=== PATIENT | female | born 1950 | race Caucasian/White ===

== ENCOUNTER 2018-05-25 09:35 | Outpatient (CLI) | payer MEDICARE, OTHER, SELFPAY ==
[2018-05-25 12:33] LABS: HGB 12.5 g/dL (12.0-15.5); Mean Corp. HGB Concentration 32.1 g/dL (32.0-36.0); Mean Corpuscular Hemoglobin 32.4 pg (27.0-33.0); Mean Platelet Volume 9.9 fL (8.0-11.0); Platelet Count 209 x1000/uL (130-400); RBC 3.86 m/cumm (4.00-5.20); RBC Distribution Width 14.9 % (11.7-14.6); White Blood Cell Count 6.48 k/cumm (4.4-10.8)
[2018-05-25 13:13] LABS: ALT 23 U/L (12-78); AST 24 U/L (15-37); Albumin 3.6 g/dL (3.4-5.0); Alkaline Phosphatase 101 U/L (46-116); Anion Gap 5.5 mmol/L (3-11); BUN 23 mg/dL (7-18); Bilirubin, Total 0.8 mg/dL (0.2-1.0); CO2 29.5 mmol/L (21.0-32.0); Calcium 9.7 mg/dL (8.5-10.1); Chloride 103 mmol/L (98-107); Cholesterol 195 mg/dL (50-200); Estimated GFR 49.39 (mL/min/1.73m2); Glucose 84 mg/dL (70-100); HDL Cholesterol 89 mg/dL (40-60); LDL CHOLESTEROL 91 mg/dL (<100); Potassium 4.1 mmol/L (3.5-5.1); Sodium 138 mmol/L (136-145); TSH (W/Ref FT4) 1.37 uIU/mL (0.358-3.74); Total Protein 6.6 g/dL (6.4-8.2); Triglyceride 46 mg/dL (30-150)
[2018-05-25 13:17] LABS: Folate > 20.0 ng/mL (8.6-20.0)
[2018-05-25 13:19] LABS: Vitamin D 25 Total 20.4 ng/ml (30-100)
[2018-05-25 21:21] LABS: Vitamin B12 474 pg/mL (193-986)
== END 2018-05-25 09:55 ==
PROVIDERS: PCP Family Medicine; Visit Provider Family Medicine
DX: E55.9 Vitamin D deficiency, unspecified (principal); E78.5 Hyperlipidemia, unspecified; F31.9 Bipolar disorder, unspecified; R71.8 Other abnormality of red blood cells
CPT/HCPCS: 36415; 80053; 80061; 82306; 83721; 85027; 82607; 82746; 84443

== ENCOUNTER 2018-05-26 00:28 | Outpatient (CLI) | payer MEDICARE, OTHER, SELFPAY ==
--- NOTE | 2018-05-26 09:05 | DI.US_ITS ---
SYMPTOMS/DIAGNOSIS: VESICOURETERAL REFLUX, N13.70, URGENCY OF URINATION, R39.15 , MONITOR FOR HYDRONEPHROSIS, SPINA BIFIDA REFLUX RENAL ULTRASOUND: Routine examination. Comparison is 11/01/17. The right kidney measures 10 cm in length. No renal mass or obstruction is identified. Note is made of a 0.7 cm simple right renal cyst. There does appear to be a tiny echogenic focus in the mid pole of the right kidney suggesting a nonobstructing stone. Blood flow is seen to the right kidney. The left kidney again appears atrophic, measuring approximately 6.4 cm in length. There are a few tiny echogenic foci seen within the left kidney, suggesting nonobstructing stones. The prevoid urinary bladder volume was 270 cc. The bladder wall appeared smooth. Both ureteral jets were visualized. No intraluminal mass is seen. The postvoid urinary bladder volume is 53 cc. IMPRESSION: 1. Findings suggestive of bilateral nonobstructing renal stones. 2. Atrophic left kidney. 3. Mild postvoid urinary bladder volume.
== END 2018-05-26 00:48 ==
PROVIDERS: PCP Family Medicine; Visit Provider Urology
DX: N13.70 Vesicoureteral-reflux, unspecified (principal); R39.15 Urgency of urination; N20.0 Calculus of kidney; N26.1 Atrophy of kidney (terminal)
CPT/HCPCS: 76770; 99213

== ENCOUNTER 2018-06-28 19:30 | Emergency (ER) | payer MEDICARE, OTHER, SELFPAY ==
[2018-06-28] VITALS (30 sets, daily range): BP systolic 118–169; BP diastolic 66–91; PULSE 61–100; RESP 12–23; TEMP 36.3; O2SAT 96–100
--- NOTE | 2018-06-28 20:00 | DI.CT_ITS ---
SYMPTOMS/DIAGNOSIS: CHEST AND ABD PAIN CTA CHEST, ABDOMEN AND PELVIS: CT angiography was performed with multi slice acquisition and multi planar and 3D reconstruction. CHEST: Comparison is made with chest CT dated . There is no evidence of aortic dissection. The pulmonary arteries are suboptimally opacified with IV contrast. No large pulmonary artery filling defects are seen. There is a moderate size hiatal hernia. There is mild scarring in the left anterior chest wall and adjacent lung which could be related to treatment for breast cancer. No suspicious pulmonary nodules are identified. Degenerative changes are seen in the spine. IMPRESSION: Hiatal hernia. No acute abnormality. ABDOMEN AND PELVIC: There is no evidence of dissection of the abdominal aorta. The aorta is normal in diameter. There is a right lower quadrant ostomy. Loops of bowel are seen extending through the ostomy defect. There is no evidence of obstruction. The ostomy was present on the previous exam however there are no herniated bowel loops at this time. The bladder is nearly empty. The uterus and ovaries are unremarkable. The appendix appears normal. There is a moderate to increased quantity of stool. The liver, spleen and adrenals are unremarkable. The pancreas is somewhat atrophic. The right kidney also appears atrophic which is unchanged from the previous exam. A large defect is again noted in the posterior spine containing fluid. This appears congenital. The findings are unchanged. 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
--- NOTE | 2018-06-28 20:07 | ED.GENADUL_ITS ---
Discharge Plan Disposition Patient Disposition: HOME Condition: Stable Discharge Details Chief Complaint: Chest Pain Clinical Impression: Chest pain Primary Care Provider: Faith Adorno ED Provider: Mateusz Farmer Home Meds and New Rx's Prescriptions: Continued Myrbetriq 50 mg tablet extended release 24 hr 50 mg PO DAILY Qty: 90 RF: 4 calcium carbonate-vitamin D3 1 EACH tablet 1 cap PO DAILY RF: 0 oxybutynin chloride 5 MG tablet extended release 24hr 5 mg PO DAILY Qty: 90 RF: 4 omeprazole 40 MG capsule,delayed release(DR/EC) 40 mg PO DAILY Qty: 90 RF: 11 venlafaxine [Effexor XR] 150 MG capsule,extended release 24hr 150 mg PO DAILY Qty: 90 RF: 3 lithium carbonate 150 MG capsule 3 tab-cap PO am Qty: 270 RF: 12 methotrexate sodium 2.5 MG tablet 8 tab PO QWEEK Qty: 72 RF: 12 folic acid 1 mg tablet 1 mg PO DAILY Qty: 90 RF: 12 ergocalciferol (vitamin D2) 50,000 unit capsule 50,000 unit PO QWEEK Qty: 14 RF: 5 Discharge Instructions Instructions: Chest Pain (ED) Additional Instructions: Your blood work and cat scan did not show any concerning findings If you have pain you can take 600mg ibuprofen every 6 hours Follow up with your primary care provider within a week return to the emergency department for severe worsening of pain or difficulty breathing Medical Decision Making 68 yo female comes in with chief complaint of chest and abdominal pain that started shortly after eating dinner. Denies n/v. Has had pain like this in the past but hasn't saught medical attention. She states she has an ostomy as she used to have frequent accidents due to her spina bifida, and has normal stool in it now and denies changes in output. Has mild epigastric pain. Heart score is 3, will send troponin to eval for acs and obtain CT to eval for entities such as dissection, PE, pancreratitis, cholecystitis among other pathologies. Will also treat with gi cocktail to see if it helps her symptoms. Her pain is positional, more pain with lsitting up so could be pericarditis as well labs unremarkable and imaging all negative, no longer has any pain except when sitting up. Suspect maybe pericarditis though no pericardial effusion or change son ekg. Will send second troponin pt remains stable, troponin negative, will d/c home and advised f/u with pcp in a week and returns precautions given Differential Diagnosis pancreatitis, hepatitis, sbo, acs, dissection Imaging Data Radiologic Study: Attestation: I personally reviewed and interpreted this imaging study as follows: Imaging: CT Scan Radiologist's impression: no acute findings Lab Data Lab results reviewed: Yes I reviewed the patient's lab results. ECG Data Attestation: I personally reviewed and interpreted this ECG (s) as follows: Prior ECG tracings: not available for review Interpretation: sinus rhythm, rate of 69, pr 156, qtc 403, no acute st t wave ischemic findings HPI General Mode of arrival: ambulatory . Date/Time Provider Initiated Documentation: 06/28/18 19:53 . Limitations to Documentation: no limitations . Information obtained by: patient . History of Present Illness 68 year old F presents to the emergency department with the chief complaint of chest and abdominal pain, described as moderate, with intensity rated at 3. Quality is described as stabbing and aching, and is localized to the chest and abdomen. Patient reports no radiation. Patient started experiencing this hour(s) (3) and it has been intermittent. other things that improve symptom(s), (laying down flat) Other factors that worsen symptoms (sitting up) . Patient notes no other symptoms.. Patient did receive the following treatments prior to arrival, none Related Data Home Medications Medication Instructions Recorded Confirmed calcium carbonate-vitamin D3 1 cap PO DAILY 04/03/15 06/28/18 oxybutynin chloride 5 mg PO DAILY #90 tab-cap 09/08/17 06/28/18 omeprazole 40 mg PO DAILY #90 tab-cap 10/25/17 05/26/18 lithium carbonate 3 tab-cap PO am #270 tab-cap 12/06/17 06/28/18 methotrexate sodium 8 tab PO QWEEK #72 tab 12/06/17 06/28/18 venlafaxine [Effexor XR] 150 mg PO DAILY #90 tab-cap 12/06/17 06/28/18 mirabegron ER 50 mg 50 mg PO DAILY #90 tab-cap 05/23/18 06/28/18 tablet,extended release 24 hr ergocalciferol (vitamin D2) 50,000 50,000 unit PO QWEEK #14 cap 05/25/18 06/28/18 unit capsule folic acid 1 mg tablet 1 mg PO DAILY #90 tab-cap 05/25/18 06/28/18 Previous Rx's Medication Instructions Recorded oxybutynin chloride 5 mg PO DAILY #90 tab-cap 09/08/17 omeprazole 40 mg PO DAILY #90 tab-cap 10/25/17 lithium carbonate 3 tab-cap PO am #270 tab-cap 12/06/17 methotrexate sodium 8 tab PO QWEEK #72 tab 12/06/17 venlafaxine [Effexor XR] 150 mg PO DAILY #90 tab-cap 12/06/17 mirabegron ER 50 mg 50 mg PO DAILY #90 tab-cap 05/23/18 tablet,extended release 24 hr ergocalciferol (vitamin D2) 50,000 50,000 unit PO QWEEK #14 cap 05/25/18 unit capsule folic acid 1 mg tablet 1 mg PO DAILY #90 tab-cap 05/25/18 Allergies Allergy/AdvReac Type Severity Reaction Status Date / Time phenelzine sulfate AdvReac Intermediate Neuro Unverified 06/28/18 21:06 [From Nardil] changes/loss of bladder control sucralfate [From Carafate] AdvReac Mild Diarrhea Unverified 06/28/18 21:06 General Stated Complaint: Chest Pain PARI: 2 Review of Systems Review of Systems All systems reviewed & are unremarkable except as noted in HPI and below Constitutional Denies chills, Denies fever(s) and Denies weakness Eyes Denies loss of vision ENT Denies change in voice Cardiovascular Denies dyspnea Respiratory Denies dyspnea Gastrointestinal Denies nausea and Denies vomiting Genitourinary Denies dysuria Musculoskeletal Denies joint swelling Integumentary/Breasts Denies rash Neurologic Denies loss of vision and Denies weakness Psychiatric Denies depression Endocrine Denies cold intolerance and Denies heat intolerance Allergic/Immunologic Denies urticaria [facility] Medical History Urgency of urination (Chronic 02/09/12) Spina bifida (Chronic 05/08/15) Shoulder pain (Chronic 01/28/15) Right hip pain (Chronic 11/14/14) Rheumatoid arthritis (Chronic 08/22/12) Osteoporosis (Chronic) Osteochondral defect (Chronic 09/12/16) Malignant neoplasm of female breast (Chronic) Low back pain (Chronic 11/14/14) Incontinence of feces (Resolved) Hiatal hernia (Chronic 03/14/14) Headache (Chronic) Gait abnormality (Chronic) Falls frequently (Chronic 08/16/17) Depressed bipolar I disorder (Chronic) Constipation (Chronic) 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) Closed fracture of radius and ulna (Resolved) Chronic pain of left knee (Chronic 01/05/16) Chronic left-sided low back pain with left-sided sciatica (Chronic 05/10/17) Chronic GERD (Chronic 10/25/17) Cellulitis and abscess of lower extremity (Resolved 11/09/16) Arnold-Chiari syndrome with spina bifida (Chronic) Acquired hammer toe (Chronic) Arnold-Chiari syndrome Closed fracture distal radius and ulna Colostomy in place Depressed bipolar I disorder GERD (gastroesophageal reflux disease) Headache Hiatal hernia Rheumatoid arthritis Spina bifida Urinary incontinence Uterine leiomyoma Surgical History Arthroscopy Breast, Mastectomy (05/03/11) Colostomy (~2001) EGD - MAC (11/21/17) Fracture, Closed Treatment (11/23/12) SPINE SURGERY (~1950) Family History Mother Brain tumor Father Arthritis Brother Essential hypertension Heart disease Stroke Maternal Grandfather Essential hypertension Heart disease Paternal Grandfather No problems noted. Maternal Grandmother Diabetes Essential hypertension Heart disease Paternal Grandmother No problems noted. Brother Cancer Daughter No problems noted. Daughter No problems noted. Brother No problems noted. Social History frequency: does not exercise Smoking/Tobacco Use Status: Never second hand exposure: Yes alcohol intake: current alcohol intake frequency: 0-2 drinks per day substance use type: does not use leta/mandaen: Denominational special leta needs: No Exam Const General: no acute distress Orientation: alert HENMT Head: normal to inspection Ears: external ears normal General nose exam: external nose normal Mouth: moist mucous membranes Eyes General: appearance normal, both eyes and all related structures Neck Neck: normal visual inspection Resp Effort & Inspection: normal respiratory effort and able to speak in complete sentences Cardio Rate: regular rate GI Palpation: soft Skin General skin exam: no rashes or lesions noted Neuro General: alert and oriented x3 Extrem General: normal to inspection Psych Mental Status: mental status grossly normal Course Vital Signs Temperature 36.3 C L 06/28/18 19:42 Pulse 67 06/28/18 19:42 Respiratory Rate 15 06/28/18 19:42 Blood Pressure 169/69 H 06/28/18 19:42 Pulse Oximetry 100 06/28/18 19:42 Temperature 36.3 C L 06/28/18 19:42 Temperature Source Skin 06/28/18 19:42 Pulse 67 06/28/18 19:42 Respiratory Rate 15 06/28/18 19:42 Blood Pressure 169/69 H 06/28/18 19:42 Blood Pressure Position Supine 06/28/18 19:42 Pulse Oximetry 100 06/28/18 19:42 Oxygen Delivery Method Room Air 06/28/18 19:42 Oxygen Flow Rate 0 06/28/18 19:42 Pain Level 9 06/28/18 19:42
[2018-06-28 20:26] LABS: Abs Immature Grans 0.01 k/cumm (0.0-0.09); Absolute Basophil Count 0.02 k/cumm (0.0-0.2); Absolute Eosinophil Count 0.18 k/cumm (0.0-0.7); Absolute Lymphocyte Count 1.01 k/cumm (1.2-3.4); Absolute Monocyte Count 0.42 k/cumm (0.11-0.7); Absolute Neutrophil Count 3.64 k/cumm (1.2-6.7); Basophils % 0.4; Eosinophils % 3.4; HCT 39.7 % (36.0-46.0); Immature Grans % 0.2; Lymphocytes % 19.1; Mean Corp. HGB Concentration 32.7 g/dL (32.0-36.0); Mean Corpuscular Hemoglobin 32.7 pg (27.0-33.0); Neutrophils % 68.9; Platelet Count 242 x1000/uL (130-400); RBC 3.97 m/cumm (4.00-5.20); RBC Distribution Width 14.5 % (11.7-14.6); White Blood Cell Count 5.28 k/cumm (4.4-10.8)
[2018-06-28] MEDS: Omnipaque 350 MG/ML 100 ML BTL IJ (20:36)
[2018-06-28 20:48] LABS: Lithium 1.26 mmol/L (0.60-1.20)
[2018-06-28 20:51] LABS: ALT 23 U/L (12-78); AST 23 U/L (15-37); Albumin 3.4 g/dL (3.4-5.0); Alkaline Phosphatase 101 U/L (46-116); Anion Gap 4.1 mmol/L (3-11); BUN 24 mg/dL (7-18); Bilirubin, Direct 0.09 mg/dL (0.00-0.20); Bilirubin, Total 0.3 mg/dL (0.2-1.0); CO2 31.9 mmol/L (21.0-32.0); Chloride 104 mmol/L (98-107); Glucose 110 mg/dL (70-100); Lipase 119 U/L (73-393); Potassium 4.2 mmol/L (3.5-5.1); Sodium 140 mmol/L (136-145)
[2018-06-28 20:54] LABS: INR 0.9 (0.9-1.1); PTT Activated 21.7 sec (21.0-31.4); Prothrombin Time 9.4 sec (9.3-11.0)
[2018-06-28 21:06] LABS: CREATININE 1.28 mg/dL (0.55-1.02); Estimated GFR 41.47 (mL/min/1.73m2); Troponin I < 0.02 ng/mL (0.00-0.06)
[2018-06-28 21:10] LABS: Calcium 10.4 mg/dL (8.5-10.1)
--- NOTE | 2018-06-28 21:38 | DI.VRAD_ITS ---
EXAM: CT Angiography Chest With Contrast EXAM DATE/TIME: 06/28/2018 8:02 PM CLINICAL HISTORY: 68 years old, female; Chest pain; Abdominal pain; Prior surgery; date: 6+ months; Colostomy TECHNIQUE: Axial computed tomographic angiography images of the chest with intravenous contrast using CT angiography protocol. All CT scans at this facility use at least one of these dose optimization techniques: automated exposure control; mA and/or kV adjustment per patient size (includes targeted exams where dose is matched to clinical indication); or iterative reconstruction. Coronal and sagittal reformatted images were created and reviewed. MIP reconstructed images were created and reviewed. CONTRAST: 65 ml of [id number] administered intravenously. COMPARISON: CT CHEST ABD PELVIS WITH CONTRAST 08/06/2011 5:27 PM FINDINGS: Pulmonary arteries: Normal. No pulmonary emboli. Aorta: Normal. No aortic aneurysm. No aortic dissection. Lungs: Normal. No consolidation. No masses. Pleural space: Normal. No pneumothorax. No pleural effusion. Heart: 3 mm benign nodule within the posterolateral right lung base and stable benign nodular density adjacent to the right heart (image 28, series 2) compared to 08/06/2011 Mediastinum: Moderate hiatal hernia. Lymph nodes: Unremarkable. No enlarged lymph nodes. Bones/joints: Spinal degenerative changes. Soft tissues: Unremarkable. IMPRESSION: 1. Moderate hiatal hernia. 2. Otherwise, compared to 08/06/2011, no acute intrathoracic findings. EXAM: CT Angiography Abdomen and Pelvis With Contrast EXAM DATE/TIME: 06/28/2018 8:02 PM CLINICAL HISTORY: 68 years old, female; Chest pain; Abdominal pain; Prior surgery; date: 6+ months; Colostomy TECHNIQUE: Axial computed tomographic angiography images of the abdomen and pelvis with intravenous contrast material, including non-contrast images if performed. MIP and/or 3D reconstructed images were created and reviewed. All CT scans at this facility use at least one of these dose optimization techniques: automated exposure control; mA and/or kV adjustment per patient size (includes targeted exams where dose is matched to clinical indication); or iterative reconstruction. Coronal and sagittal reformatted images were created and reviewed. MIP reconstructed images were created and reviewed. COMPARISON: CT CHEST ABD PELVIS WITH CONTRAST 08/06/2011 5:27 PM FINDINGS: Mediastinum: Moderate hiatal hernia. VASCULATURE: Aorta: No aortic aneurysm. No aortic dissection. Celiac trunk and mesenteric arteries: No occlusion or significant stenosis. Renal arteries: No occlusion or significant stenosis. Right iliac arteries: No occlusion or significant stenosis. Right femoral/popliteal arteries: No occlusion or significant stenosis of the imaged proximal femoral artery. The popliteal artery was not imaged. Left iliac arteries: No occlusion or significant stenosis. Left femoral/popliteal arteries: No occlusion or significant stenosis of the imaged proximal femoral artery. The popliteal artery was not imaged. ABDOMEN: Liver: No mass. Gallbladder and bile ducts: Unremarkable. No calcified stones. No ductal dilation. Pancreas: Unremarkable. No mass. No ductal dilation. Spleen: Unremarkable. No splenomegaly. Adrenals: Unremarkable. No mass. Kidneys and ureters: Compared to 08/06/2011, stable lobulated area of the superolateral left renal cortex. A few hypodensities within the renal cortex bilaterally which are too small to definitively characterize. No hydronephrosis. Left renal atrophy. 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 Left lower quadrant colostomy. No generalized ileus or bowel obstruction. Appendix: No evidence of appendicitis. PELVIS: Bladder: Unremarkable. No mass. Reproductive: Atrophic uterus and ovaries. ABDOMEN and PELVIS: Intraperitoneal space: Unremarkable. No free air. No significant fluid collection. Bones/joints: Spinal degenerative changes. Stable lower lumbar meningocele. Soft tissues: Unremarkable. Lymph nodes: Unremarkable. No enlarged lymph nodes. IMPRESSION: 1. Left lower quadrant colostomy. No generalized ileus or bowel obstruction. 2. No acute intra-abdominal or pelvic process compared to 08/06/2011. Dictated and Authenticated by: Ken Adames MD. Ordering:MITRA Child MD
[2018-06-28 22:16] LABS: Troponin I < 0.02 ng/mL (0.00-0.06)
--- NOTE | 2018-06-29 08:47 | PDOC.ERCMPRO ---
Care Management Progress Note 06/29-Dr. Farmer requested assistance with a PCP (Tila) f/u in one week for chest pain. Referral faxed to [facility] this am.
== END 2018-06-28 22:45 | disposition home or self-care (01) ==
PROVIDERS: Emergency Provider Emergency Medicine; PCP Family Medicine
DX: R07.9 Chest pain, unspecified (principal); R10.13 Epigastric pain
CPT/HCPCS: 36415; 74177; 80053; 80076; 83690; 93005; 99285; 80178; 83735; 84484; 85025; 85610; 85730; 93010; J3490

== ENCOUNTER 2018-07-03 10:01 | Outpatient (CLI) | payer MEDICARE, OTHER, SELFPAY ==
[2018-07-03 13:08] LABS: Lithium 0.58 mmol/L (0.60-1.20)
[2018-07-03 13:59] LABS: ALT 19 U/L (12-78); AST 22 U/L (15-37); Albumin 3.5 g/dL (3.4-5.0); Alkaline Phosphatase 93 U/L (46-116); BUN 19 mg/dL (7-18); Bilirubin, Total 0.4 mg/dL (0.2-1.0); CREATININE 1.25 mg/dL (0.55-1.02); Calcium 9.5 mg/dL (8.5-10.1); Chloride 106 mmol/L (98-107); Estimated GFR 42.62 (mL/min/1.73m2); Glucose 88 mg/dL (70-100); Potassium 4.1 mmol/L (3.5-5.1); Sodium 141 mmol/L (136-145); Total Protein 6.6 g/dL (6.4-8.2); Vitamin B12 570 pg/mL (193-986)
== END 2018-07-03 10:21 ==
PROVIDERS: PCP Family Medicine; Visit Provider Family Medicine
DX: F31.89 Other bipolar disorder (principal); Z51.81 Encounter for therapeutic drug level monitoring; R71.8 Other abnormality of red blood cells; K44.9 Diaphragmatic hernia without obstruction or gangrene; R10.13 Epigastric pain
CPT/HCPCS: 36415; 80053; 80178; 82607

== ENCOUNTER 2018-07-05 00:11 | Outpatient (CLI) | payer MEDICARE, OTHER, SELFPAY ==
--- NOTE | 2018-07-05 07:14 | MERGEMPI_ITS ---
*[facility]* *[facility]* [address] [place] [address] Myocardial Perfusion Imaging - SPECT Regadenoson Date of study: 07/05/2018 *PATIENT PRESENTATION* Height: 157.5cm (62in) Blood Pressure: Weight: 68.2kg (150lb) BSA: 1.75m^2 Referring physician: Michael Townsend Ordering physician: Faith Adorno Impressions: Normal study after pharmacologic stress. Summary: 1. Myocardial perfusion imaging: No myocardial perfusion defects noted. 2. The calculated left ventricular ejection fraction after stress: 61%. LV global systolic function is normal. No left ventricular regional motion abnormality. 3. Stress ECG conclusions: The stress ECG is negative. Indication: R07.9. History: REASON FOR TESTING: PATIENT HAS BEEN HAVING INTERMITTENT ( 2-3 TIMES PER WEEK) SHARP MIDSTERNAL CHEST PAIN WHICH STARTED APPROXIMATELY ONE MONTH AGO. CHEST PAIN LASTS APPROXIMATELY 30 MINUTES AND IS RELIEVED BY LYING DOWN. SMOKING STATUS: NEVER EXERCISE ROUTINE: NO DAILY EXERCISE. Risk factors: Family history of coronary artery disease. Cholesterol: 195mg/dl. HDL: 89mg/dl. LDL: 91mg/dl. Triglycerides: 46mg/dl. ALLERGIES: SULCRAFATE, PHENEIZINE SULFATE. MEDICATIONS:CALCIUM CARBONATE-VITAMIN D 3 DAILY, OXYBUTYNIN CHLORIDE 5 MG DAILY, OMEPRAZOLE 40 MG DAILY, LITHIUM CARBONATE DAILY, METHOTREXATE SODIUM 20 MG WEEKLY, VENLAFAXINE 150 MG DAILY, MIRABEGRON ER 50 MG DAILY, VITAMIN D2 30824 UNITS WEEKLY, FOLIC ACID 1 MG DAILY. Imaging Technique: Protocol: Regadenoson. Acquisition: Gated SPECT; 1 day - rest/stress. The patient was imaged in the supine position. Attenuation correction used. Isotope administration: - Rest. Tc[99m]-sestamibi. Dose: 10.6mCi. Injection time: 09:40 AM. Injection to stress time: 00:45. - Stress. Tc[99m]-sestamibi. Dose: 30mCi. Injection time: 12:45 PM. 1-2 min before end of exercise Baseline ECG: SINUS RHYTHM. HEART RATE 74 BPM. Stress protocol: +--------+--+ + + !Stage !HR!BP (mmHg) !Comments ! +--------+--+ + + !Baseline!74!160/80 (107)! ! +--------+--+ + + !1 min !90!140/78 (99) !Inject Regadenoson.! +--------+--+ + + !3 min !85!148/80 (103)! ! +--------+--+ + + !6 min !83!160/80 (107)! ! +--------+--+ + + * Stress results: The rate-pressure product for the peak heart rate and blood pressure was 99991is Hg/min. Stress ECG: STRESS TEST ENDED IN 7 MINUTES 48 SECONDS. NORMAL HEART RATE AND BLOOD PRESSURE RESPONSE TO LEXISCAN INJECTION. NO ECTOPY. MID STERNAL CHEST PRESSURE 4/10 FOUR MINUTES POST LEXISCAN INJECTION. DULL ACHE IN LEFT JAW AT 5 MINUTES POST LEXISCAN INJECTION. MID STERNAL CHEST PAIN AND DULL ACHE IN LEFT JAW COMPLETELY GONE BY 7 MINUTES POST LEXISCAN INJECTION. NO SIGNIFICANT ST SEGMENT CHANGES. The stress ECG is negative. Myocardial perfusion: Imaging information: gated. The image quality was excellent. Left ventricular size is normal. No myocardial perfusion defects noted. Ventricular Function (Wall Motion): The calculated left ventricular ejection fraction after stress: 61%. LV global systolic function is normal. No left ventricular regional motion abnormality. Study data: Michael Townsend MD supervised and was readily available during the procedure. This study was interpreted by [facility]. Study status: Routine. Consent: The risks, benefits, and alternatives to the procedure were explained to the patient and informed consent was obtained. Procedure: Initial setup. A baseline ECG was recorded. Surface ECG leads and manual cuff blood pressure measurements were monitored. Heart sounds: Normal. Lung sounds: Normal. Regadenoson stress test. Stress testing was performed, with regadenoson by intravenous bolus, for a total dose of 0.4mgover 10.00sec, followed by a 5ml saline flush. The infusion was terminated due to per protocol. Study completion: All catheters inserted during the procedure were removed. The patient tolerated the procedure well and was discharged from the lab. Discharge: The patient left the laboratory in stable condition. Birthdate: Patient birthdate: 1950. Sex: Gender: female. Study date: Study date: 07/05/2018. Study time: 07:14 AM. Signature Documentation: - The imaging portion of this study was interpreted by [employer] Michael Townsend MD. - The Stress ECG portion of this study was interpreted by Michael Townsend MD. Electronically signed by Michael Townsend 07/05/2018 14:54
[2018-07-05] MEDS: Regadenoson 0.4 MG/5 ML SYR IVP (13:16)
== END 2018-07-05 00:31 ==
PROVIDERS: PCP Family Medicine; Visit Provider Family Medicine
DX: R07.9 Chest pain, unspecified (principal); E78.5 Hyperlipidemia, unspecified; Z82.49 Family history of ischemic heart disease and other diseases of the circulatory system
CPT/HCPCS: 78452; 93016; 93018; 93017; J2785

== ENCOUNTER 2018-11-20 06:48 | Day surgery (SDC) | payer MEDICARE, OTHER, SELFPAY ==
--- NOTE | 2018-11-19 17:38 | W.PIPPEYE ---
History of Present Illness Chief Complaint: Progressive decreased vision, right eye Narrative: The patient is a 68-year-old female with history of progressive decreased vision in both eyes at both distance and near, right eye worse than left. On examination she was noted to have moderate bilateral nuclear and cortical cataracts. She was significantly symptomatic that she desired cataract surgery and attempt to improve and maximize her vision. NOTE: The Chief Complaint, HPI, Past Medical History, Past Surgical History, Family History, Social History, Medications, and complete Ophthalmic Exam with detailed Assessment and Plan have already been documented in the patient's outpatient ophthalmic record and are not covered again in detail here. 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 (Chronic 05/10/17) Chronic GERD (Chronic 10/25/17) Acquired hammer toe (Chronic) Abdominal pain (Resolved) Arnold-Chiari syndrome with spina bifida (Resolved) CRP elevated (Resolved) Cellulitis and abscess of lower extremity (Resolved 11/09/16) Chronic pain of left knee (Resolved 01/05/16) Closed fracture of radius and ulna (Resolved) Follicular cyst of ovary (Resolved) Gait abnormality (Resolved) Incontinence of feces (Resolved) Malignant neoplasm of female breast (Resolved) Malignant neoplasm of female breast (Resolved) Osteochondral defect (Resolved 03/01/16) Rectal fullness (Resolved) Uterine leiomyoma (Resolved) Arnold-Chiari syndrome Closed fracture distal radius and ulna Colostomy in place Depressed bipolar I disorder GERD (gastroesophageal reflux disease) Headache Hiatal hernia Rheumatoid arthritis Spina bifida Urinary incontinence Uterine leiomyoma Surgical History History of lumpectomy of right breast (Acute) H/O Spinal surgery (Resolved) H/O arthroscopy (Resolved) Arthroscopy Breast, Mastectomy (05/03/11) Colostomy (~2001) EGD - MAC (11/21/17) Fracture, Closed Treatment (11/23/12) SPINE SURGERY (~1951) Social History Smoking/Tobacco Use Status: Never Second Hand Exposure: Yes Alcohol Intake: current Alcohol Intake frequency: a few times a week Drug use: Never Substance use type: does not use Frequency: does not exercise Sherlyn/Mormonism: Anabaptism Special sherlyn needs: No Do you feel safe at home: Yes Do you feel safe in your relationship?: Yes Meds Home Medications Medication Instructions Recorded Confirmed Type calcium carbonate-vitamin D3 1 cap PO DAILY 04/03/15 11/14/18 History oxybutynin chloride 5 mg PO DAILY #90 tab-cap 09/08/17 11/14/18 Rx omeprazole 40 mg PO DAILY #90 tab-cap 10/25/17 11/14/18 Rx lithium carbonate 3 tab-cap PO am #270 tab-cap 12/06/17 11/14/18 Rx methotrexate sodium 8 tab PO QWEEK #72 tab 12/06/17 11/14/18 Rx venlafaxine [Effexor XR] 150 mg PO DAILY #90 tab-cap 12/06/17 11/14/18 Rx mirabegron ER 50 mg 50 mg PO DAILY #90 tab-cap 05/23/18 11/14/18 Rx tablet,extended release 24 hr folic acid 1 mg tablet 1 mg PO DAILY #90 tab-cap 05/25/18 11/14/18 Rx loratadine [Claritin] 10 mg PO DAILY 11/14/18 11/14/18 History Allergies Allergy/AdvReac Type Severity Reaction Status Date / Time phenelzine sulfate AdvReac Intermediate Neuro Unverified 11/14/18 12:17 [From Nardil] changes/loss of bladder control sucralfate [From Carafate] AdvReac Mild Diarrhea Unverified 11/14/18 12:17 Exam OCULAR EXAM:: Most recent ocular examination was significant for corrected visual acuity of 20/40 OD, 20/30 OS. Intraocular pressure is 16 OD, 15 OS. Pupils equal, round, and reactive without afferent pupillary defect. Alternating exotropia is present. Slit-lamp examination is significant for pupils dilating to 4.5 mm OU. 1+ nuclear/cortical cataract OU. Dilated funduscopic examination shows disc cupping of 0.3 OU with good color. Macular drusen are present OU. Peripheral retina and vitreous is normal. BRIGHTNESS ACUITY TESTING (BAT):: Brightness acuity testing of the right eye office is 20/40. On the low medium and high setting is 20/50. Assessment and Plan (1) Cortical cataract of right eye: Current visit: No Status: Acute Assessment: Visually significant cataract, right eye. Plan: Cataract extraction with intraocular lens implantation, right eye (2) Nuclear sclerotic cataract of right eye: Current visit: No Status: Acute Assessment: Visually significant cataract, right eye. Plan: Cataract extraction with intraocular lens implantation, right eye Note: NOTE:: The details of the planned surgery, including the risks, indications,limitations,expectations,outcome and possible complications were explained to the patient. The patient understands the complications including, but not limited to: infection, hemorrhage, posterior dislocation of the lens or nuclear fragments which may require the intervention of a vitreoretinal surgeon, possible loss of the eye, or from anesthetic complications. The patient has been made aware of the option of not having surgery, that vision following surgery may not be equal to that prior to surgery, and that the planned surgery may not achieve the intended results. Following this discussion, which the patient appeared to understand, the patient wishes to proceed with cataract surgery with lens implantation of the affected eye to improve and maximize vision.
--- NOTE | 2018-11-19 17:46 | POEE_ITS ---
History of Present Illness Chief Complaint: Progressive decreased vision, right eye Narrative: The patient is a 68-year-old female with history of progressive decreased vision in both eyes at both distance and near, right eye worse than left. On examination she was noted to have moderate bilateral nuclear and cor tical cataracts. She was significantly symptomatic that she desired cataract surgery and attempt to improve and maximize her vision. NOTE: The Chief Complaint, HPI, Past Medical History, Past Surgical History, Family History, Social History, Medications, and complete Ophthalmic Exam with detailed Assessment and Plan have already been documented in the patient's outpatient ophthalmic record and are not covered again in detail here. 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 (Chronic 05/10/17) Chronic GERD (Chronic 10/25/17) Acquired hammer toe (Chronic) Abdominal pain (Resolved) Arnold-Chiari syndrome with spina bifida (Resolved) CRP elevated (Resolved) Cellulitis and abscess of lower extremity (Resolved 11/09/16) Chronic pain of left knee (Resolved 01/05/16) Closed fracture of radius and ulna (Resolved) Follicular cyst of ovary (Resolved) Gait abnormality (Resolved) Incontinence of feces (Resolved) Malignant neoplasm of female breast (Resolved) Malignant neoplasm of female breast (Resolved) Osteochondral defect (Resolved 03/01/16) Rectal fullness (Resolved) Uterine leiomyoma (Resolved) Arnold-Chiari syndrome Closed fracture distal radius and ulna Colostomy in place Depressed bipolar I disorder GERD (gastroesophageal reflux disease) Headache Hiatal hernia Rheumatoid arthritis Spina bifida Urinary incontinence Uterine leiomyoma Surgical History History of lumpectomy of right breast (Acute) H/O Spinal surgery (Resolved) H/O arthroscopy (Resolved) Arthroscopy Breast, Mastectomy (05/03/11) Colostomy (~2001) EGD - MAC (11/21/17) Fracture, Closed Treatment (11/23/12) SPINE SURGERY (~1950) Social History Smoking/Tobacco Use Status: Never Second Hand Exposure: Yes Alcohol Intake: current Alcohol Intake frequency: a few times a week Drug use: Never Substance use type: does not use Frequency: does not exercise Sherlyn/Islam: Denominational Special sherlyn needs: No Do you feel safe at home: Yes Do you feel safe in your relationship?: Yes Meds Home Medications Medication Instructions Recorded Confirmed Type calcium carbonate-vitamin D3 1 cap PO DAILY 04/03/15 11/14/18 History oxybutynin chloride 5 mg PO DAILY #90 tab-cap 09/08/17 11/14/18 Rx omeprazole 40 mg PO DAILY #90 tab-cap 10/25/17 11/14/18 Rx lithium carbonate 3 tab-cap PO am #270 tab-cap 12/06/17 11/14/18 Rx methotrexate sodium 8 tab PO QWEEK #72 tab 12/06/17 11/14/18 Rx venlafaxine [Effexor XR] 150 mg PO DAILY #90 tab-cap 12/06/17 11/14/18 Rx mirabegron ER 50 mg 50 mg PO DAILY #90 tab-cap 05/23/18 11/14/18 Rx tablet,extended release 24 hr folic acid 1 mg tablet 1 mg PO DAILY #90 tab-cap 05/25/18 11/14/18 Rx loratadine [Claritin] 10 mg PO DAILY 11/14/18 11/14/18 History Allergies Allergy/AdvReac Type Severity Reaction Status Date / Time phenelzine sulfate AdvReac Intermediate Neuro Unverified 11/14/18 12:17 [From Nardil] changes/loss of bladder control sucralfate [From Carafate] AdvReac Mild Diarrhea Unverified 11/14/18 12:17 Exam OCULAR EXAM:: Most recent ocular examination was significant for corrected visual acuity of 20/40 OD, 20/30 OS. Intraocular pressure is 16 OD, 15 OS. Pupils equal, round, and reactive without afferent pupillary defect. Alternatin g exotropia is present. Slit-lamp examination is significant for pupils dilating to 4.5 mm OU. 1+ nuclear/cortical cataract OU. Dilated funduscopic examination shows disc cupping of 0.3 OU with good color. Macular drusen are present OU. Peripheral retina and vitreous is normal. BRIGHTNESS ACUITY TESTING (BAT):: Brightness acuity testing of the right eye office is 20/40. On the low medium and high setting is 20/50. Assessment and Plan (1) Cortical cataract of right eye: Current visit: No Status: Acute Assessment: Visually significant cataract, right eye. Plan: Cataract extraction with intraocular lens implantation, right eye (2) Nuclear sclerotic cataract of right eye: Current visit: No Status: Acute Assessment: Visually significant cataract, right eye. Plan: Cataract extraction with intraocular lens implantation, right eye Note: NOTE:: The details of the planned surgery, including the risks, indications,limitations,expectations,outcome and possible complications were explained to the patient. The patient understands the complications including, but not limited to: infection, hemorrhage, posterior dislocation of the lens or nuclear fragments which may require the intervention of a vitreoretinal surgeon, possible loss of the eye, or from anesthetic complications. The patient has been made aware of the option of not having surgery, that vision following surgery may not be equal to that prior to surgery, and that the planned surgery may not achieve the intended results. Following this discussion, which the patient appeared to understand, the patient wishes to proceed with cataract surgery with lens implantation of the affected eye to improve and maximize vision.
[2018-11-20] MEDS: Tropicam./Phenyleph. (1/2.5%) 5 ML BTL OD ×3 (07:09→07:32)
[2018-11-20] MEDS: Tetracaine 0.5% 4 ML BTL OD ×4 (07:15→08:38)
[2018-11-20 07:26] VITALS: BP 131/74; PULSE 69; RESP 18; TEMP 36.7; O2SAT 96
[2018-11-20] MEDS: Lidocaine 2% Jelly 6 ML SYR (08:38)
[2018-11-20] MEDS: Povidone-Iodine Ophth 30 ML BTL ×2 (08:38→09:06)
[2018-11-20] MEDS: Balanced Salt Soln.-PLUS 500 ML BAG (08:44)
[2018-11-20] MEDS: Lidocaine 1% Pres-Free 5 ML VIAL (08:44)
--- NOTE | 2018-11-20 09:12 | W.PM.DSUDISC ---
Discharge Plan Disposition Patient Disposition: HOME Condition: Stable Discharge Details Attending Provider: Sharad Pryor Primary Care Provider: Faith Adorno Home Meds and New Rx's Prescriptions: No Action Myrbetriq 50 mg tablet extended release 24 hr 50 mg PO DAILY Qty: 90 RF: 4 calcium carbonate-vitamin D3 1 EACH tablet 1 cap PO DAILY RF: 0 oxybutynin chloride 5 MG tablet extended release 24hr 5 mg PO DAILY Qty: 90 RF: 4 omeprazole 40 MG capsule,delayed release(DR/EC) 40 mg PO DAILY Qty: 90 RF: 11 venlafaxine [Effexor XR] 150 MG capsule,extended release 24hr 150 mg PO DAILY Qty: 90 RF: 3 lithium carbonate 150 MG capsule 3 tab-cap PO am Qty: 270 RF: 12 methotrexate sodium 2.5 MG tablet 8 tab PO QWEEK Qty: 72 RF: 12 folic acid 1 mg tablet 1 mg PO DAILY Qty: 90 RF: 12 loratadine [Claritin] 10 mg Tablet 10 mg PO DAILY RF: 0 Discharge Instructions Stand Alone Forms: Post-op Topical Cataract, Urmila Mejia (DSU) Discharge Orders Discharge Orders: Discharge Order (Routine); Ordered 11/20/18 Ordered By: Sharad Pryor DS: Diagnosis Discharge Diagnosis (1) Cortical cataract of right eye: Status: Acute (2) Nuclear sclerotic cataract of right eye: Status: Resolved (3) Status post cataract extraction and insertion of intraocular lens of right eye: Status: Chronic
--- NOTE | 2018-11-20 09:14 | W.PM.OP ---
Date of service: 11/20/18 Time of Service: 09:16 Operative Note PRE-OP DIAGNOSIS: Cataract, right eye PROCEDURE: Cataract extraction using phacoemulsification with intraocular lens implant, right eye SURGEON: Sharad Pryor ANESTHESIA: MAC and local (sub-tenon's anesthetic infiltration) ESTIMATED BLOOD LOSS: 0 PATHOLOGY: none sent COMPLICATIONS: None Patient was transported to: same day Patient's condition: stable Implants: [employer] / [employer] Tecnis ZCB00 intraocular lens Indications: Progressive decreased vision due to cataract, right eye Procedure Description: CATARACT SURGERY OPERATIVE REPORT PREOPERATIVE DIAGNOSIS: Nuclear/cortical cataract, right eye POSTOPERATIVE DIAGNOSIS: Same OPERATION: Cataract extraction using phacoemulsification with posterior chamber intraocular lens implant, right eye. IOL: IOL Geotechnical Department Manager/Model: J&J Vision / CHRISSIE Tecnis ZCB00 IOL Power: + 20.0 diopters IOL Serial Number: [id number] Optic Diameter: 6.0mm Haptic/Overall Diameter: 13.0mm PHACO INFO: Seth [employer]ion Vision System with OZil and Active Fluidics Cumulative Dispersed Energy (CDE): 7.93 seconds SURGEON: Sharad Pryor MD, MAMTA ANESTHESIA: Monitored Anesthesia Care (MAC), with local sub-tenon's anesthetic infiltration COMPLICATIONS: None SPECIMENS: None INDICATIONS FOR PROCEDURE: The patient is a 68-year-old lady with history of diminished visual acuity in her right eye who was noted to have significant nuclear and cortical cataract in the right eye. The option of cataract surgery was offered to the patient and she wished to proceed. PROCEDURE: The correct surgical eye was identified and marked as the right eye and the pupil was dilated in the preoperative area using mydriatics and cycloplegics. The dilated pupil size was 6.0 mm. Oral sedation was administered in the form of an Imprimis MKO Melt (midazolam 3mg/ketamine 25mg/ondansetron 2mg). The patient was brought to the operating room where cardiopulmonary monitoring was instituted and surgical time-out was performed, confirming the correct operative eye and IOL power. Topical anesthesia was administered and ophthalmic povidone-iodine 5% was instilled into the conjunctival fornices. Lidocaine gel was applied to the cornea and the ml-ocular area was prepped with Betadine 10% solution and draped in the usual sterile fashion for intraocular surgery, including an aperture drape. A Tegaderm transparent film dressing was cut in half and used to cover the lashes and lid margins. Care was taken to sequester the lashes and lid margins under the Tegaderm dressing. A lid speculum was placed between the lids of the operative eye and the Merlyn-Cleveland operating microscope was maneuvered into position. Yecenia scissors were then used to make a conjunctival buttonhole approximately 6mm posterior to the limbus in the inferonasal quadrant. Blunt dissection was carried out to expose bare sclera, and a blunt-tipped sub-tenon?s anesthesia cannula was introduced and passed posteriorly along the globe where non-preserved plain lidocaine was injected into posterior sub-Tenon?s space. A sideport knife was used to make a paracentesis port inferiortemporally, and the anterior chamber was filled with Healon GV. A 2.4mm keratome knife was used to create a half-thickness groove at the limbus and then to construct a three-plane near-clear corneal tunnel extending 2.0mm into clear cornea in the superiortemporal position. . A flap was raised on the anterior capsule and capsulorhexis forceps were used to complete a continuous curvilinear capsulorhexis of 5.0 mm. Balanced salt solution was then used to perform cortical cleaving hydrodissection and nuclear hydrodelineation until the lens could be freely rotated within the capsular bag. The lens nucleus was then disassembled and removed within the capsular bag and iris plane using phacoemulsification. The pupil constricted to 4 mm during phacoemulsification, making visualization challenging. Residual cortical material was removed using the I/A handpiece. The posterior capsule was carefully polished to remove as much residual lens epithelial cells as safely possible. The capsular bag was then inflated and the anterior chamber deepened with viscoelastic. The lens implant described above was inserted into the capsular bag using the CHRISSIE [place] Injector. A Kuglen hook was used to dial the IOL into position. Residual viscoelastic was then removed first from posterior to the IOL, then from the anterior chamber using the I/A handpiece. The lens implant was noted to center nicely within the capsular bag. The incisions were stromally hydrated, and the anterior chamber was reformed using BSS. Then 0.4cc of moxifloxacin 1.5mg/ml were injected into the capsular bag and anterior chamber. The incisions were checked with a Weck spear and found to be secure. Several drops of ophthalmic povidone-iodine 5% were then applied to the eye followed by two drops of Imprimis combination prednisolone/gatifloxacin/bromfenac solution. The drapes were removed and a clear plastic protective eye shield was placed over the eye. The patient was then returned to Same Day Surgery in stable condition.
--- NOTE | 2018-11-20 09:19 | ROE_ITS ---
Date of service: 11/20/18 Time of Service: 09:16 Operative Note PRE-OP DIAGNOSIS: Cataract, right eye PROCEDURE: Cataract extraction using phacoemulsification with intraocular lens implant, right eye SURGEON: Sharad Pryor ANESTHESIA: MAC and local (sub-tenon's anesthetic infiltration) ESTIMATED BLOOD LOSS: 0 PATHOLOGY: none sent COMPLICATIONS: None Patient was transported to: same day Patient's condition: stable Implants: [employer] Vision / [employer] Tecnis ZCB00 intraocular lens Indications: Progressive decreased vision due to cataract, right eye Procedure Description: CATARACT SURGERY OPERATIVE REPORT PREOPERATIVE DIAGNOSIS: Nuclear/cortical cataract, right eye POSTOPERATIVE DIAGNOSIS: Same OPERATION: Cataract extraction using phacoemulsification with posterior chamber intraocular lens implant, right eye. IOL: IOL Net Fisher/Model: J&J Vision / CHRISSIE Tecnis ZCB00 IOL Power: + 20.0 diopters IOL Serial Number: [id number] Optic Diameter: 6.0mm Haptic/Overall Diameter: 13.0mm PHACO INFO: Seth [employer]urion Vision System with OZil and Active Fluidics Cumulative Dispersed Energy (CDE): 7.93 seconds SURGEON: Sharad Pryor MD, MAMTA ANESTHESIA: Monitored Anesthesia Care (MAC), with local sub-tenon's anesthetic infiltration COMPLICATIONS: None SPECIMENS: None INDICATIONS FOR PROCEDURE: The patient is a 68-year-old lady with history of diminished visual acuity in her right eye who was noted to have significant nuclear and cortical cataract in the right eye. The option of cataract surgery was offered to the patient and she wished to proceed. PROCEDURE: The correct surgical eye was identified and marked as the right eye and the pupil was dilated in the preoperative area using mydriatics and cycloplegics. The dilated pupil size was 6.0 mm. Oral sedation was administered in the form of an Imprimis MKO Melt (midazolam 3mg/ketamine 25mg/ondansetron 2m g). The patient was brought to the operating room where cardiopulmonary monitoring was instituted and surgical time-out was performed, confirming the correct operative eye and IOL power. Topical anesthesia was administered and ophthalmic povidone-iodine 5% was instilled into the conjunctival fornices. Lidocaine gel was applied to the cornea and the ml-ocular area was prepped with Betadine 10% solution and draped in the usual sterile fashion for intraocular surgery, including an aperture drape. A Tegaderm transparent film dressing was cut in half and used to cover the lashes and lid margins. Care was taken to sequester the lashes and lid margins under the Tegaderm dressing. A lid speculum was placed between the lids of the operative eye and the Merlyn-Cleveland operating microscope was m aneuvered into position. Yecenia scissors were then used to make a conjunctival buttonhole approximately 6mm posterior to the limbus in the inferonasal quadrant. Blunt dissection was carried out to expose bare sclera, and a blunt-tipped sub-tenon?s anesthesia cannula was introduced and passed posteriorly along the globe where non- preserved plain lidocaine was injected into posterior sub-Tenon?s space. A sideport knife was used to make a paracentesis port inferiortemporally, and the anterior chamber was filled with Healon GV. A 2.4mm keratome knife was used to create a half-thickness groove at the limbus and then to construct a three-plane near-clear corneal tunnel extending 2.0mm into clear cornea in the superiortemporal position. . A flap was raised on the anterior capsule and capsulorhexis forceps were used to complete a continuous curvilinear capsulorhexis of 5.0 mm. Balanced salt solution was then used to perform cortical cleaving hydrodissection and nuclear hydrodelineation until the lens could be freely rotated within the capsular bag. The lens nucleus was then disassembled and removed within the capsular bag and iris plane using phacoemulsification. The pupil constricted to 4 mm during phacoemulsification, making visualization challenging. Residual cortical material was removed using the I/A handpiece. The posterior capsule was carefully polished to remove as much residual lens epithelial cells as safely possible. The capsular bag was then inflated and the anterior chamber deepened with viscoelastic. The lens implant described above was inserted into the capsular bag using the CHRISSIE [place] Injector. A Kuglen hook was used to dial the IOL into position. Residual viscoelastic was then removed first from posterior to the IOL, then from the anterior chamber using the I/A handpiece. The lens implant was noted to center nicely within the capsular bag. The incisions were stromally hydrated, and the anterior chamber was reformed using BSS. Then 0.4cc of moxifloxacin 1.5mg/ml were injected into the capsular bag and anterior chamber. The incisions were checked with a Weck spear and found to be secure. Several drops of ophthalmic povidone-iodine 5% were then applied to the eye followed by two drops of Imprimis combination prednisolone/gatifloxacin/bromfenac solution. The drapes were removed and a clear plastic protective eye shield was placed over the eye. The patient was then returned to Same Day Surgery in stable condition.
[2018-11-20 09:30] VITALS: BP 143/76; PULSE 65; RESP 16; TEMP 36; O2SAT 100
== END 2018-11-20 09:45 | disposition home or self-care (01) ==
PROVIDERS: PCP Family Medicine; Visit Provider Ophthalmology
PROC: (CPT 66984; principal; 2018-11-20 08:30)
DX: H25.811 Combined forms of age-related cataract, right eye (principal); K21.9 Gastro-esophageal reflux disease without esophagitis
CPT/HCPCS: 66984; V2632

== ENCOUNTER → 2019-05-15 09:39 | Outpatient (BNVA) | payer MEDICARE, OTHER, SELFPAY | PROVIDERS: PCP Family Medicine; Referring Provider Family Medicine; Visit Provider Urology | DX: R69 Illness, unspecified (principal) ==

== ENCOUNTER 2019-05-28 09:48 | Outpatient (CLI) | payer MEDICARE, OTHER, SELFPAY ==
[2019-05-28 11:26] LABS: Abs Immature Grans 0.02 k/cumm (0.0-0.09); Absolute Basophil Count 0.02 k/cumm (0.0-0.2); Absolute Lymphocyte Count 0.78 k/cumm (1.2-3.4); Absolute Monocyte Count 0.82 k/cumm (0.11-0.7); Basophils % 0.3; Eosinophils % 4.8; HCT 39.6 % (36.0-46.0); HGB 12.5 g/dL (12.0-15.5); Immature Grans % 0.3; Lymphocytes % 12.5; Mean Corp. HGB Concentration 31.6 g/dL (32.0-36.0); Mean Corpuscular Hemoglobin 31.2 pg (27.0-33.0); Mean Corpuscular Volume 98.8 fL (80-95); Mean Platelet Volume 9.3 fL (8.0-11.0); Monocytes % 13.1; Platelet Count 283 x1000/uL (130-400); RBC 4.01 m/cumm (4.00-5.20); RBC Distribution Width 14.7 % (11.7-14.6); White Blood Cell Count 6.24 k/cumm (4.4-10.8)
[2019-05-28 12:04] LABS: Estimated GFR 44.12 (mL/min/1.73m2)
[2019-05-28 12:12] LABS: Vitamin D 25 Total 25.9 ng/ml (30-100)
[2019-05-28 12:57] LABS: Uric Acid 3.9 mg/dL (2.6-6.0)
[2019-05-29 10:24] LABS: Calcium 9.4 mg/dL (8.5-10.1)
[2019-05-29 10:29] LABS: Glucose 68 mg/dL (74-106)
[2019-05-29 10:30] LABS: BUN 21 mg/dL (7-18); CREATININE 1.21 mg/dL (0.55-1.02); Total Protein 6.7 g/dL (6.4-8.2)
[2019-05-29 10:31] LABS: Albumin 3.4 g/dL (3.4-5.0); Alkaline Phosphatase 97 U/L (46-116); Bilirubin, Total 0.5 mg/dL (0.2-1.0)
[2019-05-29 10:32] LABS: Potassium 4.4 mmol/L (3.5-5.1); Sodium 142 mmol/L (136-145)
[2019-05-29 10:33] LABS: AST 21 U/L (15-37); CO2 26.7 mmol/L (21.0-32.0); Chloride 106 mmol/L (98-107)
[2019-05-29 10:34] LABS: ALT 19 U/L (14-59); Folate > 20.0 ng/mL (8.6-20.0)
[2019-05-29 15:57] LABS: Anion Gap 9.3 mmol/L (3-11)
== END 2019-05-28 10:08 ==
PROVIDERS: PCP Family Medicine; Visit Provider Family Medicine
DX: E55.9 Vitamin D deficiency, unspecified (principal); F31.9 Bipolar disorder, unspecified; Z51.81 Encounter for therapeutic drug level monitoring; M79.672 Pain in left foot; M06.9 Rheumatoid arthritis, unspecified; K21.9 Gastro-esophageal reflux disease without esophagitis; M81.0 Age-related osteoporosis without current pathological fracture
CPT/HCPCS: 36415; 80053; 82306; 80178; 82746; 84550; 85025

== ENCOUNTER 2019-06-29 03:27 | Outpatient (CLI) | payer MEDICARE, OTHER, SELFPAY ==
--- NOTE | 2019-06-29 13:46 | DI.MAMMO_ITS ---
EXAM: MG MAMMO SCREENING 60 MIN DUR CLINICAL HISTORY: SCREENING, PERSONAL H/O BREAST CA, Z12.39,Z85.3 TECHNIQUE: Mammograms were interpreted according to the usual protocol including computer analysis w [employer] CAD system, tomosynthesis and C-view imaging. COMPARISON: Current examination is compared with previous examinations including December 2017 FINDINGS: Breasts are of moderate density. There has been a prior right lumpectomy for breast carcinoma. No m ass or clumped microcalcification identified in either breast. Current examination is compared with previous examinations including December 2017 and there has been no gross interval change in appearance i n comparison the previous studies. IMPRESSION: No specific evidence of malignancy at this time. Routine screening examinations are suggested at year ly intervals due to the history of breast carcinoma. Category 1, breast density category B. BI-RADS Cat 1 - Negative Breast Density - Category B - Scattered areas of fibroglandular density
== END 2019-06-29 03:47 ==
PROVIDERS: PCP Family Medicine; Visit Provider Family Medicine
DX: Z12.31 Encounter for screening mammogram for malignant neoplasm of breast (principal); Z85.3 Personal history of malignant neoplasm of breast
CPT/HCPCS: 77063; 77067

== ENCOUNTER → 2019-07-17 10:18 | Outpatient (BNVA) | payer MEDICARE, OTHER, SELFPAY | PROVIDERS: PCP Family Medicine; Referring Provider Family Medicine; Visit Provider Urology | DX: N13.71 Vesicoureteral-reflux without reflux nephropathy (principal) | CPT/HCPCS: 99213 ==

== ENCOUNTER 2019-10-16 00:17 | Outpatient (CLI) | payer MEDICARE, OTHER, SELFPAY ==
--- NOTE | 2019-10-16 07:15 | DI.US_ITS ---
EXAM: US RENAL CLINICAL HISTORY: VESICOURETERAL REFLUX, N13.70,? HYDRONEPHROSIS TECHNIQUE: Ultrasound performed using standard protocol. COMPARISON: US renal from 05/26/2018 CT thorax abd/pel CTA from 06/28/2018 FINDINGS: The right kidney measures 82 x 44 x 43 millimeters. The left kidney measures 56 x 34 millimeters. V sharon poor visualization of the left kidney and limited visualization of the right kidney. No hydronep hrosis identified on either side. Probable tiny simple cyst of the upper pole of the right kidney no obdulia. Urinary bladder appears mildly trabeculated, pre and postvoid urinary bladder volume measurements are 161 cc and 78 cc respectively. Right ureteral jet was visualized and left ureteral jet was nonvisua lized. IMPRESSION: Atrophic left kidney, no evidence of acute urinary tract obstruction. Bladder trabeculations appear to be present raising the possibility of chronic bladder outlet obstruction. DATA REPOSITORY:
== END 2019-10-16 00:37 ==
PROVIDERS: PCP Family Medicine; Visit Provider Urology
DX: N13.70 Vesicoureteral-reflux, unspecified (principal); N39.46 Mixed incontinence
CPT/HCPCS: 76770; 99213

== ENCOUNTER 2019-11-27 12:45 | Outpatient (CLI) | payer MEDICARE, OTHER, SELFPAY ==
[2019-11-28 11:27] LABS: COVID-19 RT-PCR UVMMC Result Negative (Negative)
== END 2019-11-27 13:05 ==
PROVIDERS: PCP Family Medicine; Visit Provider Family Medicine
DX: R06.2 Wheezing (principal); Z11.59 Encounter for screening for other viral diseases
CPT/HCPCS: U0003

== ENCOUNTER 2020-02-15 12:02 | Outpatient (REF) | payer MEDICARE, OTHER, SELFPAY ==
[2020-02-15 13:57] LABS: Bilirubin Negative (Negative); Blood Trace-intact (Negative); Clarity Clear (Clear); Glucose Negative (Negative); Ketones Negative (Negative); Leukocyte Esterase Small (Negative); Nitrite Negative (Negative); Urobilinogen 0.2 EU/dL (Up TO 0.2)
[2020-02-15 14:04] LABS: WBC 20-50 HPF (0-5)
[2020-02-15 14:05] LABS: Bacteria Few HPF (Negative); C & S Indicated? No/Sq. Contamination; Casts Negative LPF (Negative); Crystals Negative HPF (Negative); Epithelial Cells Many HPF (Negative); Mucus Negative (Negative); Other Cells Few Transitional (Negative)
== END 2020-02-15 12:22 ==
LOC: LBN 12:02
PROVIDERS: PCP Family Medicine; Visit Provider Family Medicine
DX: R30.0 Dysuria (principal)
CPT/HCPCS: 81003; 81015; 87086

== ENCOUNTER 2020-03-01 09:37 | Emergency (ER) | payer MEDICARE, OTHER, SELFPAY ==
[2020-03-01 09:44] VITALS: BP 127/88; PULSE 86; RESP 16; TEMP 36.7; O2SAT 98
--- NOTE | 2020-03-01 09:45 | DI.RAD_ITS ---
EXAM: XR HEEL RT OS CALCIS CLINICAL HISTORY: hard lesion medial/posterior TECHNIQUE: COMPARISON: No exams were available for comparison FINDINGS: Two views were obtained. There are severe degenerative changes of the joints of the ankle. Very pro minent hypertrophic changes. No evidence of acute fracture. IMPRESSION: RADIATION DOSE DELIVERED: Total DLP
--- NOTE | 2020-03-01 09:48 | ED.GENADUL_ITS ---
Discharge Plan Disposition Patient Disposition: HOME Condition: Good Discharge Details Clinical Impression: Pain of right heel Primary Care Provider: Faith Adorno ED Provider: Aftab Contreras Home Meds and New Rx's Prescriptions: Continued lithium carbonate 150 mg capsule 450 mg PO am Qty: 270 RF: 12 methotrexate sodium 2.5 mg tablet 20 mg PO QWEEK Qty: 72 RF: 12 Myrbetriq 50 mg tablet extended release 24 hr 50 mg PO DAILY Qty: 90 RF: 4 omeprazole 40 mg capsule,delayed release(DR/EC) 40 mg PO DAILY Qty: 90 RF: 4 venlafaxine [Effexor XR] 150 mg capsule,extended release 24hr 150 mg PO DAILY Qty: 90 RF: 3 loratadine [Claritin] 10 mg tablet 10 mg PO DAILY PRNRF: 0 calcium carbonate-vitamin D3 1 EACH tablet 1 cap PO DAILY RF: 0 ergocalciferol (vitamin D2) 50,000 unit capsule 50,000 unit PO QWEEK Qty: 13 RF: 4 folic acid 1 mg tablet 1 mg PO DAILY Qty: 90 RF: 12 oxybutynin chloride 5 mg tablet extended release 24hr 5 mg PO DAILY Qty: 90 RF: 4 Discharge Instructions Instructions: Arthralgia (ED) Additional Instructions: At this time there does not appear to be any fracture or significant abnormality on the X-ray. There does appear to be a very small calcified speck noted similar to where your pain is. This may be causing the irritation. I have shaved off the callus, I would recommend that in your inserts you have the insert cut out where the small lesion on your foot is. It is important to try to take pressure off of this area. Please ice it 10-12 times per day, and use Tylenol as needed to help with the irritation. I have conveyed all this information to your daughter. If you notice any worsening of your symptoms, or any new symptoms such as vomiting, diarrhea, fever, chills, shortness of breath, chest pain, numbness, weakness, or fainting , please return immediately to the emergency department for reevaluation. Please follow up with your primary care provider as soon as possible for reassessment and reevaluation. As always, it was a pleasure participating in your medical care today. Referrals: Prince Mccain DPM [[facility] STAFF PHYSICIAN] - Medical Decision Making 69-year-old female presents today for evaluation of right heel pain. The patient states that for the last 5 to 7 days she has had mild pain in the posterior medial aspect of the right heel. Worse with ambulation and stepping, but not painful when not bearing weight. She denies any trauma, pain in her ankle or any other pain. She denies fever chills or weight loss. No new shoes. She did just place an insert into her shoes just today, and this is not significantly changed her symptoms. No other complaints at this time. No other modifying factors. Exam demonstrates a small callus on the medial posterior aspect of the heel with a small nodular component beneath it. This appears to be the focus of the patient's symptoms. Callus was removed with scalpel, no underlying lesion can be appreciated, no clinical evidence of melanoma squamous or basal cell carcinoma. Question a potential heel spur versus small lipoma that could be causing the symptomatology. Hopefully there will be some resolution of symptoms with the removal of the callus. Will get x-ray to rule out acute osseous abnormality, recommend ice and NSAIDs, potential change in footwear. 10:16 AM X-ray results negative for acute process, I do feel that she likely has a very small calcified lesion in the heel causing that tiny bump, and subsequent irritation. Also be a lipoma however there is currently no clinical evidence of squamous or basal cell carcinoma, plantar wart, or melanoma. I did contact the patient's daughter and discussed my recommendations for ice, Tylenol, and cutting out a small area in her insert to allow for decrease in pressure. Discussed this also with the patient. Recommend podiatry follow-up. I have extensively reviewed the treatment plan and discharge instructions with the patient and their family. I have addressed all patient concerns at this time. The patient and family was made aware of what symptoms to monitor for that would warrant a return to the emergency department. Discussed the plan with the patient and family, they demonstrate verbal understanding and agreement with our assessment and plan at this time. FINDINGS: Bones/joints: Degenerative changes of the plantar calcaneus and plantar midfoot. No definitive fracture lucencies or displaced fracture visualized. Extensive degenerative changes are seen about the ankle as well as the talocalcaneal joint. Dorsal midfoot degenerative changes Soft tissues: Marked Achilles tendon calcifications. The Achilles tendon appears thickened. IMPRESSION: 1. Margin degenerative change of the mid and hindfoot. 2. No definitive fracture lucencies are displaced fractures visualized. If concern for traumatic injury, recommend CT for further clarification if clinically indicated. 3. Thickening of the Achilles tendon with marked tendon calcifications may represent an acute on chronic tendinitis. Thank you for allowing us to participate in the care of your patient. Dictated and Authenticated by: Rico Campa MD 03/01/2020 10:11 AM Eastern Time ([place] & [place]) HPI General Date/Time Provider Initiated Documentation: 03/01/20 09:38 . HPI Narrative: 69-year-old female presents today for evaluation of right heel pain. The patient states that for the last 5 to 7 days she has had mild pain in the posterior medial aspect of the right heel. Worse with ambulation and stepping, but not painful when not bearing weight. She denies any trauma, pain in her ankle or any other pain. She denies fever chills or weight loss. No new shoes. She did just place an insert into her shoes just today, and this is not significantly changed her symptoms. No other complaints at this time. No other modifying factors. Related Data Home Medications Medication Instructions Recorded Confirmed calcium carbonate-vitamin D3 1 cap PO DAILY 04/03/15 03/01/20 ergocalciferol (vitamin D2) 1,250 50,000 unit PO QWEEK #13 cap 05/28/19 10/16/19 mcg (50,000 unit) capsule lithium carbonate 150 mg capsule 450 mg PO am #270 tab-cap 05/28/19 03/01/20 methotrexate sodium 2.5 mg tablet 20 mg PO QWEEK #72 tab 05/28/19 03/01/20 mirabegron 50 mg tablet,extended 50 mg PO DAILY #90 tab-cap 05/28/19 03/01/20 release 24 hr omeprazole 40 mg capsule,delayed 40 mg PO DAILY #90 tab-cap 05/28/19 03/01/20 release venlafaxine 150 mg 150 mg PO DAILY #90 tab-cap 05/28/19 03/01/20 capsule,extended release 24 hr folic acid 1 mg tablet 1 mg PO DAILY #90 tab-cap 06/15/19 03/01/20 loratadine 10 mg tablet 10 mg PO DAILY PRN tab 11/27/19 03/01/20 oxybutynin chloride 5 mg 5 mg PO DAILY #90 tab-cap 01/10/20 03/01/20 tablet,extended release 24 hr Previous Rx's Medication Instructions Recorded ergocalciferol (vitamin D2) 1,250 50,000 unit PO QWEEK #13 cap 05/28/19 mcg (50,000 unit) capsule lithium carbonate 150 mg capsule 450 mg PO am #270 tab-cap 05/28/19 methotrexate sodium 2.5 mg tablet 20 mg PO QWEEK #72 tab 05/28/19 mirabegron 50 mg tablet,extended 50 mg PO DAILY #90 tab-cap 05/28/19 release 24 hr omeprazole 40 mg capsule,delayed 40 mg PO DAILY #90 tab-cap 05/28/19 release venlafaxine 150 mg 150 mg PO DAILY #90 tab-cap 05/28/19 capsule,extended release 24 hr folic acid 1 mg tablet 1 mg PO DAILY #90 tab-cap 06/15/19 oxybutynin chloride 5 mg 5 mg PO DAILY #90 tab-cap 01/10/20 tablet,extended release 24 hr Allergies Allergy/AdvReac Type Severity Reaction Status Date / Time phenelzine sulfate AdvReac Intermediate Neuro Unverified 03/01/20 09:47 [From Nardil] changes/loss of bladder control sucralfate [From Carafate] AdvReac Mild Diarrhea Unverified 03/01/20 09:47 General Stated Complaint: Orthopedic PARI: 4 Review of Systems All systems reviewed & are unremarkable except as noted in HPI and below PFSH Medical History Abdominal pain neg h. 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) Constipation Cortical cataract of right eye CRP elevated 05/27/16; 17.8 Depressed bipolar I disorder Depressed bipolar I disorder *ON LITHIUM Elevated C-reactive protein (05/27/16) Exotropia, alternating Falls frequently (08/16/17) Follicular cyst of ovary Follicular cyst of ovary 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) GERD (gastroesophageal reflux disease) Headache Headache chronic; improved since menopause Hiatal hernia Hiatal hernia (03/14/14) moderate by CT 07/08 Incontinence of feces S/P colostomy Infected sebaceous cyst (05/19/04) Knee pain Low back pain (11/14/14) Malignant neoplasm of female breast [facility] [place]-RIGHT BREAST; S/P RIGHT MASTECTOMY 05/13/11 [facility] [place] Malignant neoplasm of female breast [facility] [place]-Right Breast; S/P right mastectomy 05/13/11 [facility] [place] Malignant neoplasm of female breast Mixed stress and urge urinary incontinence Osteochondral defect (03/01/16) Osteoporosis T score -2.3, -3.0, -3.4 Rectal fullness 09/01/15 Rheumatoid arthritis Rheumatoid arthritis (08/22/12) MTX Right hip pain (11/14/14) Shoulder pain (01/28/15) Spina bifida Spina bifida (05/08/15) Urgency of urination (02/09/12) Urinary incontinence Uterine leiomyoma Uterine leiomyoma Uterine leiomyoma Surgical History Arthroscopy arthroplasty through the PIPJ, right 5th toe. Exostectomy from the right fifth metatarsal head Breast, Mastectomy (05/03/11) [facility] [place];RIGHT BREAST Colostomy (~2001) fecal incontinence EGD - MAC (11/21/17) Fracture, Closed Treatment (11/23/12) LEFT DISTAL RADIUS AND ULNA H/O arthroscopy through the PIP, right 5th toe. Exostectomy for the right fifth metatarsal head H/O Spinal surgery 1950-spine meningocele repair; for spina bifida History of arthroscopy History of lumpectomy of right breast Pt denies mastectomy History of right mastectomy History of spinal surgery SPINE SURGERY (~1950) SPINE MENINGOCELE REPAIR, FOR SPINA BIFADA Status post cataract extraction and insertion of intraocular lens of right eye (11/20/18) Status post colostomy Family History Mother , AGE 47 Brain tumor Father , AGE 78 Arthritis Brother , age 73 Essential hypertension Heart disease Stroke Maternal Grandfather Essential hypertension Heart disease Paternal Grandfather No problems noted. Maternal Grandmother Diabetes Essential hypertension Heart disease Paternal Grandmother No problems noted. Brother , age 63 Cancer Daughter No problems noted. Daughter No problems noted. Brother No problems noted. Social History Smoking/Tobacco Use Status: Never Second Hand Exposure: No Alcohol Intake: current Alcohol Intake frequency: a few times a week Drug use: Never Substance use type: prescription drug Household members: spouse Housing: house Communication Needs: Corrective Lenses Do you need help understanding health information?: Rarely Pets and animals: No Sexually active: No Do you think of yourself as: straight/heterosexual Current gender identity: decline to answer What is your relationship status?: How often do you talk on the phone with friends or family?: three or more times per week How often do you get together with friends or relatives?: decline to answer How often do you attend mandaen or taoism services?: decline to answer Do you belong to any clubs or organized social groups?: no Panel score (0-1 are the most socially isolated patients): 2 Duration: 15-30 minutes/day Frequency: 1-2 times per week Sherlyn/Muslim: Rastafari Special sherlyn needs: No Seatbelt use: always 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 3.ENT: Atraumatic external nose and ears. Moist MM. Neck: Symmetric, trachea midline, No thyromegaly. 4.CVS: +S1/S2, No murmurs or gallops. Peripheral pulses 2+ and equal in all extremities. Brisk capillary refill in all extremities. 5.RESP: Unlabored respiratory effort. Clear to auscultation bilaterally. No wheezes rales or rhonchi 6.GI: Soft, Nontender/Nondistended, No hepatosplenomegaly. No guarding or rebound. 7.MSK: Normocephalic/Atraumatic, Extremities w/o deformity or significant Ttp No cyanosis or clubbing, Normal movement of all extremities. Right foot: Patient demonstrates a small callus on the posterior medial aspect of her heel, minimally tender to the touch. The callus was scraped away with scalpel, there was no evidence of underlying lesion or abnormality. No signs or symptoms consistent with melanoma or squamous or basal cell carcinoma. There is a slightly firm nodular component that feels deep on palpation, but no other abnormality. Normal exam otherwise. 8.Skin: Warm, Dry. No rashes or lesions. 9.Neuro: manager patient II-XII grossly intact. Sensation grossly intact, no focal neurologic deficits. 10.Psych: (AAO) x3. Appropriate mood and affect Course Vital Signs Vital signs: Vital Signs Temperature 36.7 C 03/01/20 09:44 Pulse 86 03/01/20 09:44 Respiratory Rate 16 03/01/20 09:44 Blood Pressure 127/88 03/01/20 09:44 Pulse Oximetry 98 03/01/20 09:44 Temperature 36.7 C 03/01/20 09:44 Temperature Source Temporal Artery Scan 03/01/20 09:44 Pulse 86 03/01/20 09:44 Respiratory Rate 16 03/01/20 09:44 Respiratory Effort Non-Labored 03/01/20 09:45 Blood Pressure 127/88 03/01/20 09:44 Blood Pressure Position Sitting 03/01/20 09:44 Pulse Oximetry 98 03/01/20 09:44 Oxygen Delivery Method Room Air 03/01/20 09:44 Oxygen Flow Rate 0 03/01/20 09:44 Pain Level 6 03/01/20 09:44
--- NOTE | 2020-03-01 10:11 | DI.VRAD_ITS ---
PROCEDURE INFORMATION: Exam: XR Right Calcaneus Exam date and time: 03/01/2020 9:57 AM Age: 69 years old Clinical indication: Pain; Heel; Right TECHNIQUE: Imaging protocol: XR of the Right calcaneus. Views: 2 or more views. COMPARISON: No relevant prior studies available. FINDINGS: Bones/joints: Degenerative changes of the plantar calcaneus and plantar midfoot. No definitive fracture lucencies or displaced fracture visualized. Extensive degenerative changes are seen about the ankle as well as the talocalcaneal joint. Dorsal midfoot degenerative changes Soft tissues: Marked Achilles tendon calcifications. The Achilles tendon appears thickened. IMPRESSION: 1. Margin degenerative change of the mid and hindfoot. 2. No definitive fracture lucencies are displaced fractures visualized. If concern for traumatic injury, recommend CT for further clarification if clinically indicated. 3. Thickening of the Achilles tendon with marked tendon calcifications may represent an acute on chronic tendinitis. Dictated and Authenticated by: Rico Campa MD. Ordering:ANGEL Ugalde MD
--- NOTE | 2020-03-01 10:21 | NUR.NOTE ---
Referral faxed to Dr Mccain.Nursing Note:
[2020-03-01 10:33] VITALS: BP 127/88; PULSE 86; RESP 16; TEMP 36.7; O2SAT 98
== END 2020-03-01 10:20 | disposition home or self-care (01) ==
PROVIDERS: Emergency Provider Student in an Organized Health Care Education/Training Program; PCP Family Medicine
DX: M79.671 Pain in right foot (principal); R93.7 Abnormal findings on diagnostic imaging of other parts of musculoskeletal system
CPT/HCPCS: 11055; 99283; 73650

== ENCOUNTER → 2020-03-04 10:29 | Outpatient (BNVA) | payer MEDICARE, OTHER, SELFPAY | PROVIDERS: PCP Family Medicine; Referring Provider Family Medicine; Visit Provider Urology | DX: N39.46 Mixed incontinence | CPT/HCPCS: 99213 ==

== ENCOUNTER 2020-03-13 04:40 | Outpatient (CLI) | payer MEDICARE, OTHER, SELFPAY ==
[2020-03-13 10:09] LABS: Abs Immature Grans 0.04 10^3/uL (0.0-0.06); Absolute Basophil Count 0.02 10^3/uL (0.0-0.2); Absolute Eosinophil Count 0.08 10^3/uL (0.0-0.7); Absolute Lymphocyte Count 0.57 10^3/uL (1.2-3.4); Absolute Monocyte Count 0.19 10^3/uL (0.1-0.8); Absolute Neutrophil Count 7.94 10^3/uL (1.2-6.7); Basophils % 0.2; Eosinophils % 0.9; HCT 35.5 % (36.0-46.0); Immature Grans % 0.5; Lymphocytes % 6.4; MCH 29.6 pg (27.0-33.0); MCV 95.7 fL (80-95); MPV 8.9 fL (8.0-11.0); Monocytes % 2.1; Neutrophils % 89.9; Nucleated RBC 0 %; Platelet Count 302 10^3/uL (130-400); RBC 3.71 10^6/uL (3.93-5.22); RDW 15.3 % (11.7-14.6); RDW-SD 52.9 fL; WBC 8.84 10^3/uL (4.4-10.8)
[2020-03-13 10:21] LABS: Bilirubin Negative (Negative); Blood Negative (Negative); Clarity Clear (Clear); Glucose Negative (Negative); Ketones Negative (Negative); Leukocyte Esterase Small (Negative); Nitrite Negative (Negative); Urobilinogen 0.2 EU/dL (Up TO 0.2); pH 6.5 (5-8)
[2020-03-13 10:38] LABS: Bacteria Few HPF (Negative); C & S Indicated? Yes; Casts Negative LPF (Negative); Crystals Negative HPF (Negative); Epithelial Cells Few HPF (Negative); Mucus Negative (Negative); Other Cells Few Transitional (Negative); RBC 0-2 HPF (0-2); WBC 20-50 HPF (0-5)
[2020-03-13 10:53] LABS: ESR 78 mm/hr (0-30)
[2020-03-13 12:13] LABS: Lithium 1.06 mmol/L (0.60-1.20)
[2020-03-13 12:47] LABS: Vitamin D 25 Total 28.7 ng/ml (30-100)
[2020-03-13 12:51] LABS: ALT 39 U/L (14-59); AST 42 U/L (15-37); Albumin 3.2 g/dL (3.4-5.0); Alkaline Phosphatase 147 U/L (46-116); Anion Gap 2.6 mmol/L (3-11); BUN 15 mg/dL (7-18); Bilirubin, Total 0.4 mg/dL (0.2-1.0); CO2 31.4 mmol/L (21.0-32.0); CREATININE 1.06 mg/dL (0.55-1.02); Calcium 9.7 mg/dL (8.5-10.1); Chloride 104 mmol/L (98-107); Folate > 20.0 ng/mL (8.6-20.0); Glucose 93 mg/dL (74-106); Potassium 3.9 mmol/L (3.5-5.1); Sodium 138 mmol/L (136-145); Total Protein 6.8 g/dL (6.4-8.2); Vitamin B12 427 pg/mL (193-986)
[2020-03-13 12:59] LABS: C-Reactive Protein 5.91 mg/dL (0.0-0.3)
== END 2020-03-13 05:00 ==
PROVIDERS: PCP Family Medicine; Visit Provider Family Medicine
DX: M79.671 Pain in right foot (principal); M06.9 Rheumatoid arthritis, unspecified; M81.0 Age-related osteoporosis without current pathological fracture; F31.9 Bipolar disorder, unspecified; K21.9 Gastro-esophageal reflux disease without esophagitis; E55.9 Vitamin D deficiency, unspecified
CPT/HCPCS: 36415; 80053; 82306; 85652; 80178; 81003; 81015; 82607; 82746; 85025; 86140; 87086

== ENCOUNTER → 2020-04-15 11:33 | Outpatient (BNVA) | payer MEDICARE, OTHER, SELFPAY | PROVIDERS: PCP Family Medicine; Referring Provider Family Medicine; Visit Provider Urology | DX: R39.15 Urgency of urination (principal) | CPT/HCPCS: 99213; 99441 ==

== ENCOUNTER 2020-05-24 09:16 | Emergency (ER) | payer MEDICARE, OTHER, SELFPAY ==
[2020-05-24] VITALS (7 sets, daily range): BP systolic 164–185; BP diastolic 71–77; PULSE 64–70; RESP 20; TEMP 36.6; O2SAT 98–100
--- NOTE | 2020-05-24 09:15 | RT.EKG_ITS ---
APPROVED REPORT Exam: Resting ECG Patient Location: E HR:69 bpm ECG Measurements Heart Rate 69 AXIS TN 145 P 35 QRSd 104 QRS 2 QT 417 T 44 QTc 447 Conclusion Sinus rhythm...normal P axis, V-rate 60- 99 Abnrm R prog, consider ASMI or lead placement...Q >30mS, diminished R, V1-V2
--- NOTE | 2020-05-24 09:16 | DI.RAD_ITS ---
EXAM: XR PELVIS AP CLINICAL HISTORY: Fall, Left hip pain TECHNIQUE: COMPARISON: CR LUMBAR SPINE COMPLETE from 05/10/2017 CR,XR XR FEMUR LT from 05/24/2020 FINDINGS: An AP view of the pelvis and four views of the femur were obtained. There is a medial hemiarthroplas ty. The bones of the knee are incompletely seen. No femoral fracture identified on the films obtain ed. No pelvic fracture seen. IMPRESSION: RADIATION DOSE DELIVERED: Total DLP Total DLP
--- NOTE | 2020-05-24 09:18 | DI.RAD_ITS ---
EXAM: XR CHEST 1V IN DI DEPT CLINICAL HISTORY: Fall TECHNIQUE: COMPARISON: CR,RF BARIUM SWALLOW W PA LAT CXR from 10/08/[address] thorax abd/pel CTA from 06/28/2018 FINDINGS: Supine AP view of the chest was obtained. Heart appears mildly enlarged. There is hiatal hernia. T here is increased radiodensity in the right lung apex which was not present on prior examination of A pril 2015, the findings are suspicious for consolidation versus mass. Mildly increased radiodensities are seen in a patchy pattern in both lungs, findings may be chronic b ut the possibility of acute infectious process is not excluded. Blunting of left costophrenic angle is noted, nonspecific. IMPRESSION: Question right apical consolidation or mass. Possible bilateral patchy pulmonary infiltrates, consider infectious process. Follow-up radiographs requested and if the findings do not resolve additional evaluation with chest C T would be recommended to rule out neoplastic process of the right lung apex. RADIATION DOSE DELIVERED: Total DLP Total DLP
--- NOTE | 2020-05-24 09:18 | W.ED.GENAD ---
Discharge Plan Disposition Patient Disposition: HOME Condition: Stable Discharge Details Clinical Impression: Fall Primary Care Provider: Faith Adorno ED Provider: Geovanna Troncoso Home Meds and New Rx's Prescriptions: New oxycodone 5 mg capsule 5 mg PO BID PRN (Reason: pain) Qty: 7 RF: 0 Continued oxybutynin chloride 10 mg tablet extended release 24hr 10 mg PO DAILY Qty: 90 RF: 4 Myrbetriq 50 mg tablet extended release 24 hr 50 mg PO DAILY Qty: 90 RF: 4 prednisone 20 mg tablet See Rx Instructions PO DAILY Qty: 11 RF: 0 lithium carbonate 150 mg capsule 450 mg PO am Qty: 270 RF: 12 methotrexate sodium 2.5 mg tablet 20 mg PO QWEEK Qty: 72 RF: 12 omeprazole 40 mg capsule,delayed release(DR/EC) 40 mg PO DAILY Qty: 90 RF: 4 venlafaxine [Effexor XR] 150 mg capsule,extended release 24hr 150 mg PO DAILY Qty: 90 RF: 3 loratadine [Claritin] 10 mg tablet 10 mg PO DAILY PRNRF: 0 calcium carbonate-vitamin D3 1 EACH tablet 1 cap PO DAILY RF: 0 ergocalciferol (vitamin D2) 50,000 unit capsule 50,000 unit PO QWEEK Qty: 13 RF: 4 folic acid 1 mg tablet 1 mg PO DAILY Qty: 90 RF: 12 Discharge Instructions Instructions: Fall Prevention for Older Adults (ED), Knee Pain (ED) Additional Instructions: Follow up with primary care provider in 3-5 days. Return to ED sooner if any worsening or concerns. Increase oral fluids. Please take Tylenol or Ibuprofen with food every 4-6 hours as needed for pain and swelling. Take the pain medication as needed for moderate to severe pain. At this time he had a chest x-ray, pelvic x-ray and knee and femur x-ray which were all within normal limits. Referrals: Faith Adorno MD, [place] [Primary Care Provider] - Discharge Data Discharge Date/Time-TO BE ENTERED AT DEPARTURE: 05/24/20 11:47 Medical Decision Making <Geovanna Troncoso - Last Filed: 05/24/20 13:44> 70-year-old female presents to the ED via EMS with chief complaint of fall and left hip pain. Patient fell around 3 in the morning she was bending over coming up and fell down, she is complaining of left hip pain and inability to put any weight onto her left hip. She received 100 mics of fentanyl and 4 mg of Zofran prior to arrival. She denies hitting her head, no LOC, no neck or back pain. She denies any chest or abdominal pain. She does have a colostomy noted to her left lower quadrant, she does have a history of spina bifida, osteoporosis, breast cancer, GERD, frequent falls, depression. She is alert and oriented x3 upon arrival. Imaging protocol: XR Left femur. Views: 2 views. COMPARISON: CR LEFT KNEE LIMITED 1 OR 2 VIEWS 01/29/2016 2:50 PM FINDINGS: Bones/joints: There is left knee arthroplasty. No adjacent bone lucencies or periosteal thickening. The left femur and other visualized bones are intact. Normal alignment. No degenerative spur, osseous erosion or other deformity. Soft tissues: Normal. IMPRESSION: No abnormalities status post left knee arthroplasty. Work-up ordered including CBC, CMP, EKG, chest x-ray urinalysis. Differential diagnosis includes hip fracture, other occult fracture, rhabdomyolysis, PR. Lab work shows no leukocytosis, sodium 139, potassium 3.2, BUN 21, creatinine 1.16, GFR is 46, glucose 117. BUN and creatinine are somewhat within her normal limits. Imaging protocol: XR pelvis. Views: 1 or 2 view. COMPARISON: CT thorax abd/pel CTA 06/28/2018 8:19 PM FINDINGS: Bones/joints: Mild sclerosis at the pubic symphysis. The bones are intact and normally aligned. No degenerative spur, osseous erosion or joint effusion. Lumbosacral spina bifida. Soft tissues: Normal. IMPRESSION: No fracture or other acute abnormality. Thank you for allowing us to participate in the care of your patient. Dictated and Authenticated by: Edgar Garrett MD Imaging protocol: XR of the chest Views: 1 view. COMPARISON: CT thorax abd/pel CTA 06/28/2018 8:19 PM FINDINGS: Lungs: Chronic unchanged benign right apical capping/pleural thickening and right upper lobe volume loss. New, mild lateral costophrenic angle opacification. Patchy and mostly peripheral coarsened lung markings throughout the right middle lobe and a region in the mid right upper lobe. . Heart/Mediastinum: Chronic large hiatal hernia. Vasculature: Normal pulmonary vessel caliber. Normal aorta. Bones/joints: Healed lower right rib fractures. No acute fracture IMPRESSION: 1. No acute abnormalities. 2. Chronic findings include healed lower right rib fractures, hiatal hernia and chronic right apical scarring and volume loss. 3. Patchy coarsened right lung markings are believed to be chronic findings after review of the comparison CT study. 3. Small new opacification at the lateral left costophrenic angle may represent atelectasis. There is no other findings suspicious for pleural effusion. 1042: Attempted road test up to bedside commode by staff mechanical engineer, she is unable to put any weight onto her left extremity at this time. She has received 100 mcg of fentanyl per EMS and 2 mg of morphine here. Will obtain CT of pelvis to definitively rule out any fracture. 1148: Upon further questioning patient has left knee pain which she states she has had before she fell. Due to this new development no further imaging is required at this time. Spoke with daughter regarding plan of care she verbalizes understanding will come get patient. Patient prescribed oxycodone 5 mg tablet twice a day as needed for pain. <Mateusz Farmer MD - Last Filed: 05/24/20 09:32> I had a [id number] encounter with the patient. I evaluated the patient. I discussed case with OPERATOR ENGINEER/PA and I reviewed OPERATOR ENGINEER/PA note and agree with note as documented. HPI <Geovanna Troncoso - Last Filed: 05/24/20 13:44> General Mode of arrival: EMS. Date/Time Provider Initiated Documentation: 05/24/20 09:31. Limitations to Documentation: no limitations. Information obtained by: patient and EMS. HPI Narrative: 70-year-old female presents to the ED via EMS with chief complaint of fall and left hip pain. Patient fell around 3 in the morning she was bending over coming up and fell down, she is complaining of left hip pain and inability to put any weight onto her left hip. She received 100 mics of fentanyl and 4 mg of Zofran prior to arrival. She denies hitting her head, no LOC, no neck or back pain. She denies any chest or abdominal pain. She does have a colostomy noted to her left lower quadrant, she does have a history of spina bifida, osteoporosis, breast cancer, GERD, frequent falls, depression. She is alert and oriented x3 upon arrival. Related Data Home Medications Medication Instructions Recorded Confirmed calcium carbonate-vitamin D3 1 cap PO DAILY 04/03/15 05/24/20 ergocalciferol (vitamin D2) 1,250 50,000 unit PO QWEEK #13 cap 05/28/19 05/24/20 mcg (50,000 unit) capsule lithium carbonate 150 mg capsule 450 mg PO am #270 tab-cap 05/28/19 05/24/20 methotrexate sodium 2.5 mg tablet 20 mg PO QWEEK #72 tab 05/28/19 05/24/20 omeprazole 40 mg capsule,delayed 40 mg PO DAILY #90 tab-cap 05/28/19 05/24/20 release venlafaxine 150 mg 150 mg PO DAILY #90 tab-cap 05/28/19 05/24/20 capsule,extended release 24 hr folic acid 1 mg tablet 1 mg PO DAILY #90 tab-cap 06/15/19 05/24/20 loratadine 10 mg tablet 10 mg PO DAILY PRN tab 11/27/19 05/24/20 oxybutynin chloride 10 mg 10 mg PO DAILY #90 tab 03/04/20 05/24/20 tablet,extended release 24 hr mirabegron 50 mg tablet,extended 50 mg PO DAILY #90 tab-cap 04/15/20 05/24/20 release 24 hr prednisone 20 mg tablet See Rx Instructions PO DAILY #11 05/22/20 05/24/20 tab oxycodone 5 mg PO BID PRN #7 cap 05/24/20 Previous Rx's Medication Instructions Recorded ergocalciferol (vitamin D2) 1,250 50,000 unit PO QWEEK #13 cap 05/28/19 mcg (50,000 unit) capsule lithium carbonate 150 mg capsule 450 mg PO am #270 tab-cap 05/28/19 methotrexate sodium 2.5 mg tablet 20 mg PO QWEEK #72 tab 05/28/19 omeprazole 40 mg capsule,delayed 40 mg PO DAILY #90 tab-cap 05/28/19 release venlafaxine 150 mg 150 mg PO DAILY #90 tab-cap 05/28/19 capsule,extended release 24 hr folic acid 1 mg tablet 1 mg PO DAILY #90 tab-cap 06/15/19 oxybutynin chloride 10 mg 10 mg PO DAILY #90 tab 03/04/20 tablet,extended release 24 hr mirabegron 50 mg tablet,extended 50 mg PO DAILY #90 tab-cap 04/15/20 release 24 hr prednisone 20 mg tablet See Rx Instructions PO DAILY #11 05/22/20 tab oxycodone 5 mg PO BID PRN #7 cap 05/24/20 Allergies Allergy/AdvReac Type Severity Reaction Status Date / Time phenelzine sulfate AdvReac Intermediate Neuro Unverified 05/24/20 09:16 [From Nardil] changes/loss of bladder control sucralfate [From Carafate] AdvReac Mild Diarrhea Unverified 05/24/20 09:16 General Stated Complaint: Orthopedic PARI: 3 Review of Systems <Geovanna Troncoso - Last Filed: 05/24/20 13:44> Narrative: Constitutional: Negative for weight loss, alert and oriented, well groomed, normal body habitus, appears comfortable. HEENT: Denies headaches, blurry vision, nasal discharge, sore throat, trouble swallowing. Chest: Denies chest pain, palpitations, irregular rhythm, hypertension. Respiratory: Denies Shortness of breath, cough, hemoptysis. GI: Denies abdominal pain, nausea, vomiting, diarrhea, constipation. : Denies dysuria, hematuria, flank pain, rectal bleeding. Musculoskeletal: Fell this morning at 3 AM unable to get up complaining of left hip pain. Neuro: Denies dizziness, blurry vision, syncope, headache or facial numbness. Hematologic: Denies easy bruising, intolerance to heat or cold, hair loss. PFSH <Geovanna Troncoso - Last Filed: 05/24/20 13:44> Medical History Abdominal pain neg h. 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) Constipation Cortical cataract of right eye CRP elevated 05/27/16; 17.8 Depressed bipolar I disorder Depressed bipolar I disorder *ON LITHIUM Elevated C-reactive protein (05/27/16) Exotropia, alternating Falls frequently (08/16/17) Follicular cyst of ovary Follicular cyst of ovary 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) GERD (gastroesophageal reflux disease) Headache Headache chronic; improved since menopause Hiatal hernia Hiatal hernia (03/14/14) moderate by CT 07/08 Incontinence of feces S/P colostomy Infected sebaceous cyst (05/19/04) Knee pain Low back pain (11/14/14) Malignant neoplasm of female breast [facility] [place]-RIGHT BREAST; S/P RIGHT MASTECTOMY 05/13/11 [facility] [place] Malignant neoplasm of female breast [facility] [place]-Right Breast; S/P right mastectomy 05/13/11 [facility] [place] Malignant neoplasm of female breast Mixed stress and urge urinary incontinence Osteochondral defect (03/01/16) Osteoporosis T score -2.3, -3.0, -3.4 Rectal fullness 09/01/15 Rheumatoid arthritis Rheumatoid arthritis (08/22/12) MTX Right hip pain (11/14/14) Shoulder pain (01/28/15) Spina bifida Spina bifida (05/08/15) Urgency of urination (02/09/12) Urinary incontinence Uterine leiomyoma Uterine leiomyoma Uterine leiomyoma Surgical History Arthroscopy arthroplasty through the PIPJ, right 5th toe. Exostectomy from the right fifth metatarsal head Breast, Mastectomy (05/03/11) [facility] [place];RIGHT BREAST Colostomy (~2001) fecal incontinence EGD - MAC (11/21/17) Fracture, Closed Treatment (11/23/12) LEFT DISTAL RADIUS AND ULNA H/O arthroscopy through the PIP, right 5th toe. Exostectomy for the right fifth metatarsal head H/O Spinal surgery 1950-spine meningocele repair; for spina bifida History of arthroscopy History of lumpectomy of right breast Pt denies mastectomy History of right mastectomy History of spinal surgery SPINE SURGERY (~1950) SPINE MENINGOCELE REPAIR, FOR SPINA BIFADA Status post cataract extraction and insertion of intraocular lens of right eye (11/20/18) Status post colostomy Family History Mother , AGE 47 Brain tumor Father , AGE 78 Arthritis Brother , age 73 Essential hypertension Heart disease Stroke Maternal Grandfather Essential hypertension Heart disease Paternal Grandfather No problems noted. Maternal Grandmother Diabetes Essential hypertension Heart disease Paternal Grandmother No problems noted. Brother , age 63 Cancer Daughter No problems noted. Daughter No problems noted. Brother No problems noted. Social History Smoking/Tobacco Use Status: Never Second Hand Exposure: No Smoking risk assessment performed?: Yes Alcohol Intake: current Alcohol Intake frequency: a few times a week Drug use: Never Substance use type: prescription drug Household members: spouse Housing: house Communication Needs: Corrective Lenses Do you need help understanding health information?: Rarely Pets and animals: No Sexually active: No Do you think of yourself as: straight/heterosexual Current gender identity: decline to answer What is your relationship status?: How often do you talk on the phone with friends or family?: three or more times per week How often do you get together with friends or relatives?: decline to answer How often do you attend voodoo or taoist services?: decline to answer Do you belong to any clubs or organized social groups?: no Panel score (0-1 are the most socially isolated patients): 2 Duration: 15-30 minutes/day Frequency: 1-2 times per week [place] Special sherlyn needs: No Seatbelt use: always Drive intox or ride w/intox armored truck driver: No Do you feel safe at home: Yes Do you feel safe in your relationship?: Yes Exam <Geovanna Troncoso - Last Filed: 05/24/20 13:44> Narrative Exam Narrative: Constitutional: Alert and oriented x3. Appears stated age. Normal body habitus. Head: Normocephalic, no trauma. Eyes: Pupils PERRLA, Red reflex noted, EOM's intact. Eyelids symmetrical without lesions, discharge, or swelling. ENT: Bilateral TM's WNL, External ear normal to inspection, no mastoid TTP, swelling, or erythema, Nasal turbinates WNL, no nasal discharge. Normal dentition, Posterior pharynx WNL, no exudate. Chest: RRR, Normal S1, S2, distal pulses intact. Resp: Lungs clear to auscultation bilaterally, no wheezes, rales, or rhonchi. Musculoskeletal: Unable to assess gait, does have tenderness with palpation over the lateral left hip. Does have intact distal dorsal pedal pulses palpated. Skin: No suspicious rashes or lesions. Capillary refill less than 2 sec. Neurologic: Cranial nerves II-XII intact. Alert and oriented x 3. DTR's intact. Hematologic/Lymphatic: No ecchymosis, no lymphadenopathy. Course <Geovanna Troncoso - Last Filed: 05/24/20 13:44> Vital Signs Vital signs: Vital Signs Temperature 36.6 C 05/24/20 09:11 Pulse 70 05/24/20 09:11 Respiratory Rate 20 05/24/20 09:11 Blood Pressure 167/77 H 05/24/20 09:11 Pulse Oximetry 98 05/24/20 09:11 Temperature 36.6 C 05/24/20 09:11 Temperature Source Skin 05/24/20 09:11 Pulse 70 05/24/20 09:11 Respiratory Rate 20 05/24/20 09:11 Blood Pressure 167/77 H 05/24/20 09:11 Blood Pressure Position Sitting 05/24/20 09:11 Pulse Oximetry 98 05/24/20 09:11 Oxygen Delivery Method Room Air 05/24/20 09:11 Oxygen Flow Rate 0 05/24/20 09:11 Pain Level 8 05/24/20 09:11
[2020-05-24 09:33] LABS: Abs Immature Grans 0.03 10^3/uL (0.0-0.06); Absolute Basophil Count 0.01 10^3/uL (0.0-0.2); Absolute Eosinophil Count 0.07 10^3/uL (0.0-0.7); Absolute Monocyte Count 0.92 10^3/uL (0.1-0.8); Absolute Neutrophil Count 7.08 10^3/uL (1.2-6.7); Basophils % 0.1; Eosinophils % 0.8; HCT 37.3 % (36.0-46.0); HGB 11.7 g/dL (11.2-15.7); Immature Grans % 0.3; MCH 29.9 pg (27.0-33.0); MCHC 31.4 % (32.0-36.0); MCV 95.4 fL (80-95); MPV 9.3 fL (8.0-11.0); Monocytes % 10.3; Neutrophils % 79.5; Nucleated RBC 0 %; Platelet Count 220 10^3/uL (130-400); RBC 3.91 10^6/uL (3.93-5.22); RDW 16.1 % (11.7-14.6); RDW-SD 56.4 fL; WBC 8.91 10^3/uL (4.4-10.8)
[2020-05-24] MEDS: Normal Saline 1,000 ML 150 ML IV (09:36)
[2020-05-24] MEDS: Normal Saline Flush 10 ML SYR IVP (09:37)
[2020-05-24 09:48] LABS: ALT 18 U/L (14-59); AST 21 U/L (15-37); Albumin 3.3 g/dL (3.4-5.0); Alkaline Phosphatase 94 U/L (46-116); Anion Gap 5.1 mmol/L (3-11); BUN 21 mg/dL (7-18); Bilirubin, Total 0.4 mg/dL (0.2-1.0); CO2 27.9 mmol/L (21.0-32.0); CREATININE 1.16 mg/dL (0.55-1.02); Calcium 9.3 mg/dL (8.5-10.1); Chloride 106 mmol/L (98-107); Creatine Kinase 41 U/L (26-192); Estimated GFR 46.19 (mL/min/1.73m2); Glucose 117 mg/dL (74-106); Magnesium 1.9 mg/dL (1.8-2.4); Potassium 3.2 mmol/L (3.5-5.1); Sodium 139 mmol/L (136-145); Total Protein 6.8 g/dL (6.4-8.2)
[2020-05-24 09:49] LABS: Troponin I < 0.05 ng/mL (<0.06)
--- NOTE | 2020-05-24 10:26 | DI.VRAD_ITS ---
PROCEDURE INFORMATION: Exam: XR Left Femur Exam date and time: 05/24/2020 10:10 AM Age: 70 years old Clinical indication: Injury or trauma; Sprain or strain; Thigh or upper leg; Left; Patient HX: S/P fall TECHNIQUE: Imaging protocol: XR Left femur. Views: 2 views. COMPARISON: CR LEFT KNEE LIMITED 1 OR 2 VIEWS 01/29/2016 2:50 PM FINDINGS: Bones/joints: There is left knee arthroplasty. No adjacent bone lucencies or periosteal thickening. The left femur and other visualized bones are intact. Normal alignment. No degenerative spur, osseous erosion or other deformity. Soft tissues: Normal. IMPRESSION: No abnormalities status post left knee arthroplasty. Dictated and Authenticated by: Edgar Garrett MD. Ordering:NICOL Austin MD
--- NOTE | 2020-05-24 10:28 | DI.VRAD_ITS ---
PROCEDURE INFORMATION: Exam: XR Pelvis Exam date and time: 05/24/2020 10:10 AM Age: 70 years old Clinical indication: Injury or trauma; Sprain or strain; Left; Hip; Patient HX: S/P fall TECHNIQUE: Imaging protocol: XR pelvis. Views: 1 or 2 view. COMPARISON: CT thorax abd/pel CTA 06/28/2018 8:19 PM FINDINGS: Bones/joints: Mild sclerosis at the pubic symphysis. The bones are intact and normally aligned. No degenerative spur, osseous erosion or joint effusion. Lumbosacral spina bifida. Soft tissues: Normal. IMPRESSION: No fracture or other acute abnormality. Dictated and Authenticated by: Edgar Garrett MD. Ordering:NICOL Austin MD
--- NOTE | 2020-05-24 10:32 | DI.VRAD_ITS ---
PROCEDURE INFORMATION: Exam: XR Chest, 1 View Exam date and time: 05/24/2020 10:01 AM Age: 70 years old Clinical indication: Injury or trauma; Sprain or strain; Patient HX: S/P fall TECHNIQUE: Imaging protocol: XR of the chest Views: 1 view. COMPARISON: CT thorax abd/pel CTA 06/28/2018 8:19 PM FINDINGS: Lungs: Chronic unchanged benign right apical capping/pleural thickening and right upper lobe volume loss. New, mild lateral costophrenic angle opacification. Patchy and mostly peripheral coarsened lung markings throughout the right middle lobe and a region in the mid right upper lobe. . Heart/Mediastinum: Chronic large hiatal hernia. Vasculature: Normal pulmonary vessel caliber. Normal aorta. Bones/joints: Healed lower right rib fractures. No acute fracture IMPRESSION: 1. No acute abnormalities. 2. Chronic findings include healed lower right rib fractures, hiatal hernia and chronic right apical scarring and volume loss. 3. Patchy coarsened right lung markings are believed to be chronic findings after review of the comparison CT study. 3. Small new opacification at the lateral left costophrenic angle may represent atelectasis. There is no other findings suspicious for pleural effusion. Dictated and Authenticated by: Edgar Garrett MD. Ordering:NICOL Austin MD
[2020-05-24 10:57] LABS: Bilirubin Negative (Negative); Blood Trace-intact (Negative); Clarity Clear (Clear); Glucose Negative (Negative); Ketones Negative (Negative); Leukocyte Esterase Negative (Negative); Nitrite Negative (Negative); Specific Gravity 1.015 (1.005-1.025); Urobilinogen 0.2 EU/dL (Up TO 0.2)
[2020-05-24 11:08] LABS: Bacteria Negative HPF (Negative); C & S Indicated? No; Casts Negative LPF (Negative); Crystals Negative HPF (Negative); Epithelial Cells Few HPF (Negative); Mucus Negative (Negative); RBC 0-2 HPF (0-2); WBC 0-2 HPF (0-5)
[2020-05-24] MEDS: oxyCODONE 5 MG TAB PO (11:20)
== END 2020-05-24 11:47 | disposition home or self-care (01) ==
LOC: ER 11:09
PROVIDERS: Emergency Provider Registered Nurse Emergency; PCP Family Medicine
DX: M25.552 Pain in left hip (principal); M79.651 Pain in right thigh; W19.XXXA Unspecified fall, initial encounter; R29.6 Repeated falls; R26.2 Difficulty in walking, not elsewhere classified
CPT/HCPCS: 36415; 73552; 80053; 82550; 93005; 96361; 96374; 99285; 71045; 72170; 81003; 81015; 83735; 84484; 85025; 93010; 99284

== ENCOUNTER 2020-05-24 19:07 | Inpatient (IN) | payer MEDICARE, OTHER, SELFPAY ==
[2020-05-24] VITALS (7 sets, daily range): BP systolic 148–167; BP diastolic 75–89; PULSE 70–106; RESP 15–20; TEMP 37.1–37.2; O2SAT 94–97
--- NOTE | 2020-05-24 19:15 | DI.CT_ITS ---
EXAM: CT PELVIC WO CLINICAL HISTORY: fall. TECHNIQUE: Imaging Protocol: Axial computed tomography images with coronal and sagittal reformatted images were created and reviewed. CONTRAST MATERIAL: Oral: No COMPARISON: No exams were available for comparison FINDINGS: Osseous: No acute pelvic or hip fractures evident. Spina bifida is noted from L3-S1, with dilatation of the thecal sac which extends towards the subcutaneous tissues at this level. There is approximately 8-9 millimeters anterolisthesis of L4 upon L5, this related to degenerative ch anges in the facet joints. Soft tissues: There is anterior left lower quadrant colostomy. There is a fat containing peristomal hernia measuring 8 x 3 centimetres. No bowel obstruction at this level. No free fluid. Urinary andres dder appears unremarkable. Uterus and adnexal regions appear unremarkable. IMPRESSION: No evidence of hip nor pelvic fractures. Degenerative anterolisthesis of L4 upon L5 is noted is rela obdulia to degenerative facet joint changes. There are no pars defects or fractures at this level. Spina bifida at L3-S1 with dilated thecal sac evident at this level. RADIATION DOSE DELIVERED: 574.14mGy.cmTotal DLP DATA REPOSITORY: All CT scans at this facility are submitted to the National Radiology Data Registry (NRDR) Dose Index Registry (DIR) with the [employer] (A[employer]). RADIATION OPTIMIZATION: All CT scans at this facility use at least one of these dose optimization te chniques: automated exposure control; mA and/or kV adjustment per patient size (includes targeted exa ms where dose is matched to clinical indication); or iterative reconstruction.
--- NOTE | 2020-05-24 19:19 | W.ED.GENAD ---
Discharge Plan Disposition Patient Disposition: [facility] INPATIENT Condition: Stable Discharge Details Chief Complaint: Orthopedic Clinical Impression: Acute pain of left hip Primary Care Provider: Faith Adorno ED Provider: Juan Pablo Eugene Home Meds and New Rx's Prescriptions: No Action oxybutynin chloride 10 mg tablet extended release 24hr 10 mg PO DAILY Qty: 90 RF: 4 Myrbetriq 50 mg tablet extended release 24 hr 50 mg PO DAILY Qty: 90 RF: 4 prednisone 20 mg tablet See Rx Instructions PO DAILY Qty: 11 RF: 0 lithium carbonate 150 mg capsule 450 mg PO am Qty: 270 RF: 12 methotrexate sodium 2.5 mg tablet 20 mg PO QWEEK Qty: 72 RF: 12 omeprazole 40 mg capsule,delayed release(DR/EC) 40 mg PO DAILY Qty: 90 RF: 4 venlafaxine [Effexor XR] 150 mg capsule,extended release 24hr 150 mg PO DAILY Qty: 90 RF: 3 loratadine [Claritin] 10 mg tablet 10 mg PO DAILY PRNRF: 0 calcium carbonate-vitamin D3 1 EACH tablet 1 cap PO DAILY RF: 0 ergocalciferol (vitamin D2) 50,000 unit capsule 50,000 unit PO QWEEK Qty: 13 RF: 4 folic acid 1 mg tablet 1 mg PO DAILY Qty: 90 RF: 12 oxycodone 5 mg capsule 5 mg PO BID PRN (Reason: pain) Qty: 7 RF: 0 Medical Decision Making Patient evaluated earlier with x-ray of the hip and femur which were negative for acute fractures she returns for ongoing pain has had no new trauma but unable to bear weight. CAT scan pelvis with no acute findings. Took oxycodone 1 hour prior to arrival with improvement in her pain which is tolerable at this time. 2030: after ct scan pain up to a 8/10. toradol 15 mg ivp and acetaminophen 1000 mg PO given for pain bed request for observation for intractable pain, failed outpatient treatment Medical Records Medical records reviewed: Yes I reviewed the patient's medical records. Medical records narrative: CT pelvis TECHNIQUE: Imaging protocol: Computed tomography images of the pelvis without contrast. COMPARISON: CT thorax abd/pel CTA 06/28/2018 8:19 PM FINDINGS: Bowel: Visualized small bowel and colon are unremarkable. Intraperitoneal space: Unremarkable. No free air. No significant fluid collection. Lymph nodes: Unremarkable. No enlarged lymph nodes. Urinary bladder: Normal. No mass. Reproductive: Normal as visualized. Bones/joints: No fractures or subluxations are identified. Both hip joints appear maintained, with mild degenerative spurring of both acetabula. There is grade 1 anterolisthesis of L4 on L5, without evidence of spondylolysis. Soft tissues: There appears to be spina bifida from L3-S1, with dilatation of the thecal sac extending posteriorly into the subcutaneous fat in this region measuring up to 4.4 x 6.3 cm in axial dimensions and 5.5 cm craniocaudal dimension. There is an anterior left lower quadrant colostomy with fat containing peristomal hernia measuring up to 8.1 x 3.0 cm in axial dimensions. IMPRESSION: 1. No fractures or subluxations identified. 2. Findings of spina bifida from L3-S1 with dilatation of the thecal sac extending posteriorly into the subcutaneous fat at these levels, as described above. 3. Partial distal colonic resection with left lower quadrant colostomy with fat containing peristomal hernia. Findings were discussed with JUAN PABLO EUGENE at 05/24/2020 8:32 PM EST. Dictated and Authenticated by: Rico Delgado MD. HPI General Date/Time Provider Initiated Documentation: 05/24/20 19:09. Limitations to Documentation: no limitations. Information obtained by: patient. HPI Narrative: Patient returns for evaluation of ongoing left hip pain. She did try an oxycodone which she says did give her some relief but she is still unable to bear weight due to the pain. She was here earlier today and had x-ray of the hip and femur that showed no acute findings and she was discharged to home with pain management instructions. She has had no additional falls or trauma. She has no other symptoms Related Data Home Medications Medication Instructions Recorded Confirmed calcium carbonate-vitamin D3 1 cap PO DAILY 04/03/15 05/24/20 ergocalciferol (vitamin D2) 1,250 50,000 unit PO QWEEK #13 cap 05/28/19 05/24/20 mcg (50,000 unit) capsule lithium carbonate 150 mg capsule 450 mg PO am #270 tab-cap 05/28/19 05/24/20 methotrexate sodium 2.5 mg tablet 20 mg PO QWEEK #72 tab 05/28/19 05/24/20 omeprazole 40 mg capsule,delayed 40 mg PO DAILY #90 tab-cap 05/28/19 05/24/20 release venlafaxine 150 mg 150 mg PO DAILY #90 tab-cap 05/28/19 05/24/20 capsule,extended release 24 hr folic acid 1 mg tablet 1 mg PO DAILY #90 tab-cap 06/15/19 05/24/20 loratadine 10 mg tablet 10 mg PO DAILY PRN tab 11/27/19 05/24/20 oxybutynin chloride 10 mg 10 mg PO DAILY #90 tab 03/04/20 05/24/20 tablet,extended release 24 hr mirabegron 50 mg tablet,extended 50 mg PO DAILY #90 tab-cap 04/15/20 05/24/20 release 24 hr prednisone 20 mg tablet See Rx Instructions PO DAILY #11 05/22/20 05/24/20 tab oxycodone 5 mg PO BID PRN #7 cap 05/24/20 05/24/20 Previous Rx's Medication Instructions Recorded ergocalciferol (vitamin D2) 1,250 50,000 unit PO QWEEK #13 cap 05/28/19 mcg (50,000 unit) capsule lithium carbonate 150 mg capsule 450 mg PO am #270 tab-cap 05/28/19 methotrexate sodium 2.5 mg tablet 20 mg PO QWEEK #72 tab 05/28/19 omeprazole 40 mg capsule,delayed 40 mg PO DAILY #90 tab-cap 05/28/19 release venlafaxine 150 mg 150 mg PO DAILY #90 tab-cap 05/28/19 capsule,extended release 24 hr folic acid 1 mg tablet 1 mg PO DAILY #90 tab-cap 06/15/19 oxybutynin chloride 10 mg 10 mg PO DAILY #90 tab 03/04/20 tablet,extended release 24 hr mirabegron 50 mg tablet,extended 50 mg PO DAILY #90 tab-cap 04/15/20 release 24 hr prednisone 20 mg tablet See Rx Instructions PO DAILY #11 05/22/20 tab oxycodone 5 mg PO BID PRN #7 cap 05/24/20 Allergies Allergy/AdvReac Type Severity Reaction Status Date / Time phenelzine sulfate AdvReac Intermediate Neuro Unverified 05/24/20 19:39 [From Nardil] changes/loss of bladder control sucralfate [From Carafate] AdvReac Mild Diarrhea Unverified 05/24/20 19:39 General Stated Complaint: Orthopedic PARI: 3 Review of Systems All systems reviewed & are unremarkable except as noted in HPI and below Musculoskeletal Musculoskeletal: Denies deformity, Reports arthralgias, Denies joint swelling and Denies numbness Integumentary/Breasts Skin/Breast: Denies new lesions and Denies rash Neurologic Neurologic: Denies numbness [facility] Medical History Abdominal pain neg h. 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) Constipation Cortical cataract of right eye CRP elevated 05/27/16; 17.8 Depressed bipolar I disorder Depressed bipolar I disorder *ON LITHIUM Elevated C-reactive protein (05/27/16) Exotropia, alternating Falls frequently (08/16/17) Follicular cyst of ovary Follicular cyst of ovary 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) GERD (gastroesophageal reflux disease) Headache Headache chronic; improved since menopause Hiatal hernia Hiatal hernia (03/14/14) moderate by CT 07/08 Incontinence of feces S/P colostomy Infected sebaceous cyst (05/19/04) Knee pain Low back pain (11/14/14) Malignant neoplasm of female breast [facility] [place]-RIGHT BREAST; S/P RIGHT MASTECTOMY 05/13/11 [facility] [place] Malignant neoplasm of female breast [facility] [place]-Right Breast; S/P right mastectomy 05/13/11 [facility] [place] Malignant neoplasm of female breast Mixed stress and urge urinary incontinence Osteochondral defect (03/01/16) Osteoporosis T score -2.3, -3.0, -3.4 Rectal fullness 09/01/15 Rheumatoid arthritis Rheumatoid arthritis (08/22/12) MTX Right hip pain (11/14/14) Shoulder pain (01/28/15) Spina bifida Spina bifida (05/08/15) Urgency of urination (02/09/12) Urinary incontinence Uterine leiomyoma Uterine leiomyoma Uterine leiomyoma Surgical History Arthroscopy arthroplasty through the PIPJ, right 5th toe. Exostectomy from the right fifth metatarsal head Breast, Mastectomy (05/03/11) [facility] [place];RIGHT BREAST Colostomy (~2001) fecal incontinence EGD - MAC (11/21/17) Fracture, Closed Treatment (11/23/12) LEFT DISTAL RADIUS AND ULNA H/O arthroscopy through the PIP, right 5th toe. Exostectomy for the right fifth metatarsal head H/O Spinal surgery 1950-spine meningocele repair; for spina bifida History of arthroscopy History of lumpectomy of right breast Pt denies mastectomy History of right mastectomy History of spinal surgery SPINE SURGERY (~1950) SPINE MENINGOCELE REPAIR, FOR SPINA BIFADA Status post cataract extraction and insertion of intraocular lens of right eye (11/20/18) Status post colostomy Family History Mother , AGE 47 Brain tumor Father , AGE 78 Arthritis Brother , age 73 Essential hypertension Heart disease Stroke Maternal Grandfather Essential hypertension Heart disease Paternal Grandfather No problems noted. Maternal Grandmother Diabetes Essential hypertension Heart disease Paternal Grandmother No problems noted. Brother , age 63 Cancer Daughter No problems noted. Daughter No problems noted. Brother No problems noted. Social History Smoking/Tobacco Use Status: Never Second Hand Exposure: No Smoking risk assessment performed?: Yes Alcohol Intake: current Alcohol Intake frequency: a few times a week Drug use: Never Substance use type: prescription drug Household members: spouse Housing: house Communication Needs: Corrective Lenses Do you need help understanding health information?: Rarely Pets and animals: No Sexually active: No Do you think of yourself as: straight/heterosexual Current gender identity: decline to answer What is your relationship status?: How often do you talk on the phone with friends or family?: three or more times per week How often do you get together with friends or relatives?: decline to answer How often do you attend adventist or mormonism services?: decline to answer Do you belong to any clubs or organized social groups?: no Panel score (0-1 are the most socially isolated patients): 2 Duration: 15-30 minutes/day Frequency: 1-2 times per week Sherlyn/Yarsani: [facility] Special sherlyn needs: No Seatbelt use: always Drive intox or ride w/intox highway truck driver: No Do you feel safe at home: Yes Do you feel safe in your relationship?: Yes Exam Const General: cooperative, comfortable and frail appearing (older than stated age) Nutritional Appearance: average body habitus Orientation: alert, awake and oriented x3 HENMT Head: normal to inspection, normocephalic and atraumatic Chest Chest: normal inspection of the chest Resp Effort & Inspection: normal respiratory effort Cardio Rate: regular rate Rhythm: regular rhythm (Pedal pulse) Skin General skin exam: no rashes or lesions noted Extrem Left lower extremity: normal to inspection, normal capillary refill and hip/thigh Details: normal to inspection and tenderness Location: of the hip Location: laterally and of the mid upper leg; abnormal ROM, no cyanosis and no edema Course Vital Signs Vital signs: Vital Signs Temperature 37.1 C 05/24/20 19:13 Pulse 106 H 05/24/20 19:13 Respiratory Rate 18 05/24/20 19:13 Blood Pressure 167/83 H 05/24/20 19:13 Pulse Oximetry 96 05/24/20 19:13 Temperature 37.1 C 05/24/20 19:13 Temperature Source Skin 05/24/20 19:13 Pulse 106 H 05/24/20 19:13 Respiratory Rate 18 05/24/20 19:13 Blood Pressure 167/83 H 05/24/20 19:13 Blood Pressure Position Supine 05/24/20 19:13 Pulse Oximetry 96 05/24/20 19:13 Oxygen Delivery Method Room Air 05/24/20 19:13 Oxygen Flow Rate 0 05/24/20 19:13
--- NOTE | 2020-05-24 20:33 | DI.VRAD_ITS ---
PROCEDURE INFORMATION: Exam: CT Pelvis Without Contrast Exam date and time: 05/24/2020 7:32 PM Age: 70 years old Clinical indication: Left hip; Patient HX: Fall, L hip pain TECHNIQUE: Imaging protocol: Computed tomography images of the pelvis without contrast. COMPARISON: CT thorax abd/pel CTA 06/28/2018 8:19 PM FINDINGS: Bowel: Visualized small bowel and colon are unremarkable. Intraperitoneal space: Unremarkable. No free air. No significant fluid collection. Lymph nodes: Unremarkable. No enlarged lymph nodes. Urinary bladder: Normal. No mass. Reproductive: Normal as visualized. Bones/joints: No fractures or subluxations are identified. Both hip joints appear maintained, with mild degenerative spurring of both acetabula. There is grade 1 anterolisthesis of L4 on L5, without evidence of spondylolysis. Soft tissues: There appears to be spina bifida from L3-S1, with dilatation of the thecal sac extending posteriorly into the subcutaneous fat in this region measuring up to 4.4 x 6.3 cm in axial dimensions and 5.5 cm craniocaudal dimension. There is an anterior left lower quadrant colostomy with fat containing peristomal hernia measuring up to 8.1 x 3.0 cm in axial dimensions. IMPRESSION: 1. No fractures or subluxations identified. 2. Findings of spina bifida from L3-S1 with dilatation of the thecal sac extending posteriorly into the subcutaneous fat at these levels, as described above. 3. Partial distal colonic resection with left lower quadrant colostomy with fat containing peristomal hernia. Findings were discussed with JUAN PABLO ZABALA at 05/24/2020 8:32 PM EST. Dictated and Authenticated by: Rico Delgado MD. Ordering:LUCIA Piedra MD
[2020-05-24] MEDS: Acetaminophen 500 MG TAB 1000 MG PO (20:43)
[2020-05-24] MEDS: Ketorolac 15 MG/ML VIAL IVP (20:44)
--- NOTE | 2020-05-24 21:57 | HPE_ITS ---
Date of service: 05/24/20 Time of Service: 21:57 Assessment and Plan Assessment and plan (1) Acute pain of left hip: Start date: 05/24/20 Status: Acute Assessment and plan: This is a 70-year-old lady who fell injuring her left hip and was seen with negative x-rays, sent home for continued pain control but failed home therapy reporting back to the ED with worsening pain. She states that this mostly her left thigh that is hurting and less her hip. She will be evaluated by PT in the morning for safe ambulation and further evaluation of pain control and possibly further investigations as an outpatient of her left thigh pain which may be associated with her chronic back issues. Imaging needs to be reviewed with the reports being incomplete. (2) Chronic left-sided low back pain with left-sided sciatica: Status: Chronic Assessment and plan: The patient has chronic left lower extremity discomfort with that extremity being cold to touch and possibly having reflux sympathetic dystrophy with chronic pain. Further investigations may be limited on the weekend but can be carried out as an outpatient if the patient is able to ambulate safely at home with a walker since these problems appear to be more chronic. Physical therapy can assist with this assessment. History of Present Illness History of Present Illness Chief Complaint: Fall with left hip pain and worsening left thigh pain Narrative: This is a 70-year-old female patient who has chronic mobility issues with spina bifida and foot deformity but does walk without assistive device at home. She fell onto her left hip and was seen in the ED earlier today with x-rays being negative and sent home with pain management. She failed pain management and reported back to the ED with continued left hip and thigh pain with the thigh pain worse than the hip pain presently. She states that for the last 3 days her left thigh has been having increased pain and she does have a history of nerve pain in her left lower extremity coming from her back which is chronic. Also her left lower extremity often is cooler than the right. She is on multiple psychiatric meds and does take prednisone as often as every 3 months with short courses for arthritis. She does have rheumatoid arthritis and osteoporosis. When she did report back to the ED tonight CT scan of her hip revealed no fracture. There is mention of a medial hemiarthroplasty presumed of the knee, the patient had a scar over her knee and no mention of hip or pelvic fracture. The patient had failed pain control at home and had no fracture she was admitted for observation for physical therapy evaluation for safe ambulation at home with a walker. Also further evaluation of the left thigh pain could be entertained though this appears to be more chronic and associated with a chronic left lower extremity pain with her back issues. This could be further evaluated and treated as an outpatient if she can ambulate safely at home and not be at risk for fall. Review of Systems Narrative: 13 point review of systems otherwise unrevealing or stable with chronic issues as discussed. She has many musculoskeletal deformities and previous surgeries over her lower extremities. [facility], LATER [facility] Medical History Abdominal pain neg h. 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) Constipation Cortical cataract of right eye CRP elevated 05/27/16; 17.8 Depressed bipolar I disorder Depressed bipolar I disorder *ON LITHIUM Elevated C-reactive protein (05/27/16) Exotropia, alternating Falls frequently (08/16/17) Follicular cyst of ovary Follicular cyst of ovary 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) GERD (gastroesophageal reflux disease) Headache Headache chronic; improved since menopause Hiatal hernia Hiatal hernia (03/14/14) moderate by CT 07/08 Incontinence of feces S/P colostomy Infected sebaceous cyst (05/19/04) Knee pain Low back pain (11/14/14) Malignant neoplasm of female breast [facility]-RIGHT BREAST Malignant neoplasm of female breast [facility] [place]-Right Breast; Malignant neoplasm of female breast Mixed stress and urge urinary incontinence Osteochondral defect (03/01/16) Osteoporosis T score -2.3, -3.0, -3.4 Rectal fullness 09/01/15 Rheumatoid arthritis Rheumatoid arthritis (08/22/12) MTX Right hip pain (11/14/14) Shoulder pain (01/28/15) Spina bifida Spina bifida (05/08/15) Urgency of urination (02/09/12) Urinary incontinence Uterine leiomyoma Uterine leiomyoma Uterine leiomyoma Surgical History Arthroscopy arthroplasty through the PIPJ, right 5th toe. Exostectomy from the right fifth metatarsal head Colostomy (~2001) fecal incontinence EGD - MAC (11/21/17) Fracture, Closed Treatment (11/23/12) LEFT DISTAL RADIUS AND ULNA H/O arthroscopy through the PIP, right 5th toe. Exostectomy for the right fifth metatarsal head H/O Spinal surgery 1950-spine meningocele repair; for spina bifida History of arthroscopy History of lumpectomy of right breast Pt denies mastectomy History of spinal surgery SPINE SURGERY (~1950) SPINE MENINGOCELE REPAIR, FOR SPINA BIFADA Status post cataract extraction and insertion of intraocular lens of right eye (11/20/18) Status post colostomy Family History Mother , AGE 47 Brain tumor Father , AGE 78 Arthritis Brother , age 73 Essential hypertension Heart disease Stroke Maternal Grandfather Essential hypertension Heart disease Paternal Grandfather No problems noted. Maternal Grandmother Diabetes Essential hypertension Heart disease Paternal Grandmother No problems noted. Brother , age 63 Cancer Daughter No problems noted. Daughter No problems noted. Brother No problems noted. Social History Smoking/Tobacco Use Status: Never Second Hand Exposure: No Smoking risk assessment performed?: Yes Alcohol Intake: current Alcohol Intake frequency: a few times a week Drug use: Never Substance use type: prescription drug Household members: spouse Housing: house Communication Needs: Corrective Lenses Do you need help understanding health information?: Rarely Pets and animals: No Sexually active: No Do you think of yourself as: straight/heterosexual Current gender identity: decline to answer What is your relationship status?: How often do you talk on the phone with friends or family?: three or more times per week How often do you get together with friends or relatives?: decline to answer How often do you attend catholic or christian services?: decline to answer Do you belong to any clubs or organized social groups?: no Panel score (0-1 are the most socially isolated patients): 2 Duration: 15-30 minutes/day Frequency: 1-2 times per week Sherlyn/Nondenominational: Confucianism Special sherlyn needs: No Seatbelt use: always Drive intox or ride w/intox batch mixing truck driver: No Do you feel safe at home: Yes Do you feel safe in your relationship?: Yes Meds Home Medications and Allergies Home Medications Medication Instructions Recorded Confirmed Type calcium carbonate-vitamin D3 1 cap PO DAILY 04/03/15 05/24/20 History ergocalciferol (vitamin D2) 1,250 50,000 unit PO QWEEK #13 cap 05/28/19 05/24/20 Rx mcg (50,000 unit) capsule lithium carbonate 150 mg capsule 450 mg PO am #270 tab-cap 05/28/19 05/24/20 Rx methotrexate sodium 2.5 mg tablet 20 mg PO QWEEK #72 tab 05/28/19 05/24/20 Rx omeprazole 40 mg capsule,delayed 40 mg PO DAILY #90 tab-cap 05/28/19 05/24/20 Rx release venlafaxine 150 mg 150 mg PO DAILY #90 tab-cap 05/28/19 05/24/20 Rx capsule,extended release 24 hr folic acid 1 mg tablet 1 mg PO DAILY #90 tab-cap 06/15/19 05/24/20 Rx loratadine 10 mg tablet 10 mg PO DAILY PRN tab 11/27/19 05/24/20 History oxybutynin chloride 10 mg 10 mg PO DAILY #90 tab 03/04/20 05/24/20 Rx tablet,extended release 24 hr mirabegron 50 mg tablet,extended 50 mg PO DAILY #90 tab-cap 04/15/20 05/24/20 Rx release 24 hr prednisone 20 mg tablet See Rx Instructions PO DAILY #11 05/22/20 05/24/20 Rx tab oxycodone 5 mg PO BID PRN #7 cap 05/24/20 05/24/20 Rx Allergies Allergy/AdvReac Type Severity Reaction Status Date / Time phenelzine sulfate AdvReac Intermediate Neuro Unverified 05/24/20 19:39 [From Nardil] changes/loss of bladder control sucralfate [From Carafate] AdvReac Mild Diarrhea Unverified 05/24/20 19:39 Exam Narrative Exam Narrative: General: Patient appears appropriate for age, flattened affect but good eye contact and slowed monotonous speech with chronic psychiatric disease. She appears alert and oriented to person place and time. She is in no acute distress unless her left thigh is palpated or moved. HEENT: Normocephalic with coarsened facial features, eyes with pupils equal and reactive to light symmetrically, extraocular movement intact and sclera anicteric. Oropharynx with moist mucosa, external ears and nose normal. Neck: Supple without JVD. Back: Stooped posture with no CVA tenderness. Heart: Regular rate and rhythm with no murmurs or gallops appreciated. Breast: Exam deferred. Abdomen: Obese contour, soft and nontender to palpation with no palpable hepatosplenomegaly. Bowel sounds positive all quadrants. Genitalia/rectal: Exam deferred. Extremities: Without clubbing, cyanosis or edema. Deformity of most toes with spreading between the toes and hammertoes and apparent previous surgery. Periph eral pulses are intact with 2+ dorsalis pedis pulses bilaterally. Posterior tib pulses 2+ bilaterally. Left knee has a surgical scar over the anterior knee. Left thigh is normal size with no swelling or induration but extremely tender to palpation or movement. Left hip is tender to palpation over the trochanteric area and unable to fully test range of motion because of thigh pain. The left lower extremity is cooler to touch than the right lower extremity. Skin: Pale, warm and dry except over the left lower extremity which is cooler to touch without cyanosis or mottling. Neuro: Cranial nerves II through XII grossly intact, no focal motor deficits. Psych: Flattened affect with good eye contact and depressed mood. No abnormal thought processes. Remote and recent memory appear intact. Results Imaging Imaging Studies: a RAD:XR femur LT EXAM: XR PELVIS AP CLINICAL HISTORY: Fall, Left hip pain TECHNIQUE: COMPARISON: CR LUMBAR SPINE COMPLETE from 05/10/2017 CR,XR XR FEMUR LT from 05/24/2020 FINDINGS: An AP view of the pelvis and four views of the femur were obtained. There is a medial hemiarthroplasty. The bones of the knee are incompletely seen. No femoral fracture identified on the films obtained. No pelvic fracture seen. IMPRESSION: (none given) Dictated By: Donovan Richmond M.D. 05/24/20 1254 Exam: CT Pelvis Without Contrast Exam date and time: 05/24/2020 7:32 PM Age: 70 years old Clinical indication: Left hip; Patient HX: Fall, L hip pain TECHNIQUE: Imaging protocol: Computed tomography images of the pelvis without contrast. COMPARISON: CT thorax abd/pel CTA 06/28/2018 8:19 PM FINDINGS: Bowel: Visualized small bowel and colon are unremarkable. Intraperitoneal space: Unremarkable. No free air. No significant fluid collection. Lymph nodes: Unremarkable. No enlarged lymph nodes. Urinary bladder: Normal. No mass. Reproductive: Normal as visualized. Bones/joints: No fractures or subluxations are identified. Both hip joints appear maintained, with mild degenerative spurring of both acetabula. There is grade 1 anterolisthesis of L4 on L5, without evidence of spondylolysis. Soft tissues: There appears to be spina bifida from L3-S1, with dilatation of the thecal sac extending posteriorly into the subcutaneous fat in this region measuring up to 4.4 x 6.3 cm in axial dimensions and 5.5 cm craniocaudal dimension. There is an anterior left lower quadrant colostomy with fat containing peristomal hernia measuring up to 8.1 x 3.0 cm in axial dimensions. IMPRESSION: 1. No fractures or subluxations identified. 2. Findings of spina bifida from L3-S1 with dilatation of the thecal sac extending posteriorly into the subcutaneous fat at these levels, as described above. 3. Partial distal colonic resection with left lower quadrant colostomy with fat containing peristomal hernia. Findings were discussed with JUAN PABLO ZABALA at 05/24/2020 8:32 PM EST. Dictated and Authenticated by: Rico Delgado MD. Last Vital Signs Temp 37.2 C 05/24/20 20:33 Pulse 97 H 05/24/20 21:16 Resp 18 05/24/20 20:50 BP 158/84 H 12/05/20 21:16 Pulse Ox 96 05/24/20 21:16 COVID-19 Screening Have you, or household traveled for leisure in last 14 days?: No Had IN PERSON contact w/suspected or confirmed C-19 person: No
[2020-05-24] MEDS: oxyCODONE 5 MG TAB PO (23:17)
[2020-05-24] MEDS: Heparin 5,000 UNITS/ML VIAL 5000 UNITS SC (23:17)
--- NOTE | 2020-05-25 | DI.RAD_ITS ---
EXAM: XR KNEE LT 4V AP,LAT,KARRIE,PAT CLINICAL HISTORY: knee pain. TECHNIQUE: 2D digital imaging was performed. COMPARISON: CR LEFT KNEE LIMITED 1 OR 2 VIEWS from 01/29/2016 FINDINGS: There is satisfactory position alignment of the components of the medial hemiarthroplasty. No fractu re or loosening. Chondrocalcinosis noted in the lateral and patellofemoral compartments. IMPRESSION: Satisfactory appearance of the medial hemiarthroplasty. DATA REPOSITORY: RADIATION DOSE DELIVERED:
--- NOTE | 2020-05-25 | DI.RAD_ITS ---
EXAM: XR TIB/FIB LT CLINICAL HISTORY: left knee pain. TECHNIQUE: 2D digital imaging was performed. COMPARISON: No exams were available for comparison FINDINGS: There is a medial hemiarthroplasty in the left knee. Dystrophic calcification is noted in the soft t issues posterior to the Achilles tendon as well as within the Achilles tendon. There is no evidence of acute fracture of the tibia and fibula. Please note that the knee is not included on the lateral view. IMPRESSION: No obvious fractures. Please note that the tibial plateau is not included on the lateral view. DATA REPOSITORY: RADIATION DOSE DELIVERED:
[2020-05-25 03:00] VITALS: BP 145/74; PULSE 61; RESP 16; TEMP 37; O2SAT 96
[2020-05-25] MEDS: oxyCODONE 5 MG TAB PO (06:12)
[2020-05-25] MEDS: Heparin 5,000 UNITS/ML VIAL 5000 UNITS SC ×3 (06:12→21:09)
[2020-05-25 07:26] LABS: Abs Immature Grans 0.07 10^3/uL (0.0-0.06); Absolute Basophil Count 0.02 10^3/uL (0.0-0.2); Absolute Lymphocyte Count 0.71 10^3/uL (1.2-3.4); Absolute Monocyte Count 1.58 10^3/uL (0.1-0.8); Basophils % 0.2; HCT 36.1 % (36.0-46.0); HGB 11.4 g/dL (11.2-15.7); Immature Grans % 0.6; Lymphocytes % 5.7; MCH 30.2 pg (27.0-33.0); MCHC 31.6 % (32.0-36.0); MCV 95.8 fL (80-95); MPV 9.6 fL (8.0-11.0); Monocytes % 12.8; Neutrophils % 80.7; Nucleated RBC 0 %; Platelet Count 205 10^3/uL (130-400); RBC 3.77 10^6/uL (3.93-5.22); RDW 16.4 % (11.7-14.6); RDW-SD 57.6 fL; WBC 12.37 10^3/uL (4.4-10.8)
[2020-05-25 07:29] LABS: Absolute Neutrophil Count 9.98 10^3/uL (1.2-6.7)
[2020-05-25 07:34] LABS: Anion Gap 6.5 mmol/L (3-11); BUN 15 mg/dL (7-18); CO2 26.5 mmol/L (21.0-32.0); CREATININE 1.22 mg/dL (0.55-1.02); Calcium 9.3 mg/dL (8.5-10.1); Chloride 106 mmol/L (98-107); Estimated GFR 43.57 (mL/min/1.73m2); Glucose 110 mg/dL (74-106); Magnesium 1.9 mg/dL (1.8-2.4); Potassium 3.7 mmol/L (3.5-5.1); Sodium 139 mmol/L (136-145)
[2020-05-25 07:40] LABS: Diff Comment Agrees w/ Instrument
[2020-05-25 07:41] LABS: Anisocytosis 1+; Macrocytosis 1+
[2020-05-25 07:54] VITALS: BP 149/79; PULSE 67; RESP 17; TEMP 37.2; O2SAT 97
[2020-05-25] MEDS: Lithium Carbonate 150 MG CAP 450 MG PO (08:49)
[2020-05-25] MEDS: Venlafaxine 150 MG CAPCR PO (08:49)
[2020-05-25] MEDS: Oxybutynin 5 MG TAB 10 MG PO (08:50)
[2020-05-25] MEDS: predniSONE 20 MG TAB 40 MG PO (08:50)
[2020-05-25] MEDS: Mirabegron 50 MG TABCR PO (08:50)
[2020-05-25] MEDS: Omeprazole 20 MG CAPCR 40 MG PO (08:50)
[2020-05-25] MEDS: Folic Acid 1 MG TAB PO (08:51)
[2020-05-25] MEDS: Acetaminophen 500 MG TAB 1000 MG PO ×2 (10:55→17:14)
[2020-05-25 11:08] VITALS: BP 116/70; PULSE 100; RESP 17; TEMP 36.7; O2SAT 96
--- NOTE | 2020-05-25 11:53 | PT.INIE ---
Date of service: 05/25/20 Time of Service: 09:00 PT Notes Visit Reasons: ACUTE TRAUMATIC L HIP PAIN,CHRONIC L THIGH PAIN Inpatient Physical Therapy Evaluation Date: 05/25/20 Referring Doctor: Jorge A Lewis PT Orders: PT CONSULT: Limited ability Precautions: Standard Patient Profile/Admitting Diagnosis: Orders received for this 70-year-old female with a history of multiple health conditions. Apparently, patient suffered a fall at home injuring her hip and knee. She does have a history of chronic back pain and sciatica. X-rays were negative did not reveal any acute fracture or displacement. Patient has been having progressive difficulty walking due to pain that was pre-existing even before this fall. She is very familiar to outpatient physical therapy has had many treatments in the past. PMHX: Medical History Abdominal pain neg h. 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) Constipation Cortical cataract of right eye CRP elevated 05/27/16; 17.8 Depressed bipolar I disorder Depressed bipolar I disorder *ON LITHIUM Elevated C-reactive protein (05/27/16) Exotropia, alternating Falls frequently (08/16/17) Follicular cyst of ovary Follicular cyst of ovary 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) GERD (gastroesophageal reflux disease) Headache Headache chronic; improved since menopause Hiatal hernia Hiatal hernia (03/14/14) moderate by CT 07/08 Incontinence of feces S/P colostomy Infected sebaceous cyst (05/19/04) Knee pain Low back pain (11/14/14) Malignant neoplasm of female breast [facility] [place]RIGHT BREAST Malignant neoplasm of female breast [facility] [place]Right Breast; Malignant neoplasm of female breast Mixed stress and urge urinary incontinence Osteochondral defect (03/01/16) Osteoporosis T score -2.3, -3.0, -3.4 Rectal fullness 09/01/15 Rheumatoid arthritis Rheumatoid arthritis (08/22/12) MTX Right hip pain (11/14/14) Shoulder pain (01/28/15) Spina bifida Spina bifida (05/08/15) Urgency of urination (02/09/12) Urinary incontinence Uterine leiomyoma Surgical History Arthroscopy arthroplasty through the PIPJ, right 5th toe. Exostectomy from the right fifth metatarsal head Colostomy (~2001) fecal incontinence EGD - MAC (11/21/17) Fracture, Closed Treatment (11/23/12) LEFT DISTAL RADIUS AND ULNA H/O arthroscopy through the PIP, right 5th toe. Exostectomy for the right fifth metatarsal head H/O Spinal surgery 1950-spine meningocele repair; for spina bifida History of arthroscopy History of lumpectomy of right breast Pt denies mastectomy History of spinal surgery SPINE SURGERY (~1950) SPINE MENINGOCELE REPAIR, FOR SPINA BIFADA Status post cataract extraction and insertion of intraocular lens of right eye (11/20/18) Status post colostomy Social History/Home Situation: Patient lives at home with her Equipment Owned/DME: Front wheel walker but she has been using a little more lately due to pain through the left knee Subjective: Patient states that she is constantly being asked about the pain through her hip but she actually has pain through the left knee Objective: Patient sitting up in a recliner willing to participate in physical therapy, no medical lines in place Mental Status: Well oriented alert to person place and time Pain: 6 out of 10 at the left knee ROM: Right Upper Extremity: Within functional limit Left Upper Extremity: Within functional limits Right Lower Extremity: Within functional limits Left Lower Extremity: Within functional limits but patient describes some pain beyond 100 degrees of knee flexion Strength: Right Upper Extremity: Globally 5 out of 5 Left Upper Extremity: Globally 5 out of 5 Right Lower Extremity: Globally 5 out of 5 Left Lower Extremity: Hip flexion 4+ out of 5, quads 4+ out of 5 minor tenderness upon resistive testing, hamstrings 4+ out of 5 minor plaque pain upon resistive testing, dorsiflexion and plantar flexion 5 out of 5 Bed Mobility/Transfers: Not assessed as patient was in recliner Supine-sit: Not assessed as patient was in recliner Sit-stand: Contact-guard assist Stand-sit: Contact-guard assist Gait: Patient able to ambulate under contact-guard assist with the aid of front wheel walker in her hospital room up to 25 feet Balance: Static Sitting: Normal Dynamic Sitting: Normal Static Standing: Good Dynamic Standing: Fair Special Tests: Mobility Limitations Standardized Measure [facility] AM-PAC 6 clicks Basic Mobility Inpatient Short Form: Raw Score: 18 standardized Score: 43.63 CMS Score: 46.58% Informed Consent/Education: Patient instructed in purpose of PT consult and plan of care. Treatment today included: Ankle pumps from sitting Long arc quads Knee flexion including end range isometric hold Scapular retraction all x10 ASSESSMENT: Patient is a 70-year-old female with a history of multiple health conditions affecting function Admitted with status post fall with continued left side lower extremity pain but negative x-ray Patient presents with the following impairment level findings: Pain with movement particularly of the left knee, ambulation intolerance to distance, mild assistance needed for transferring Pt will benefit from skilled therapy intervention in order to remedy their functional limitations and restore patient to a more appropriate and stable functional level. Impairments are contributing to the following functional limitations: AMPAC score 46.5% Patient is assessed as a moderate complexity initial evaluation [id number] based on the following: History: see above Examination: see above Presentation: Evolving Decision Making: Moderate based on impact score of 46.5% Goals: Goals X1 week 1. Supine-Sit independent 2. Sit-Supine independent 3. Sit-Stand independent 4. Stand-Sit independent 5. Bed-Chair independent 6. Gait up to 100 feet with least restrictive assistive device 7: Stairs able to accomplish at least 3 steps under supervision 8: Independent in Home program Plan of Care/Treatment Plan: 1-2x/day, 7 days/week x 1 week. Plan of care has been reviewed with the GARMENT SUPERVISOR providing the service under Physical Therapy direction. Initiate Physical Therapy intervention for strengthening, bed mobility, transfers, gait, stairs, balance training, use of assistive device. DISCHARGE RECOMMENDATIONS: To home once medically stable and once stability and functional independence is assumed with her meeting functional goals TREATMENT CODE/TIME: Moderate complexity initial evaluation 89085 time of treatment 9 AM 30 minutes of direct patient care [facility]
--- NOTE | 2020-05-25 12:48 | PHA.REVIEW ---
Pharmacy Admission Review - Admission Clinical Review (Last Reviewed 05/24/20 @ 21:57 by Jorge A Lewis) Acute pain of left hip (Acute) phenelzine sulfate [From Nardil] Adverse Reaction (Intermediate, Unverified 05/24/20 19:39) Neuro changes/loss of bladder control sucralfate [From Carafate] Adverse Reaction (Mild, Unverified 05/24/20 19:39) Diarrhea Height 5 ft 2 in Weight 59 kg - Renal Dosing Renal Dosing: BUN 15 mg/dL (7-18) D 05/25/20 06:42 Creatinine 1.22 mg/dL (0.55-1.02) H 05/25/20 06:42 Medications needing adjustments: Reviewed (CRCL ~34ML/MIN) - Anticoagulation Anticoagulation: Hgb 11.4 g/dL (11.2-15.7) 05/25/20 06:42 Hct 36.1 % (36.0-46.0) 05/25/20 06:42 Plt Count 205 10^3/uL (130-400) 05/25/20 06:42 Creatinine 1.22 mg/dL (0.55-1.02) H 05/25/20 06:42 DVT Prohphylaxis: Reviewed Medications: Heparin Therapeutic Anticoagulation: N/A - Relevant Labs Sodium 139 mmol/L (136-145) 05/25/20 06:42 Potassium 3.7 mmol/L (3.5-5.1) 05/25/20 06:42 Chloride 106 mmol/L (98-107) 05/25/20 06:42 Magnesium 1.9 mg/dL (1.8-2.4) 05/25/20 06:42 Electrolytes, C-Reactive P, ESR: Reviewed - DM Control DM Control: Glucose 110 mg/dL (74-106) H 05/25/20 06:42 Insulin Dosing: N/A - BP Control BP Control: Blood Pressure 116/70 Blood Pressure 149/79 Blood Pressure 145/74 If elevated: N/A - Qtc Review If Elevated: N/A - IV to PO Switch IV Medications: Reviewed (ALL PO) - Home Meds Home Med List reviewed: Reviewed - Current meds Current Medication Order Review: Reviewed - Comments Comments/Follow Ups: STARTED PREDNISONE TAPER 05/22 PER OUPT ORDER. ENTERED ALL DOSES. PT CONSULT FOR THIGH PAIN
--- NOTE | 2020-05-25 14:01 | INITIAL_ITS ---
- If Service Date Differs Date of service: 05/25/20 Time of Service: 14:01 Care Management Initial Assess REASON FOR HOSPITALIZATION:: Acute traumatic left hip pain and chronic left thigh pain. PAST MEDICAL HISTORY/PAST SURGICAL HISTORY:: Medical History: Abdominal pain - neg h. 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, Cellulitis and abscess of lower extremity -left foot, Chronic GERD, Chronic left-sided low back pain with left- sided sciatica, Chronic pain of left knee - L patello femoral, Closed fracture distal radius and ulna - L wrist, Colostomy in place, Congenital spinal meningocele, Constipation, Cortical cataract of right eye, CRP elevated - 05/27/16; 17.8, Depressed bipolar I disorder - *ON LITHIUM, Elevated C-reactive protein, Exotropia, alternating, Falls frequently, Follicular cyst of ovary, Gait abnormality - congenital Arnold-Chiari malformation and syringomyelocele (repaired), GERD (gastroesophageal reflux disease), Headache - chronic; improved since menopause, Hiatal hernia - moderate by CT 07/08, Incontinence of feces - S/P colostomy, Infected sebaceous cyst (05/19/04), Knee pain, Low back pain (11/14/14), Malignant neoplasm of female breast - [facility] [place]-RIGHT BREAST, Mixed stress and urge urinary incontinence, Osteochondral defect (03/01/16), Osteoporosis - T score -2.3, -3.0, -3.4, Rectal fullness 09/01/15, Rheumatoid arthritis (08/22/12) - MTX, Right hip pain (11/14/14), Shoulder pain (01/28/15), Spina bifida, Urgency of urination (02/09/12), Urinary incontinence, and Uterine leiomyoma. Surgical History: Arthroscopy - arthroplasty through the PIPJ, right 5th toe. Exostectomy from the right fifth metatarsal head, Colostomy (~2001) - fecal incontinence, EGD - MAC (11/21/17), Fracture, Closed Treatment (11/23/12) - LEFT DISTAL RADIUS AND ULNA, H/O Spinal surgery - 1950-spine meningocele repair; for spina bifida, History of arthroscopy, History of lumpectomy of right breast - Pt denies mastectomy, History of spinal surgery, SPINE SURGERY (~1950) - SPINE MENINGOCELE REPAIR, FOR SPINA BIFADA, Status post cataract extraction and insertion of intraocular lens of right eye (11/20/18), and Status post colostomy. PREVIOUS FUNCTIONAL STATUS/SOCIAL/FAMILY SUPPORTS:: Pebbles lives in [place] with Umberto, her of 48 years. She shares Umberto has a brain tumor and is currently on hospice. The couple has two adult daughters; one who lives in [place] and one in [place]. Pebbles reports that both are very supportive and Erin, the daughter who resides in [place], is currently at the couple's home caring for Umberto. 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 She also used to volunteer her time with [employer]. Pebbles enjoys doing puzzles on the computer and watching television. She reports she is independent at baseline and still drives. CURRENT FUNCTIONAL STATUS:: Pebbles is laying in bed watching television when CM comes to meet with her. She is pleasant and easily engages in discussion. Pebbles is looking forward to returning home so she can resume caring for her . CM will continue to follow. ADVANCE DIRECTIVES:: On file. Has patient been provided with info about the portal/API?: Yes Did the patient sign up for the portal?: Yes (Already enrolled.) CODE STATUS:: DNR/DNI INSURANCE COVERAGE / FINANCIAL ISSUES:: Medicare and [employer]. CURRENT HOME/COMMUNITY SERVICES/EQUIPMENT:: Pebbles has no in-home or community services for herself, but both hospice and Home Health are currently providing in-home services for her . Pebbles states she has a FWW and one with a seat. She additionally has a commode and a shower seat. PRIMARY CARE PHYSICIAN:: Faith Adorno MD POTENTIAL DISCHARGE NEEDS:: Follow up appointment with PCP and outpatient physical therapy. PATIENT/FAMILY EDUCATION NEEDS:: Discharge instructions, limitations, follow up plan of care, including Ask Me Three and self management. ANTICIPATED BARRIERS TO DISCHARGE:: None identified. TRANSPORTATION:: Via private vehicle with family. PLAN:: Anticipate Pebbles will be discharged home with no new services when medically cleared by provider. She will follow up with her PCP, outpatient physical therapy, and discharge plan of care as directed. One of her daughters will drive her home via private vehicle when ready. CM will continue to support patient and discharge planning considerations.
[2020-05-25 15:29] VITALS: BP 117/67; PULSE 94; RESP 16; TEMP 37.1; O2SAT 96
--- NOTE | 2020-05-25 15:43 | W.PM.PROGNOT ---
Date of Service Date of service: 05/25/20 Time of Service: 15:43 Assessment and Plan Assessment and plan (1) Quadriceps strain: Status: Suspected Assessment and plan: Continue working with PT. MAYO. Consider ortho consult. (2) Left knee pain: Status: Acute Assessment and plan: Likely due to above. As above (3) Acute pain of left hip: Status: Resolved Assessment and plan: No further workup planned at this time (4) Chronic left-sided low back pain with left-sided sciatica: Status: Chronic Assessment and plan: Continue PT. Consider gabapentin (5) Ambulatory dysfunction: Status: Acute Assessment and plan: Continue working with PT (6) DVT prophylaxis: Status: Acute Assessment and plan: SC heparin (7) Discharge planning issues: Status: Acute Assessment and plan: DNr/DNI Possible discharge home with home health PT Subjective Subjective Interval history since last seen: Ms Jain states that her left knee pain is a little bit better. She continues to have anterior thigh pain and has had visible muscle spasms there. Denies dizziness, chest pain, shortness of breath, abdominal pain, nausea. No pain around ostomy and has output in it. Exam Narrative Exam Narrative: General: Pleasant middle-aged female, A&ox3, observed walking with a walker - can bear weight on BLEs, but limping HEENT: EOMI, MMM Heart: RRR, +KENYON Lungs: CTAB Abdomen: soft, nontender, ostomy with a small amount of brown output, no tenderness around ostomy Extremities: no edema BLE's, L knee without an obvious effusion, having visible quadriceps spasms Objective Last Vital Signs Temp 37.1 C 05/25/20 15:29 Pulse 94 H 05/25/20 15:29 Resp 16 05/25/20 15:29 BP 117/67 05/25/20 15:29 Pulse Ox 96 05/25/20 15:29 Laboratory Results - last 24 hr 05/25/20 05/25/20 06:42 06:42 WBC 12.37 H D RBC 3.77 L Hgb 11.4 Hct 36.1 MCV 95.8 H MCH 30.2 MCHC 31.6 L RDW 16.4 H Plt Count 205 MPV 9.6 Immature Gran % 0.6 Neutrophils % 80.7 Lymphocytes % 5.7 Monocytes % 12.8 Eosinophils % 0.0 Basophils % 0.2 Nucleated RBC % 0 Absolute Neutrophils 9.98 H Absolute Lymphocytes 0.71 L Absolute Monocytes 1.58 H Absolute Eosinophils 0.00 Absolute Basophils 0.02 RBC Morphology See below Anisocytosis 1+ Macrocytosis 1+ Sodium 139 Potassium 3.7 Chloride 106 Carbon Dioxide 26.5 Anion Gap 6.5 BUN 15 D Creatinine 1.22 H Estimated GFR/1.73 m2 43.57 Glucose 110 H Calcium 9.3 Magnesium 1.9 Objective Narrative Objective Narrative: XR tib/fib L: No obvious fractures. Please note that the tibial plateau is not included on the lateral view. XR L knee: Satisfactory appearance of the medial hemiarthroplasty.
[2020-05-25] MEDS: Normal Saline Flush 10 ML SYR (17:16)
[2020-05-25 20:52] VITALS: BP 119/73; PULSE 16; RESP 16; TEMP 37; O2SAT 96
[2020-05-25] MEDS: Mylanta Suspension 30 ML CUP PO (22:01)
[2020-05-25 23:29] VITALS: BP 125/79; PULSE 71; RESP 17; TEMP 37.4; O2SAT 96
[2020-05-26] MEDS: Mylanta Suspension 30 ML CUP PO (00:24)
[2020-05-26 03:06] VITALS: BP 146/80; PULSE 63; RESP 18; TEMP 37.5; O2SAT 95
[2020-05-26] MEDS: Heparin 5,000 UNITS/ML VIAL 5000 UNITS SC (06:09)
[2020-05-26 06:54] LABS: Abs Immature Grans 0.04 10^3/uL (0.0-0.06); Absolute Basophil Count 0.02 10^3/uL (0.0-0.2); Absolute Eosinophil Count 0.06 10^3/uL (0.0-0.7); Absolute Lymphocyte Count 1.25 10^3/uL (1.2-3.4); Absolute Monocyte Count 1.21 10^3/uL (0.1-0.8); Absolute Neutrophil Count 8.64 10^3/uL (1.2-6.7); Basophils % 0.2; Eosinophils % 0.5; HCT 36.1 % (36.0-46.0); HGB 11.4 g/dL (11.2-15.7); Immature Grans % 0.4; Lymphocytes % 11.1; MCH 29.8 pg (27.0-33.0); MCHC 31.6 % (32.0-36.0); MCV 94.5 fL (80-95); MPV 9.9 fL (8.0-11.0); Monocytes % 10.8; Nucleated RBC 0 %; Platelet Count 234 10^3/uL (130-400); RBC 3.82 10^6/uL (3.93-5.22); RDW 16.4 % (11.7-14.6); RDW-SD 56.6 fL; WBC 11.22 10^3/uL (4.4-10.8)
[2020-05-26 07:01] LABS: Anion Gap 7.3 mmol/L (3-11); BUN 22 mg/dL (7-18); CO2 25.7 mmol/L (21.0-32.0); CREATININE 1.49 mg/dL (0.55-1.02); Calcium 9.7 mg/dL (8.5-10.1); Chloride 106 mmol/L (98-107); Glucose 82 mg/dL (74-106); Magnesium 2.1 mg/dL (1.8-2.4); Potassium 3.4 mmol/L (3.5-5.1); Sodium 139 mmol/L (136-145)
[2020-05-26 07:35] VITALS: BP 140/72; PULSE 71; RESP 16; TEMP 37.4; O2SAT 95
[2020-05-26 08:31] LABS: Creatine Kinase 30 U/L (26-192)
[2020-05-26] MEDS: predniSONE 20 MG TAB PO (08:32)
[2020-05-26] MEDS: Folic Acid 1 MG TAB PO (08:32)
[2020-05-26] MEDS: Omeprazole 20 MG CAPCR 40 MG PO (08:32)
[2020-05-26] MEDS: Oxybutynin 5 MG TAB 10 MG PO (08:33)
[2020-05-26] MEDS: Lithium Carbonate 150 MG CAP 450 MG PO (08:33)
[2020-05-26] MEDS: Mirabegron 50 MG TABCR PO (08:33)
[2020-05-26] MEDS: Calcium 600mg/Vit D 200U TAB 1 TAB PO (08:34)
[2020-05-26] MEDS: Venlafaxine 150 MG CAPCR PO (08:34)
[2020-05-26] MEDS: Potassium Chloride 20 MEQ TABCR 40 MEQ PO (08:34)
[2020-05-26 08:35] LABS: COVID-19 RT-PCR UVMMC Result Negative (Negative)
--- NOTE | 2020-05-26 10:06 | DSE_ITS ---
Date of service: 05/26/20 Time of Service: 10:06 DS: Diagnosis Discharge Diagnosis (1) Quadriceps strain: Start date: 05/26/20 Start time: 10:07 Status: Suspected Asessment and Plan: Improved, MAYO, Outpatient ortho follow up Home PT, likely due to compensation for knee pain, continue antispasmodics Tylenol for pain. Home with PT/OT (2) Left knee pain: Start date: 05/26/20 Start time: 10:08 Status: Acute Asessment and Plan: Due to above (3) Acute pain of left hip: Start date: 05/26/20 Start time: 10:09 Status: Resolved Asessment and Plan: Will continue outpatient PT (4) Chronic left-sided low back pain with left-sided sciatica: Start date: 05/26/20 Start time: 10:09 Status: Chronic Asessment and Plan: consider gabapentin, will defer to PCP for further management (5) Ambulatory dysfunction: Start date: 05/26/20 Start time: 10:18 Status: Acute Asessment and Plan: She is being discharged home with PT/OT for further management. above case discussed with Dr. Hassan who is in agreement. Discharge Plan Disposition Patient Disposition: HOME W/HOME HEALTH SERVICE Condition: Stable Discharge Details Reason For Visit: ACUTE TRAUMATIC L HIP PAIN,CHRONIC L THIGH PAIN Admit Date/Time: 05/25/20 16:00 Admit Provider: Jorge A Lewis Attending Provider: Jorge A Lewis Primary Care Provider: Faith Adorno [facility] Course Hospital Course: 70 y.o female with PMH of chronic mobility issues with spina bifida and foot deformity but does walk without assistive device at home, GERD, Osteoprosis, depression/bipolar, admitted to [facility] m/s after being evaluated in the ED for a second time for severe ongoing left hip pain and ambulatory dysfunction causing a fall to the left hip. On initial evaluation in the ED she was evaluated and sent home with pain management, she failed pain management and reported back to the ED with continued hip and thigh pain. She was admitted for further management. She was having spasms to her thigh that was contributing to her pain. Likely she was also compensating due to knee pain therefore causing quadricep strain. PT worked with her, she is ambulatory around room, with 4 point walker, and pain is improved, therefore she is being discharged home with PT/OT. BUN and Creatinine did bump overnight, she is on lithium also concern for rhabdo due to muscle spasm, however CK was 30 and lithium level 60. Will give 1 liter bolus, she will need to repeat labs in 3 days, follow up with ortho as an outpatient and follow up with PCP. She denies CP, SOB, N/V/D and feels ready to go home. Home Meds and New Rx's Prescriptions: New prednisone 10 mg Tablet 10 mg PO DAILY Qty: 10 RF: 0 diazepam [Valium] 5 mg tablet 5 mg PO .BID&HS PRNQty: 60 RF: 0 Continued oxybutynin chloride 10 mg tablet extended release 24hr 10 mg PO DAILY Qty: 90 RF: 4 Myrbetriq 50 mg tablet extended release 24 hr 50 mg PO DAILY Qty: 90 RF: 4 prednisone 20 mg tablet See Rx Instructions PO DAILY Qty: 11 RF: 0 lithium carbonate 150 mg capsule 450 mg PO am Qty: 270 RF: 12 methotrexate sodium 2.5 mg tablet 20 mg PO QWEEK Qty: 72 RF: 12 omeprazole 40 mg capsule,delayed release(DR/EC) 40 mg PO DAILY Qty: 90 RF: 4 venlafaxine [Effexor XR] 150 mg capsule,extended release 24hr 150 mg PO DAILY Qty: 90 RF: 3 loratadine [Claritin] 10 mg tablet 10 mg PO DAILY PRNRF: 0 calcium carbonate-vitamin D3 1 EACH tablet 1 cap PO DAILY RF: 0 ergocalciferol (vitamin D2) 50,000 unit capsule 50,000 unit PO QWEEK Qty: 13 RF: 4 folic acid 1 mg tablet 1 mg PO DAILY Qty: 90 RF: 12 oxycodone 5 mg capsule 5 mg PO BID PRN (Reason: pain) Qty: 7 RF: 0 Discharge Instructions Instructions: Muscle Spasm (ED), Quadriceps Exercises (GEN) Additional Instructions: Follow up with PCP in 1-2 weeks Follow up with ortho when available for next appt. Repeat blood work in 3 days Take valium 1-2 tabs for muscle spasms twice a day and at night as needed. We will continue home PT/OT Referrals: Jenaro Clarke MD [ [facility] STAFF PHYSICIAN] - (Knee pain with muscle spasm, and quadricep strain) Activity:: Activity as Tolerated Equipment/Supplies:: No Equipment Needed Diet:: As Tolerated Discharge Orders Discharge Orders: Discharge Order (Routine); Ordered 05/26/20 Ordered By: Starr Lagos Other Ambulatory Orders: Basic Metabolic Panel (Routine) Location: None Selected Ordered By: Starr Lagos Complete Blood Count w/Diff (Routine) Location: None Selected Ordered By: Starr Lagos DS: Summary Status at Discharge Functional status at discharge: uses cane/walker Overall status at discharge: patient is progressing back to baseline Mental Status: mental status grossly normal Speech and Movement: speech and movement normal Mood: congruent mood Affect: normal affect Exam Narrative Exam Narrative: General: Pleasant middle-aged female, A&ox3, observed walking with a walker - can bear weight on BLEs HEENT: EOMI, MMM Heart: RRR, +KENYON Lungs: CTAB Abdomen: soft, nontender, ostomy with a small amount of brown output, no tenderness around ostomy Extremities: no edema BLE's, L knee without an obvious effusion, having visible quadriceps spasms Psych Mental Status: mental status grossly normal Speech and Movement: speech and movement normal Mood: congruent mood Affect: normal affect DS: Data Vitals/I&O Vitals and I&O: Vital Signs Temperature 37.4 C 05/26/20 07:35 Temperature Source Tympanic 05/26/20 07:35 Pulse 71 05/26/20 07:35 Pulse Rhythm Regular 05/25/20 23:00 Respiratory Rate 16 05/26/20 07:35 Respiratory Effort Non-Labored 05/25/20 23:00 Respiratory Depth Normal 05/25/20 23:00 Respiratory Pattern Normal 05/25/20 23:00 Blood Pressure 140/72 05/26/20 07:35 Blood Pressure Mean 103 05/24/20 21:16 Blood Pressure Position Supine 05/24/20 19:13 Pulse Oximetry 95 05/26/20 07:35 Oxygen Delivery Method Room Air 05/26/20 07:35 Oxygen Flow Rate 0 05/26/20 07:35 Pain Level 2 05/26/20 07:35 Intake & Output 05/25/20 05/25/20 05/26/20 11:59 23:59 11:59 Intake Total 360 / 1080 720 / 1080 480 / 480 Output Total 875 / 1875 1000 / 1875 1750 / 1750 Balance -515 / -795 -280 / -795 -1270 / -1270 Weight 59 kg 57.4 kg Intake: Oral 360 / 1080 720 / 1080 480 / 480 Output: Urine 1874 / 1874 1749 / 1749 Other: Urine Color Yellow Pale Pale Yellow Yellow Urine Appearance Clear Clear Clear Urine Odor Normal Normal None Comment Pt urinated in toilet, but briefs were also soaked. Voiding Methods Bedside Commode Bedside Commode Toilet Data Completed and Pending Completed studies during hospitalization [Text1]: Exam(s) a RAD:XR knee LT 4V AP,lat,taras,pat EXAM: XR KNEE LT 4V AP,LAT,TARAS,PAT CLINICAL HISTORY: knee pain. TECHNIQUE: 2D digital imaging was performed. COMPARISON: CR LEFT KNEE LIMITED 1 OR 2 VIEWS from 01/29/2016 FINDINGS: There is satisfactory position alignment of the components of the medial hemiarthroplasty. No fracture or loosening. Chondrocalcinosis noted in the lateral and patellofemoral compartments. IMPRESSION: Satisfactory appearance of the medial hemiarthroplasty. Exam(s) a RAD:XR tib/fib LT EXAM: XR TIB/FIB LT CLINICAL HISTORY: left knee pain. TECHNIQUE: 2D digital imaging was performed. COMPARISON: No exams were available for comparison FINDINGS: There is a medial hemiarthroplasty in the left knee. Dystrophic calcification is noted in the soft tissues posterior to the Achilles tendon as well as within the Achilles tendon. There is no evidence of acute fracture of the tibia and fibula. Please note that the knee is not included on the lateral view. IMPRESSION: No obvious fractures. Please note that the tibial plateau is not included on the lateral view. Labs on day of discharge: Labs from last 24 hours 05/26/20 05/26/20 05/26/20 06:18 06:18 06:18 WBC 11.22 H RBC 3.82 L Hgb 11.4 Hct 36.1 MCV 94.5 MCH 29.8 MCHC 31.6 L RDW 16.4 H Plt Count 234 MPV 9.9 Immature Gran % 0.4 Neutrophils % 77.0 Lymphocytes % 11.1 Monocytes % 10.8 Eosinophils % 0.5 Basophils % 0.2 Nucleated RBC % 0 Absolute Neutrophils 8.64 H Absolute Lymphocytes 1.25 Absolute Monocytes 1.21 H Absolute Eosinophils 0.06 Absolute Basophils 0.02 Sodium 139 Potassium 3.4 L Chloride 106 Carbon Dioxide 25.7 Anion Gap 7.3 BUN 22 H D Creatinine 1.49 H Estimated GFR/1.73 m2 34.60 Glucose 82 Calcium 9.7 Magnesium 2.1 Creatine Kinase 30 [place] 0.60 COVID-19 PCR Nasopharyn COVID-19 PCR Ref Test Perform Site 05/24/20 21:04 WBC RBC Hgb Hct MCV MCH MCHC RDW Plt Count MPV Immature Gran % Neutrophils % Lymphocytes % Monocytes % Eosinophils % Basophils % Nucleated RBC % Absolute Neutrophils Absolute Lymphocytes Absolute Monocytes Absolute Eosinophils Absolute Basophils Sodium Potassium Chloride Carbon Dioxide Anion Gap BUN Creatinine Estimated GFR/1.73 m2 Glucose Calcium Magnesium Creatine Kinase [place] COVID-19 PCR Negative Nasopharyn COVID-19 PCR Not Applicable Ref Test Perform Site [facility] Medical History Abdominal pain neg h. 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) Constipation Cortical cataract of right eye CRP elevated 05/27/16; 17.8 Depressed bipolar I disorder Depressed bipolar I disorder *ON LITHIUM Elevated C-reactive protein (05/27/16) Exotropia, alternating Falls frequently (08/16/17) Follicular cyst of ovary Follicular cyst of ovary 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) GERD (gastroesophageal reflux disease) Headache Headache chronic; improved since menopause Hiatal hernia Hiatal hernia (03/14/14) moderate by CT 07/08 Incontinence of feces S/P colostomy Infected sebaceous cyst (05/19/04) Knee pain Low back pain (05/28/15) Malignant neoplasm of female breast [facility]-RIGHT BREAST Malignant neoplasm of female breast [facility] [place]-Right Breast; Malignant neoplasm of female breast Mixed stress and urge urinary incontinence Osteochondral defect (03/01/16) Osteoporosis T score -2.3, -3.0, -3.4 Rectal fullness 09/01/15 Rheumatoid arthritis Rheumatoid arthritis (08/22/12) MTX Right hip pain (11/14/14) Shoulder pain (01/28/15) Spina bifida Spina bifida (05/08/15) Urgency of urination (02/09/12) Urinary incontinence Uterine leiomyoma Uterine leiomyoma Uterine leiomyoma Surgical History Arthroscopy arthroplasty through the PIPJ, right 5th toe. Exostectomy from the right fifth metatarsal head Colostomy (~2001) fecal incontinence EGD - MAC (11/21/17) Fracture, Closed Treatment (11/23/12) LEFT DISTAL RADIUS AND ULNA H/O arthroscopy through the PIP, right 5th toe. Exostectomy for the right fifth metatarsal head H/O Spinal surgery 1950-spine meningocele repair; for spina bifida History of arthroscopy History of lumpectomy of right breast Pt denies mastectomy History of spinal surgery SPINE SURGERY (~1950) SPINE MENINGOCELE REPAIR, FOR SPINA BIFADA Status post cataract extraction and insertion of intraocular lens of right eye (11/20/18) Status post colostomy Family History Mother , AGE 47 Brain tumor Father , AGE 78 Arthritis Brother , age 73 Essential hypertension Heart disease Stroke Maternal Grandfather Essential hypertension Heart disease Paternal Grandfather No problems noted. Maternal Grandmother Diabetes Essential hypertension Heart disease Paternal Grandmother No problems noted. Brother , age 63 Cancer Daughter No problems noted. Daughter No problems noted. Brother No problems noted. Social History Smoking/Tobacco Use Status: Never Second Hand Exposure: No Smoking risk assessment performed?: Yes Alcohol Intake: current Alcohol Intake frequency: a few times a week Drug use: Never Substance use type: prescription drug Household members: spouse Housing: house Communication Needs: Corrective Lenses Do you need help understanding health information?: Rarely Pets and animals: No Sexually active: No Do you think of yourself as: straight/heterosexual Current gender identity: decline to answer What is your relationship status?: How often do you talk on the phone with friends or family?: three or more times per week How often do you get together with friends or relatives?: decline to answer How often do you attend gnosticism or yarsani services?: decline to answer Do you belong to any clubs or organized social groups?: no Panel score (0-1 are the most socially isolated patients): 2 Duration: 15-30 minutes/day Frequency: 1-2 times per week Sherlyn/Gnosticist: Hinduism Special sherlyn needs: No Seatbelt use: always Drive intox or ride w/intox company tanker truck driver: No Do you feel safe at home: Yes Do you feel safe in your relationship?: Yes
--- NOTE | 2020-05-26 10:11 | PDOC.CMDIS ---
- If Service Date Differs Date of service: 05/26/20 Time of Service: 10:11 LACE Index Scoring Tool - Questions: Length of Stay (in days): 2 Acuity (Admit via E.D.?): Yes Comorbidities: Any Tumor E.D. Visits: 2 - Answers: Total Score: 9 Risk of Readmission: Low Risk Care Management Discharge Reason for Hospitalization: Acute traumatic left hip pain and chronic left thigh pain. Discharge Plan: Pebbles is being dischared today. She states she feels ready to go home, she is planning on completing the stairs with PT to ensure she is safe to return home. She is willing to have home health PT and nursing. CM has contacted the services and provided a referral a face to face will be completed by provider. Pebbles states she will contact her daughter to pick her up. She has no other anticipated needs at this time, she will need close follow up by her provider and recomended labs after discharge. CM will follow up with a phone call after discharge. Patient/Family Education Needs: Discharge education, limitations and follow up plan of care including self management. Services Needed at Discharge: Home Health Care Services, Physical Therapy
[2020-05-26] MEDS: Normal Saline 1,000 ML 1000 ML IV (10:15)
[2020-05-26 11:23] VITALS: BP 120/73; PULSE 99; RESP 18; TEMP 37.1; O2SAT 94
--- NOTE | 2020-05-26 12:49 | PDOC.HHF2F ---
Home Health Certification Home Health Certification: 1. Encounter Date and Reason I certify that RUBEN CUBA was seen by Starr Lagos on 05/26/20 and that I had a [id number] encounter with this patient that meets the physician face to face encounter requirements. 2. Clinical Findings Supporting Skilled Need and Homebound Status I certify that home health services are medically necessary, include either intermittent correction and/or physical/speech therapy, and that this patient is homebound in that absences from the home require considerable and taxing effort and are infrequent or of short duration, or are attributable to the need to receive medical care. [X] (a) Attached documentation from encounter provides clinical findings supporting skilled need and homebound status (including what assistance patient requires to leave the home). The encounter with the patient was in whole, or in part, for the following medical condition, which is the primary reason for home health care: ACUTE TRAUMATIC L HIP PAIN,CHRONIC L THIGH PAIN Physical Therapy: Would benefit from PT for increased strength and balance. Speech Therapy: Homebound: Unable to leave home without assistance. 3. Certification and Authentication I certify that I composed the above information based on my clinical judgement relating to this patient's medical condition and, if applicable, clinical findings communicated to me by the NPP or inpatient physician who performed the Home Health Referral. All further orders will be obtained through ____Faith Velazco__(Community Based Physician - PCP)
--- NOTE | 2020-05-26 13:29 | PTTR_ITS ---
Date of service: 05/26/20 Time of Service: 09:00 PT Notes Visit Reasons: ACUTE TRAUMATIC L HIP PAIN,CHRONIC L THIGH PAIN Inpatient Physical Therapy Treatment Note [facility] Date: 05/26/2020 PRECAUTIONS: Fall, WBAT L SUBJECTIVE: Pebbles states that she is feeling pretty good today, she feels that she can return home safely at this time. OBJECTIVE: PAIN: Minimal complaints of pain in left knee posteriorly with ther ex completion BED MOBILITY/TRANSFERS Sit-supine: I with HOB flat Sit-stand: S in a.m.; I in p.m. Stand-sit: S in a.m.; I in p.m. Bed-Chair: S Chair-bed: S GAIT Assistive Device: FWW in a.m.; 4WW in p.m. Weight bearing: WBAT L Assist: SBA?S with FWW in a.m.; SBA with 4WW in p.m. Distance: 450' in both a.m. and p.m. Deviation: No c/o pain, cues for 4WW mechanics THEREX: Patient completed a LE strengthening program, in a seated position, as per flow sheet. STAIRS: Up/down 3x4 and 2x6 using B rails a step-to pattern with supervision i n a.m.; Up/down 14x6 using U rail and a step-to pattern with CGA in p.m. Patient requires cueing for sequence for safety and L LE pain management. ASSESSMENT: Patient tolerated session well without complaint. She was able to tolerate a significant gait distance progression with both FWW and 4WW requiring SBA-S. PLAN: Continue with global strengthening, gait and stair training via PT. TREATMENT CODE/TIME: Session 1: 30 minutes; [id number], [id number] Session 2: 10 minutes; [id number]
--- NOTE | 2020-05-30 17:00 | INDS_ITS ---
Date of service: 05/30/20 PT Notes Visit Reasons: ACUTE TRAUMATIC L HIP PAIN,CHRONIC L THIGH PAIN Inpatient Physical Therapy Evaluation Date: 05/25/20 Referring Doctor: Jorge A Lewis PT Orders: PT CONSULT: Limited ability Precautions: Standard Patient Profile/Admitting Diagnosis: Orders received for this 70-year-old female with a history of multiple health conditions. Apparently, patient suffered a fall at home injuring her hip and knee. She does have a history of chronic back pain and sciatica. X-rays were negative did not reveal any acute fracture or displacement. Patient has been having progressive difficulty walking due to pain that was pre-existing even before this fall. She is very familiar to outpatient physical therapy has had many treatments in the past. PMHX: Medical History Abdominal pain neg h. 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) Constipation Cortical cataract of right eye CRP elevated On weakness 05/27/16; 17.8 Depressed bipolar I disorder Depressed bipolar I disorder *ON LITHIUM Elevated C-reactive protein (05/27/16) Exotropia, alternating Falls frequently (08/16/17) Follicular cyst of ovary Follicular cyst of ovary 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) GERD (gastroesophageal reflux disease) Headache Headache chronic; improved since menopause Hiatal hernia Hiatal hernia (03/14/14) moderate by CT 07/08 Incontinence of feces S/P colostomy Infected sebaceous cyst (05/19/04) Knee pain Low back pain (11/14/14) Malignant neoplasm of female breast [facility] [place]-RIGHT BREAST Malignant neoplasm of female breast [facility] [place]-Right Breast; Malignant neoplasm of female breast Mixed stress and urge urinary incontinence Osteochondral defect (03/01/16) Osteoporosis T score -2.3, -3.0, -3.4 Rectal fullness 09/01/15 Rheumatoid arthritis Rheumatoid arthritis (08/22/12) MTX Right hip pain (11/14/14) Shoulder pain (01/28/15) Spina bifida Spina bifida (05/08/15) Urgency of urination (02/09/12) Urinary incontinence Uterine leiomyoma Surgical History Arthroscopy arthroplasty through the PIPJ, right 5th toe. Exostectomy from the right fifth metatarsal head Colostomy (~2001) fecal incontinence EGD - MAC (11/21/17) Fracture, Closed Treatment (11/23/12) LEFT DISTAL RADIUS AND ULNA H/O arthroscopy through the PIP, right 5th toe. Exostectomy for the right fifth metatarsal head H/O Spinal surgery 1950-spine meningocele repair; for spina bifida History of arthroscopy History of lumpectomy of right breast Pt denies mastectomy History of spinal surgery SPINE SURGERY (~1950) SPINE MENINGOCELE REPAIR, FOR SPINA BIFADA Status post cataract extraction and insertion of intraocular lens of right eye (11/20/18) Status post colostomy Social History/Home Situation: Patient lives at home with her Equipment Owned/DME: Front-wheeled walker but she has been using a little more lately due to pain through the left knee Subjective: NT. See most recent PURIFICATION OPERATOR notes. Objective: NT. See most recent PURIFICATION OPERATOR notes. Mental Status: NT. See most recent PURIFICATION OPERATOR notes. Pain: NT. See most recent PURIFICATION OPERATOR notes. ROM: Right Upper Extremity: Within functional limit Left Upper Extremity: Within functional limits Right Lower Extremity: Within functional limits Left Lower Extremity: Within functional limits but patient describes some pain beyond 100 degrees of knee flexion Strength: Right Upper Extremity: Globally 5 out of 5 Left Upper Extremity: Globally 5 out of 5 Right Lower Extremity: Globally 5 out of 5 Left Lower Extremity: Hip flexion 4+ out of 5, quads 4+ out of 5 minor tenderness upon resistive testing, hamstrings 4+ out of 5 minor plaque pain upon resistive testing, dorsiflexion and plantar flexion 5 out of 5 Bed Mobility/Transfers: Not assessed as patient was in recliner Supine-sit: Independent Sit-stand: Independent Stand-sit: Independent Gait: Up to 450 feet using 4 wheeled walker requiring standby assist with minimal cues given for walker mechanics. Up-and-down 14 x 6 inch stairs while holding onto the rails with step to gait pattern requiring contact-guard assist. Balance: Static Sitting: Normal Dynamic Sitting: Normal Static Standing: Good Dynamic Standing: Fair ASSESSMENT: Pebbles demonstrates functional mobility improvement during this episode of care but will benefit from continued home health PT services in order to address rem aining impairments as above. Goals: Goals X1 week 1. Supine-Sit independent MET 2. Sit-Supine independent MET 3. Sit-Stand independent MET 4. Stand-Sit independent MET 5. Bed-Chair independent NOT MET 6. Gait up to 100 feet with least restrictive assistive device NOT MET 7: Stairs able to accomplish at least 3 steps under supervision NOT MET 8: Independent in Home program NOT MET DISCHARGE RECOMMENDATIONS: Patient will benefit from home health PT services in order to progress mobility level using least restrictive assistive ambulatory device, assess home safety, identify additional equipment needs, and establish a functional maintenance program that will increase ability of patient to remain at home. TREATMENT CODE/TIME: PA Thank you for the opportunity to participate in the care of this patient. Edel Montano PT, DPT, CLT [facility] [place], [place]
== END 2020-05-26 13:45 | disposition home health service (06) | DRG 538 ==
LOC: ER 21:09 → MS 21:34
PROVIDERS: Internal Medicine; Nurse Practitioner Family; Admitting Provider Family Medicine; Emergency Provider Nurse Practitioner Acute Care; PCP Family Medicine; Visit Provider Family Medicine
DX: S76.112A Strain of left quadriceps muscle, fascia and tendon, initial encounter; W19.XXXA Unspecified fall, initial encounter; Q05.9 Spina bifida, unspecified; M81.0 Age-related osteoporosis without current pathological fracture; M06.9 Rheumatoid arthritis, unspecified; M20.41 Other hammer toe(s) (acquired), right foot; M54.42 Lumbago with sciatica, left side; K21.9 Gastro-esophageal reflux disease without esophagitis; M25.562 Pain in left knee; Z93.3 Colostomy status; K59.00 Constipation, unspecified; F31.9 Bipolar disorder, unspecified; R29.6 Repeated falls; R26.89 Other abnormalities of gait and mobility; Z85.3 Personal history of malignant neoplasm of breast
CPT/HCPCS: 36415; 73552; 80048; 80053; 82550; 93005; 96361; 96374; 97110; 97162; 97530; 99220; 99232; 99239; 99285; U0003; 71045; 72170; 72192; 73564; 73590; 80178; 81003; 81015; 83735; 84484; 85025; 93010; 99284; G0378; J1644; J1885; J7512; J8610

== ENCOUNTER 2020-05-28 03:41 | Outpatient (CLI) | payer MEDICARE, OTHER, SELFPAY ==
[2020-05-28 10:57] LABS: Abs Immature Grans 0.02 10^3/uL (0.0-0.06); Absolute Basophil Count 0.02 10^3/uL (0.0-0.2); Absolute Eosinophil Count 0.16 10^3/uL (0.0-0.7); Absolute Lymphocyte Count 1.01 10^3/uL (1.2-3.4); Absolute Monocyte Count 0.38 10^3/uL (0.1-0.8); Basophils % 0.3; Eosinophils % 2.2; HCT 39.6 % (36.0-46.0); HGB 12.6 g/dL (11.2-15.7); Immature Grans % 0.3; Lymphocytes % 13.9; MCH 29.9 pg (27.0-33.0); MCHC 31.8 % (32.0-36.0); MCV 93.8 fL (80-95); MPV 9.1 fL (8.0-11.0); Monocytes % 5.2; Neutrophils % 78.1; Nucleated RBC 0 %; Platelet Count 291 10^3/uL (130-400); RBC 4.22 10^6/uL (3.93-5.22); RDW 16.7 % (11.7-14.6); WBC 7.29 10^3/uL (4.4-10.8)
[2020-05-28 12:01] LABS: Anion Gap 8.5 mmol/L (3-11); BUN 29 mg/dL (7-18); CO2 28.5 mmol/L (21.0-32.0); CREATININE 1.28 mg/dL (0.55-1.02); Calcium 9.9 mg/dL (8.5-10.1); Chloride 106 mmol/L (98-107); Estimated GFR 41.23 (mL/min/1.73m2); Glucose 86 mg/dL (74-106); Potassium 4.3 mmol/L (3.5-5.1); Sodium 143 mmol/L (136-145)
== END 2020-05-28 04:01 ==
PROVIDERS: PCP Family Medicine; Visit Provider Nurse Practitioner Family
DX: M25.552 Pain in left hip (principal); M25.562 Pain in left knee; S76.112D Strain of left quadriceps muscle, fascia and tendon, subsequent encounter
CPT/HCPCS: 36415; 80048; 85025

== ENCOUNTER 2020-09-21 09:37 | Emergency (ER) | payer MEDICARE, OTHER, SELFPAY ==
[2020-09-21 09:43] VITALS: BP 142/61; PULSE 92; RESP 18; TEMP 37; O2SAT 97
--- NOTE | 2020-09-21 10:00 | DI.RAD_ITS ---
EXAM: XR TOE LT FOURTH CLINICAL HISTORY: 4th toe erythema, swelling TECHNIQUE: COMPARISON: CR RIGHT FOOT COMPLETE from 11/14/2008 FINDINGS: Three views were obtained. There is a prior arthrodesis at the 1st MTP joint. There is an apparent old ununited fracture of the base of the 5th metatarsal. There are multiple bony deformities involvi ng the phalanges. There are cysts subchondral cysts or erosions of bases of the proximal phalanges o f the 2nd and 5th toes. There is severe soft tissue swelling of the 4th toe. The distal phalanx is poorly visualized, distal phalangeal erosion not excluded. Osteomyelitis not excluded on the basis of this examination. Plea se correlate clinically. IMPRESSION: RADIATION DOSE DELIVERED: Total DLP
--- NOTE | 2020-09-21 10:11 | ED.GENADUL_ITS ---
Discharge Plan Disposition Patient Disposition: HOME Condition: Improving Discharge Details Clinical Impression: Acquired hammer toe, Cellulitis of foot, left Primary Care Provider: Faith Adorno ED Provider: Donovan Joaquin Home Meds and New Rx's Prescriptions: New cephalexin 500 mg capsule 500 mg PO BID 7 Days Qty: 14 RF: 0 Continued oxybutynin chloride 10 mg tablet extended release 24hr 10 mg PO DAILY Qty: 90 RF: 4 Myrbetriq 50 mg tablet extended release 24 hr 50 mg PO DAILY Qty: 90 RF: 4 venlafaxine [Effexor XR] 150 mg capsule,extended release 24hr 150 mg PO DAILY Qty: 90 RF: 3 loratadine [Claritin] 10 mg tablet 10 mg PO DAILY PRNRF: 0 ergocalciferol (vitamin D2) 1,250 mcg (50,000 unit) capsule 50,000 unit PO QWEEK Qty: 13 RF: 4 folic acid 1 mg tablet 1 mg PO DAILY Qty: 90 RF: 12 lithium carbonate 150 mg capsule 450 mg PO am Qty: 270 RF: 12 methotrexate sodium 2.5 mg tablet 20 mg PO QWEEK Qty: 72 RF: 12 omeprazole 40 mg capsule,delayed release(DR/EC) 40 mg PO DAILY Qty: 90 RF: 4 calcium carbonate-vitamin D3 1 EACH tablet 1 cap PO DAILY RF: 0 oxycodone 5 mg capsule 5 mg PO BID PRN (Reason: pain) Qty: 7 RF: 0 diazepam [Valium] 5 mg tablet 5 mg PO .BID&HS PRNQty: 60 RF: 0 Discharge Instructions Instructions: Cellulitis (ED) Additional Instructions: Home to rest today. Elevate the leg above the level of heart to reduce pain and swelling. Return tomorrow midday for recheck. Continue your planned follow-up with podiatry this Tuesday. Begin Keflex twice daily beginning tomorrow morning. Medical Decision Making 70-year-old female who takes methotrexate weekly for rheumatoid arthritis. She has had no history of diabetes, has had a hammertoe and required resection of the left fourth toe in the past. Now presents with days of progressive left fourth toe erythema, swelling, discomfort and also noticed a plantar area of eschar. She is afebrile, pleasant, well-appearing. There is erythema over the fourth toe that tracks just proximal to the foot. The plantar surface has a small area of black eschar, the dorsal surface has small area of hematoma. Patient had screening laboratories, blood culture obtained. Referred for x-ray. Diagnostics: White count 10, hematocrit 39, platelets 188. BUN 21, creatinine 1.2, CRP 4.4. Wound culture pending. XR: No acute fracture. Degenerative changes noted., Soft tissue swelling noted. I performed needle incision and drainage of approximate 2 cc purulent fluid from the dorsal surface of the fourth toe. Patient administered ceftriaxone. Offered her admission which she has declined due to need for in-home care of her . We will ask her to return tomorrow for recheck. She has follow-up with podiatry on Tuesday. I will continue her on oral cephalosporin. Given her methotrexate use, mild renal insufficien cy, I do not feel that Bactrim will be a safe choice. Wound culture is pending to help guide antibiotic coverage. HPI General Mode of arrival: ambulatory . Date/Time Provider Initiated Documentation: 09/21/20 09:38 . Limitations to Documentation: no limitations . Information obtained by: patient . History of Present Illness 70 year old F presents to the emergency department with the chief complaint of Left fourth toe erythema, swelling, described as moderate, Quality is described as dull and constant, and is localized to the left and lower extremity. Patient reports no radiation. Patient started experiencing this day(s) and it has been constant. No relieving factors improve symptom(s), No exacerbating factors reported . Patient notes denies fever/chills, loss of appetite and malaise. Patient did receive the following treatments prior to arrival, none Related Data Home Medications Medication Instructions Recorded Confirmed calcium carbonate-vitamin D3 1 cap PO DAILY 04/03/15 09/21/20 venlafaxine 150 mg 150 mg PO DAILY #90 tab-cap 05/28/19 09/21/20 capsule,extended release 24 hr loratadine 10 mg tablet 10 mg PO DAILY PRN tab 11/27/19 09/21/20 oxybutynin chloride 10 mg 10 mg PO DAILY #90 tab 03/04/20 09/21/20 tablet,extended release 24 hr mirabegron 50 mg tablet,extended 50 mg PO DAILY #90 tab-cap 04/15/20 09/21/20 release 24 hr oxycodone 5 mg PO BID PRN #7 cap 05/24/20 09/21/20 diazepam [Valium] 5 mg PO .BID&HS PRN #60 tab 05/26/20 09/21/20 ergocalciferol (vitamin D2) 1,250 50,000 unit PO QWEEK #13 cap 06/02/20 09/21/20 mcg (50,000 unit) capsule folic acid 1 mg tablet 1 mg PO DAILY #90 tab-cap 06/02/20 09/21/20 lithium carbonate 150 mg capsule 450 mg PO am #270 tab-cap 06/02/20 09/21/20 methotrexate sodium 2.5 mg tablet 20 mg PO QWEEK #72 tab 06/02/20 09/21/20 omeprazole 40 mg capsule,delayed 40 mg PO DAILY #90 tab-cap 06/02/20 09/21/20 release cephalexin 500 mg PO BID 7 Days #14 cap 09/21/20 Previous Rx's Medication Instructions Recorded venlafaxine 150 mg 150 mg PO DAILY #90 tab-cap 05/28/19 capsule,extended release 24 hr oxybutynin chloride 10 mg 10 mg PO DAILY #90 tab 03/04/20 tablet,extended release 24 hr mirabegron 50 mg tablet,extended 50 mg PO DAILY #90 tab-cap 04/15/20 release 24 hr oxycodone 5 mg PO BID PRN #7 cap 05/24/20 diazepam [Valium] 5 mg PO .BID&HS PRN #60 tab 05/26/20 ergocalciferol (vitamin D2) 1,250 50,000 unit PO QWEEK #13 cap 06/02/20 mcg (50,000 unit) capsule folic acid 1 mg tablet 1 mg PO DAILY #90 tab-cap 06/02/20 lithium carbonate 150 mg capsule 450 mg PO am #270 tab-cap 06/02/20 methotrexate sodium 2.5 mg tablet 20 mg PO QWEEK #72 tab 06/02/20 omeprazole 40 mg capsule,delayed 40 mg PO DAILY #90 tab-cap 06/02/20 release cephalexin 500 mg PO BID 7 Days #14 cap 09/21/20 Allergies Allergy/AdvReac Type Severity Reaction Status Date / Time phenelzine sulfate AdvReac Intermediate Neuro Unverified 09/21/20 09:48 [From Nardil] changes/loss of bladder control sucralfate [From Carafate] AdvReac Mild Diarrhea Unverified 09/21/20 09:48 General Stated Complaint: Cellulitis PARI: 3 Review of Systems Narrative: She has been caring for her who has a terminal brain tumor. No fever or chills. States left fourth toe has previously had resection. Has pending podiatry follow-up this week. [facility] Medical History Abdominal pain neg h. 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) Constipation Cortical cataract of right eye CRP elevated 05/27/16; 17.8 Depressed bipolar I disorder Depressed bipolar I disorder *ON LITHIUM Elevated C-reactive protein (05/27/16) Exotropia, alternating Falls frequently (08/16/17) Follicular cyst of ovary Follicular cyst of ovary 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) GERD (gastroesophageal reflux disease) Headache Headache chronic; improved since menopause Hiatal hernia Hiatal hernia (03/14/14) moderate by CT 07/08 Incontinence of feces S/P colostomy Infected sebaceous cyst (05/19/04) Knee pain Low back pain (11/14/14) Malignant neoplasm of female breast [facility] [place]-RIGHT BREAST Malignant neoplasm of female breast [facility]-Right Breast; Malignant neoplasm of female breast Mixed stress and urge urinary incontinence Osteochondral defect (03/01/16) Osteoporosis T score -2.3, -3.0, -3.4 Rectal fullness 09/01/15 Rheumatoid arthritis Rheumatoid arthritis (08/22/12) MTX Right hip pain (11/14/14) Shoulder pain (01/28/15) Spina bifida Spina bifida (05/08/15) Urgency of urination (02/09/12) Urinary incontinence Uterine leiomyoma Uterine leiomyoma Uterine leiomyoma Surgical History Arthroscopy arthroplasty through the PIPJ, right 5th toe. Exostectomy from the right fifth metatarsal head Colostomy (~2001) fecal incontinence EGD - MAC (11/21/17) Fracture, Closed Treatment (11/23/12) LEFT DISTAL RADIUS AND ULNA H/O arthroscopy through the PIP, right 5th toe. Exostectomy for the right fifth metatarsal head H/O Spinal surgery 1950-spine meningocele repair; for spina bifida History of arthroscopy History of lumpectomy of right breast Pt denies mastectomy History of spinal surgery SPINE SURGERY (~1950) SPINE MENINGOCELE REPAIR, FOR SPINA BIFADA Status post cataract extraction and insertion of intraocular lens of right eye (11/20/18) Status post colostomy Family History Mother , AGE 47 Brain tumor Father , AGE 78 Arthritis Brother , age 73 Essential hypertension Heart disease Stroke Maternal Grandfather Essential hypertension Heart disease Paternal Grandfather No problems noted. Maternal Grandmother Diabetes Essential hypertension Heart disease Paternal Grandmother No problems noted. Brother , age 63 Cancer Daughter No problems noted. Daughter No problems noted. Brother No problems noted. Social History Smoking/Tobacco Use Status: Never Second Hand Exposure: No Smoking risk assessment performed?: Yes Alcohol Intake: current Alcohol Intake frequency: a few times a week Drug use: Never Substance use type: prescription drug Household members: spouse Housing: house Communication Needs: Corrective Lenses Do you need help understanding health information?: Rarely Pets and animals: No Sexually active: No Do you think of yourself as: straight/heterosexual Current gender identity: decline to answer What is your relationship status?: How often do you talk on the phone with friends or family?: three or more times per week How often do you get together with friends or relatives?: decline to answer How often do you attend buddhist or hindu services?: decline to answer Do you belong to any clubs or organized social groups?: no Panel score (0-1 are the most socially isolated patients): 2 Duration: 15-30 minutes/day Frequency: 1-2 times per week Sherlyn/Faith: Mosque Special sherlyn needs: No Seatbelt use: always Drive intox or ride w/intox front end loader driver: No Do you feel safe at home: Yes Do you feel safe in your relationship?: Yes Exam Narrative Exam Narrative: GEN: awake, alert, oriented 3. Pleasant, well groomed, interactive. HEAD: Normocephalic, atraumatic ENT: Mucous membranes moist, oropharynx unremarkable, External ear exam unremarkable EYES: PERRL, EOMI NECK: Full ROM, no NKECHI, no menigismus CHEST/RESP: Nontender, clear to auscultation bilateral, no wheeze/rhonchi/rales CARDIOVASCULAR: RRR, no murmur, rub oswaldo. 2+ Rad pulse bilateral ABDOMEN: Soft, nontender, no mass. +Bowel sounds EXT: Full ROM, left fourth toe with plantar area of a small dry eschar. The dorsal distal surface of the toe is erythematous, edematous, tender, there is small hematoma present dorsal surface. Neuro: Grossly normal neurologic exam, conversant, interactive. Psych: Speech fluent, thoughts congruent, affect normal Course Vital Signs Vital signs: Vital Signs Temperature 37 C 09/21/20 09:43 Pulse 92 H 09/21/20 09:43 Respiratory Rate 18 09/21/20 09:43 Blood Pressure 142/61 H 09/21/20 09:43 Pulse Oximetry 97 09/21/20 09:43 Temperature 37 C 09/21/20 09:43 Temperature Source Temporal Artery Scan 09/21/20 09:43 Pulse 92 H 09/21/20 09:43 Respiratory Rate 18 09/21/20 09:43 Respiratory Effort Non-Labored 09/21/20 09:47 Blood Pressure 142/61 H 09/21/20 09:43 Blood Pressure Position Sitting 09/21/20 09:43 Pulse Oximetry 97 09/21/20 09:43 Oxygen Delivery Method Room Air 09/21/20 09:43 Oxygen Flow Rate 0 09/21/20 09:43 Pain Level 7 09/21/20 09:43 Lab/Test Results Lab/Test Results: 09/21/20 10:07 Blood Blood Culture - Pending 09/21/20 10:07 Blood Blood Culture - Pending Procedures Abscess I/D Site: Foot Side (if applicable): Left Technique: Needle Aspiration Amount of fluid expressed (mL): 2
[2020-09-21 10:29] LABS: Abs Immature Grans 0.05 10^3/uL (0.0-0.06); Absolute Basophil Count 0.02 10^3/uL (0.0-0.2); Absolute Eosinophil Count 0.08 10^3/uL (0.0-0.7); Absolute Lymphocyte Count 0.63 10^3/uL (1.2-3.4); Absolute Monocyte Count 0.91 10^3/uL (0.1-0.8); Absolute Neutrophil Count 8.89 10^3/uL (1.2-6.7); Basophils % 0.2; Eosinophils % 0.8; HCT 39.3 % (36.0-46.0); HGB 12.4 g/dL (11.2-15.7); Immature Grans % 0.5; MCH 30.4 pg (27.0-33.0); MCHC 31.6 % (32.0-36.0); MCV 96.3 fL (80-95); MPV 8.9 fL (8.0-11.0); Monocytes % 8.6; Neutrophils % 83.9; Nucleated RBC 0 %; Platelet Count 188 10^3/uL (130-400); RBC 4.08 10^6/uL (3.93-5.22); RDW 15.1 % (11.7-14.6); RDW-SD 52.8 fL; WBC 10.58 10^3/uL (4.4-10.8)
[2020-09-21 10:41] LABS: ALT 21 U/L (14-59); AST 18 U/L (15-37); Albumin 3.2 g/dL (3.4-5.0); Alkaline Phosphatase 107 U/L (46-116); Anion Gap 7.5 mmol/L (3-11); BUN 21 mg/dL (7-18); Bilirubin, Total 0.5 mg/dL (0.2-1.0); C-Reactive Protein 4.43 mg/dL (0.0-0.3); CO2 28.5 mmol/L (21.0-32.0); CREATININE 1.2 mg/dL (0.55-1.02); Calcium 10.1 mg/dL (8.5-10.1); Chloride 108 mmol/L (98-107); Estimated GFR 44.41 (mL/min/1.73m2); Glucose 120 mg/dL (74-106); Potassium 4.2 mmol/L (3.5-5.1); Sodium 144 mmol/L (136-145); Total Protein 7.3 g/dL (6.4-8.2)
[2020-09-21] MEDS: cefTRIAXone 1 GM/50 ML BAG IVPB (10:54)
--- NOTE | 2020-09-21 11:26 | DI.VRAD_ITS ---
PROCEDURE INFORMATION: Exam: XR Left Toe(s) Exam date and time: 09/21/2020 11:04 AM Age: 70 years old Clinical indication: Cellulitis; Toes; Left TECHNIQUE: Imaging protocol: XR Left toes. Views: Minimum 2 views. COMPARISON: No relevant prior studies available. FINDINGS: Bones/joints: There is no evidence of acute fracture.There is no evidence of malalignment or dislocation. Status post fusion of the 1st metatarsal-phalangeal joint. Degenerative changes in the IP joint. Well corticated unhealed fracture in the proximal aspect of the 5th metatarsal. Soft tissues: Soft tissue swelling of the toes and along the 5th metatarsal. Findings may reflect cellulitis. IMPRESSION: 1. There is no evidence of acute fracture.There is no evidence of malalignment or dislocation. 2. Well corticated unhealed fracture in the proximal aspect of the 5th metatarsal. 3. Soft tissue swelling of the toes and along the 5th metatarsal. Findings may reflect cellulitis. Dictated and Authenticated by: Leila Pantoja MD. Ordering:ANDREA Man MD
[2020-09-21 11:39] VITALS: BP 144/67; PULSE 75; RESP 16; TEMP 37.1; O2SAT 100
[2020-09-21 11:48] VITALS: BP 144/67; PULSE 75; RESP 16; TEMP 37.1; O2SAT 100
--- NOTE | 2020-09-26 17:06 | NUR.NOTE ---
Toe abscess culture results faxed to Dr. Mccain who will see patient in follow up. Also faxed visit notes from 09/21 & 09/22/20.Nursing Note:
== END 2020-09-21 11:46 | disposition home or self-care (01) ==
PROVIDERS: Emergency Provider Emergency Medicine; PCP Family Medicine
DX: L03.032 Cellulitis of left toe (principal); M20.42 Other hammer toe(s) (acquired), left foot
CPT/HCPCS: 10060; 36415; 80053; 87040; 87077; 96365; 99284; 73660; 85025; 86140; 87070; 87186; 87205; 99283; J0696

== ENCOUNTER 2020-09-22 11:51 | Emergency (ER) | payer MEDICARE, OTHER, SELFPAY ==
[2020-09-22 11:59] VITALS: BP 129/67; PULSE 69; TEMP 36.8; O2SAT 99
--- NOTE | 2020-09-22 12:15 | DI.RAD_ITS ---
EXAM: XR SHOULDER RT COMPLETE 2+V CLINICAL HISTORY: Fall, R/O fracture. TECHNIQUE: 2D digital imaging was performed. COMPARISON: No exams were available for comparison FINDINGS: BONES: There is a nondisplaced fracture of the distal right clavicle. It does not appear to extend i nto the AC joint. No bony destructive lesion is seen. JOINTS: No dislocation present. SOFT TISSUE: There are calcifications adjacent to the humeral head which may represent calcific tendi nitis. IMPRESSION: Nondisplaced fracture of the distal right clavicle. DATA REPOSITORY: RADIATION DOSE DELIVERED:
--- NOTE | 2020-09-22 12:30 | W.ED.GENAD ---
Discharge Plan Disposition Patient Disposition: OTHER Condition: Stable Discharge Details Clinical Impression: Fracture of acromial end of right clavicle, Encounter for wound re-check Primary Care Provider: Faith Adorno ED Provider: Geovanna Troncoso Home Meds and New Rx's Prescriptions: Continued oxybutynin chloride 10 mg tablet extended release 24hr 10 mg PO DAILY Qty: 90 RF: 4 Myrbetriq 50 mg tablet extended release 24 hr 50 mg PO DAILY Qty: 90 RF: 4 venlafaxine [Effexor XR] 150 mg capsule,extended release 24hr 150 mg PO DAILY Qty: 90 RF: 3 loratadine [Claritin] 10 mg tablet 10 mg PO DAILY PRNRF: 0 ergocalciferol (vitamin D2) 1,250 mcg (50,000 unit) capsule 50,000 unit PO QWEEK Qty: 13 RF: 4 folic acid 1 mg tablet 1 mg PO DAILY Qty: 90 RF: 12 lithium carbonate 150 mg capsule 450 mg PO am Qty: 270 RF: 12 methotrexate sodium 2.5 mg tablet 20 mg PO QWEEK Qty: 72 RF: 12 omeprazole 40 mg capsule,delayed release(DR/EC) 40 mg PO DAILY Qty: 90 RF: 4 calcium carbonate-vitamin D3 1 EACH tablet 1 cap PO DAILY RF: 0 cephalexin 500 mg capsule 500 mg PO BID 7 Days Qty: 14 RF: 0 oxycodone 5 mg capsule 5 mg PO BID PRN (Reason: pain) Qty: 7 RF: 0 diazepam [Valium] 5 mg tablet 5 mg PO .BID&HS PRNQty: 60 RF: 0 Discharge Instructions Instructions: Clavicle Fracture (ED), Acute Wound Care (ED) Referrals: Faith Adorno MD, [place] [Primary Care Provider] - Medical Decision Making 70-year-old female presents to the ER with chief complaint of wound recheck. She also fell last night landing on her right shoulder. Reports mechanical fall landing on a hard floor. She does have some bruising noted to her right shoulder, no deformity no crepitus distal radial pulses intact. Does have full range of motion noted of her elbow. She is able to raise her right shoulder approximately 75 degrees. She had a wound on her left fourth toe yesterday here in the department. She was given cephalexin which she did take today. The erythema was marked and upon initial exam the redness seems to have improved is only located to the distal tip of the toe. She did have a dressing in place which was removed. Instructed to continue taking the cephalexin as directed will place a clean dry dressing and Kerlix onto the foot. X-ray right shoulder ordered. 1240: Dry dressing placed to fourth toe and foot instructed on home care patient verbalized understanding. X-ray is pending at this time. 1356: Informed by chief of staff that patient has eloped from department prior to receiving the x-ray result. Will call patient to relay the information. EXAM: XR SHOULDER RT COMPLETE 2+V CLINICAL HISTORY: Fall, R/O fracture. TECHNIQUE: 2D digital imaging was performed. COMPARISON: No exams were available for comparison FINDINGS: BONES: There is a nondisplaced fracture of the distal right clavicle. It does not appear to extend into the AC joint. No bony destructive lesion is seen. JOINTS: No dislocation present. SOFT TISSUE: There are calcifications adjacent to the humeral head which may represent calcific tendinitis. IMPRESSION: Nondisplaced fracture of the distal right clavicle. 1420: Call made to patient to relay the Results of x-rays and distal clavicle fracture. Patient verbalized understanding. I did encourage patient to return for sling or pick 1 up [id number] she verbalized understanding. Discussed home care and follow-up with PCP. Patient left without discharge instructions. HPI General Mode of arrival: ambulatory. Date/Time Provider Initiated Documentation: 09/22/20 12:21. Limitations to Documentation: no limitations. Information obtained by: patient. HPI Narrative: 70-year-old female presents to the ER with chief complaint of wound recheck. She also fell last night landing on her right shoulder. Reports mechanical fall landing on a hard floor. She does have some bruising noted to her right shoulder, no deformity no crepitus distal radial pulses intact. Does have full range of motion noted of her elbow. She is able to raise her right shoulder approximately 75 degrees. She had a wound on her left fourth toe yesterday here in the department. She was given cephalexin which she did take today. The erythema was marked and upon initial exam the redness seems to have improved is only located to the distal tip of the toe. She did have a dressing in place which was removed. Instructed to continue taking the cephalexin as directed will click here place a clean dry dressing and Kerlix onto the foot. Related Data Home Medications Medication Instructions Recorded Confirmed calcium carbonate-vitamin D3 1 cap PO DAILY 04/03/15 09/22/20 venlafaxine 150 mg 150 mg PO DAILY #90 tab-cap 05/28/19 09/22/20 capsule,extended release 24 hr loratadine 10 mg tablet 10 mg PO DAILY PRN tab 11/27/19 09/22/20 oxybutynin chloride 10 mg 10 mg PO DAILY #90 tab 03/04/20 09/22/20 tablet,extended release 24 hr mirabegron 50 mg tablet,extended 50 mg PO DAILY #90 tab-cap 04/15/20 09/22/20 release 24 hr oxycodone 5 mg PO BID PRN #7 cap 05/24/20 09/22/20 diazepam [Valium] 5 mg PO .BID&HS PRN #60 tab 05/26/20 09/22/20 ergocalciferol (vitamin D2) 1,250 50,000 unit PO QWEEK #13 cap 06/02/20 09/22/20 mcg (50,000 unit) capsule folic acid 1 mg tablet 1 mg PO DAILY #90 tab-cap 06/02/20 09/22/20 lithium carbonate 150 mg capsule 450 mg PO am #270 tab-cap 06/02/20 09/22/20 methotrexate sodium 2.5 mg tablet 20 mg PO QWEEK #72 tab 06/02/20 09/22/20 omeprazole 40 mg capsule,delayed 40 mg PO DAILY #90 tab-cap 06/02/20 09/22/20 release cephalexin 500 mg PO BID 7 Days #14 cap 09/21/20 09/22/20 Previous Rx's Medication Instructions Recorded venlafaxine 150 mg 150 mg PO DAILY #90 tab-cap 05/28/19 capsule,extended release 24 hr oxybutynin chloride 10 mg 10 mg PO DAILY #90 tab 03/04/20 tablet,extended release 24 hr mirabegron 50 mg tablet,extended 50 mg PO DAILY #90 tab-cap 04/15/20 release 24 hr oxycodone 5 mg PO BID PRN #7 cap 05/24/20 diazepam [Valium] 5 mg PO .BID&HS PRN #60 tab 05/26/20 ergocalciferol (vitamin D2) 1,250 50,000 unit PO QWEEK #13 cap 06/02/20 mcg (50,000 unit) capsule folic acid 1 mg tablet 1 mg PO DAILY #90 tab-cap 06/02/20 lithium carbonate 150 mg capsule 450 mg PO am #270 tab-cap 06/02/20 methotrexate sodium 2.5 mg tablet 20 mg PO QWEEK #72 tab 06/02/20 omeprazole 40 mg capsule,delayed 40 mg PO DAILY #90 tab-cap 06/02/20 release cephalexin 500 mg PO BID 7 Days #14 cap 09/21/20 Allergies Allergy/AdvReac Type Severity Reaction Status Date / Time phenelzine sulfate AdvReac Intermediate Neuro Unverified 09/22/20 12:04 [From Nardil] changes/loss of bladder control sucralfate [From Carafate] AdvReac Mild Diarrhea Unverified 09/22/20 12:04 General Stated Complaint: Orthopedic PARI: 3 Review of Systems All systems reviewed & are unremarkable except as noted in HPI and below Musculoskeletal Musculoskeletal: Reports as per HPI and Reports arthralgias (Right shoulder pain and ecchymosis noted status post mechanical fall last n) Comments: Here for wound recheck status post I&D of the fourth left toe cellulitis denies any fever chills or any complaints since visit yesterday. [facility] Medical History Abdominal pain neg h. 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) Constipation Cortical cataract of right eye CRP elevated 05/27/16; 17.8 Depressed bipolar I disorder Depressed bipolar I disorder *ON LITHIUM Elevated C-reactive protein (05/27/16) Exotropia, alternating Falls frequently (08/16/17) Follicular cyst of ovary Follicular cyst of ovary 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) GERD (gastroesophageal reflux disease) Headache Headache chronic; improved since menopause Hiatal hernia Hiatal hernia (03/14/14) moderate by CT 07/08 Incontinence of feces S/P colostomy Infected sebaceous cyst (05/19/04) Knee pain Low back pain (11/14/14) Malignant neoplasm of female breast [facility] [place] Malignant neoplasm of female breast [facility] [place]; Malignant neoplasm of female breast Mixed stress and urge urinary incontinence Osteochondral defect (03/01/16) Osteoporosis T score -2.3, -3.0, -3.4 Rectal fullness 09/01/15 Rheumatoid arthritis Rheumatoid arthritis (08/22/12) MTX Right hip pain (11/14/14) Shoulder pain (01/28/15) Spina bifida Spina bifida (05/08/15) Urgency of urination (02/09/12) Urinary incontinence Uterine leiomyoma Uterine leiomyoma Uterine leiomyoma Surgical History Arthroscopy arthroplasty through the PIPJ, right 5th toe. Exostectomy from the right fifth metatarsal head Colostomy (~2001) fecal incontinence EGD - MAC (11/21/17) Fracture, Closed Treatment (11/23/12) LEFT DISTAL RADIUS AND ULNA H/O arthroscopy through the PIP, right 5th toe. Exostectomy for the right fifth metatarsal head H/O Spinal surgery 1950-spine meningocele repair; for spina bifida History of arthroscopy History of lumpectomy of right breast Pt denies mastectomy History of spinal surgery SPINE SURGERY (~1950) SPINE MENINGOCELE REPAIR, FOR SPINA BIFADA Status post cataract extraction and insertion of intraocular lens of right eye (11/20/18) Status post colostomy Family History Mother , AGE 47 Brain tumor Father , AGE 78 Arthritis Brother , age 73 Essential hypertension Heart disease Stroke Maternal Grandfather Essential hypertension Heart disease Paternal Grandfather No problems noted. Maternal Grandmother Diabetes Essential hypertension Heart disease Paternal Grandmother No problems noted. Brother , age 63 Cancer Daughter No problems noted. Daughter No problems noted. Brother No problems noted. Social History Smoking/Tobacco Use Status: Never Second Hand Exposure: No Smoking risk assessment performed?: Yes Alcohol Intake: current Alcohol Intake frequency: a few times a week Drug use: Never Substance use type: does not use and prescription drug Household members: spouse Housing: house Communication Needs: Corrective Lenses Do you need help understanding health information?: Rarely Pets and animals: No Sexually active: No Do you think of yourself as: straight/heterosexual Current gender identity: decline to answer What is your relationship status?: How often do you talk on the phone with friends or family?: three or more times per week How often do you get together with friends or relatives?: decline to answer How often do you attend baptist or synagogue services?: decline to answer Do you belong to any clubs or organized social groups?: no Panel score (0-1 are the most socially isolated patients): 2 Duration: 15-30 minutes/day Frequency: 1-2 times per week Sherlyn/Jehovah'S Witness: Jehovah'S Witness Special sherlyn needs: No Seatbelt use: always Drive intox or ride w/intox dedicated driver: No Do you feel safe at home: Yes Do you feel safe in your relationship?: Yes Exam Narrative Exam Narrative: Constitutional: Alert and oriented x3. Appears stated age. Normal body habitus. Head: Normocephalic, no trauma. Eyes: Pupils PERRLA, Red reflex noted, EOM's intact. Eyelids symmetrical without lesions, discharge, or swelling. ENT: Bilateral TM's WNL, External ear normal to inspection, no mastoid TTP, swelling, or erythema, Nasal turbinates WNL, no nasal discharge. Normal dentition, Posterior pharynx WNL, no exudate. Chest: RRR, Normal S1, S2, distal pulses intact. Resp: Lungs clear to auscultation bilaterally, no wheezes, rales, or rhonchi. Musculoskeletal: Normal gait, postop shoe in place, dressing removed evaluated left foot. Erythema seems to have decreased from the markings from yesterday. No induration. There is redness noted to the distal half of the fourth toe. Additional dry clean dressing applied and instructed patient on home care and to continue the antibiotics. She does have some ecchymosis and tenderness to right shoulder. Can abduct shoulder approximately 75 degrees without pain. Distal radial pulses intact. No other signs of trauma denies any chest pain shortness of breath no hip pain. Skin: Ecchymosis noted to the right shoulder region and anterior chest. Capillary refill less than 2 sec. Neurologic: Cranial nerves II-XII intact. Alert and oriented x 3. DTR's intact. Hematologic/Lymphatic: No ecchymosis, no lymphadenopathy. Course Vital Signs Vital signs: Vital Signs Temperature 36.8 C 09/22/20 11:59 Pulse 69 09/22/20 11:59 Blood Pressure 129/67 09/22/20 11:59 Pulse Oximetry 99 09/22/20 11:59 Temperature 36.8 C 09/22/20 11:59 Temperature Source Temporal Artery Scan 09/22/20 11:59 Pulse 69 09/22/20 11:59 Respiratory Effort Non-Labored 09/22/20 12:03 Blood Pressure 129/67 09/22/20 11:59 Blood Pressure Position Sitting 09/22/20 11:59 Pulse Oximetry 99 09/22/20 11:59 Oxygen Delivery Method Room Air 09/22/20 11:59 Oxygen Flow Rate 0 09/22/20 11:59 Pain Level 4 09/22/20 12:14
--- NOTE | 2020-09-26 16:47 | W.ED.FU ---
Urine cx reviewed: staph aureus, sensitive to oxacillin. I called and spoke with pt and she noted improvement. She stated that she has follow-up with Dr. Mccain. I called and spoke with Dr. Mccain, discussed results, he agrees with continued keflex and will see patient in followup.
== END 2020-09-22 13:55 | disposition other institution (70) ==
PROVIDERS: Emergency Provider Registered Nurse Emergency; PCP Family Medicine
DX: S42.034A Nondisplaced fracture of lateral end of right clavicle, initial encounter for closed fracture (principal); W01.0XXA Fall on same level from slipping, tripping and stumbling without subsequent striking against object, initial encounter; Z53.29 Procedure and treatment not carried out because of patient's decision for other reasons; L03.032 Cellulitis of left toe
CPT/HCPCS: 99283; 73030; 99282

== ENCOUNTER 2020-09-30 17:31 | Outpatient (REF) | payer MEDICARE, OTHER, SELFPAY ==
[2020-09-30 21:49] LABS: ESR 59 mm//hr (0-30); HCT 36.7 % (36.0-46.0); HGB 11.4 g/dL (11.2-15.7); MCHC 31.1 % (32.0-36.0); MCV 96.6 fL (80-95); MPV 9.4 fL (8.0-11.0); Platelet Count 301 10^3/uL (130-400); RDW 15.6 % (11.7-14.6); WBC 8.55 10^3/uL (4.4-10.8)
[2020-09-30 22:16] LABS: ALT 29 U/L (14-59); AST 26 U/L (15-37); Albumin 3.4 g/dL (3.4-5.0); Alkaline Phosphatase 99 U/L (46-116); Anion Gap 8.3 mmol/L (3-11); BUN 19 mg/dL (7-18); Bilirubin, Total 0.4 mg/dL (0.2-1.0); C-Reactive Protein 4.68 mg/dL (0.0-0.3); CO2 26.7 mmol/L (21.0-32.0); CREATININE 1.1 mg/dL (0.55-1.02); Calcium 10.3 mg/dL (8.5-10.1); Chloride 105 mmol/L (98-107); Glucose 99 mg/dL (74-106); Potassium 4.4 mmol/L (3.5-5.1); Sodium 140 mmol/L (136-145); TSH (W/Ref FT4) 1.46 uIU/mL (0.36-3.74); Total Protein 6.9 g/dL (6.4-8.2)
== END 2020-09-30 17:32 | disposition home or self-care (01) ==
LOC: LBN 17:31
PROVIDERS: PCP Family Medicine; Visit Provider Family Medicine
DX: R63.4 Abnormal weight loss (principal); M06.9 Rheumatoid arthritis, unspecified; R29.6 Repeated falls; F31.9 Bipolar disorder, unspecified
CPT/HCPCS: 80053; 85027; 85652; 84443; 86140

== ENCOUNTER 2020-10-07 01:18 | Outpatient (CLI) | payer MEDICARE, OTHER, SELFPAY ==
--- NOTE | 2020-10-07 07:00 | DI.US_ITS ---
EXAM: US RENAL CLINICAL HISTORY: yearly monitor vesicoureteral reflux,n13.70 TECHNIQUE: Ultrasound performed using standard protocol. COMPARISON: US US RENAL from 10/16/2019 FINDINGS: Kidneys are normal in size and shape. There is no evidence hydronephrosis or nephrolithiasis. Urinary bladder is not ideally visualized due to overlying bowel gas and motion. Pre and postvoid ur inary bladder volume measurements are 356 cc and 132 cc respectively. Ureteral jets were nonvisualized. IMPRESSION: Large postvoid urinary bladder residual volume. Bladder is poorly visualized. No evidence of hydron ephrosis. DATA REPOSITORY:
== END 2020-10-07 01:38 ==
PROVIDERS: PCP Family Medicine; Visit Provider Urology
DX: N13.70 Vesicoureteral-reflux, unspecified (principal); R39.15 Urgency of urination; Z79.899 Other long term (current) drug therapy; R39.198 Other difficulties with micturition
CPT/HCPCS: 76770; 99213

== ENCOUNTER 2020-10-17 10:17 | Outpatient (CLI) | payer MEDICARE, OTHER, SELFPAY ==
[2020-10-18 11:04] LABS: COVID-19 RT-PCR UVMMC Result Negative (Negative)
== END 2020-10-17 10:18 | disposition home or self-care (01) ==
PROVIDERS: PCP Family Medicine; Visit Provider Family Medicine
DX: Z20.822 Contact with and (suspected) exposure to COVID-19 (principal)
CPT/HCPCS: U0003; U0005

== ENCOUNTER 2020-10-27 18:31 | Outpatient (REF) | payer MEDICARE, OTHER, SELFPAY | END 2020-10-27 18:32 | disposition home or self-care (01) | LOC: LBN 18:31 | PROVIDERS: PCP Family Medicine; Visit Provider Family Medicine | DX: R19.7 Diarrhea, unspecified (principal) | CPT/HCPCS: 87329 ==

== ENCOUNTER 2020-10-29 01:56 | Outpatient (CLI) | payer MEDICARE, OTHER, SELFPAY ==
--- NOTE | 2020-10-29 15:05 | DI.DEXA_ITS ---
Exam(s) XR DEXA BONE DENSITY W/WO JEISON EXAM: XR DEXA BONE DENSITY W/WO JEISON CLINICAL HISTORY: osteoporosis,M81.0 TECHNIQUE: Routine DEXA evaluation of the lumbar spine, hip, or forearm. COMPARISON: CR LUMBAR SPINE COMPLETE from 11/19/2014 FINDINGS: Performed on a Hologic unit. Lateral image: No compression fracture evident. Anterior listhesis L4 upon L5 on degenerative facet joint basis. Lumbar Spine total T-score: -3.1. Prior 2014 reading was -2.8. Hip total T-score:-3.1. Prior 2014 reading was -3.2. Independent reading at the femoral neck yields a T-score of -2.5. Forearm total T-score: -3.8 IMPRESSION: Bone mineral density measures in the osteoporosis range. Fracture risk is high. Note: Any spine fracture indicates 5x risk for subsequent spine fracture and 2x risk for subsequent h ip fracture. World Health Organization criteria for BMD interpretation classify patients: Normal...... T- Score at or above -1.0 Osteopenic... T- Score between -1.0 and -2.5 Osteoporosis... T-Score at or below -2.5
== END 2020-10-29 02:16 ==
PROVIDERS: PCP Family Medicine; Visit Provider Family Medicine
DX: M81.0 Age-related osteoporosis without current pathological fracture (principal)
CPT/HCPCS: 77080

== ENCOUNTER 2020-11-14 06:06 | Day surgery (SDC) | payer MEDICARE, OTHER, SELFPAY ==
[2020-11-14 06:26] VITALS: BP 112/68; PULSE 62; RESP 16; TEMP 36.7; O2SAT 98
[2020-11-14] MEDS: Lactated Ringers 1,000 ML 80 ML IV (06:53)
--- NOTE | 2020-11-14 07:07 | W.PM.HP.N ---
Date of service: 11/14/20 Time of Service: 07:08 History of Present Illness History of Present Illness Chief Complaint: Symptomatic left fourth hammertoe deformity Narrative: 70-year-old female with increasing pain associated with a deformed left fourth hammertoe which is causing irritation to the adjacent toes, making it difficult to wear shoes and perform daily activities. Nonsurgical treatments have failed to provide lasting relief of symptoms. [facility] Medical History Abdominal pain neg h. 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) Constipation Cortical cataract of right eye CRP elevated 05/27/16; 17.8 Depressed bipolar I disorder Depressed bipolar I disorder *ON LITHIUM Elevated C-reactive protein (05/27/16) Exotropia, alternating Falls frequently (08/16/17) Follicular cyst of ovary Follicular cyst of ovary 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) GERD (gastroesophageal reflux disease) Headache Headache chronic; improved since menopause Hiatal hernia Hiatal hernia (03/14/14) moderate by CT 07/08 Incontinence of feces S/P colostomy Infected sebaceous cyst (05/19/04) Knee pain Low back pain (11/14/14) Malignant neoplasm of female breast [facility] [place] BREAST Malignant neoplasm of female breast [facility] [place]; Malignant neoplasm of female breast Mixed stress and urge urinary incontinence Osteochondral defect (03/01/16) Osteoporosis T score -2.3, -3.0, -3.4 Rectal fullness 09/01/15 Rheumatoid arthritis Rheumatoid arthritis (08/22/12) MTX Right hip pain (11/14/14) Shoulder pain (01/28/15) Spina bifida Spina bifida (05/08/15) Urgency of urination (02/09/12) Urinary incontinence Uterine leiomyoma Uterine leiomyoma Uterine leiomyoma Surgical History Arthroscopy arthroplasty through the PIPJ, right 5th toe. Exostectomy from the right fifth metatarsal head Colostomy (~2001) fecal incontinence EGD - MAC (11/21/17) Fracture, Closed Treatment (11/23/12) LEFT DISTAL RADIUS AND ULNA H/O arthroscopy through the PIP, right 5th toe. Exostectomy for the right fifth metatarsal head H/O Spinal surgery 1950-spine meningocele repair; for spina bifida History of arthroscopy History of lumpectomy of right breast Pt denies mastectomy History of spinal surgery SPINE SURGERY (~1950) SPINE MENINGOCELE REPAIR, FOR SPINA BIFADA Status post cataract extraction and insertion of intraocular lens of right eye (11/20/18) Status post colostomy Family History Mother , AGE 47 Brain tumor Father , AGE 78 Arthritis Brother , age 73 Essential hypertension Heart disease Stroke Maternal Grandfather Essential hypertension Heart disease Paternal Grandfather No problems noted. Maternal Grandmother Diabetes Essential hypertension Heart disease Paternal Grandmother No problems noted. Brother , age 63 Cancer Daughter No problems noted. Daughter No problems noted. Brother No problems noted. Social History Smoking/Tobacco Use Status: Never Second Hand Exposure: No Smoking risk assessment performed?: Yes Alcohol Intake: current Alcohol Intake frequency: a few times a week Drug use: Never Substance use type: does not use and prescription drug Household members: spouse Housing: house Communication Needs: Corrective Lenses Do you need help understanding health information?: Rarely Pets and animals: No Sexually active: No Do you think of yourself as: straight/heterosexual Current gender identity: decline to answer What is your relationship status?: How often do you talk on the phone with friends or family?: three or more times per week How often do you get together with friends or relatives?: decline to answer How often do you attend anabaptism or orthodox services?: decline to answer Do you belong to any clubs or organized social groups?: no Panel score (0-1 are the most socially isolated patients): 2 Duration: 15-30 minutes/day Frequency: 1-2 times per week Sherlyn/Quaker: Presybeterian Special sherlyn needs: No Seatbelt use: always Drive intox or ride w/intox auto carrier driver: No Do you feel safe at home: Yes Do you feel safe in your relationship?: Yes Meds Allergies and Home Medications Allergies Allergy/AdvReac Type Severity Reaction Status Date / Time phenelzine sulfate AdvReac Intermediate Neuro Unverified 11/14/20 06:21 [From Nardil] changes/loss of bladder control sucralfate [From Carafate] AdvReac Mild Diarrhea Unverified 11/14/20 06:21 Home Medications Medication Instructions Recorded Confirmed Type calcium carbonate-vitamin D3 1 cap PO DAILY 04/03/15 11/14/20 History venlafaxine 150 mg 150 mg PO DAILY #90 tab-cap 05/28/19 11/14/20 Rx capsule,extended release 24 hr diazepam [Valium] 5 mg PO .BID&HS PRN #60 tab 05/26/20 11/12/20 Rx ergocalciferol (vitamin D2) 1,250 50,000 unit PO QWEEK #13 cap 06/02/20 11/14/20 Rx mcg (50,000 unit) capsule folic acid 1 mg tablet 1 mg PO DAILY #90 tab-cap 06/02/20 11/14/20 Rx lithium carbonate 150 mg capsule 450 mg PO am #270 tab-cap 06/02/20 11/14/20 Rx methotrexate sodium 2.5 mg tablet 20 mg PO QWEEK #72 tab 06/02/20 11/14/20 Rx omeprazole 40 mg capsule,delayed 40 mg PO DAILY #90 tab-cap 06/02/20 11/14/20 Rx release mirabegron 50 mg tablet,extended 50 mg PO DAILY #90 tab-cap 10/07/20 11/14/20 Rx release 24 hr oxybutynin chloride 15 mg 15 mg PO DAILY #90 tab 10/07/20 11/14/20 Rx tablet,extended release 24 hr fexofenadine-pseudoephedrine 1 tab PO QAM PRN 11/14/20 11/14/20 History [Lily-D 24 Hour] Exam Narrative Exam Narrative: 70-year-old white female looking her stated age in no acute distress. Head is normocephalic Eyes PERRLA Hearing is adequate Airway looks assessable, uvula midline Heart had regular rate rhythm I detected no gallops rubs or murmurs Lung locke were clear Abdomen was soft, bowel sounds x4, nontender Peripheral pulses at the ankle are palpable plus 1 out of 4 bilaterally without peripheral edema. Capillary refill is under 3 seconds to all toes. Muscle groups of 5 out of 5 bilaterally Skeletal exam reveals a dorsally subluxed, contracted left fourth hammertoe with tenderness noted at the distal tip of the toe as well as over the PIPJ. The digit is nonreducible. The remaining exam is currently asymptomatic. Neurologically she appears grossly intact, toes are downgoing. Impressions: Symptomatic left fourth hammertoe deformity Plan: We discussed surgical reduction of the toe with fusion of the appropriate joint. Based on the multiple contractures multiple digits would need to be surgically repaired and [facility] has decided to proceed with an amputation of the left fourth toe for correction of this deformity. She understands the permanency of the procedure as well as the risk and complications. All questions have been answered in detail. Informed consent has been obtained. Results Last Vital Signs Temp 36.7 C 11/14/20 06:26 Pulse 62 11/14/20 06:26 Resp 16 11/14/20 06:26 BP 112/68 11/14/20 06:26 Pulse Ox 98 11/14/20 06:26 COVID-19 Screening Have you, or household traveled for leisure in last 14 days?: No Had IN PERSON contact w/suspected or confirmed C-19 person: No
--- NOTE | 2020-11-14 07:12 | W.ANESPRE ---
General Info Date of Service Date Performed: 11/14/20 Height: 5 ft 2 in Weight: 49.986 kg Body Mass Index (BMI): 20.1 Surgical Procedure: Operation Date: 11/14/20 07:40 Proposed Procedures Side Surgeon p Toe Amputation LT 4TH TOE THREW PIP JOINT Left Prince Mccain DPM Meds Allergies and Home Medications Allergies Allergy/AdvReac Type Severity Reaction Status Date / Time phenelzine sulfate AdvReac Intermediate Neuro Unverified 11/14/20 06:21 [From Nardil] changes/loss of bladder control sucralfate [From Carafate] AdvReac Mild Diarrhea Unverified 11/14/20 06:21 Home Medication Medication Instructions Recorded calcium carbonate-vitamin D3 1 cap PO DAILY 04/03/15 venlafaxine 150 mg 150 mg PO DAILY #90 tab-cap 05/28/19 capsule,extended release 24 hr diazepam [Valium] 5 mg PO .BID&HS PRN #60 tab 05/26/20 ergocalciferol (vitamin D2) 1,250 50,000 unit PO QWEEK #13 cap 06/02/20 mcg (50,000 unit) capsule folic acid 1 mg tablet 1 mg PO DAILY #90 tab-cap 06/02/20 lithium carbonate 150 mg capsule 450 mg PO am #270 tab-cap 06/02/20 methotrexate sodium 2.5 mg tablet 20 mg PO QWEEK #72 tab 06/02/20 omeprazole 40 mg capsule,delayed 40 mg PO DAILY #90 tab-cap 06/02/20 release mirabegron 50 mg tablet,extended 50 mg PO DAILY #90 tab-cap 10/07/20 release 24 hr oxybutynin chloride 15 mg 15 mg PO DAILY #90 tab 10/07/20 tablet,extended release 24 hr fexofenadine-pseudoephedrine 1 tab PO QAM PRN 11/14/20 [Lily-D 24 Hour] Current Visit Medications: Current Medications Generic Name Dose Route Start Last Admin Trade Name Freq PRN Reason Stop Dose Admin Sodium Chloride 500 mls @ 0 mls/hr 11/14/20 06:00 Saline 500ml Bag IV PRN PRN As Directed Cefazolin Sodium/Dextrose 1 gm in 50 mls @ 100 mls/hr 11/14/20 06:00 Ancef Duplex IVPB PREOP ROXANA Ringer's Solution 1,000 mls @ 80 mls/hr 11/14/20 06:00 11/14/20 06:53 IV 12/13/20 23:59 80 mls/hr [facility] Administration IV Miscellaneous Supplies 1 each 11/14/20 06:00 Iv Access IV DIRECTED [facility] IV Miscellaneous Supplies 1 each 11/14/20 06:00 Iv Access IV 12/13/20 23:59 DIRECTED [facility] Povidone Iodine 0 ml 11/14/20 06:00 Povidone-Iodine Soln. 118 Ml Btl TP DIRECTED ROXANA Sodium Chloride 0 ml 11/14/20 06:00 Normal Saline Flush 10 Ml Syr IVP PRN PRN Sodium Chloride 0 ml 11/14/20 06:00 Normal Saline Flush 10 Ml Syr IV 12/13/20 23:59 PRN PRN Sodium Chloride 0 ml 11/14/20 06:00 Normal Saline 10 Ml Vial IJ 12/13/20 23:59 DIRECTED PRN Sterile Water 0 ml 11/14/20 06:00 Water,Injection,Sterile 10 Ml Vial IJ 12/13/20 23:59 DIRECTED PRN PFSH Active Problems Active Problems: Problem Status Onset Code Diarrhea R19.7 Weight loss R63.4 Cellulitis of foot, left L03.116 Fracture of acromial end of right clavicle S42.031A Encounter for wound re-check Z51.89 Sensorineural hearing loss of both ears H90.3 Decreased hearing H91.90 Discharge planning issues Z02.9 DVT prophylaxis Z29.9 Ambulatory dysfunction R26.2 Left knee pain M25.562 Vesicoureteral reflux, unspecified or without reflux nephropathy N13.70 Vitamin D deficiency 03/03/09 E55.9 Osteochondral defect 03/01/16 M95.8 Acute pain of left hip M25.552 Mixed stress and urge urinary incontinence N39.46 Urgency of urination 02/09/12 R39.15 Shoulder pain 01/28/15 M25.519 Right hip pain 11/14/14 M25.551 Rheumatoid arthritis 08/22/12 M06.9 Osteoporosis M81.0 Low back pain 11/14/14 M54.5 Hiatal hernia 03/14/14 K44.9 Headache R51 Falls frequently 08/16/17 R29.6 Depressed bipolar I disorder F31.9 Constipation K59.00 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) Constipation Cortical cataract of right eye CRP elevated 05/27/16; 17.8 Depressed bipolar I disorder Depressed bipolar I disorder *ON LITHIUM Elevated C-reactive protein (05/27/16) Exotropia, alternating Falls frequently (08/16/17) Follicular cyst of ovary Follicular cyst of ovary 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) GERD (gastroesophageal reflux disease) Headache Headache chronic; improved since menopause Hiatal hernia Hiatal hernia (03/14/14) moderate by CT 07/08 Incontinence of feces S/P colostomy Infected sebaceous cyst (05/19/04) Knee pain Low back pain (11/14/14) Malignant neoplasm of female breast [facility] [place]-RIGHT BREAST Malignant neoplasm of female breast [facility] [place]-Right Breast; Malignant neoplasm of female breast Mixed stress and urge urinary incontinence Osteochondral defect (03/01/16) Osteoporosis T score -2.3, -3.0, -3.4 Rectal fullness 09/01/15 Rheumatoid arthritis Rheumatoid arthritis (08/22/12) MTX Right hip pain (11/14/14) Shoulder pain (01/28/15) Spina bifida Spina bifida (05/08/15) Urgency of urination (02/09/12) Urinary incontinence Uterine leiomyoma Uterine leiomyoma Uterine leiomyoma Surgical History Surgical History Arthroscopy arthroplasty through the PIPJ, right 5th toe. Exostectomy from the right fifth metatarsal head Colostomy (~2001) fecal incontinence EGD - MAC (11/21/17) Fracture, Closed Treatment (11/23/12) LEFT DISTAL RADIUS AND ULNA H/O arthroscopy through the PIP, right 5th toe. Exostectomy for the right fifth metatarsal head H/O Spinal surgery 1950-spine meningocele repair; for spina bifida History of arthroscopy History of lumpectomy of right breast Pt denies mastectomy History of spinal surgery SPINE SURGERY (~1950) SPINE MENINGOCELE REPAIR, FOR SPINA BIFADA Status post cataract extraction and insertion of intraocular lens of right eye (11/20/18) Status post colostomy Tobacco Smoking/Tobacco Use Status: Never Passive smoking exposure: Yes Second hand exposure: No Alcohol Alcohol Intake: current Alcohol intake frequency: a few times a week Substance Use Substance use: Never Substance use type: does not use and prescription drug Vital Signs and Lab Results Vital Signs Most Recent Vital Signs in EMR: Most Recent Vital Signs Temp Pulse Resp BP Pulse Ox 36.7 C 62 16 112/68 98 11/14/20 06:26 11/14/20 06:26 11/14/20 06:26 11/14/20 06:26 11/14/20 06:26 Lab Results Blood Type / Crossmatch: No Data to Display Complete Blood Count: No Data to Display Complete Metabolic Panel: No Data to Display Liver Function Panel: No Data to Display Coagulation Panel: No Data to Display Cardiac Panel: No Data to Display Arterial Blood Gas: No Data to Display Venous Blood Gas: No Data to Display Pancreas Panel: No Data to Display Thyroid Panel: No Data to Display Infectious Disease: Coronavirus (COVID-19)(PCR) Negative (Negative) 10/17/20 10:34 10/17/20 Blood Cultures: No Data to Display Toxicology Panel: No Data to Display Anesthesia Assessment and Plan Anesthesia History Personal History: No History of Anesthesia Complications and Pseudocholinesterase Deficiency Family History: No Family History of Anesthesia Complications Exercise Tolerance Exercise Tolerance: Metabolic Equivalents>4 Pertinent Negatives Pertinent Negatives: No Symptoms of GERD (Well controlled), No Major Cardiovascular Symptoms or Complaints and No Major Pulmonary Symptoms or Complaints Cardiac & Pulmonary Exam Cardiac Exam: Normal S1/S2 Heart Sounds Pulmonary Exam: Clear Bilateral Breath Sounds Airway Exam Known Difficult Airway: No Mallampati Class: 1 Mouth Opening: Normal (> 3cm) Thyromental Distance: Greater than 3 cm Neck Range of Motion: Full ROM Neck Circumference: Normal Teeth Condition: Normal Dentition and Loose or Chipped (Right front tooth chipped) ASA Classification ASA Score: ASA 2 Emergency Case?: No NPO Status NPO Status: NPO Clears >2 hours, Solids >8 hours Anesthesia Plan Resuscitation Status: Full Code Anesthesia Technique: General Anesthesia Airway Planned: Natural Airway Monitors Used: Standard Monitors
[2020-11-14 07:20] VITALS: BMI 20.1
--- NOTE | 2020-11-14 07:20 | W.PM.HP.N ---
Date of service: 11/14/20 Time of Service: 07:20 History of Present Illness History of Present Illness Chief Complaint: Symptomatic left fourth hammertoe deformity Narrative: 70-year-old female with increasing pain associated with a deformed left fourth hammertoe which is causing irritation to the adjacent toes, making it difficult to wear shoes and perform daily activities. Nonsurgical treatments have failed to provide lasting relief of symptoms. [facility] Medical History Abdominal pain neg h. 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) Constipation Cortical cataract of right eye CRP elevated 05/27/16; 17.8 Depressed bipolar I disorder Depressed bipolar I disorder *ON LITHIUM Elevated C-reactive protein (05/27/16) Exotropia, alternating Falls frequently (08/16/17) Follicular cyst of ovary Follicular cyst of ovary 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) GERD (gastroesophageal reflux disease) Headache Headache chronic; improved since menopause Hiatal hernia Hiatal hernia (03/14/14) moderate by CT 07/08 Incontinence of feces S/P colostomy Infected sebaceous cyst (05/19/04) Knee pain Low back pain (11/14/14) Malignant neoplasm of female breast [facility] [place] Malignant neoplasm of female breast [facility] [place]; Malignant neoplasm of female breast Mixed stress and urge urinary incontinence Osteochondral defect (03/01/16) Osteoporosis T score -2.3, -3.0, -3.4 Rectal fullness 09/01/15 Rheumatoid arthritis Rheumatoid arthritis (08/22/12) MTX Right hip pain (11/14/14) Shoulder pain (01/28/15) Spina bifida Spina bifida (05/08/15) Urgency of urination (02/09/12) Urinary incontinence Uterine leiomyoma Uterine leiomyoma Uterine leiomyoma Surgical History Arthroscopy arthroplasty through the PIPJ, right 5th toe. Exostectomy from the right fifth metatarsal head Colostomy (~2001) fecal incontinence EGD - MAC (11/21/17) Fracture, Closed Treatment (11/23/12) LEFT DISTAL RADIUS AND ULNA H/O arthroscopy through the PIP, right 5th toe. Exostectomy for the right fifth metatarsal head H/O Spinal surgery 1950-spine meningocele repair; for spina bifida History of arthroscopy History of lumpectomy of right breast Pt denies mastectomy History of spinal surgery SPINE SURGERY (~1950) SPINE MENINGOCELE REPAIR, FOR SPINA BIFADA Status post cataract extraction and insertion of intraocular lens of right eye (11/20/18) Status post colostomy Family History Mother , AGE 47 Brain tumor Father , AGE 78 Arthritis Brother , age 73 Essential hypertension Heart disease Stroke Maternal Grandfather Essential hypertension Heart disease Paternal Grandfather No problems noted. Maternal Grandmother Diabetes Essential hypertension Heart disease Paternal Grandmother No problems noted. Brother , age 63 Cancer Daughter No problems noted. Daughter No problems noted. Brother No problems noted. Social History Smoking/Tobacco Use Status: Never Second Hand Exposure: No Smoking risk assessment performed?: Yes Alcohol Intake: current Alcohol Intake frequency: a few times a week Drug use: Never Substance use type: does not use and prescription drug Household members: spouse Housing: house Communication Needs: Corrective Lenses Do you need help understanding health information?: Rarely Pets and animals: No Sexually active: No Do you think of yourself as: straight/heterosexual Current gender identity: decline to answer What is your relationship status?: How often do you talk on the phone with friends or family?: three or more times per week How often do you get together with friends or relatives?: decline to answer How often do you attend bahai or yarsanism services?: decline to answer Do you belong to any clubs or organized social groups?: no Panel score (0-1 are the most socially isolated patients): 2 Duration: 15-30 minutes/day Frequency: 1-2 times per week Sherlyn/Mandaen: Congregation Special sherlyn needs: No Seatbelt use: always Drive intox or ride w/intox route delivery service driver: No Do you feel safe at home: Yes Do you feel safe in your relationship?: Yes Meds Allergies and Home Medications Allergies Allergy/AdvReac Type Severity Reaction Status Date / Time phenelzine sulfate AdvReac Intermediate Neuro Unverified 11/14/20 06:21 [From Nardil] changes/loss of bladder control sucralfate [From Carafate] AdvReac Mild Diarrhea Unverified 11/14/20 06:21 Home Medications Medication Instructions Recorded Confirmed Type calcium carbonate-vitamin D3 1 cap PO DAILY 04/03/15 11/14/20 History venlafaxine 150 mg 150 mg PO DAILY #90 tab-cap 05/28/19 11/14/20 Rx capsule,extended release 24 hr diazepam [Valium] 5 mg PO .BID&HS PRN #60 tab 05/26/20 11/12/20 Rx ergocalciferol (vitamin D2) 1,250 50,000 unit PO QWEEK #13 cap 06/02/20 11/14/20 Rx mcg (50,000 unit) capsule folic acid 1 mg tablet 1 mg PO DAILY #90 tab-cap 06/02/20 11/14/20 Rx lithium carbonate 150 mg capsule 450 mg PO am #270 tab-cap 06/02/20 11/14/20 Rx methotrexate sodium 2.5 mg tablet 20 mg PO QWEEK #72 tab 06/02/20 11/14/20 Rx omeprazole 40 mg capsule,delayed 40 mg PO DAILY #90 tab-cap 06/02/20 11/14/20 Rx release mirabegron 50 mg tablet,extended 50 mg PO DAILY #90 tab-cap 10/07/20 11/14/20 Rx release 24 hr oxybutynin chloride 15 mg 15 mg PO DAILY #90 tab 10/07/20 11/14/20 Rx tablet,extended release 24 hr fexofenadine-pseudoephedrine 1 tab PO QAM PRN 11/14/20 11/14/20 History [Lily-D 24 Hour] Exam Narrative Exam Narrative: 70-year-old white female looking her stated age in no acute distress. Head is normocephalic Eyes PERRLA Hearing is adequate Airway looks assessable, uvula midline Heart had regular rate rhythm I detected no gallops rubs or murmurs Lung locke were clear Abdomen was soft, bowel sounds x4, nontender Peripheral pulses at the ankle are palpable plus 1 out of 4 bilaterally without peripheral edema. Capillary refill is under 3 seconds to all toes. Muscle groups of 5 out of 5 bilaterally Skeletal exam reveals a dorsally subluxed, contracted left fourth hammertoe with tenderness noted at the distal tip of the toe as well as over the PIPJ. The digit is nonreducible. The remaining exam is currently asymptomatic. Neurologically she appears grossly intact, toes are downgoing. Impressions: Symptomatic left fourth hammertoe deformity Plan: We discussed surgical reduction of the toe with fusion of the appropriate joint. Based on the multiple contractures multiple digits would need to be surgically repaired and Pebbles has decided to proceed with an amputation of the left fourth toe for correction of this deformity. She understands the permanency of the procedure as well as the risk and complications. All questions have been answered in detail. Informed consent has been obtained. Results Last Vital Signs Temp 36.7 C 11/14/20 06:26 Pulse 62 11/14/20 06:26 Resp 16 11/14/20 06:26 BP 112/68 11/14/20 06:26 Pulse Ox 98 11/14/20 06:26 COVID-19 Screening Have you, or household traveled for leisure in last 14 days?: No Had IN PERSON contact w/suspected or confirmed C-19 person: No
[2020-11-14] MEDS: ceFAZolin 1 GM/50 ML BAG IVPB (07:32)
[2020-11-14] MEDS: Lidocaine 1% Multi-Dose 50 ML VIAL (07:50)
[2020-11-14] MEDS: Bupivacaine 0.5% Pres-Free 30 ML VIAL (07:50)
[2020-11-14] MEDS: Dexamethasone 4 MG/ML VIAL (08:06)
--- NOTE | 2020-11-14 08:15 | W.PM.DSUDISC ---
Discharge Plan Disposition Patient Disposition: HOME Condition: Good Discharge Details Reason For Visit: correction, left 4th hammertoe deformity Attending Provider: Prince Mcacin Primary Care Provider: Faith Adorno Home Meds and New Rx's Prescriptions: New hydrocodone-acetaminophen 5-325 mg tablet 1 tab PO Q6H PRN (Reason: pain) Qty: 9 RF: 0 Continued Myrbetriq 50 mg tablet extended release 24 hr 50 mg PO DAILY Qty: 90 RF: 4 oxybutynin chloride 15 mg tablet extended release 24hr 15 mg PO DAILY Qty: 90 RF: 4 venlafaxine [Effexor XR] 150 mg capsule,extended release 24hr 150 mg PO DAILY Qty: 90 RF: 3 ergocalciferol (vitamin D2) 1,250 mcg (50,000 unit) capsule 50,000 unit PO QWEEK Qty: 13 RF: 4 folic acid 1 mg tablet 1 mg PO DAILY Qty: 90 RF: 12 lithium carbonate 150 mg capsule 450 mg PO am Qty: 270 RF: 12 methotrexate sodium 2.5 mg tablet 20 mg PO QWEEK Qty: 72 RF: 12 omeprazole 40 mg capsule,delayed release(DR/EC) 40 mg PO DAILY Qty: 90 RF: 4 calcium carbonate-vitamin D3 1 EACH tablet 1 cap PO DAILY RF: 0 Lily-D 24 Hour 180-240 mg Tablet Extended Release 24 Hr 1 tab PO QAM PRNRF: 0 diazepam [Valium] 5 mg tablet 5 mg PO .BID&HS PRNQty: 60 RF: 0 Discharge Instructions Activity:: Elevate Remove Dressings/Wound Care:: Do Not Remove Shower/Bathe:: Cover Diet:: Normal Diet Discharge Orders Discharge Orders: Discharge Order (Routine); Ordered 11/14/20 Ordered By: Prince Mccain DS: Diagnosis Discharge Diagnosis (1) Hammertoe of left foot: Status: Acute
--- NOTE | 2020-11-14 08:16 | W.ANESPOSTOP ---
Postoperative Evaluation Date, Time and Location Date Performed: 11/14/20 Time Performed: 08:16 Patient Location: Day Surgery Unit Vital Signs Most Recent Imported Vital Signs: Most Recent Vital Signs Temp Pulse Resp BP Pulse Ox 36.7 C 62 16 112/68 98 11/14/20 06:26 11/14/20 06:26 11/14/20 06:26 11/14/20 06:11/14/20 06:26 Most Recent Manually Entered Vital Signs: Adult Blood Pressure: 130/68 Heart Rate: 59 Respirations: 18 Oxygen Saturation (%): 99 Temperature (C): 36.0 C Pain Score (0-10 Scale): 0 Pain Score Most Recent Pain Score: Most Recent Pain Score Pain Level 0 11/14/20 06:26 Assessment Mental Status: Awake (Alert & Oriented to Patient Baseline) Airway and Respiratory Function: Patent airway with normal (patient baseline) respiratory exam Cardiovascular Function: Hemodynamically Stable Hydration Status: Adequately Hydrated Nausea & Vomiting: No Nausea or Vomiting Pain: Pt. Denies Any Pain Peripheral Nerve Block: Patient did not receive a nerve block
[2020-11-14 08:20] VITALS: BP 130/68; PULSE 59; RESP 18; TEMPC 36; O2SAT 99
[2020-11-14 08:23] VITALS: BP 130/68; PULSE 59; RESP 18; TEMP 36; O2SAT 99
--- NOTE | 2020-11-14 08:23 | W.PM.OP ---
Date of service: 11/14/20 Time of Service: 08:24 Operative Note Operative Note Refer to Anesthesia Record Pebbles was brought to the operative suite, placed in the supine position with the left foot was prepped and draped in the usual sterile podiatric fashion. Anesthesia was enhanced with a local block of the fourth toe consisting of 8 cc of a 50: 50 mixture, 1% lidocaine plain, 0.5% Marcaine plain. The block was then supplemented with 3 cc 1% lidocaine with epinephrine. Attention was directed to the left fourth toe with dorsal and plantar incisions were placed so as to afford dorsal and plantar flaps to afford an amputation at the level of the PIPJ. The dorsal flap was raised the extensor tendon was released at the PIPJ level as was the joint capsule. The plantar flap was then raised and the flexor tendon severed at the PIPJ level. The joint capsule was released plantarly and the distal component of the toe removed from the operative field. The head of the proximal phalanx was visualized, degenerative change of the articular surface noted. Copious irrigation was performed. The extensor and plantar tendons were repaired end-to-end with 3-0 Vicryl. The skin was then closed with a combination of simple interrupted suture with 3-0 and 4-0 nylon. Good apposition of skin edges noted without undue tension. 4 mg dexamethasone phosphate infused proximally within the toe. Xeroform gauze fluff compression dressings applied. Pebbles left the OR vital signs stable vascular status intact should be followed by myself in the office next week.
[2020-11-14 08:39] VITALS: BP 134/72; PULSE 62; RESP 18; TEMP 36.2; O2SAT 100
== END 2020-11-14 09:00 | disposition home or self-care (01) ==
PROVIDERS: PCP Family Medicine; Visit Provider Podiatrist
PROC: (CPT 28825; principal; 2020-11-14 07:30)
DX: M20.42 Other hammer toe(s) (acquired), left foot (principal); E55.9 Vitamin D deficiency, unspecified; R06.9 Unspecified abnormalities of breathing; K21.9 Gastro-esophageal reflux disease without esophagitis
CPT/HCPCS: 28825; J0690; J1100; J2001

== ENCOUNTER 2020-11-20 16:50 | Outpatient (REF) | payer MEDICARE, OTHER, SELFPAY ==
[2020-11-20 20:38] LABS: Bilirubin Negative (Negative); Blood Trace-intact (Negative); Clarity Clear (Clear); Glucose Negative (Negative); Ketones Negative (Negative); Leukocyte Esterase Small (Negative); Nitrite Negative (Negative); Specific Gravity 1.015 (1.005-1.025); Urobilinogen 0.2 EU/dL (Up TO 0.2)
[2020-11-20 20:50] LABS: Bacteria Few HPF (Negative); C & S Indicated? C&S Done As Ordered; Casts Negative LPF (Negative); Crystals Negative HPF (Negative); Epithelial Cells Rare HPF (Negative); Mucus Negative (Negative); Other Cells Negative (Negative); RBC 0-2 HPF (0-2)
== END 2020-11-20 16:51 | disposition home or self-care (01) ==
LOC: LBN 16:50
PROVIDERS: PCP Family Medicine; Visit Provider Family Medicine
DX: R35.0 Frequency of micturition (principal)
CPT/HCPCS: 87077; 81003; 81015; 87086; 87186

== ENCOUNTER 2020-11-21 03:24 | Outpatient (CLI) | payer MEDICARE, OTHER, SELFPAY ==
[2020-11-21 10:04] LABS: HCT 40.9 % (36.0-46.0); HGB 13.1 g/dL (11.2-15.7); MCH 31.3 pg (27.0-33.0); MCV 97.8 fL (80-95); MPV 9.7 fL (8.0-11.0); Platelet Count 149 10^3/uL (130-400); RBC 4.18 10^6/uL (3.93-5.22); RDW 16.7 % (11.7-14.6); RDW-SD 55.9 fL; WBC 7.67 10^3/uL (4.4-10.8)
[2020-11-21 10:08] LABS: ESR 42 mm/hr (0-30)
[2020-11-21 11:00] LABS: ALT 29 U/L (14-59); AST 27 U/L (15-37); Albumin 3.6 g/dL (3.4-5.0); Alkaline Phosphatase 113 U/L (46-116); Anion Gap 5.2 mmol/L (3-11); BUN 20 mg/dL (7-18); Bilirubin, Total 0.7 mg/dL (0.2-1.0); CO2 28.8 mmol/L (21.0-32.0); Calcium 10.1 mg/dL (8.5-10.1); Chloride 110 mmol/L (98-107); Estimated GFR 54.81 (mL/min/1.73m2); Glucose 109 mg/dL (74-106); Potassium 4.5 mmol/L (3.5-5.1); Sodium 144 mmol/L (136-145); TSH (W/Ref FT4) 0.69 uIU/mL (0.36-3.74); Total Protein 7.1 g/dL (6.4-8.2)
--- NOTE | 2020-11-21 11:19 | DI.CT_ITS ---
Exam(s) CT CHEST/ABD/PEL W EXAM: CT CHEST/ABD/PEL W CLINICAL HISTORY: ABNL 40 WT LOSS IN LAST YEAR,R63.4 TECHNIQUE: Imaging Protocol: Axial computed tomography images with coronal and sagittal reformatted images were created and reviewed CONTRAST MATERIAL: Intravenous: Omnipaque 350 Contrast volume:100 mL Oral: Yes COMPARISON: CT CT thorax abd/pel CTA from 06/28/2018 FINDINGS: The examination is limited due to patient motion artifact. CHEST: Tracheobronchial tree: Patent where visualized. Pulmonary parenchyma: Stable scarring and focal bronchiectasis in the right lung apex. Stable nodule in the posterolateral right lung base. Dependent atelectasis is seen in the lung bases. Visualized thyroid gland: Unremarkable. Mediastinum and Gisel: No dominant adenopathy or fluid collection. Large hiatal hernia. Pleura: No effusion or pneumothorax. Heart: The heart is not dilated. No coronary artery calcifications are seen. No significant pericardi al effusion. Aorta: Thoracic aorta non-dilated. Atherosclerosis. Lymph nodes: Within normal limits. Soft tissues: Unremarkable. Bones:Degenerative changes. Old bilateral rib fractures. ABDOMEN: Liver: Normal density. No measurable mass. Portal, Superior Mesenteric, and Splenic Veins: Unremarkable. Gallbladder and Biliary Tract: No radiodense calculus or dilation. Pancreas: Normal density, no abnormal calcifications or inflammatory process. Spleen: Normal. Adrenals: There is mild thickening of the limbs of the adrenal glands but no mass is identified. Kidneys: The left kidney is small and there is renal cortical scarring. There is compensatory hypert rophy of the right kidney. No radiodense stones or obstructive uropathy. There are several tiny hypo densities seen in the kidneys. They are too small for further characterization but likely reflect sm all cysts. Abdominal Aorta: Abdominal portion non-dilated. Mild atherosclerosis. Bowel: No evidence of bowel obstruction. There is a moderate amount of stool throughout the colon. There is a large hiatal hernia. No evidence of appendicitis. The patient has a left lower quadrant ostomy. The rectal pouch appears grossly unremarkable. Peritoneal Cavity: No ascites, collection or mesenteric inflammatory response. No free air. Lymph Nodes: Within normal limits. Bones: Degenerative changes are present. 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 Soft Tissues: Left lower quadrant colostomy. PELVIS: Bladder: There is symmetric distention. There is mild diffuse thickening of the wall of the urinary bladder. There is a small focus of air in the dependent portion of the urinary bladder. Reproductive Organs: Unremarkable as visualized. Lymph Nodes: Within normal limits. Bones: Please see above. IMPRESSION: 1. Mild diffuse thickening of the wall of the urinary bladder. This may represent an infectious or i nflammatory process. Chronic bladder outlet obstruction should be considered. No definite focal mas ses appreciated. 2. Small focus of air within the dependent portion of the urinary bladder. This can be seen with phyllis f catheterization. Please correlate with clinical history. 3. Stable left lower quadrant ostomy, hiatal hernia and lumbar meningocele. 4. Left renal cortical scarring and atrophy. 5. No acute pulmonary process. RADIATION DOSE DELIVERED: 920.19mGy.cm Total DLP DATA REPOSITORY: All CT scans at this facility are submitted to the National Radiology Data Registry (NRDR) Dose Index Registry (DIR) with the [employer] (A[employer]). RADIATION OPTIMIZATION: All CT scans at this facility use at least one of these dose optimization te chniques: automated exposure control; mA and/or kV adjustment per patient size (includes targeted exa ms where dose is matched to clinical indication); or iterative reconstruction.
[2020-11-21] MEDS: Omnipaque 350 MG/ML 50 ML BTL PO (11:21)
[2020-11-21] MEDS: Breeza Beverage 473 ML BTL PO ×2 (11:21→11:22)
[2020-11-21] MEDS: Normal Saline - Diluent 50 ML VIAL IV (11:22)
[2020-11-21] MEDS: Normal Saline Flush 10 ML SYR IVP (11:22)
[2020-11-21] MEDS: Omnipaque 350 MG/ML 100 ML BTL IJ (11:23)
== END 2020-11-21 03:44 ==
PROVIDERS: PCP Family Medicine; Visit Provider Family Medicine
DX: R63.4 Abnormal weight loss (principal); N32.89 Other specified disorders of bladder; R91.1 Solitary pulmonary nodule; J98.11 Atelectasis; K44.9 Diaphragmatic hernia without obstruction or gangrene; Z93.3 Colostomy status; N28.89 Other specified disorders of kidney and ureter
CPT/HCPCS: 74177; 80053; 85027; 85652; 71260; 84443; J3490; Q9967

== ENCOUNTER 2020-11-27 15:18 | Emergency (ER) | payer MEDICARE, OTHER, SELFPAY ==
[2020-11-27 15:26] VITALS: BP 117/70; PULSE 93; RESP 16; TEMP 37.1; O2SAT 98
--- NOTE | 2020-11-27 15:30 | DI.CT_ITS ---
Exam(s) CT CHEST/ABD/PEL W EXAM: CT CHEST/ABD/PEL W CLINICAL HISTORY: fall 4 days ago, left chest abd pain TECHNIQUE: Imaging Protocol: Axial computed tomography images with coronal and sagittal reformatted images were created and reviewed CONTRAST MATERIAL: Intravenous: Omnipaque 350 Contrast volume:70 mL Oral: No COMPARISON: CT CT CHEST/ABD/PEL W from 11/21/2020 FINDINGS: The examination is limited due to patient motion artifact. CHEST: Tracheobronchial tree: Patent where visualized. Pulmonary parenchyma: No consolidation or dominant measurable mass. There is scarring and bronchiecta sis in the right lung apex. There is bilateral basilar atelectasis or scarring. There is a stable 7 mm nodule in the medial aspect of the superior segment of the left lower lobe likely reflecting an AV M. Visualized thyroid gland: Unremarkable. Mediastinum and Gisel: No dominant adenopathy or fluid collection. Large para esophageal hernia. Pleura: No effusion or pneumothorax. Heart: The heart is not dilated. No coronary artery calcifications are seen. No pericardial effusion. Aorta: Thoracic aorta non-dilated. Atherosclerosis. Lymph nodes: Within normal limits. Soft tissues: Unremarkable. Bones:There are old bilateral healed rib fractures.There is a nondisplaced fracture of the lateral as pect of the left 10th rib. ABDOMEN: Liver: Normal density. No measurable mass. Portal, Superior Mesenteric, and Splenic Veins: Unremarkable. Gallbladder and Biliary Tract: No radiodense calculus or dilation. Pancreas: Normal density, no abnormal calcifications or inflammatory process. Spleen: Normal. Adrenals: Stable mild thickening of the limbs of the adrenal glands. Kidneys: The left kidney is small in size. There is renal cortical atrophy present. No radiodense s tones or obstructive uropathy. Tiny hypodensities are seen in the kidneys which are too small for fur ther characterization, but likely reflect small cysts. Abdominal Aorta: Abdominal portion non-dilated. Atherosclerosis. Bowel: There is a left lower quadrant colostomy. There is residual oral contrast within the distal c olon and colostomy bag from the patient's recent CT scan. There is a moderate amount of stool throug hout the colon. No evidence of appendicitis. There is a large paraesophageal hernia. There is no e vidence of bowel obstruction. Peritoneal Cavity: No ascites, collection or mesenteric inflammatory response. No free air. Lymph Nodes: Within normal limits. Bones: There is again seen a lumbosacral meningocele. No acute fracture or subluxation. Soft Tissues: Unremarkable. PELVIS: Bladder: Symmetric distention, no gross wall thickening. Reproductive Organs: Unremarkable as visualized. Lymph Nodes: Within normal limits. Bones: No acute osseous abnormality. IMPRESSION: 1. No acute abdominal or pelvic process. No acute fracture in the abdomen or pelvis. 2. Acute nondisplaced fracture of the lateral aspect of the left 10th rib. 3. No acute soft tissue injury in the chest. RADIATION DOSE DELIVERED: 822.31mGy.cm Total DLP DATA REPOSITORY: All CT scans at this facility are submitted to the National Radiology Data Registry (NRDR) Dose Index Registry (DIR) with the [employer] (ACR). RADIATION OPTIMIZATION: All CT scans at this facility use at least one of these dose optimization te chniques: automated exposure control; mA and/or kV adjustment per patient size (includes targeted exa ms where dose is matched to clinical indication); or iterative reconstruction.
--- NOTE | 2020-11-27 15:41 | W.ED.GENAD ---
Discharge Plan Disposition Patient Disposition: HOME Condition: Stable Discharge Details Clinical Impression: Left rib fracture, Abdominal pain Primary Care Provider: Faith Adorno ED Provider: Mateusz Farmer Home Meds and New Rx's Prescriptions: New oxycodone 5 mg tablet 5 mg PO QHS PRN (Reason: pain) Qty: 5 RF: 0 Continued Myrbetriq 50 mg tablet extended release 24 hr 50 mg PO DAILY Qty: 90 RF: 4 oxybutynin chloride 15 mg tablet extended release 24hr 15 mg PO DAILY Qty: 90 RF: 4 cephalexin 500 mg capsule 500 mg PO TID Qty: 21 RF: 0 nystatin 100,000 unit/mL suspension 5 ml PO TID PRN (Reason: thrush) Qty: 200 RF: 6 venlafaxine [Effexor XR] 150 mg capsule,extended release 24hr 150 mg PO DAILY Qty: 90 RF: 3 ergocalciferol (vitamin D2) 1,250 mcg (50,000 unit) capsule 50,000 unit PO QWEEK Qty: 13 RF: 4 folic acid 1 mg tablet 1 mg PO DAILY Qty: 90 RF: 12 lithium carbonate 150 mg capsule 450 mg PO am Qty: 270 RF: 12 methotrexate sodium 2.5 mg tablet 20 mg PO QWEEK Qty: 72 RF: 12 omeprazole 40 mg capsule,delayed release(DR/EC) 40 mg PO DAILY Qty: 90 RF: 4 calcium carbonate-vitamin D3 1 EACH tablet 1 cap PO DAILY RF: 0 amoxicillin 500 mg tablet 500 mg PO QID Qty: 28 RF: 0 Lily-D 24 Hour 180-240 mg Tablet Extended Release 24 Hr 1 tab PO QAM PRNRF: 0 hydrocodone-acetaminophen 5-325 mg tablet 1 tab PO Q6H PRN (Reason: pain) Qty: 9 RF: 0 Discharge Instructions Instructions: Rib Fracture (ED) Additional Instructions: Your cat scan showed a left sided rib fracture follow up with your primary care provider within 1 week especially if pain continues if you feel more ill, have severe worsening pain or difficulty breathing return to the emergency department Use tylenol and lidocaine patches for pain, follow dosing instructions on packaging only use the oxycodone at night if you need pain control for sleep Medical Decision Making 70 yo female with hx of colostomy due to having severe constipation, gerd, who comes in with left lower chest and abdomen pain since falling on Tuesday. She states she was reaching up to pull the string of a light and fell over, no preceding symptoms states purely mechanical. She did not have loc. She has continued to have pain to the left of her ostomy and a new bulge in the area where she has pain and left lower chest pain in the mid axillary line. No head pain, neck pain or pain in the extremities. She has bruising in the left lower chest in the mid axillary line with pain to palpation. Her ostomy is putting out normal appearing stool. She does have what feels like a hernia just lateral to the hernia and is tender and I am unable to reduce. Given concern for rib fracture and hernia, will obtain ct chest/abd/pelvis to evaluate for traumatic injuries. ct shows left 10th rib fx, small pleural effusion and chronic findings. Ct abdomen shows no injuries, has stable small fat containing periostomy hernia, no bowel within the hernia. She remains stable and feels well. Her UA does show evidence of a uti but has no burning sensation but gets them frequently and is already on cephalexin. She feels comfortable with d/c and f/u with pcp. She would like a prescription for pain meds just in case she needs it for sleeping, will provide short course of oxycodone to take as needed but stressed to only take it when going to bed. Return precautions given Differential Diagnosis Differential Diagnosis: hernia, rib fracture Medical Records Medical records reviewed: Yes I reviewed the patient's medical records. Imaging Data Radiologic Study: Attestation: I personally reviewed and interpreted this imaging study as follows: Imaging: CT Scan Radiologist's impression: IMPRESSION: 1. No acute soft tissue or vascular injury in the chest. 2. No pulmonary contusion, pneumothorax or pleural effusion. 3. Acute nondisplaced lateral left 10th rib fracture. Multiple old healed bilateral rib fractures. 4. Stable 7 mm posterior superior segment left lower lobe ground-glass nodule versus AVM. No further follow-up needed. 5. Linear bronchiectasis in the right upper lobe with pleuroparenchymal scarring extending into the anterior and lateral right middle lobe. Bilateral lower lobe foci of dependent atelectasis. Trace left pleural effusion. 6. Moderate to large stable hiatal hernia. IMPRESSION: 1. No solid or hollow viscus injury to the abdomen or pelvis. 2. Stable left lower quadrant end colostomy and small fat containing peristomal hernia. Moderate colonic stool burden which may correlate with clinical symptoms of constipation. 3. Large lumbar meningocele. No acute osseous injury in the abdomen or pelvis Lab Data Lab results reviewed: Yes I reviewed the patient's lab results. HPI General Date/Time Provider Initiated Documentation: 11/27/20 15:21. Limitations to Documentation: no limitations. Information obtained by: patient. History of Present Illness 70 year old F presents to the emergency department with the chief complaint of left lower chest and abdomen pain, described as moderate, Quality is described as aching, and is localized to the chest and abdomen. Patient reports no radiation. Patient started experiencing this day(s) (4) and it has been constant. No relieving factors improve symptom(s), No exacerbating factors reported . Patient notes no other symptoms.. Patient did receive the following treatments prior to arrival, none Related Data Home Medications Medication Instructions Recorded Confirmed calcium carbonate-vitamin D3 1 cap PO DAILY 04/03/15 11/27/20 venlafaxine 150 mg 150 mg PO DAILY #90 tab-cap 05/28/19 11/27/20 capsule,extended release 24 hr ergocalciferol (vitamin D2) 1,250 50,000 unit PO QWEEK #13 cap 06/02/20 11/27/20 mcg (50,000 unit) capsule folic acid 1 mg tablet 1 mg PO DAILY #90 tab-cap 06/02/20 11/27/20 lithium carbonate 150 mg capsule 450 mg PO am #270 tab-cap 06/02/20 11/27/20 methotrexate sodium 2.5 mg tablet 20 mg PO QWEEK #72 tab 06/02/20 11/27/20 omeprazole 40 mg capsule,delayed 40 mg PO DAILY #90 tab-cap 06/02/20 11/27/20 release mirabegron 50 mg tablet,extended 50 mg PO DAILY #90 tab-cap 10/07/20 11/27/20 release 24 hr oxybutynin chloride 15 mg 15 mg PO DAILY #90 tab 10/07/20 11/27/20 tablet,extended release 24 hr Lily-D 24 Hour 1 tab PO QAM PRN 11/14/20 11/27/20 hydrocodone-acetaminophen 1 tab PO Q6H PRN #9 tab 11/14/20 11/27/20 cephalexin 500 mg capsule 500 mg PO TID #21 cap 11/20/20 11/27/20 nystatin 100,000 unit/mL oral 5 ml PO TID PRN #200 ml 11/20/20 11/27/20 suspension amoxicillin 500 mg tablet 500 mg PO QID #28 tab 11/24/20 11/27/20 oxycodone 5 mg PO QHS PRN #5 tab 11/27/20 Previous Rx's Medication Instructions Recorded venlafaxine 150 mg 150 mg PO DAILY #90 tab-cap 05/28/19 capsule,extended release 24 hr ergocalciferol (vitamin D2) 1,250 50,000 unit PO QWEEK #13 cap 06/02/20 mcg (50,000 unit) capsule folic acid 1 mg tablet 1 mg PO DAILY #90 tab-cap 06/02/20 lithium carbonate 150 mg capsule 450 mg PO am #270 tab-cap 06/02/20 methotrexate sodium 2.5 mg tablet 20 mg PO QWEEK #72 tab 06/02/20 omeprazole 40 mg capsule,delayed 40 mg PO DAILY #90 tab-cap 06/02/20 release mirabegron 50 mg tablet,extended 50 mg PO DAILY #90 tab-cap 10/07/20 release 24 hr oxybutynin chloride 15 mg 15 mg PO DAILY #90 tab 10/07/20 tablet,extended release 24 hr hydrocodone-acetaminophen 1 tab PO Q6H PRN #9 tab 11/14/20 cephalexin 500 mg capsule 500 mg PO TID #21 cap 11/20/20 nystatin 100,000 unit/mL oral 5 ml PO TID PRN #200 ml 11/20/20 suspension amoxicillin 500 mg tablet 500 mg PO QID #28 tab 11/24/20 oxycodone 5 mg PO QHS PRN #5 tab 11/27/20 Allergies Allergy/AdvReac Type Severity Reaction Status Date / Time phenelzine sulfate AdvReac Intermediate Neuro Verified 11/27/20 15:32 [From Nardil] changes/loss of bladder control sucralfate [From Carafate] AdvReac Mild Diarrhea Verified 11/27/20 15:32 General Stated Complaint: Abd Prob PARI: 3 Review of Systems All systems reviewed & are unremarkable except as noted in HPI and below Constitutional Constitutional: Denies chills and Denies fever(s) Cardiovascular Cardiovascular: Denies dyspnea Respiratory Respiratory: Denies cough and Denies dyspnea Gastrointestinal Gastrointestinal: Denies nausea and Denies vomiting Musculoskeletal Musculoskeletal: Denies joint swelling Psychiatric Psychiatric: Denies depression [facility] Medical History Abdominal pain neg h. 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) Constipation Cortical cataract of right eye CRP elevated 05/27/16; 17.8 Depressed bipolar I disorder Depressed bipolar I disorder *ON LITHIUM Elevated C-reactive protein (05/27/16) Exotropia, alternating Falls frequently (08/16/17) Follicular cyst of ovary Follicular cyst of ovary 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) GERD (gastroesophageal reflux disease) Headache Headache chronic; improved since menopause Hiatal hernia Hiatal hernia (03/14/14) moderate by CT 07/08 Incontinence of feces S/P colostomy Infected sebaceous cyst (05/19/04) Knee pain Low back pain (11/14/14) Malignant ne[place] of female [place] [facility] [place]ignant [place] of female breast [facility] [place]; Malignant neoplasm of female breast Mixed stress and urge urinary incontinence Osteochondral defect (03/01/16) Osteoporosis T score -2.3, -3.0, -3.4 Rectal fullness 09/01/15 Rheumatoid arthritis Rheumatoid arthritis (08/22/12) MTX Right hip pain (11/14/14) Shoulder pain (01/28/15) Spina bifida Spina bifida (05/08/15) Urgency of urination (02/09/12) Urinary incontinence Uterine leiomyoma Uterine leiomyoma Uterine leiomyoma Surgical History Arthroscopy arthroplasty through the PIPJ, right 5th toe. Exostectomy from the right fifth metatarsal head Colostomy (~2001) fecal incontinence EGD - MAC (11/21/17) Fracture, Closed Treatment (11/23/12) LEFT DISTAL RADIUS AND ULNA H/O arthroscopy through the PIP, right 5th toe. Exostectomy for the right fifth metatarsal head H/O Spinal surgery 1950-spine meningocele repair; for spina bifida History of arthroscopy History of lumpectomy of right breast Pt denies mastectomy History of spinal surgery SPINE SURGERY (~1950) SPINE MENINGOCELE REPAIR, FOR SPINA BIFADA Status post cataract extraction and insertion of intraocular lens of right eye (11/20/18) Status post colostomy Family History Mother , AGE 47 Brain tumor Father , AGE 78 Arthritis Brother , age 73 Essential hypertension Heart disease Stroke Maternal Grandfather Essential hypertension Heart disease Paternal Grandfather No problems noted. Maternal Grandmother Diabetes Essential hypertension Heart disease Paternal Grandmother No problems noted. Brother , age 63 Cancer Daughter No problems noted. Daughter No problems noted. Brother No problems noted. Social History Smoking/Tobacco Use Status: Never Second Hand Exposure: No Smoking risk assessment performed?: Yes Alcohol Intake: current Alcohol Intake frequency: a few times a week Drug use: Never Substance use type: does not use and prescription drug Household members: spouse Housing: house Communication Needs: Corrective Lenses Do you need help understanding health information?: Rarely Pets and animals: No Sexually active: No Do you think of yourself as: straight/heterosexual Current gender identity: decline to answer What is your relationship status?: How often do you talk on the phone with friends or family?: three or more times per week How often do you get together with friends or relatives?: decline to answer How often do you attend congregation or jainism services?: decline to answer Do you belong to any clubs or organized social groups?: no Panel score (0-1 are the most socially isolated patients): 2 Duration: 15-30 minutes/day Frequency: 1-2 times per week Sherlyn/Catholic: Mormonism Special sherlyn needs: No Seatbelt use: always Drive intox or ride w/intox class c driver: No Do you feel safe at home: Yes Do you feel safe in your relationship?: Yes Exam Const General: no acute distress Orientation: alert HENMT Head: normal to inspection Ears: external ears normal General nose exam: external nose normal Mouth: moist mucous membranes Eyes General: appearance normal, both eyes and all related structures Neck Neck: normal visual inspection Chest Chest: tenderness Resp Effort & Inspection: normal respiratory effort and able to speak in complete sentences Cardio Rate: regular rate GI Palpation: soft and tender Skin General skin exam: no rashes or lesions noted Neuro General: patient alert and patient oriented x3 Extrem General: normal to inspection Psych Mental Status: mental status grossly normal Course Vital Signs Vital signs: Vital Signs Temperature 37.1 C 11/27/20 15:26 Pulse 93 H 11/27/20 15:26 Respiratory Rate 16 11/27/20 15:26 Blood Pressure 117/70 11/27/20 15:26 Pulse Oximetry 98 11/27/20 15:26 Temperature 37.1 C 11/27/20 15:26 Temperature Source Temporal Artery Scan 11/27/20 15:26 Pulse 93 H 11/27/20 15:26 Respiratory Rate 16 11/27/20 15:26 Respiratory Effort 11/27/20 15:30 Blood Pressure 117/70 11/27/20 15:26 Blood Pressure Position Sitting 11/27/20 15:26 Pulse Oximetry 98 11/27/20 15:26 Oxygen Delivery Method Room Air 11/27/20 15:26 Oxygen Flow Rate 0 11/27/20 15:26 Pain Level 4 11/27/20 15:26
[2020-11-27 15:51] LABS: Lactate 0.6 mmol/L (0.6-1.4)
[2020-11-27 15:52] LABS: Abs Immature Grans 0.02 10^3/uL (0.0-0.06); Absolute Basophil Count 0.03 10^3/uL (0.0-0.2); Absolute Eosinophil Count 0.24 10^3/uL (0.0-0.7); Absolute Lymphocyte Count 0.95 10^3/uL (1.2-3.4); Absolute Monocyte Count 0.85 10^3/uL (0.1-0.8); Absolute Neutrophil Count 5.44 10^3/uL (1.2-6.7); Basophils % 0.4; Eosinophils % 3.2; HCT 35.2 % (36.0-46.0); HGB 11.3 g/dL (11.2-15.7); Immature Grans % 0.3; Lymphocytes % 12.6; MCH 31.4 pg (27.0-33.0); MCHC 32.1 % (32.0-36.0); MCV 97.8 fL (80-95); MPV 8.8 fL (8.0-11.0); Monocytes % 11.3; Neutrophils % 72.2; Nucleated RBC 0 %; Platelet Count 235 10^3/uL (130-400); RDW 17.2 % (11.7-14.6); RDW-SD 61.1 fL; WBC 7.53 10^3/uL (4.4-10.8)
[2020-11-27] MEDS: Normal Saline 1,000 ML 1000 ML IV (15:53)
[2020-11-27] MEDS: fentaNYL 100 MCG/2 ML VIAL 50 MCG IVP (15:54)
[2020-11-27] MEDS: Normal Saline Flush 10 ML SYR IVP ×2 (15:55→16:25)
[2020-11-27 16:08] LABS: ALT 23 U/L (14-59); AST 17 U/L (15-37); Alkaline Phosphatase 85 U/L (46-116); Anion Gap 6.8 mmol/L (3-11); BUN 26 mg/dL (7-18); Bilirubin, Total 0.3 mg/dL (0.2-1.0); CO2 28.2 mmol/L (21.0-32.0); CREATININE 1.1 mg/dL (0.55-1.02); Calcium 9.2 mg/dL (8.5-10.1); Chloride 106 mmol/L (98-107); Glucose 110 mg/dL (74-106); Lipase 75 U/L (73-393); PTT Activated 23.8 sec (21.0-27.5); Potassium 3.7 mmol/L (3.5-5.1); Prothrombin Time 9.9 sec (9.3-11.0); Sodium 141 mmol/L (136-145); Total Protein 6.7 g/dL (6.4-8.2)
[2020-11-27 16:21] LABS: Bilirubin Negative (Negative); Blood Trace-intact (Negative); Clarity Clear (Clear); Glucose Negative (Negative); Ketones Negative (Negative); Leukocyte Esterase Trace (Negative); Nitrite Negative (Negative); Specific Gravity 1.015 (1.005-1.025); Urobilinogen 0.2 EU/dL (Up TO 0.2)
[2020-11-27] MEDS: Normal Saline - Diluent 50 ML VIAL IV (16:23)
[2020-11-27] MEDS: Omnipaque 350 MG/ML 100 ML BTL IJ (16:25)
[2020-11-27 16:29] LABS: Bacteria Moderate HPF (Negative); C & S Indicated? Yes; Casts Negative LPF (Negative); Crystals Negative HPF (Negative); Epithelial Cells Few HPF (Negative); Mucus Negative (Negative); RBC 0-2 HPF (0-2)
--- NOTE | 2020-11-27 17:01 | DI.VRAD_ITS ---
PROCEDURE INFORMATION: Exam: CT Chest With Contrast; Diagnostic Exam date and time: 11/27/2020 3:41 PM Age: 70 years old Clinical indication: Injury or trauma; Sprain or strain; Injury details: Fall 4 days ago /left chest and abd pain; Prior surgery TECHNIQUE: Imaging protocol: Diagnostic computed tomography of the chest with contrast. 3D rendering (Not supervised by radiologist): MIP and/or 3D reconstructed images were created by the technologist. Contrast material: OMNPAQUE 350; Contrast volume: 70 ml; Contrast route: INTRAVENOUS (IV); COMPARISON: CT CHEST/ABD/PEL W 11/21/2020 11:[address] chest of 06/28/2018. FINDINGS: Lungs: No pulmonary contusion or consolidation. Stable right biapical pleuroparenchymal scarring and adjacent linear bronchiectasis. Stable AVM versus ground-glass nodule measuring 7 mm in the superior segment left lower lobe on series 9, image 240. Stable punctate nodule in the right posterior costophrenic angle measuring 3 mm on series 9, image 428. Posterior right lower lobe atelectasis. Pleural spaces: No pneumothorax or hemothorax. Trace pleural effusion with posterior dependent atelectasis. Heart: Unremarkable. No cardiomegaly. No pericardial effusion. Mediastinal space: Stable moderate to large size hiatal hernia. No retrosternal hematoma. No injury to the aorta or the great vessels. Aorta: Unremarkable. No aortic aneurysm. Lymph nodes: Small left supraclavicular lymph nodes. Largest measures 0.7 cm and this is slightly increased since the prior study in 2019 measuring 0.5 cm. However, no suspicious features. Probable reactive lymph node. No additional sites of lymphadenopathy. Bones/joints: Acute nondisplaced fracture of the lateral left 10th rib best seen on series 4, image 52. Old healed posterior left 9th and 10th rib fractures. Old healed anterolateral right 3rd through 5th rib fractures and lateral right 8th through 9th rib fractures. Soft tissues: Unremarkable. IMPRESSION: 1. No acute soft tissue or vascular injury in the chest. 2. No pulmonary contusion, pneumothorax or pleural effusion. 3. Acute nondisplaced lateral left 10th rib fracture. Multiple old healed bilateral rib fractures. 4. Stable 7 mm posterior superior segment left lower lobe ground-glass nodule versus AVM. No further follow-up needed. 5. Linear bronchiectasis in the right upper lobe with pleuroparenchymal scarring extending into the anterior and lateral right middle lobe. Bilateral lower lobe foci of dependent atelectasis. Trace left pleural effusion. 6. Moderate to large stable hiatal hernia. PROCEDURE INFORMATION: Exam: CT Abdomen And Pelvis With Contrast Exam date and time: 11/27/2020 3:41 PM Age: 70 years old Clinical indication: Injury or trauma; Sprain or strain; Injury details: Fall 4 days ago /left chest and abd pain; Prior surgery TECHNIQUE: Imaging protocol: Computed tomography of the abdomen and pelvis with contrast. 3D rendering (Not supervised by radiologist): MIP and/or 3D reconstructed images were created by the technologist. Contrast material: OMNPAQUE 350; Contrast volume: 70 ml; Contrast route: INTRAVENOUS (IV); COMPARISON: CT CHEST/ABD/PEL W 11/21/2020 11:05 AM FINDINGS: Liver: No hepatic laceration or perihepatic hematoma. Gallbladder and bile ducts: Normal. No calcified stones. No ductal dilation. Pancreas: Normal. No ductal dilation. Spleen: No splenic laceration or perisplenic hematoma. Adrenal glands: Bilateral adrenal gland hyperplasia is stable. Kidneys and ureters: Atrophy of the left kidney is stable. No renal, ureteric, or urinary bladder calculus. No hydronephrosis. Stomach and bowel: Oral contrast from the most recent prior study exiting the left lower quadrant end colostomy. Small fat containing peristomal hernia. No adjacent small bowel involvement. No bowel obstruction. There is moderate colonic stool burden. Stable rectosigmoid colon remnant in the left pelvis. No obstruction. No mucosal thickening. Appendix: No evidence of appendicitis. Intraperitoneal space: Unremarkable. No free air. No significant fluid collection. Vasculature: Unremarkable. No abdominal aortic aneurysm. Lymph nodes: Unremarkable. No enlarged lymph nodes. Urinary bladder: Unremarkable as visualized. Reproductive: Unremarkable as visualized. Bones/joints: Stable appearance of the large lumbar meningocele. No acute fracture or dislocation within the osseous structures of the abdomen or pelvis. No wedge compression deformities of the lumbar spine. [id number] chronic anterolisthesis of L4 over L5. No lytic or blastic osseous lesion. Soft tissues: Unremarkable. IMPRESSION: 1. No solid or hollow viscus injury to the abdomen or pelvis. 2. Stable left lower quadrant end colostomy and small fat containing peristomal hernia. Moderate colonic stool burden which may correlate with clinical symptoms of constipation. 3. Large lumbar meningocele. No acute osseous injury in the abdomen or pelvis. Dictated and Authenticated by: Astrid River MD. Ordering:MITRA Child MD
[2020-11-27] MEDS: Lidocaine 5% Patch 1 PATCH TP (17:37)
== END 2020-11-27 17:38 | disposition home or self-care (01) ==
PROVIDERS: Emergency Provider Emergency Medicine; PCP Family Medicine
DX: S22.32XA Fracture of one rib, left side, initial encounter for closed fracture (principal); W18.39XA Other fall on same level, initial encounter; R10.9 Unspecified abdominal pain
CPT/HCPCS: 36415; 74177; 80053; 83690; 96361; 96374; 99285; 71260; 81003; 81015; 83605; 83735; 85025; 85610; 85730; 87086; 99283; J3010; J3490

== ENCOUNTER → 2020-12-11 13:57 | Outpatient (BNVA) | payer MEDICARE, OTHER, SELFPAY | PROVIDERS: PCP Family Medicine; Referring Provider Family Medicine; Visit Provider Nurse Practitioner Gerontology | DX: N39.0 Urinary tract infection, site not specified (principal); N39.46 Mixed incontinence | CPT/HCPCS: 81003; 99213 ==

== ENCOUNTER 2020-12-11 16:33 | Outpatient (REF) | payer MEDICARE, OTHER, SELFPAY | END 2020-12-11 16:34 | disposition home or self-care (01) | LOC: LBN 16:33 | PROVIDERS: PCP Family Medicine; Visit Provider Nurse Practitioner Gerontology | DX: R39.15 Urgency of urination (principal); N39.46 Mixed incontinence | CPT/HCPCS: 87077; 87086; 87186 ==

== ENCOUNTER 2020-12-20 15:02 | Emergency (ER) | payer MEDICARE, OTHER, SELFPAY ==
--- NOTE | 2020-12-20 15:00 | RT.EKG_ITS ---
APPROVED REPORT Exam: Resting ECG Reason for Exam: sob Patient Location: E HR:103 bpm ECG Measurements Heart Rate 103 AXIS MN 156 P 68 QRSd 92 QRS 3 QT 327 T 66 QTc 428 Conclusion Sinus tachycardia Probable left atrial enlargemen Nonspecific st changes
[2020-12-20 15:18] VITALS: BP 141/99; PULSE 108; TEMP 36.7; O2SAT 98
--- NOTE | 2020-12-20 15:30 | DI.RAD_ITS ---
Exam(s) XR CHEST 2V PA LATERAL EXAM: XR CHEST 2V PA LATERAL CLINICAL HISTORY: cough, recent L 10th rib fracture TECHNIQUE: 2D digital imaging was performed. COMPARISON: CR,XR XR CHEST 1V IN DI DEPT from 05/24/[address] CHEST/ABD/PEL W from 11/27/2020 FINDINGS: Heart size is normal. The aorta is mildly tortuous. A moderate size hiatal hernia is present. Ther e are underlying chronic fibrotic changes. No superimposed infiltrate, effusion or pulmonary edema i s seen. There is kyphosis but no compression fracture. IMPRESSION: No acute pulmonary findings. DATA REPOSITORY: RADIATION DOSE DELIVERED:
--- NOTE | 2020-12-20 15:33 | ED.GENADUL_ITS ---
Discharge Plan Disposition Patient Disposition: HOME Condition: Improving Discharge Details Clinical Impression: Acute bronchitis Primary Care Provider: Faith Adorno ED Provider: Donovan Joaquin Home Meds and New Rx's Prescriptions: New azithromycin 250 mg tablet 250 mg PO DAILY 4 Days Qty: 4 RF: 0 benzonatate [Tessalon Perles] 100 mg capsule 100 mg PO TID PRN (Reason: cough) Qty: 10 RF: 0 Continued Myrbetriq 50 mg tablet extended release 24 hr 50 mg PO DAILY Qty: 90 RF: 4 oxybutynin chloride 15 mg tablet extended release 24hr 15 mg PO DAILY Qty: 90 RF: 4 nystatin 100,000 unit/mL suspension 5 ml PO TID PRN (Reason: thrush) Qty: 200 RF: 6 venlafaxine [Effexor XR] 150 mg capsule,extended release 24hr 150 mg PO DAILY Qty: 90 RF: 3 ergocalciferol (vitamin D2) 1,250 mcg (50,000 unit) capsule 50,000 unit PO QWEEK Qty: 13 RF: 4 folic acid 1 mg tablet 1 mg PO DAILY Qty: 90 RF: 12 lithium carbonate 150 mg capsule 450 mg PO am Qty: 270 RF: 12 methotrexate sodium 2.5 mg tablet 20 mg PO QWEEK Qty: 72 RF: 12 omeprazole 40 mg capsule,delayed release(DR/EC) 40 mg PO DAILY Qty: 90 RF: 4 sulfamethoxazole-trimethoprim 400-80 mg tablet 1 tab PO BID Qty: 14 RF: 0 calcium carbonate-vitamin D3 1 EACH tablet 1 cap PO DAILY RF: 0 Lily-D 24 Hour 180-240 mg Tablet Extended Release 24 Hr 1 tab PO QAM PRNRF: 0 hydrocodone-acetaminophen 5-325 mg tablet 1 tab PO Q6H PRN (Reason: pain) Qty: 9 RF: 0 oxycodone 5 mg tablet 5 mg PO QHS PRN (Reason: pain) Qty: 5 RF: 0 Discharge Instructions Instructions: Acute Bronchitis (ED) Additional Instructions: Home to rest this evening Continue small, frequent sips of fluids to maintain good hydration. May use the provided albuterol 1 to 2 puffs every 4 hours if needed for coughing fit or difficulty breathing. Take antibiotics once daily as prescribed. May use Tessalon Perles as needed for cough suppression. We will ask care management to arrange a follow-up for you both in primary care to recheck your blood counts as well as with general surgery given your chronic stoma pain. Medical Decision Making This is a 70-year-old female who suffered a fall and rib fracture on November 27. She now reports the ER with her daughter complaining of days of cough, congestion, production of sputum, and some mild shortness of breath primarily occurs with coughing. This also has provoke rib pain on the left side. She also notes decreased p.o. intake and weakness Patient has a borderline tachycardia, she is tender overlying her left rib, and cough is noted throughout the exam. Differential gnosis includes pneumonia, bronchitis, must exclude underlying pneumothorax, as well as dehydration or electrolyte abnormality. Screening EKG obtained, patient IV access established, referred for laboratories and chest x-ray. She is given 1 L fluid bolus. Chest x-ray is without evidence of acute disease. See formal report. Patient's laboratories note a white blood cell count of 2.99, hematocrit of 40, platelets of 47. Chemistries with slightly elevated BUN and creatinine. Patient's leukopenia and thrombocytopenia appear to be new. I question some underlying bone marrow suppression, perhaps due to viral syndrome. This will certainly require outpatient follow-up. I will treat her for bronchitis given the persistence of her cough and congestion. We will trial an inhaler to be used if needed for coughing fits at home as well as Tessalon Perles. Finally, patient request surgical follow-up for persistent pain around her long standing stoma site, we will ask care management to assist in this. Lab Data Lab results reviewed: Yes I reviewed the patient's lab results. Labs: Laboratory Results - last 24 hr 12/20/20 12/20/20 15:52 15:52 WBC 2.99 L RBC 4.09 Hgb 12.9 Hct 40.7 MCV 99.5 H MCH 31.5 MCHC 31.7 L RDW 16.7 H Plt Count 47 L D MPV 11.1 H Immature Gran % 1.0 Neutrophils % 74.3 Lymphocytes % 13.0 Monocytes % 2.0 Eosinophils % 9.4 Basophils % 0.3 Nucleated RBC % 0 Absolute Neutrophils 2.22 Absolute Lymphocytes 0.39 L Absolute Monocytes 0.06 L Absolute Eosinophils 0.28 Absolute Basophils 0.01 RBC Morphology See Below Anisocytosis 2+ Sodium 143 Potassium 3.9 Chloride 109 H Carbon Dioxide 23.6 Anion Gap 10.4 BUN 22 H Creatinine 1.2 H Estimated GFR/1.73 m2 44.41 Glucose 137 H Calcium 9.8 Total Bilirubin 0.4 AST 59 H ALT 56 Alkaline Phosphatase 110 Total Protein 7.8 Albumin 3.3 L HPI General Mode of arrival: ambulatory . Date/Time Provider Initiated Documentation: 12/20/20 15:03 . Limitations to Documentation: no limitations . Information obtained by: patient and family . History of Present Illness 70 year old F presents to the emergency department with the chief complaint of Cough, congestion, shortness of breath, described as moderate, Quality is described as dull, and is localized to the chest. Patient reports no radiation. Patient started experiencing this day(s) and it has been intermittent. No relieving factors improve symptom(s), No exacerbating fac tors reported . Patient notes cough and other (Production of sputum, decreased p.o. intake). Patient did receive the following treatments prior to arrival, none Related Data Home Medications Medication Instructions Recorded Confirmed calcium carbonate-vitamin D3 1 cap PO DAILY 04/03/15 12/20/20 venlafaxine 150 mg 150 mg PO DAILY #90 tab-cap 05/28/19 12/20/20 capsule,extended release 24 hr ergocalciferol (vitamin D2) 1,250 50,000 unit PO QWEEK #13 cap 06/02/20 12/20/20 mcg (50,000 unit) capsule folic acid 1 mg tablet 1 mg PO DAILY #90 tab-cap 06/02/20 12/20/20 lithium carbonate 150 mg capsule 450 mg PO am #270 tab-cap 06/02/20 12/20/20 methotrexate sodium 2.5 mg tablet 20 mg PO QWEEK #72 tab 06/02/20 12/20/20 omeprazole 40 mg capsule,delayed 40 mg PO DAILY #90 tab-cap 06/02/20 12/20/20 release mirabegron 50 mg tablet,extended 50 mg PO DAILY #90 tab-cap 10/07/20 12/20/20 release 24 hr oxybutynin chloride 15 mg 15 mg PO DAILY #90 tab 10/07/20 12/20/20 tablet,extended release 24 hr Lily-D 24 Hour 1 tab PO QAM PRN 11/14/20 12/20/20 hydrocodone-acetaminophen 1 tab PO Q6H PRN #9 tab 11/14/20 12/11/20 nystatin 100,000 unit/mL oral 5 ml PO TID PRN #200 ml 11/20/20 12/20/20 suspension oxycodone 5 mg PO QHS PRN #5 tab 11/27/20 12/20/20 sulfamethoxazole 400 1 tab PO BID #14 tab 12/11/20 12/20/20 mg-trimethoprim 80 mg tablet azithromycin 250 mg PO DAILY 4 Days #4 tab 12/20/20 benzonatate [Tessalon Perles] 100 mg PO TID PRN #10 cap 12/20/20 Previous Rx's Medication Instructions Recorded venlafaxine 150 mg 150 mg PO DAILY #90 tab-cap 05/28/19 capsule,extended release 24 hr ergocalciferol (vitamin D2) 1,250 50,000 unit PO QWEEK #13 cap 06/02/20 mcg (50,000 unit) capsule folic acid 1 mg tablet 1 mg PO DAILY #90 tab-cap 06/02/20 lithium carbonate 150 mg capsule 450 mg PO am #270 tab-cap 06/02/20 methotrexate sodium 2.5 mg tablet 20 mg PO QWEEK #72 tab 06/02/20 omeprazole 40 mg capsule,delayed 40 mg PO DAILY #90 tab-cap 06/02/20 release mirabegron 50 mg tablet,extended 50 mg PO DAILY #90 tab-cap 10/07/20 release 24 hr oxybutynin chloride 15 mg 15 mg PO DAILY #90 tab 10/07/20 tablet,extended release 24 hr hydrocodone-acetaminophen 1 tab PO Q6H PRN #9 tab 11/14/20 nystatin 100,000 unit/mL oral 5 ml PO TID PRN #200 ml 11/20/20 suspension oxycodone 5 mg PO QHS PRN #5 tab 11/27/20 sulfamethoxazole 400 1 tab PO BID #14 tab 12/11/20 mg-trimethoprim 80 mg tablet azithromycin 250 mg PO DAILY 4 Days #4 tab 12/20/20 benzonatate [Tessalon Perles] 100 mg PO TID PRN #10 cap 12/20/20 Allergies Allergy/AdvReac Type Severity Reaction Status Date / Time phenelzine sulfate AdvReac Intermediate Neuro Verified 12/11/20 14:07 [From Nardil] changes/loss of bladder control sucralfate [From Carafate] AdvReac Mild Diarrhea Verified 12/11/20 14:07 General Stated Complaint: RespSymp PARI: 3 Review of Systems Narrative: 6 systems reviewed and otherwise negative. Sick contact with young family member who tested negative for Covid. Decreased p.o. intake. No recurrent falls. [facility] Medical History Abdominal pain neg h. 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) Constipation Cortical cataract of right eye CRP elevated 05/27/16; 17.8 Depressed bipolar I disorder Depressed bipolar I disorder *ON LITHIUM Elevated C-reactive protein (05/27/16) Exotropia, alternating Falls frequently (08/16/17) Follicular cyst of ovary Follicular cyst of ovary 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) GERD (gastroesophageal reflux disease) Headache Headache chronic; improved since menopause Hiatal hernia Hiatal hernia (03/14/14) moderate by CT 07/08 Incontinence of feces S/P colostomy Infected sebaceous cyst (05/19/04) Knee pain Low back pain (11/14/14) Malignant neoplasm of female breast [facility]-RIGHT BREAST Malignant neoplasm of female breast [facility]-Right Breast; Malignant neoplasm of female breast Mixed stress and urge urinary incontinence Osteochondral defect (03/01/16) Osteoporosis T score -2.3, -3.0, -3.4 Rectal fullness 09/01/15 Rheumatoid arthritis Rheumatoid arthritis (08/22/12) MTX Right hip pain (11/14/14) Shoulder pain (01/28/15) Spina bifida Spina bifida (05/08/15) Urgency of urination (02/09/12) Urinary incontinence Uterine leiomyoma Uterine leiomyoma Uterine leiomyoma Surgical History Arthroscopy arthroplasty through the PIPJ, right 5th toe. Exostectomy from the right fifth metatarsal head Colostomy (~2001) fecal incontinence EGD - MAC (11/21/17) Fracture, Closed Treatment (11/23/12) LEFT DISTAL RADIUS AND ULNA H/O arthroscopy through the PIP, right 5th toe. Exostectomy for the right fifth metatarsal head H/O Spinal surgery 1950-spine meningocele repair; for spina bifida History of arthroscopy History of lumpectomy of right breast Pt denies mastectomy History of spinal surgery SPINE SURGERY (~1950) SPINE MENINGOCELE REPAIR, FOR SPINA BIFADA Status post cataract extraction and insertion of intraocular lens of right eye (11/20/18) Status post colostomy Family History Mother , AGE 47 Brain tumor Father , AGE 78 Arthritis Brother , age 73 Essential hypertension Heart disease Stroke Maternal Grandfather Essential hypertension Heart disease Paternal Grandfather No problems noted. Maternal Grandmother Diabetes Essential hypertension Heart disease Paternal Grandmother No problems noted. Brother , age 63 Cancer Daughter No problems noted. Daughter No problems noted. Brother No problems noted. Social History Smoking/Tobacco Use Status: Never Second Hand Exposure: No Smoking risk assessment performed?: Yes Alcohol Intake: current Alcohol Intake frequency: a few times a week Drug use: Never Substance use type: does not use and prescription drug Household members: spouse Housing: house Communication Needs: Corrective Lenses Do you need help understanding health information?: Rarely Pets and animals: No Sexually active: No Do you think of yourself as: straight/heterosexual Current gender identity: decline to answer What is your relationship status?: How often do you talk on the phone with friends or family?: three or more times per week How often do you get together with friends or relatives?: decline to answer How often do you attend pentecostal or mu-ism services?: decline to answer Do you belong to any clubs or organized social groups?: no Panel score (0-1 are the most socially isolated patients): 2 Duration: 15-30 minutes/day Frequency: 1-2 times per week Sherlyn/Confucianist: Cheondoism Special sherlyn needs: No Seatbelt use: always Drive intox or ride w/intox livery car driver: No Do you feel safe at home: Yes Do you feel safe in your relationship?: Yes Exam Narrative Exam Narrative: GEN: awake, alert, oriented 3. Pleasant, well groomed, interactive. HEAD: Normocephalic, atraumatic ENT: Mucous membranes moist, oropharynx unremarkable, External ear exam unremarkable EYES: PERRL, EOMI NECK: Full ROM, no NKECHI, no menigismus CHEST/RESP: Left lower lateral chest wall tender to palpation, left basilar rhonchi, otherwise clear, cough noted CARDIOVASCULAR: RRR, no murmur, rub oswaldo. 2+ Rad pulse bilateral ABDOMEN: Soft, nontender, no mass. +Bowel sounds, left lower quadrant ostomy, nontender EXT: Full ROM, no edema, no rash Neuro: Grossly normal neurologic exam, conversant, interactive. Psych: Speech fluent, thoughts congruent, affect normal Course Vital Signs Vital signs: Vital Signs Temperature 36.7 C 12/20/20 15:18 Pulse 108 H 12/20/20 15:18 Blood Pressure 141/99 H 12/20/20 15:18 Pulse Oximetry 98 12/20/20 15:18 Temperature 36.7 C 12/20/20 15:18 Temperature Source Temporal Artery Scan 12/20/20 15:18 Pulse 108 H 12/20/20 15:18 Blood Pressure 141/99 H 12/20/20 15:18 Blood Pressure Position Sitting 12/20/20 15:18 Pulse Oximetry 98 12/20/20 15:18 Oxygen Delivery Method Room Air 12/20/20 15:18 Oxygen Flow Rate 0 12/20/20 15:18 Pain Level 5 12/20/20 15:18
[2020-12-20 16:02] LABS: Abs Immature Grans 0.03 10^3/uL (0.0-0.06); Absolute Basophil Count 0.01 10^3/uL (0.0-0.2); Absolute Eosinophil Count 0.28 10^3/uL (0.0-0.7); Absolute Lymphocyte Count 0.39 10^3/uL (1.2-3.4); Absolute Monocyte Count 0.06 10^3/uL (0.1-0.8); Absolute Neutrophil Count 2.22 10^3/uL (1.2-6.7); Basophils % 0.3; Eosinophils % 9.4; HCT 40.7 % (36.0-46.0); HGB 12.9 g/dL (11.2-15.7); MCH 31.5 pg (27.0-33.0); MCHC 31.7 % (32.0-36.0); MCV 99.5 fL (80-95); MPV 11.1 fL (8.0-11.0); Neutrophils % 74.3; Nucleated RBC 0 %; RBC 4.09 10^6/uL (3.93-5.22); RDW 16.7 % (11.7-14.6); RDW-SD 60.3 fL; WBC 2.99 10^3/uL (4.4-10.8)
[2020-12-20] MEDS: Normal Saline 1,000 ML 1000 ML IV (16:04)
--- NOTE | 2020-12-20 16:09 | DI.VRAD_ITS ---
PROCEDURE INFORMATION: Exam: XR Chest Exam date and time: 12/20/2020 3:33 PM Age: 70 years old Clinical indication: Chest wall pain TECHNIQUE: Imaging protocol: XR of the chest. Views: 2 views. Total images: 2 COMPARISON: CT CHEST/ABD/PEL W 11/27/2020 4:18 PM FINDINGS: Lungs: Unremarkable. No consolidation. Pleural spaces: Unremarkable. No pleural effusion. No pneumothorax. Heart/Mediastinum: Unremarkable. No cardiomegaly. Bones/joints: Unremarkable. IMPRESSION: No acute findings. Dictated and Authenticated by: Navneet Murrell MD. Ordering:ANDREA Man MD
[2020-12-20 16:18] LABS: ALT 56 U/L (14-59); AST 59 U/L (15-37); Albumin 3.3 g/dL (3.4-5.0); Alkaline Phosphatase 110 U/L (46-116); Anion Gap 10.4 mmol/L (3-11); BUN 22 mg/dL (7-18); Bilirubin, Total 0.4 mg/dL (0.2-1.0); CO2 23.6 mmol/L (21.0-32.0); CREATININE 1.2 mg/dL (0.55-1.02); Calcium 9.8 mg/dL (8.5-10.1); Chloride 109 mmol/L (98-107); Estimated GFR 44.41 (mL/min/1.73m2); Glucose 137 mg/dL (74-106); Potassium 3.9 mmol/L (3.5-5.1); Sodium 143 mmol/L (136-145); Total Protein 7.8 g/dL (6.4-8.2)
[2020-12-20 16:35] LABS: Platelet Count 47 10^3/uL (130-400)
[2020-12-20 16:38] LABS: Diff Comment PLT Morph Reviewed
[2020-12-20 16:39] LABS: Anisocytosis 2+
[2020-12-20] MEDS: Albuterol HFA 8 GM 60 PUFF INH IH (17:08)
[2020-12-20] MEDS: Benzonatate 100 MG CAP 200 MG PO (17:09)
[2020-12-20] MEDS: Azithromycin 250 MG TAB 500 MG PO (17:09)
[2020-12-20 17:14] VITALS: BP 136/68; PULSE 106; RESP 19; TEMP 37.2; O2SAT 94
--- NOTE | 2020-12-23 13:35 | PDOC.ERCMPRO ---
- If Service Date Differs Date of service: 12/23/20 Time of Service: 13:35 Care Management Progress Note Pebbles is seen in the ED for bronchitis and pain around her stoma. At the request of Dr. Joaquin, ED provider, CM coordinates a referral to [facility] for the pain around her stoma. Pebbles already has a scheduled follow up appointment with her PCP's office on 12/29/2020.
== END 2020-12-20 17:37 | disposition home or self-care (01) ==
PROVIDERS: Emergency Provider Emergency Medicine; PCP Family Medicine
DX: J20.8 Acute bronchitis due to other specified organisms (principal)
CPT/HCPCS: 36415; 80053; 93005; 96360; 99285; 71046; 85025; 93010; 99284

== ENCOUNTER → 2020-12-29 09:30 | Outpatient (BNVA) | payer MEDICARE, OTHER, SELFPAY | PROVIDERS: PCP Family Medicine; Referring Provider Family Medicine; Visit Provider Nurse Practitioner Gerontology | DX: N13.70 Vesicoureteral-reflux, unspecified (principal); R39.15 Urgency of urination | CPT/HCPCS: 81003; 99214 ==

== ENCOUNTER 2020-12-31 16:02 | Outpatient (CLI) | payer MEDICARE, OTHER, SELFPAY ==
[2020-12-31 12:21] LABS: HCT 36.6 % (36.0-46.0); HGB 11.6 g/dL (11.2-15.7); MCH 31.8 pg (27.0-33.0); MCHC 31.7 % (32.0-36.0); MCV 100.3 fL (80-95); MPV 9.7 fL (8.0-11.0); RBC 3.65 10^6/uL (3.93-5.22); RDW 17.5 % (11.7-14.6); RDW-SD 63.4 fL; WBC 2.45 10^3/uL (4.4-10.8)
[2020-12-31 12:35] LABS: Platelet Count 294 10^3/uL (130-400)
== END 2020-12-31 16:03 | disposition home or self-care (01) ==
LOC: LOS 16:12
PROVIDERS: PCP Family Medicine; Visit Provider Nurse Practitioner Family
DX: K21.9 Gastro-esophageal reflux disease without esophagitis (principal)
CPT/HCPCS: 36415; 85027

== ENCOUNTER → 2021-04-01 09:35 | Outpatient (BNVA) | payer MEDICARE, OTHER, SELFPAY | PROVIDERS: PCP Family Medicine; Referring Provider Family Medicine; Visit Provider Nurse Practitioner Gerontology | DX: N13.70 Vesicoureteral-reflux, unspecified (principal); R39.15 Urgency of urination; Z79.899 Other long term (current) drug therapy | CPT/HCPCS: 99213 ==

== ENCOUNTER 2021-04-27 20:29 | Outpatient (REF) | payer MEDICARE, OTHER, SELFPAY ==
[2021-04-27 20:45] LABS: Abs Immature Grans 0.02 10^3/uL (0.0-0.06); Absolute Basophil Count 0.03 10^3/uL (0.0-0.2); Absolute Eosinophil Count 0.22 10^3/uL (0.0-0.7); Absolute Lymphocyte Count 0.59 10^3/uL (1.2-3.4); Absolute Monocyte Count 0.88 10^3/uL (0.1-0.8); Absolute Neutrophil Count 4.15 10^3/uL (1.2-6.7); Basophils % 0.5; Eosinophils % 3.7; HCT 39.5 % (36.0-46.0); HGB 12.4 g/dL (11.2-15.7); Immature Grans % 0.3; MCHC 31.4 % (32.0-36.0); MCV 102.1 fL (80-95); MPV 9.3 fL (8.0-11.0); Monocytes % 14.9; Neutrophils % 70.6; Nucleated RBC 0 %; Platelet Count 200 10^3/uL (130-400); RBC 3.87 10^6/uL (3.93-5.22); RDW 14.3 % (11.7-14.6); RDW-SD 53.1 fL; WBC 5.89 10^3/uL (4.4-10.8)
[2021-04-27 20:56] LABS: ESR 45 mm/hr (0-30)
[2021-04-27 21:17] LABS: ALT 41 U/L (14-59); AST 36 U/L (15-37); Albumin 3.6 g/dL (3.4-5.0); Alkaline Phosphatase 109 U/L (46-116); Anion Gap 7.2 mmol/L (3-11); BUN 35 mg/dL (7-18); Bilirubin, Total 0.3 mg/dL (0.2-1.0); CO2 26.8 mmol/L (21.0-32.0); CREATININE 1.4 mg/dL (0.55-1.02); Calcium 9.7 mg/dL (8.5-10.1); Chloride 105 mmol/L (98-107); Estimated GFR 37.18 (mL/min/1.73m2); Glucose 108 mg/dL (74-106); Potassium 4.1 mmol/L (3.5-5.1); Sodium 139 mmol/L (136-145); TSH (W/Ref FT4) 0.61 uIU/mL (0.36-3.74); Total Protein 6.9 g/dL (6.4-8.2)
[2021-04-28 21:44] LABS: Lithium (UVM) 0.8 mmol/L (See Note)
== END 2021-04-27 20:30 | disposition home or self-care (01) ==
LOC: LBN 20:29
PROVIDERS: PCP Family Medicine; Visit Provider Family Medicine
DX: R63.4 Abnormal weight loss (principal)
CPT/HCPCS: 80053; 85652; 80178; 84443; 85025

== ENCOUNTER 2021-07-10 14:22 | Outpatient (REF) | payer MEDICARE, OTHER, SELFPAY ==
[2021-07-10 20:14] LABS: Bilirubin Negative (Negative); Blood Moderate (Negative); Clarity Cloudy (Clear); Glucose Negative (Negative); Ketones Negative (Negative); Leukocyte Esterase Large (Negative); Nitrite Positive (Negative); Urobilinogen 0.2 EU/dL (Up TO 0.2)
[2021-07-10 20:24] LABS: WBC >50 HPF (0-5)
[2021-07-10 20:25] LABS: Bacteria Many HPF (Negative); C & S Indicated? Yes
== END 2021-07-10 14:23 | disposition home or self-care (01) ==
LOC: LBN 14:22
PROVIDERS: PCP Family Medicine; Visit Provider Nurse Practitioner Family
DX: R39.9 Unspecified symptoms and signs involving the genitourinary system (principal)
CPT/HCPCS: 87077; 81003; 81015; 87086; 87186

== ENCOUNTER 2021-07-17 04:36 | Outpatient (CLI) | payer MEDICARE, OTHER, SELFPAY ==
[2021-07-17 10:59] LABS: Abs Immature Grans 0.02 10^3/uL (0.0-0.06); Absolute Basophil Count 0.03 10^3/uL (0.0-0.2); Absolute Lymphocyte Count 0.96 10^3/uL (1.2-3.4); Absolute Monocyte Count 0.95 10^3/uL (0.1-0.8); Absolute Neutrophil Count 7.25 10^3/uL (1.2-6.7); Basophils % 0.3; Eosinophils % 1.1; HGB 12.1 g/dL (11.2-15.7); Immature Grans % 0.2; Lymphocytes % 10.3; MCH 31.8 pg (27.0-33.0); MCHC 31.8 % (32.0-36.0); MPV 9.1 fL (8.0-11.0); Monocytes % 10.2; Neutrophils % 77.9; Nucleated RBC 0 %; Platelet Count 230 10^3/uL (130-400); RDW 14.2 % (11.7-14.6); RDW-SD 51.9 fL; WBC 9.31 10^3/uL (4.4-10.8)
[2021-07-17 12:46] LABS: Lithium 1.1 mmol/l (0.6-1.2)
[2021-07-17 16:00] LABS: ALT 25 U/L (14-59); AST 24 U/L (15-37); Albumin 3.6 g/dL (3.4-5.0); Alkaline Phosphatase 104 U/L (46-116); Anion Gap 8.4 mmol/L (3-11); BUN 29 mg/dL (7-18); Bilirubin, Total 0.3 mg/dL (0.2-1.0); CO2 26.6 mmol/L (21.0-32.0); Calcium 9.7 mg/dL (8.5-10.1); Chloride 103 mmol/L (98-107); Estimated GFR 54.66 (mL/min/1.73m2); Glucose 90 mg/dL (74-106); Potassium 4.5 mmol/L (3.5-5.1); Sodium 138 mmol/L (136-145); Total Protein 6.9 g/dL (6.4-8.2)
== END 2021-07-17 04:37 | disposition home or self-care (01) ==
LOC: LBO 04:36
PROVIDERS: PCP Family Medicine; Visit Provider Family Medicine
DX: R63.4 Abnormal weight loss (principal); M06.9 Rheumatoid arthritis, unspecified
CPT/HCPCS: 36415; 80053; 80178; 85025

== ENCOUNTER 2021-08-27 01:18 | Outpatient (CLI) | payer MEDICARE, OTHER, SELFPAY ==
--- NOTE | 2021-08-27 10:02 | DI.MAMMO_ITS ---
Exam(s) MG MAMMO SCREENING 60 MIN DUR EXAM: MG MAMMO SCREENING 60 MIN DUR CLINICAL HISTORY: breast cancer screening,personal h/o breast ca,z85.3,z12.31 TECHNIQUE: Mammograms were interpreted according to the usual protocol including computer analysis w [place] CAD system, tomosynthesis and C-view imaging. COMPARISON: FINDINGS: Patient has a history of right breast carcinoma. Right breast is smaller than left. No mass or clum ped microcalcification identified in either breast. Current examination is compared with prior studi es including June 2019 and there has been no gross interval change in appearance comparison with t he prior studies. IMPRESSION: No specific evidence of malignancy at this time. Routine screening examinations are suggested at yea rly intervals due to the history of breast carcinoma. BI-RADS Category 1 - Negative Breast Density - Category C - Heterogeneously dense
== END 2021-08-27 01:38 ==
PROVIDERS: PCP Family Medicine; Visit Provider Family Medicine
DX: Z12.31 Encounter for screening mammogram for malignant neoplasm of breast (principal); Z85.3 Personal history of malignant neoplasm of breast; R92.8 Other abnormal and inconclusive findings on diagnostic imaging of breast
CPT/HCPCS: 77063; 77067

== ENCOUNTER 2021-09-29 01:53 | Outpatient (CLI) | payer MEDICARE, OTHER, SELFPAY ==
--- NOTE | 2021-09-29 07:02 | DI.US_ITS ---
Exam(s) US RENAL EXAM: US RENAL CLINICAL HISTORY: r/o hydronephrosis,vesicoureteral reflux,n13.70. TECHNIQUE: Palumbo scale, color and spectral Doppler were used. COMPARISON: US US RENAL from 10/07/[address] CHEST/ABD/PEL W from 11/21/2020 FINDINGS: Renal size in cm: Right: 7.8. Left: 5.2. Echogenicity: Normal. Hydronephrosis: Mild right hydronephrosis. Cyst or mass: 1.3 x 1 x 1.2 cm infrarenal left renal cyst. This is unchanged compared to the CT scan from 11/21/2020. Nephrolithiasis: No. Other findings: None. Bladder:Normal. There is an infolding of the right aspect of the urinary bladder. This is present on the CT scan and unchanged from prior ultrasounds. This may represent a diverticulum. No bladder ma ss is seen. Ureteral jets: Right: Not visualized on this examination. Left: Not visualized on this examination. Prevoid vol:160 cc Postvoid vol:0 cc Renal color flow: Symmetric and within normal limits. IMPRESSION: 1. Mild right hydronephrosis. 2. Bilateral renal atrophy, left greater than right. 3. No evidence of a bladder mass. DATA REPOSITORY:
== END 2021-09-29 02:13 ==
PROVIDERS: PCP Family Medicine; Visit Provider Urology
DX: N13.70 Vesicoureteral-reflux, unspecified (principal); N13.30 Unspecified hydronephrosis; N28.1 Cyst of kidney, acquired; N26.1 Atrophy of kidney (terminal)
CPT/HCPCS: 76770

== ENCOUNTER 2021-09-30 02:57 | Outpatient (CLI) | payer MEDICARE, OTHER, SELFPAY ==
[2021-09-30 12:39] LABS: HCT 39.4 % (36.0-46.0); HGB 12.4 g/dL (11.2-15.7); MCH 31.6 pg (27.0-33.0); MCHC 31.5 % (32.0-36.0); MCV 100.3 fL (80-95); MPV 8.4 fL (8.0-11.0); Platelet Count 234 10^3/uL (130-400); RBC 3.93 10^6/uL (3.93-5.22); RDW-SD 55.8 fL; WBC 12.39 10^3/uL (4.4-10.8)
[2021-09-30 13:47] LABS: Lithium 0.8 mmol/l (0.6-1.2)
[2021-09-30 14:01] LABS: ALT 28 U/L (14-59); AST 24 U/L (15-37); Albumin 3.6 g/dL (3.4-5.0); Alkaline Phosphatase 116 U/L (46-116); BUN 21 mg/dL (7-18); Bilirubin, Total 0.4 mg/dL (0.2-1.0); CREATININE 1.2 mg/dL (0.55-1.02); Chloride 104 mmol/L (98-107); Estimated GFR 44.29 (mL/min/1.73m2); Glucose 90 mg/dL (74-106); Potassium 4.2 mmol/L (3.5-5.1); Sodium 138 mmol/L (136-145); TSH (W/Ref FT4) 1.31 uIU/mL (0.36-3.74); Total Protein 6.9 g/dL (6.4-8.2)
[2021-09-30 21:57] LABS: Methotrexate <0.05 umol/L (See Note)
[2021-10-01 05:40] LABS: Vitamin D 25 Total 86.6 ng/mL (30-100)
== END 2021-09-30 02:58 | disposition home or self-care (01) ==
LOC: LBO 02:58
PROVIDERS: PCP Family Medicine; Visit Provider Family Medicine
DX: E55.9 Vitamin D deficiency, unspecified (principal); R63.4 Abnormal weight loss; F31.9 Bipolar disorder, unspecified; M06.9 Rheumatoid arthritis, unspecified; M81.0 Age-related osteoporosis without current pathological fracture; Z51.81 Encounter for therapeutic drug level monitoring
CPT/HCPCS: 36415; 80053; 82306; 85027; 80178; 83520; 84443

== ENCOUNTER → 2021-10-15 14:52 | Outpatient (BNVA) | payer MEDICARE, OTHER, SELFPAY | PROVIDERS: PCP Family Medicine; Referring Provider Family Medicine; Visit Provider Nurse Practitioner Gerontology | DX: R39.15 Urgency of urination (principal); N13.70 Vesicoureteral-reflux, unspecified; N39.0 Urinary tract infection, site not specified | CPT/HCPCS: 51798; 81003; 99214 ==

== ENCOUNTER 2021-10-15 19:25 | Outpatient (REF) | payer MEDICARE, OTHER, SELFPAY | END 2021-10-15 19:26 | disposition home or self-care (01) | LOC: LBN 19:25 | PROVIDERS: PCP Family Medicine; Visit Provider Nurse Practitioner Gerontology | DX: R39.15 Urgency of urination (principal) | CPT/HCPCS: 87077; 87086; 87186 ==

== ENCOUNTER → 2021-11-26 13:16 | Outpatient (CLI) | payer MEDICARE, OTHER, SELFPAY ==
--- NOTE | 2021-11-26 12:30 | DI.RAD_ITS ---
Exam(s) XR FINGER RT MIDDLE EXAM: XR FINGER RT MIDDLE CLINICAL HISTORY: FALL R/O FX AND DISLOCATION, INJURY OF RT WRIST HAND FINGER [id number]. TECHNIQUE: 2D digital imaging was performed. COMPARISON: CR RIGHT HAND COMPLETE from 10/12/2016 FINDINGS: 3 views There is significant chronic-type advanced degenerative changes at the proximal interphalangeal joint s of both the 3rd and 4th fingers, as was also evident on images of September 2016. Indeed, at the PIP j oint of 3rd finger there is an element of invagination of the head of the proximal phalanx into the m iddle phalanx with a pseudoarticulation/partial fusion. There does not appear to be an acute fracture. No radiopaque foreign body. No ominous osseous lesio ns. IMPRESSION: Proximal interphalangeal joint chronic-type changes. No obvious acute fractures. DATA REPOSITORY: RADIATION DOSE DELIVERED:
== END ==
PROVIDERS: PCP Family Medicine; Visit Provider Physician Assistant
DX: S69.91XA Unspecified injury of right wrist, hand and finger(s), initial encounter (principal); W19.XXXA Unspecified fall, initial encounter
CPT/HCPCS: 73140

== ENCOUNTER 2022-03-18 03:52 | Outpatient (RCR) | payer MEDICARE, OTHER, SELFPAY ==
[2022-03-04] VITALS (9 sets, daily range): BP systolic 118–155; BP diastolic 53–89; PULSE 67–83; RESP 16; TEMP 35.8–36.7; O2SAT 98–100
[2022-03-04] MEDS: diphenhydrAMINE 25 MG CAP PO (08:41)
[2022-03-04] MEDS: Acetaminophen 325 MG TAB 650 MG PO (08:41)
[2022-03-04] MEDS: Normal Saline Flush 10 ML SYR IVP (08:42)
[2022-03-04] MEDS: methylPREDNISolone SUCC 125 MG VIAL 100 MG IV (08:42)
[2022-03-04] MEDS: riTUXimab-PVVR 1,000 MG in Normal Saline 150 ML 62.5 MG IVPB (08:56)
[2022-03-18] MEDS: diphenhydrAMINE 25 MG CAP PO (08:59)
[2022-03-18] MEDS: Normal Saline Flush 10 ML SYR IVP (08:59)
[2022-03-18] MEDS: Acetaminophen 325 MG TAB 650 MG PO (08:59)
[2022-03-18 09:08] VITALS: BP 129/74; PULSE 74; RESP 16; TEMP 36.4; O2SAT 100
[2022-03-18] MEDS: riTUXimab-PVVR 1,000 MG in Normal Saline 150 ML 62.5 MG IVPB (09:18)
[2022-03-18 09:50] VITALS: BP 157/76; PULSE 73; RESP 16; TEMP 36.3; O2SAT 97
[2022-03-18 10:20] VITALS: BP 136/78; PULSE 62; RESP 16; TEMP 36.9; O2SAT 99
[2022-03-18 10:50] VITALS: BP 127/71; PULSE 70; RESP 16; TEMP 36.2; O2SAT 100
[2022-03-18 11:20] VITALS: BP 143/75; PULSE 63; RESP 16; TEMP 36.1; O2SAT 100
[2022-03-18 11:55] VITALS: BP 156/74; PULSE 68; RESP 16; TEMP 36; O2SAT 100
== END 2022-03-19 23:59 | disposition home or self-care (01) ==
LOC: INF 03:52
PROVIDERS: PCP Family Medicine; Visit Provider Internal Medicine
DX: M81.0 Age-related osteoporosis without current pathological fracture (principal); M05.9 Rheumatoid arthritis with rheumatoid factor, unspecified
CPT/HCPCS: 96365; 96366; 96374; 96375; J2930; Q5119

== ENCOUNTER 2022-03-25 02:15 | Outpatient (RCR) | payer MEDICARE, OTHER, SELFPAY ==
[2022-03-20 00:24] VITALS: BP 156/74; PULSE 68; RESP 16; TEMP 36
[2022-03-25] MEDS: Denosumab 60 MG/ML SYR SC (10:05)
== END 2022-04-19 23:59 | disposition home or self-care (01) ==
LOC: INF 02:15
PROVIDERS: PCP Family Medicine; Visit Provider Internal Medicine
DX: M81.0 Age-related osteoporosis without current pathological fracture (principal)
CPT/HCPCS: 96372; J0897

== ENCOUNTER 2022-07-19 09:49 | Outpatient (REF) | payer MEDICARE, OTHER, SELFPAY ==
[2022-07-19 12:55] LABS: Bilirubin Negative (Negative); Blood Trace-intact (Negative); Clarity Sl Cloudy (Clear); Glucose Negative (Negative); Ketones Negative (Negative); Leukocyte Esterase Large (Negative); Nitrite Negative (Negative); Urobilinogen 0.2 EU/dL (Up TO 0.2); pH 6.5 (5-8)
[2022-07-19 13:08] LABS: Bacteria Few HPF (Negative); C & S Indicated? Yes; Crystals Negative HPF (Negative); Epithelial Cells Few HPF (Negative); Mucus Negative (Negative); RBC 0-2 HPF (0-2); WBC 20-50 HPF (0-5)
== END 2022-07-19 09:50 | disposition home or self-care (01) ==
LOC: LBN 09:49
PROVIDERS: PCP Family Medicine; Visit Provider Physician Assistant
DX: R39.89 Other symptoms and signs involving the genitourinary system (principal); N39.0 Urinary tract infection, site not specified; R82.998 Other abnormal findings in urine
CPT/HCPCS: 81003; 81015; 87086

== ENCOUNTER 2022-07-30 01:31 | Outpatient (CLI) | payer MEDICARE, OTHER, SELFPAY ==
[2022-07-30 12:37] LABS: ALT 21 U/L (14-59); AST 25 U/L (15-37); Albumin 3.7 g/dL (3.4-5.0); Alkaline Phosphatase 96 U/L (46-116); BUN 20 mg/dL (7-18); Bilirubin, Total 0.5 mg/dL (0.2-1.0); CREATININE 1.1 mg/dL (0.55-1.02); Calcium 10.3 mg/dL (8.5-10.1); Chloride 102 mmol/L (98-107); Estimated GFR 53.39 (mL/min/1.73m2); Glucose 75 mg/dL (74-106); Lithium 0.5 mmol/l (0.6-1.2); Potassium 3.6 mmol/L (3.5-5.1); Sodium 137 mmol/L (136-145); Total Protein 7.2 g/dL (6.4-8.2)
[2022-07-30 12:38] LABS: Abs Immature Grans 0.04 10^3/uL (0.0-0.06); Absolute Basophil Count 0.04 10^3/uL (0.0-0.2); Absolute Eosinophil Count 0.13 10^3/uL (0.0-0.7); Absolute Monocyte Count 0.76 10^3/uL (0.1-0.8); Absolute Neutrophil Count 6.41 10^3/uL (1.2-6.7); Basophils % 0.5; Eosinophils % 1.6; HCT 40.5 % (36.0-46.0); HGB 12.7 g/dL (11.2-15.7); Immature Grans % 0.5; Lymphocytes % 10.9; MCH 31.8 pg (27.0-33.0); MCHC 31.4 % (32.0-36.0); MCV 101 fL (80-95); MPV 9.7 fL (8.0-11.0); Monocytes % 9.2; Neutrophils % 77.3; Platelet Count 230 10^3/uL (130-400); RDW 14.4 % (11.7-14.6); RDW-SD 54.1 fL; WBC 8.28 10^3/uL (4.4-10.8)
== END 2022-07-30 01:32 | disposition home or self-care (01) ==
LOC: LOS 01:32
PROVIDERS: PCP Family Medicine; Visit Provider Family Medicine
DX: M81.0 Age-related osteoporosis without current pathological fracture (principal); E55.9 Vitamin D deficiency, unspecified; F31.9 Bipolar disorder, unspecified; M06.9 Rheumatoid arthritis, unspecified; K21.9 Gastro-esophageal reflux disease without esophagitis
CPT/HCPCS: 36415; 80053; 82306; 80178; 85025

== ENCOUNTER 2022-09-17 01:21 | Outpatient (RCR) | payer MEDICARE, OTHER, SELFPAY ==
[2022-04-20 00:21] VITALS: BP 156/74; PULSE 68; RESP 16; TEMP 36
[2022-09-02] VITALS (9 sets, daily range): BP systolic 133–172; BP diastolic 65–91; PULSE 56–97; RESP 17; TEMP 35.7–37.3; O2SAT 98–100
[2022-09-02] MEDS: Normal Saline Flush 10 ML SYR IVP (08:58)
[2022-09-02] MEDS: methylPREDNISolone SUCC 125 MG VIAL 100 MG IVP (08:58)
[2022-09-02] MEDS: Acetaminophen 325 MG TAB 650 MG PO (08:58)
[2022-09-02] MEDS: riTUXimab-PVVR 1,000 MG in Normal Saline 150 ML 62.5 MG IVPB (09:10)
[2022-09-17] MEDS: diphenhydrAMINE 25 MG CAP PO (09:11)
[2022-09-17] MEDS: Acetaminophen 325 MG TAB 650 MG PO (09:11)
[2022-09-17] MEDS: Normal Saline Flush 10 ML SYR IVP (09:11)
[2022-09-17 09:25] VITALS: BP 152/77; PULSE 68; RESP 17; TEMP 36.4; O2SAT 100
[2022-09-17] MEDS: riTUXimab-PVVR 1,000 MG in Normal Saline 150 ML 62.5 MG IVPB (09:30)
[2022-09-17 10:02] VITALS: BP 165/79; PULSE 73; RESP 17; TEMP 36; O2SAT 98
[2022-09-17 10:32] VITALS: BP 169/90; PULSE 70; RESP 17; TEMP 36; O2SAT 97
[2022-09-17 11:08] VITALS: BP 159/74; PULSE 63; RESP 17; TEMP 37.2; O2SAT 100
== END 2022-09-17 23:59 | disposition home or self-care (01) ==
LOC: INF 01:21
PROVIDERS: PCP Family Medicine; Visit Provider Internal Medicine
DX: M06.00 Rheumatoid arthritis without rheumatoid factor, unspecified site (principal)
CPT/HCPCS: 96365; 96366; 96413; 96415; J2930; Q5119

== ENCOUNTER 2022-09-24 01:17 | Outpatient (RCR) | payer MEDICARE, OTHER, SELFPAY ==
[2022-09-24] MEDS: Denosumab 60 MG/ML SYR SC (10:04)
== END 2022-10-17 23:59 | disposition home or self-care (01) ==
LOC: INF 01:17
PROVIDERS: PCP Family Medicine; Visit Provider Internal Medicine
DX: M81.0 Age-related osteoporosis without current pathological fracture (principal)
CPT/HCPCS: 96372; J0897

== ENCOUNTER 2022-10-15 00:21 | Outpatient (CLI) | payer MEDICARE, OTHER, SELFPAY ==
--- NOTE | 2022-10-15 07:15 | DI.US_ITS ---
Exam(s) US RENAL EXAM: US RENAL CLINICAL HISTORY: monitoring hydro,VESICOURETERAL REFLUX,N13.70. TECHNIQUE: Palumbo scale, color and spectral Doppler were used. COMPARISON: US US RENAL from 10/07/[address] CHEST/ABD/PEL W from 11/21/[address] CHEST/ABD/PEL W from 11/27/2020 US US RENAL from 09/29/2021 FINDINGS: Renal size in cm: Right: Left: Echogenicity: Scarring and mildly increased echogenicity bilaterally, left greater than right.. Hydronephrosis: Stable mild right hydronephrosis. Cyst or mass: 1.5 centimeters cyst inferior pole left kidney. Nephrolithiasis: No Bladder:Infolding of the right lateral aspect of the bladder, unchanged. Both ureteral jets visualiz ed. No stone or mass. Prevoid vol:1052 cc Postvoid vol:269 cc IMPRESSION: Stable mild right hydronephrosis. Bilateral renal atrophy and scarring, left greater than right. DATA REPOSITORY:
== END 2022-10-15 00:41 ==
LOC: DI 00:21
PROVIDERS: PCP Family Medicine; Visit Provider Nurse Practitioner Gerontology
DX: N13.70 Vesicoureteral-reflux, unspecified (principal)
CPT/HCPCS: 76770

== ENCOUNTER → 2022-10-27 09:41 | Outpatient (BNVA) | payer MEDICARE, OTHER, SELFPAY | PROVIDERS: PCP Family Medicine; Referring Provider Family Medicine; Visit Provider Nurse Practitioner Gerontology | DX: N39.46 Mixed incontinence (principal); N13.70 Vesicoureteral-reflux, unspecified | CPT/HCPCS: 99214 ==

== ENCOUNTER 2023-01-06 14:50 | Outpatient (CLI) | payer MEDICARE, OTHER, SELFPAY ==
--- NOTE | 2023-01-06 13:45 | DI.CT_ITS ---
Exam(s) CT ABDOMEN PELVIS W EXAM: CT ABDOMEN PELVIS W CLINICAL HISTORY: suprapubic prominace. fatigue, weight loss, R19.8 ABD FULLNESS. TECHNIQUE: Imaging Protocol: Axial computed tomography images with coronal and sagittal reformatted images were created and reviewed CONTRAST MATERIAL: Intravenous: Omnipaque 350 Contrast volume:76 ml Oral: yes / no COMPARISON: CT CT CHEST/ABD/PEL W from 11/27/2020 US US RENAL from 10/15/2022 FINDINGS: ABDOMEN: Exam limited by patient motion. Lung Bases: Large hiatal hernia. Liver: Normal density. No measurable mass. Gallbladder and biliary tract: No radiodense calculus or dilation. Pancreas: Normal density, no abnormal calcifications or inflammatory process. Spleen: Normal. Kidneys: Atrophic left kidney. Bilateral tiny renal cysts. No radiodense stones or obstructive uropat hy. No suspicious masses seen. Adrenal glands: No masses seen. Abdominal Aorta: Abdominal portion non-dilated. Soft tissues: Left sided colostomy which appears unchanged. PELVIS: Bladder: Urinary bladder is somewhat distended. A few air bubbles are seen, presumably related to cat heterization. A fold is again noted in the right lateral bladder wall. No gross wall thickening. No calculi.No focal mass. Bowel: No obstruction. No bowel wall thickening. Large quantity of stool. Peritoneal cavity: No ascites, collection or mesenteric inflammatory response. 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 Degenerative disc changes and facet degenerative changes. Stable L4-5 spondylolisthesis. Reproductive organs: Within normal limits. Lymph nodes: Unremarkable. Impression: No acute abnormality in the abdomen or pelvis. No evidence of mass or adenopathy. Stable appearance of left-sided colostomy. Increased quantity of stool. Atrophic left kidney. Somewhat distended urinary bladder. RADIATION DOSE DELIVERED: 531.7mGy.cm Total DLP DATA REPOSITORY: All CT scans at this facility are submitted to the National Radiology Data Registry (NRDR) Dose Index Registry (DIR) with the [employer] (ACR). RADIATION OPTIMIZATION: All CT scans at this facility use at least one of these dose optimization te chniques: automated exposure control; mA and/or kV adjustment per patient size (includes targeted exa ms where dose is matched to clinical indication); or iterative reconstruction.
[2023-01-06] MEDS: Barium Sulfate 2% W/V-Creamy Vanilla Smoothie 450 ML BTL PO (14:29)
[2023-01-06 14:49] LABS: Abs Immature Grans 0.02 10^3/uL (0.0-0.06); Absolute Basophil Count 0.02 10^3/uL (0.0-0.2); Absolute Eosinophil Count 0.12 10^3/uL (0.0-0.7); Absolute Lymphocyte Count 0.72 10^3/uL (1.2-3.4); Absolute Neutrophil Count 5.21 10^3/uL (1.2-6.7); Basophils % 0.3; Eosinophils % 1.8; HCT 38.2 % (36.0-46.0); HGB 12.3 g/dL (11.2-15.7); Immature Grans % 0.3; Lymphocytes % 11.1; MCH 32.5 pg (27.0-33.0); MCHC 32.2 % (32.0-36.0); MCV 101 fL (80-95); MPV 8.9 fL (8.0-11.0); Monocytes % 6.2; Neutrophils % 80.3; Platelet Count 194 10^3/uL (130-400); RBC 3.79 10^6/uL (3.93-5.22); RDW 15.6 % (11.7-14.6); RDW-SD 57.9 fL; WBC 6.49 10^3/uL (4.4-10.8)
[2023-01-06 15:09] LABS: Anion Gap 6.8 mmol/L (3-11); BUN 26 mg/dL (7-18); CO2 27.2 mmol/L (21.0-32.0); CREATININE 1.1 mg/dL (0.55-1.02); Calcium 9.8 mg/dL (8.5-10.1); Chloride 110 mmol/L (98-107); Estimated GFR 53.39 (mL/min/1.73m2); Glucose 101 mg/dL (74-106); Potassium 4.3 mmol/L (3.5-5.1); Sodium 144 mmol/L (136-145)
[2023-01-06] MEDS: Normal Saline Flush 10 ML SYR IVP (16:31)
[2023-01-06] MEDS: Omnipaque 350 MG/ML 100 ML BTL 76 ML IJ (16:40)
[2023-01-06] MEDS: Normal Saline - Diluent 50 ML VIAL IJ (16:40)
== END 2023-01-06 15:10 ==
LOC: DI 14:52
PROVIDERS: PCP Family Medicine; Visit Provider Physician Assistant
DX: R19.8 Other specified symptoms and signs involving the digestive system and abdomen (principal); Z93.3 Colostomy status; N26.1 Atrophy of kidney (terminal)
CPT/HCPCS: 80048; 74177; 85025; J3490

== ENCOUNTER 2023-02-13 10:24 | Emergency (ER) | payer MEDICARE, OTHER, SELFPAY ==
[2023-02-13 10:26] VITALS: BP 122/61; PULSE 69; RESP 20; TEMP 37.3; O2SAT 99
--- NOTE | 2023-02-13 10:34 | ED.GENADUL_ITS ---
Discharge Plan Disposition Patient Disposition: Home Discharge Details Clinical Impression: Urinary tract infection Primary Care Provider: Faith Adorno ED Provider: Yash La Home Meds and New Rx's Prescriptions: New cephalexin 500 mg tablet 500 mg PO BID 5 Days Qty: 10 0RF Continued nystatin 100,000 unit/mL suspension 5 ml PO TID PRN (Reason: thrush) Qty: 200 6RF Rx Instructions: swish and swallow ergocalciferol (vitamin D2) 1,250 mcg (50,000 unit) capsule 50,000 unit PO QWEEK Qty: 13 4RF Shingrix (PF) 50 mcg/0.5 mL suspension for reconstitution 0.5 ml IM ONCE Qty: 1 1RF Rx Instructions: as a single dose. Repeat in 2 months cyanocobalamin (vitamin B-12) 1,000 mcg capsule 1,000 mcg PO DAILY folic acid 1 mg tablet 1 mg PO DAILY Qty: 90 12RF Rx Instructions: coreection: only 1 cap daily methotrexate sodium 2.5 mg tablet 20 mg PO QWEEK Qty: 72 12RF Rx Instructions: takes on mondays Myrbetriq 50 mg tablet extended release 24 hr 50 mg PO DAILY Qty: 90 4RF omeprazole 40 mg capsule,delayed release(DR/EC) 40 mg PO DAILY Qty: 90 4RF venlafaxine [Effexor XR] 150 mg capsule,extended release 24hr 150 mg PO DAILY Qty: 90 3RF calcium carbonate-vitamin D3 1 EACH tablet 1 cap PO DAILY Patient Comments: 07-02-17 pt reports that she takes this med daily. hb 05/10/17- Taking 3x/week. aj pt unsure when she took this last 10/24/15 08/05/17 taking MV with calcium. si Rx Instructions: 1200mg/1000iu each lithium carbonate 150 mg capsule 450 mg PO am Qty: 270 12RF Rx Instructions: 450mg daily oxybutynin chloride 5 mg tablet extended release 24hr 5 mg PO DAILY Qty: 90 1RF Discontinued hydrocortisone acetate [Anusol-HC] 25 mg suppository 25 mg ND BID Qty: 12 0RF Patient Comments: not using anymore Discharge Instructions Instructions: Urinary Tract Infection in Women (ED) Additional Instructions: Please continue to stay well-hydrated and take medication as prescribed and finish your full course of antibiotics. Please follow-up with your primary care provider for reassessment if not improving or return to the emergency department for new or significant worsening symptoms. Referrals: Faith Adorno MD, [place] [Primary Care Provider] - Medical Decision Making Patient presenting to the emergency department for chief complaint of urinary incontinence. She states some chills but otherwise denies all other symptoms. Reports previous similar issues when she has had a urinary tract infection. Physical exam shows mild suprapubic tenderness and left CVA tenderness again that is very mild. Exam is otherwise unremarkable. Patient has stable vital signs with no hypotension or fever noted. We will check urinalysis along with postvoid residual. Postvoid residual showed no urine in bladder after obtaining specimen. Urinalysis shows urine protein, moderate amount of blood, and leukocyte Estrace with moderate amounts. Microscopic urine does show 10-20 RBCs and 10-20 WBCs. Does appear that specimen was contaminated but I am still concerned for urinary tract infection. Patient placed on Keflex 500 mg twice daily and encouraged to follow-up with primary care provider if not improving. After discussion of diagnosis and plan of care patient has no further needs, questions, or concerns and states clear understanding to return to the emergency department for any worsening symptoms. This documentation was generated using [employer] dictation system, please disregard any oddities of phrase or misspellings. HPI General Mode of arrival: ambulatory . Date/Time Provider Initiated Documentation: 02/13/23 10:27 . Limitations to Documentation: no limitations . Information obtained by: patient, family and RN notes reviewed . History of Present Illness 72 year old F presents to the emergency department with the chief complaint of Urinary incontinence, described as mild and similar to prior episodes, Quality is described as aching, and is localized to the abdomen. Patient started experiencing this day(s) (3) and it has been constant. No relieving factors improve symptom(s), No exacerbating factors reported . Patient notes no other symptoms.. Patient did receive the following treatments prior to arrival, none Related Data Home Medications Medication Instructions Recorded Confirmed calcium carbonate 600 mg-vitamin 1 cap PO DAILY 04/03/15 02/13/23 D3 5 mcg (200 unit) tablet nystatin 100,000 unit/mL oral 5 ml PO TID PRN thrush #200 mL 11/20/20 02/13/23 suspension cyanocobalamin (vitamin B-12) 1,000 mcg PO DAILY 03/18/22 01/19/23 1,000 mcg capsule folic acid 1 mg tablet 1 mg PO DAILY #90 tab-caps 03/18/22 02/13/23 methotrexate sodium 2.5 mg tablet 20 mg PO QWEEK #72 tabs 03/18/22 02/13/23 mirabegron 50 mg tablet,extended 50 mg PO DAILY #90 tab-caps 03/18/22 02/13/23 release 24 hr (Myrbetriq) omeprazole 40 mg capsule,delayed 40 mg PO DAILY #90 tab-caps 03/18/22 02/13/23 release venlafaxine 150 mg 150 mg PO DAILY #90 tab-caps 03/18/22 02/13/23 capsule,extended release 24 hr (Effexor XR) ergocalciferol (vitamin D2) 1,250 50,000 unit PO QWEEK #13 caps 07/26/22 02/13/23 mcg (50,000 unit) capsule varicella-zoster glycoE [id number] 0.5 ml IM ONCE #1 ea 07/26/22 02/13/23 adj(PF) 50 mcg/0.5 mL IM susp, kit (Shingrix (PF)) lithium carbonate 150 mg capsule 450 mg PO am #270 tab-caps 11/30/22 02/13/23 oxybutynin chloride 5 mg 5 mg PO DAILY #90 tabs 12/20/22 02/13/23 tablet,extended release 24 hr cephalexin 500 mg tablet 500 mg PO BID 5 days #10 tabs 02/13/23 Previous Rx's Medication Instructions Recorded nystatin 100,000 unit/mL oral 5 ml PO TID PRN thrush #200 mL 11/20/20 suspension folic acid 1 mg tablet 1 mg PO DAILY #90 tab-caps 03/18/22 methotrexate sodium 2.5 mg tablet 20 mg PO QWEEK #72 tabs 03/18/22 mirabegron 50 mg tablet,extended 50 mg PO DAILY #90 tab-caps 03/18/22 release 24 hr (Myrbetriq) omeprazole 40 mg capsule,delayed 40 mg PO DAILY #90 tab-caps 03/18/22 release venlafaxine 150 mg 150 mg PO DAILY #90 tab-caps 03/18/22 capsule,extended release 24 hr (Effexor XR) ergocalciferol (vitamin D2) 1,250 50,000 unit PO QWEEK #13 caps 07/26/22 mcg (50,000 unit) capsule varicella-zoster glycoE [id number] 0.5 ml IM ONCE #1 ea 07/26/22 adj(PF) 50 mcg/0.5 mL IM susp, kit (Shingrix (PF)) lithium carbonate 150 mg capsule 450 mg PO am #270 tab-caps 11/30/22 oxybutynin chloride 5 mg 5 mg PO DAILY #90 tabs 12/20/22 tablet,extended release 24 hr cephalexin 500 mg tablet 500 mg PO BID 5 days #10 tabs 02/13/23 Allergies Allergy/AdvReac Type Severity Reaction Status Date / Time phenelzine sulfate AdvReac Intermediate Neuro Verified 02/13/23 10:30 [From Nardil] changes/loss of bladder control sucralfate [From Carafate] AdvReac Mild Diarrhea Verified 02/13/23 10:30 General Stated Complaint: Urinary PARI: 3 Review of Systems Constitutional Constitutional: Denies body ache(s), Reports chills, Denies fever(s), Denies malaise and Denies weakness Cardiovascular Cardiovascular: Denies chest pain Respiratory Respiratory: Reports system reviewed and no additional complaints, except as do cumented Gastrointestinal Gastrointestinal: Denies abdominal pain, Denies nausea and Denies vomiting Genitourinary Genitourinary: Reports as per HPI, Denies hematuria, Denies dysuria, Denies pelvic pain, Reports flank pain, Reports urinary incontinence, Reports urinary urgency and Denies vaginal discharge Neurologic Neurologic: Denies confusion and Denies weakness Psychiatric Psychiatric: Denies confusion PFSH All Active Problems (Updated 02/13/23 @ 11:12 by Yash La NP) Urinary tract infection (Acute) Acquired hammer toe (Chronic) right 5th; hypertrophic right fifth metatarsal head w/ exostosis Chronic GERD (Chronic 10/25/17) Chronic left-sided low back pain with left-sided sciatica (Chronic 05/10/17) 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) Constipation (Chronic) Depressed bipolar I disorder (Chronic) *ON LITHIUM Falls frequently (Chronic 08/16/17) Headache (Chronic) chronic; improved since menopause Hiatal hernia (Chronic 03/14/14) moderate by CT 07/08 Low back pain (Chronic 11/14/14) Osteoporosis (Chronic) T score -2.3, -3.0, -3.4 Rheumatoid arthritis (Chronic 08/22/12) MTX Urgency of urination (Chronic 02/09/12) Vesicoureteral reflux, unspecified or without reflux nephropathy (Chronic) DX'd at age 9; 2006 mild renal atrophy requires yearly us Vitamin D deficiency (Chronic 03/03/09) Rectal fullness (Acute) 09/01/15 Osteochondral defect (Acute 03/01/16) Mixed stress and urge urinary incontinence (Acute) Left knee pain (Acute) Ambulatory dysfunction (Acute) Sensorineural hearing loss of both ears (Acute) Weight loss (Acute) Hammertoe of left foot (Acute) Weight loss (Acute) Nail dystrophy (Acute) Medical History Abdominal pain neg h. 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 Chronic pain of left knee (01/05/16) L patello femoral Closed fracture distal radius and ulna L wrist Closed fracture of radius and ulna LEFT Closed fracture of radius and ulna Colostomy in place Cortical cataract of right eye Elevated C-reactive protein (05/27/16) Exotropia, alternating Follicular cyst of ovary Fracture of acromial end of right clavicle 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) GERD (gastroesophageal reflux disease) Hiatal hernia Knee pain Left rib fracture Malignant neoplasm of female breast [facility]-RIGHT BREAST Osteochondral defect (03/01/16) Rheumatoid arthritis Spina bifida (05/08/15) Uterine leiomyoma Surgical History Arthroscopy arthroplasty through the PIPJ, right 5th toe. Exostectomy from the right fifth metatarsal head Colostomy (~2001) fecal incontinence EGD - MAC (11/21/17) Fracture, Closed Treatment (11/23/12) LEFT DISTAL RADIUS AND ULNA H/O arthroscopy through the PIP, right 5th toe. Exostectomy for the right fifth metatarsal head H/O Spinal surgery 1951-spine meningocele repair; for spina bifida History of arthroscopy History of lumpectomy of right breast Pt denies mastectomy History of spinal surgery SPINE SURGERY (~1950) SPINE MENINGOCELE REPAIR, FOR SPINA BIFADA Status post cataract extraction and insertion of intraocular lens of right eye (11/20/18) Status post colostomy Family History Mother , AGE 47 Brain tumor Father , AGE 78 Arthritis Brother , age 73 Essential hypertension Heart disease Stroke Maternal Grandfather Essential hypertension Heart disease Paternal Grandfather No problems noted. Maternal Grandmother Diabetes Essential hypertension Heart disease Paternal Grandmother No problems noted. Brother , age 63 Cancer Daughter No problems noted. Daughter No problems noted. Brother No problems noted. Social History Smoking/Tobacco Use Status: Never Second Hand Exposure: No Smoking risk assessment performed?: Yes Alcohol Intake: current Alcohol Intake frequency: a few times a week Drug use: Never Substance use type: does not use and prescription drug Caregiver/Support person: No Household members: none Housing: house Communication Needs: Corrective Lenses Do you need help understanding health information?: Often Pets and animals: No Sexually active: No Do you think of yourself as: straight/heterosexual Current gender identity: female What is your relationship status?: How often do you talk on the phone with friends or family?: decline to answer How often do you get together with friends or relatives?: three or more times per week How often do you attend quaker or shinto services?: decline to answer Do you belong to any clubs or organized social groups?: decline to answer Panel score (0-1 are the most socially isolated patients): 1 What type of physical activity do you participate in: none Sherlyn/Samaritan: Religion Special sherlyn needs: No Seatbelt use: always Drive intox or ride w/intox 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 Do you feel safe at home: Yes Do you feel safe in your relationship?: Yes Exam Const General: cooperative and no acute distress Orientation: alert, awake and oriented x3 Resp Effort & Inspection: normal respiratory effort and able to speak in complete sentences Auscultation: clear to auscultation bilaterally Cardio Rate: regular rate Rhythm: regular rhythm Heart Sounds: S1 normal and S2 normal GI Palpation: tender suprapubicly General: CVA tenderness (mild) on the left Back/Spine/Pelvis Back: no CVA tenderness Neuro General: patient alert, patient awake and patient oriented x3 Extrem General: capillary refill normal Course Vital Signs Vital signs: Vital Signs Temperature 37.3 C 02/13/23 10:26 Pulse 69 02/13/23 10:26 Respiratory Rate 20 02/13/23 10:26 Blood Pressure 122/61 02/13/23 10:26 Pulse Oximetry 99 02/13/23 10:26 Temperature 37.3 C 02/13/23 10:26 Temperature Source Skin 02/13/23 10:26 Pulse 69 02/13/23 10:26 Respiratory Rate 20 02/13/23 10:26 Blood Pressure 122/61 02/13/23 10:26 Blood Pressure Position Sitting 02/13/23 10:26 Pulse Oximetry 99 02/13/23 10:26 Oxygen Delivery Method Room Air 02/13/23 10:26 Oxygen Flow Rate 0 02/13/23 10:26
[2023-02-13 10:55] LABS: Bilirubin Negative (Negative); Blood Moderate (Negative); Clarity Sl Cloudy (Clear); Glucose Negative (Negative); Ketones Negative (Negative); Leukocyte Esterase Moderate (Negative); Nitrite Negative (Negative); Specific Gravity 1.015 (1.005-1.025); Urobilinogen 0.2 mg/dL (Up to 0.2)
[2023-02-13 11:06] LABS: Bacteria Rare HPF (Negative); C & S Indicated? No/Sq. Contamination; Casts Negative LPF (Negative); Crystals Negative HPF (Negative); Epithelial Cells Few HPF (Negative); Mucus Negative (Negative); Other Cells Few Transitional (Negative)
[2023-02-13] MEDS: Cephalexin 500 MG CAP PO (11:19)
== END 2023-02-13 11:20 | disposition home or self-care (01) ==
PROVIDERS: Emergency Provider Nurse Practitioner Family; PCP Family Medicine
DX: N39.0 Urinary tract infection, site not specified; Z87.440 Personal history of urinary (tract) infections
CPT/HCPCS: 99284; 81003; 81015; 99283

== ENCOUNTER → 2023-03-04 00:32 | Outpatient (CLI) | payer MEDICARE, OTHER, SELFPAY ==
--- NOTE | 2023-03-04 08:28 | DI.MRI_ITS ---
Exam(s) MR LUMBAR SPINE WO/W EXAM: MR LUMBAR SPINE WO/W CLINICAL HISTORY: spina bifida - has it changed,inc low back pain,m54.5,Q05.9. TECHNIQUE: Multiplanar multisequence MRI of the Lumbar spine was performed. IV Contrast: 10 mL of Dotarem contrast administered. COMPARISON: MR MRI - LUMBAR SPINE WO CONTRAST from 05/15/2012 FINDINGS: The examination is limited due to patient motion artifact. Bones: The last intervertebral disc space is designated the L5/S1 level for the numbering purpose of this examination. There is again seen spina bifida extending from L3 through S1. There is again se en a meningocele which is unchanged in size. There also is again seen a tethered cord. There is gra de 1 anterolisthesis of L4 on L5. the signal characteristics are unremarkable. Cord: There is a tethered cord again seen. It is unchanged in location and size. T12-L1: No disc herniations or bulges are present. No central spinal canal or neural foraminal stenos is. L1-2: There is a mild diffuse disc bulge. No central spinal canal or neural foraminal stenosis. L2-3: There is a mild diffuse disc bulge. No central spinal canal stenosis. There is [id number] te bilateral neural foraminal stenosis. L3-4: No disc herniations or bulges are present. No central spinal canal or neural foraminal stenosis . L4-5: No disc herniations or bulges are present. There is no central spinal canal stenosis. There is moderate bilateral neural foraminal stenosis. L5-S1: No disc herniations or bulges are present. No central spinal canal or neural foraminal stenosi s. Soft tissues: The visualized SI joints and sacrum are well maintained. The paraspinal soft tissues ar e unremarkable. Visualized abdominal organs: There are bilateral cystic lesions in the kidneys. They are too small f or further characterization. These are best appreciated on the CT scan of the abdomen and pelvis fro m 01/06/2023. No follow-up is recommended. Contrast enhancement: No suspicious areas of enhancement are seen. IMPRESSION: 1. Spina bifida, stable meningocele and tethered cord appearance since 2011. This is a most recent c omparison examination. 2. Multilevel degenerative changes resulting in neural foraminal stenosis at L2-3 and L4-L5. DATA REPOSITORY:
[2023-03-04 13:10] LABS: Bilirubin Negative (Negative); Blood Negative (Negative); Clarity Clear (Clear); Glucose Negative (Negative); Ketones Negative (Negative); Leukocyte Esterase Negative (Negative); Nitrite Negative (Negative); Urobilinogen 0.2 mg/dL (Up to 0.2)
[2023-03-04] MEDS: Gadoterate meglumine 20 ML VIAL IVP (13:12)
[2023-03-04] MEDS: Normal Saline Flush 10 ML SYR IVP (13:16)
[2023-03-04 13:18] LABS: CREATININE 1.2 mg/dL (0.55-1.02); Estimated GFR 48.09 (mL/min/1.73m2)
== END ==
PROVIDERS: PCP Family Medicine; Visit Provider Family Medicine
DX: Q05.9 Spina bifida, unspecified (principal); M99.63 Osseous and subluxation stenosis of intervertebral foramina of lumbar region
CPT/HCPCS: 72158; 81003; 82565

== ENCOUNTER 2023-03-17 04:53 | Outpatient (RCR) | payer MEDICARE, OTHER, SELFPAY ==
[2023-03-17] VITALS (10 sets, daily range): BP systolic 114–146; BP diastolic 60–80; PULSE 51–67; RESP 16–17; TEMP 36.4–38; O2SAT 98–100
[2023-03-17] MEDS: Loratidine 10 MG TAB PO (10:03)
[2023-03-17] MEDS: Acetaminophen 325 MG TAB 650 MG PO (10:04)
[2023-03-17] MEDS: methylPREDNISolone SUCC 125 MG VIAL 100 MG IV (10:05)
[2023-03-17] MEDS: riTUXimab-PVVR 1,000 MG in Normal Saline 150 ML 62.5 MG IVPB (10:38)
== END 2023-03-19 23:59 | disposition home or self-care (01) ==
LOC: INF 04:53
PROVIDERS: PCP Family Medicine; Visit Provider Family Medicine
DX: M81.0 Age-related osteoporosis without current pathological fracture (principal); M06.9 Rheumatoid arthritis, unspecified
CPT/HCPCS: 96365; 96366; 96374; 96375; J2930; Q5119

== ENCOUNTER 2023-03-24 09:40 | Outpatient (REF) | payer MEDICARE, OTHER, SELFPAY ==
[2023-03-24 11:01] LABS: Bilirubin Negative (Negative); Blood Moderate (Negative); Clarity Cloudy (Clear); Glucose Negative (Negative); Ketones Negative (Negative); Leukocyte Esterase Large (Negative); Nitrite Negative (Negative); Urobilinogen 0.2 mg/dL (Up to 0.2); pH 6.5 (5-8)
[2023-03-24 11:14] LABS: C & S Indicated? C&S Done As Ordered; WBC >50 HPF (0-5)
== END 2023-03-24 09:41 | disposition home or self-care (01) ==
LOC: LBN 09:40
PROVIDERS: PCP Family Medicine; Visit Provider Nurse Practitioner Gerontology
DX: R32 Unspecified urinary incontinence (principal); Z87.440 Personal history of urinary (tract) infections
CPT/HCPCS: 87077; 81003; 81015; 87086; 87186

== ENCOUNTER 2023-04-14 03:55 | Outpatient (RCR) | payer MEDICARE, OTHER, SELFPAY ==
[2023-03-20 00:09] VITALS: BP 124/72; PULSE 63; RESP 17; TEMP 37.6
[2023-04-14] VITALS (7 sets, daily range): BP systolic 108–161; BP diastolic 55–75; PULSE 52–63; RESP 16–17; TEMP 36.1–36.6; O2SAT 96–100
[2023-04-14] MEDS: Loratidine 10 MG TAB PO (10:08)
[2023-04-14] MEDS: Acetaminophen 325 MG TAB 650 MG PO (10:08)
[2023-04-14] MEDS: riTUXimab-PVVR 1,000 MG in Normal Saline 150 ML 62.5 MG IVPB (10:15)
[2023-04-14] MEDS: Normal Saline Flush 10 ML SYR IVP (10:15)
[2023-04-14] MEDS: Denosumab 60 MG/ML SYR SC (10:45)
== END 2023-04-19 23:59 | disposition home or self-care (01) ==
LOC: INF 03:55
PROVIDERS: PCP Family Medicine; Visit Provider Family Medicine
DX: M06.00 Rheumatoid arthritis without rheumatoid factor, unspecified site (principal); M81.0 Age-related osteoporosis without current pathological fracture
CPT/HCPCS: 96365; 96366; 96372; 96375; J0897; Q5119

== ENCOUNTER 2023-05-05 13:13 | Outpatient (CLI) | payer MEDICARE, OTHER, SELFPAY ==
[2023-05-05 11:33] LABS: HCT 35.1 % (36.0-46.0); HGB 11.8 g/dL (11.2-15.7); MCH 32.1 pg (27.0-33.0); MCHC 33.6 % (32.0-36.0); MCV 95 fL (80-95); MPV 8.9 fL (8.0-11.0); Platelet Count 164 10^3/uL (130-400); RBC 3.68 10^6/uL (3.93-5.22); RDW 16.9 % (11.7-14.6); RDW-SD 59.3 fL
[2023-05-05 11:34] LABS: ESR 2 mm/hr (0-30)
[2023-05-05 12:35] LABS: ALT 23 U/L (14-59); AST 29 U/L (15-37); Albumin 3.6 g/dL (3.4-5.0); Alkaline Phosphatase 77 U/L (46-116); Anion Gap 4.8 mmol/L (3-11); BUN 24 mg/dL (7-18); Bilirubin, Total 0.7 mg/dL (0.2-1.0); C-Reactive Protein 0.74 mg/dL (0.0-0.3); CO2 28.2 mmol/L (21.0-32.0); CREATININE 1.2 mg/dL (0.55-1.02); Calcium 10.1 mg/dL (8.5-10.1); Chloride 105 mmol/L (98-107); Estimated GFR 48.09 (mL/min/1.73m2); Glucose 107 mg/dL (74-106); Potassium 4.4 mmol/L (3.5-5.1); Sodium 138 mmol/L (136-145)
[2023-05-05 13:10] LABS: Lithium 1.4 mmol/l (0.6-1.2)
[2023-05-05 13:13] LABS: Vitamin B12 1244 pg/mL (193-986)
[2023-05-07 19:25] LABS: B.burgdorferi PCR, B Negative (Negative); B.garinii/B.afzelii PCR,B Negative (Negative); B.mayonii PCR, B Negative (Negative)
[2023-05-13 01:33] LABS: Thiamine (Vitamin B1), WB 138 nmol/L (70-180)
== END 2023-05-05 13:14 | disposition home or self-care (01) ==
LOC: LBO 13:14
PROVIDERS: PCP Family Medicine; Visit Provider Internal Medicine Rheumatology
DX: H53.489 Generalized contraction of visual field, unspecified eye; Q05.9 Spina bifida, unspecified; B99.9 Unspecified infectious disease; M06.9 Rheumatoid arthritis, unspecified
CPT/HCPCS: 36415; 80053; 85027; 85652; 87476; 87798; 80178; 82607; 84425; 86140

== ENCOUNTER → 2023-05-20 00:59 | Outpatient (CLI) | payer MEDICARE, OTHER, SELFPAY ==
[2023-05-20] MEDS: Gadoterate meglumine 20 ML VIAL 10 ML IVP (09:49)
[2023-05-20] MEDS: Normal Saline Flush 10 ML SYR IJ (09:52)
--- NOTE | 2023-05-20 09:55 | DI.MRI_ITS ---
Exam(s) MR BRAIN WO/W EXAM: MR BRAIN WO/W CLINICAL HISTORY: optic nerve atrophy,progressing,VISUAL FIELD CONSTRICTION TECHNIQUE: Multiplanar multisequence MRI of the brain was performed. CONTRAST MATERIAL: IV Contrast: 10 mL of Dotarem contrast administered. COMPARISON: No exams were available for comparison FINDINGS: VENTRICLES AND EXTRA AXIAL SPACES: Normal in size and morphology for the patient's age. HEMORRHAGE: There are several foci of hypointense signal on the gradient echo images. CEREBRAL PARENCHYMA: No focus of restricted diffusion to suggest acute infarct. No space-occupying le vijay identified. There are areas of hyperintense signal seen in the white matter on the FLAIR and T2 weighted images consistent with small vessel ischemic disease. MIDLINE SHIFT: None. BRAINSTEM/CEREBELLUM: Normal. CALVARIUM: Normal. ENHANCEMENT: No suspicious enhancement identified. VISUALIZED PARANASAL SINUSES/MASTOIDS: Clear. [place]: Normal flow void. PITUITARY GLAND: The pituitary again is mildly enlarged with a convex superior border. It homogeneou sly enhances. OTHER FINDINGS: IMPRESSION: 1. Cerebral atrophy and small vessel ischemic disease. 2. No evidence of an acute infarct. 3. Several foci of hypointense signal seen in the gradient echo images. Differential considerations include cerebral amyloid disease, old hypertensive or ischemic infarcts with microhemorrhages, vascul ar malformation or prior traumatic injury. 4. Mildly enlarged pituitary gland with a convex superior border. There is homogeneous enhancement. This may represent a pituitary adenoma. DATA REPOSITORY:
--- NOTE | 2023-05-20 10:45 | DI.MRI_ITS ---
Exam(s) MR ORBIT FACIAL NECK WO/W EXAM: MR ORBIT FACIAL NECK WO/W CLINICAL HISTORY: optic nerve atrophy, progressing;Optic neve mr TECHNIQUE: Multiplanar multisequence MRI was performed. CONTRAST MATERIAL: IV Contrast: 10 mL of Magnevist contrast administered. COMPARISON: There are no priors for comparison. FINDINGS: ORBITS: The anterior and posterior chambers of the globes are intact. The retrobulbar fat is unremark able. Extraocular muscles are unremarkable. OPTIC NERVES: The intracranial and extracranial portions of the optic nerves are within normal limits . Optic chiasm is within normal limits. There is normal signal of the optic nerves. The optic nerves appear symmetric in size. Following contrast administration, there is no abnormal enhancement ident ified. SOFT TISSUES: Remaining soft tissues are unremarkable. OTHER FINDINGS: There is a convex appearance of the superior aspect of the pituitary gland which exte nds above the sella. There is homogeneous enhancement. This may represent an pituitary adenoma. Th e infundibulum is midline. There is no mass effect on the optic chiasm. There is no extension into the cavernous sinus. IMPRESSION: 1. Symmetric and unremarkable appearance of the optic nerves. 2. No evidence of an orbital retro-orbital mass. 3. Convex enlargement of the pituitary gland which may represent a pituitary adenoma. There is no ma ss effect on the infundibulum or the optic chiasm. DATA REPOSITORY:
== END ==
PROVIDERS: PCP Family Medicine; Visit Provider Family Medicine
DX: I67.82 Cerebral ischemia (principal)
CPT/HCPCS: 70553; 70543

== ENCOUNTER 2023-06-21 19:35 | Outpatient (CLI) | payer MEDICARE, OTHER, SELFPAY ==
[2023-06-21 12:06] LABS: ESR 17 mm/hr (0-30)
[2023-06-21 12:08] LABS: HCT 39.3 % (36.0-46.0); HGB 12.8 g/dL (11.2-15.7); MCH 32.6 pg (27.0-33.0); MCHC 32.6 % (32.0-36.0); MCV 100 fL (80-95); MPV 8.7 fL (8.0-11.0); Platelet Count 215 10^3/uL (130-400); RBC 3.93 10^6/uL (3.93-5.22); RDW 14.5 % (11.7-14.6); RDW-SD 52.9 fL; WBC 7.78 10^3/uL (4.4-10.8)
[2023-06-21 12:51] LABS: ALT 27 U/L (14-59); AST 24 U/L (15-37); Albumin 3.3 g/dL (3.4-5.0); Alkaline Phosphatase 95 U/L (46-116); Anion Gap 7.6 mmol/L (3-11); BUN 22 mg/dL (7-18); Bilirubin, Total 0.2 mg/dL (0.2-1.0); C-Reactive Protein 3.67 mg/dL (0.0-0.3); CO2 27.4 mmol/L (21.0-32.0); CREATININE 1.1 mg/dL (0.55-1.02); Calcium 9.4 mg/dL (8.5-10.1); Chloride 101 mmol/L (98-107); Estimated GFR 53.06 (mL/min/1.73m2); Glucose 93 mg/dL (74-106); Potassium 3.8 mmol/L (3.5-5.1); Sodium 136 mmol/L (136-145); Total Protein 7.2 g/dL (6.4-8.2)
[2023-06-21 13:13] LABS: Lithium 0.8 mmol/l (0.6-1.2)
[2023-06-21 13:15] LABS: Iron 30 ug/dL (50-170)
[2023-06-22 08:53] LABS: IgA 188 mg/dL (85-499); IgG 821 mg/dL (610-1616); IgM 72 mg/dL (35-242)
[2023-06-22 14:14] LABS: Albumin 56.3 % (55.8-66.1); Albumin g/dL 3.6 g/dL (3.6-5.2); Total Protein 6.4 g/dL (6.3-8.2)
[2023-06-22 16:36] LABS: Lab Add On Test DONE
[2023-06-22 17:19] LABS: Ferritin 229 ng/mL (8-252)
== END 2023-06-21 19:36 | disposition home or self-care (01) ==
LOC: LBO 19:36
PROVIDERS: PCP Family Medicine; Visit Provider Family Medicine
DX: D35.2 Benign neoplasm of pituitary gland (principal); E03.9 Hypothyroidism, unspecified; F31.9 Bipolar disorder, unspecified; H47.20 Unspecified optic atrophy; M06.9 Rheumatoid arthritis, unspecified; R53.83 Other fatigue; I10 Essential (primary) hypertension; E61.1 Iron deficiency
CPT/HCPCS: 36415; 80053; 82784; 85027; 85652; 80178; 82728; 83540; 84165; 84443; 86140

== ENCOUNTER → 2023-08-24 02:03 | Outpatient (CLI) | payer MEDICARE, OTHER, SELFPAY ==
--- NOTE | 2023-08-24 08:00 | DI.MAMMO_ITS ---
Exam(s) MG MAMMO SCREENING 60 MIN DUR EXAM: MG MAMMO SCREENING 60 MIN DUR 2014 through 2021 CLINICAL HISTORY: breast cancer screening,personal h/o breast ca,z85.3 TECHNIQUE: Mammograms were interpreted according to the usual protocol including computer analysis w [employer] CAD system, tomosynthesis and C-view imaging. COMPARISON: No exams were available for comparison FINDINGS: The breasts are composed of scattered fibroglandular densities, Breast Density category B. No suspicious masses or suspicious microcalcifications are seen. Scarring is again noted in the uppe r outer quadrant of the right breast. No abnormal axillary lymph nodes are seen. There has been no significant change from prior exams. IMPRESSION: BI-RADS Category 2 - Benign Findings Yearly screening mammography is recommended. Breast Density - Category B, scattered fibroglandular densities. A negative radiographic report should not delay biopsy if a dominant or clinically suspicious mass is present. Up to ten percent of cancers are not identified on mammography. A negative report may reinforce clinical impression. Adenosis and dense breasts may obscure an underlying neoplasm. False positive reports average 6 to 10%. Patient will receive a letter notifying them of these results.
== END ==
PROVIDERS: PCP Family Medicine; Visit Provider Family Medicine
DX: Z85.3 Personal history of malignant neoplasm of breast (principal); Z12.31 Encounter for screening mammogram for malignant neoplasm of breast
CPT/HCPCS: 77063; 77067

== ENCOUNTER 2023-08-24 05:03 | Outpatient (CLI) | payer MEDICARE, OTHER, SELFPAY ==
[2023-08-24 11:27] LABS: Abs Immature Grans 0.05 10^3/uL (0.0-0.06); Absolute Basophil Count 0.04 10^3/uL (0.0-0.2); Absolute Eosinophil Count 0.16 10^3/uL (0.0-0.7); Absolute Monocyte Count 0.62 10^3/uL (0.1-0.8); Absolute Neutrophil Count 6.73 10^3/uL (1.2-6.7); Basophils % 0.5; Eosinophils % 1.9; HCT 38.1 % (36.0-46.0); HGB 12.2 g/dL (11.2-15.7); Immature Grans % 0.6; Lymphocytes % 8.4; MCH 32.2 pg (27.0-33.0); MCV 101 fL (80-95); MPV 9.4 fL (8.0-11.0); Monocytes % 7.5; Neutrophils % 81.1; Platelet Count 215 10^3/uL (130-400); RBC 3.79 10^6/uL (3.93-5.22); RDW 16.1 % (11.7-14.6); RDW-SD 59.4 fL
[2023-08-24 11:30] LABS: ESR 11 mm/hr (0-30)
[2023-08-24 11:50] LABS: Iron 77 ug/dL (50-170)
[2023-08-24 11:56] LABS: ALT 28 U/L (14-59); AST 25 U/L (15-37); Albumin 3.7 g/dL (3.4-5.0); Alkaline Phosphatase 99 U/L (46-116); Anion Gap 6.4 mmol/L (3-11); BUN 23 mg/dL (7-18); Bilirubin, Total 0.4 mg/dL (0.2-1.0); CO2 28.6 mmol/L (21.0-32.0); CREATININE 1.1 mg/dL (0.55-1.02); Calcium 9.6 mg/dL (8.5-10.1); Chloride 107 mmol/L (98-107); Estimated GFR 53.06 (mL/min/1.73m2); Glucose 103 mg/dL (74-106); Potassium 3.8 mmol/L (3.5-5.1); Sodium 142 mmol/L (136-145); Total Protein 7.2 g/dL (6.4-8.2)
[2023-08-24 12:03] LABS: C-Reactive Protein < 0.50 mg/dL (<or=0.5)
[2023-08-24 12:05] LABS: Lithium 0.3 mmol/l (0.6-1.2)
[2023-08-24 12:06] LABS: Ferritin 108 ng/mL (8-252)
== END 2023-08-24 05:04 | disposition home or self-care (01) ==
LOC: LBO 05:04
PROVIDERS: PCP Family Medicine; Visit Provider Internal Medicine Rheumatology
DX: F31.9 Bipolar disorder, unspecified; R79.0 Abnormal level of blood mineral
CPT/HCPCS: 36415; 80053; 85027; 85652; 80178; 82728; 83540; 85025; 86140

== ENCOUNTER 2023-10-13 05:26 | Outpatient (RCR) | payer MEDICARE, OTHER, SELFPAY ==
[2023-04-20 00:07] VITALS: BP 124/72; PULSE 63; RESP 17; TEMP 37.6
[2023-10-13] VITALS (10 sets, daily range): BP systolic 110–153; BP diastolic 48–80; PULSE 59–69; RESP 17; TEMP 35.7–37; O2SAT 96–100
[2023-10-13] MEDS: Acetaminophen 325 MG TAB 650 MG PO (10:01)
[2023-10-13] MEDS: Normal Saline Flush 10 ML SYR IVP (10:01)
[2023-10-13] MEDS: Loratidine 10 MG TAB PO (10:01)
[2023-10-13] MEDS: methylPREDNISolone SUCC 125 MG VIAL 100 MG IV (10:01)
[2023-10-13 10:04] LABS: HCT 38.5 % (36.0-46.0); HGB 12.3 g/dL (11.2-15.7); MCH 33.2 pg (27.0-33.0); MCHC 31.9 % (32.0-36.0); MCV 104 fL (80-95); MPV 8.8 fL (8.0-11.0); Platelet Count 176 10^3/uL (130-400); RBC 3.71 10^6/uL (3.93-5.22); RDW-SD 56.5 fL; WBC 6.19 10^3/uL (4.4-10.8)
[2023-10-13] MEDS: riTUXimab-PVVR 1,000 MG in Normal Saline 150 ML 62.5 MG IVPB (10:12)
[2023-10-13 10:23] LABS: ALT 38 U/L (14-59); AST 33 U/L (15-37); Albumin 3.8 g/dL (3.4-5.0); Alkaline Phosphatase 80 U/L (46-116); Anion Gap 7.4 mmol/L (3-11); BUN 27 mg/dL (7-18); Bilirubin, Total 0.5 mg/dL (0.2-1.0); CO2 31.6 mmol/L (21.0-32.0); CREATININE 1.2 mg/dL (0.55-1.02); Calcium 9.7 mg/dL (8.5-10.1); Chloride 104 mmol/L (98-107); Glucose 113 mg/dL (74-106); Potassium 3.7 mmol/L (3.5-5.1); Sodium 143 mmol/L (136-145); Total Protein 7.3 g/dL (6.4-8.2)
[2023-10-13 10:29] LABS: Lithium 0.4 mmol/L (0.6-1.2)
[2023-10-13] MEDS: Denosumab 60 MG/ML SYR SC (10:47)
== END 2023-10-18 23:59 | disposition home or self-care (01) ==
LOC: INF 05:26
PROVIDERS: PCP Family Medicine; Visit Provider Family Medicine
DX: M06.9 Rheumatoid arthritis, unspecified; D64.9 Anemia, unspecified
CPT/HCPCS: 36415; 80053; 85027; 96365; 96366; 96374; 80178; J0897; J2919; Q5119

== ENCOUNTER → 2023-10-14 00:32 | Outpatient (CLI) | payer MEDICARE, OTHER, SELFPAY ==
--- NOTE | 2023-10-14 07:30 | DI.US_ITS ---
Exam(s) US RENAL EXAM: US RENAL CLINICAL HISTORY: monitoring hydro,MIXED INCONTINENCE,VESICOURETERAL REFLUX,N13.70. TECHNIQUE: Palumbo scale, color and spectral Doppler were used. COMPARISON: US US RENAL from 10/15/[address] ABDOMEN PELVIS W from 01/06/2023 FINDINGS: Renal size in cm: Right: 9.1. Left: 5.3. Echogenicity: Normal. Hydronephrosis: No. Cyst or mass: There is a 7 x 6 x 6 mm simple cyst in the right kidney. No follow-up is recommended. Nephrolithiasis: No. Other findings: There is atrophy of the left kidney. Bladder:Normal. Ureteral jets: Right: Visualized and unremarkable. Left: Not visualized on this examination. Prevoid vol:241 cc Postvoid vol:29 cc Renal color flow: Symmetric and within normal limits. IMPRESSION: 1. No evidence of hydronephrosis. 2. Atrophy of the left kidney. DATA REPOSITORY:
== END ==
PROVIDERS: PCP Family Medicine; Visit Provider Nurse Practitioner Gerontology
DX: N39.46 Mixed incontinence (principal); N13.70 Vesicoureteral-reflux, unspecified
CPT/HCPCS: 76770

== ENCOUNTER 2023-10-27 00:48 | Outpatient (RCR) | payer MEDICARE, OTHER, SELFPAY ==
[2023-10-19 00:17] VITALS: BP 124/72; PULSE 63; RESP 17; TEMP 37.6
[2023-10-27] VITALS (7 sets, daily range): BP systolic 121–151; BP diastolic 62–74; PULSE 55–72; RESP 17; TEMP 35.6–37.2; O2SAT 93–100
[2023-10-27] MEDS: Acetaminophen 325 MG TAB 650 MG PO (09:46)
[2023-10-27] MEDS: Loratidine 10 MG TAB PO (09:46)
[2023-10-27] MEDS: Normal Saline Flush 10 ML SYR IVP (09:46)
[2023-10-27] MEDS: riTUXimab-PVVR 1,000 MG in Normal Saline 150 ML 62.5 MG IVPB (10:06)
== END 2023-11-18 23:59 | disposition home or self-care (01) ==
LOC: INF 00:48
PROVIDERS: PCP Family Medicine; Visit Provider Family Medicine
DX: M06.9 Rheumatoid arthritis, unspecified (principal)
CPT/HCPCS: 96365; 96366; Q5119

== ENCOUNTER 2023-11-10 08:17 | Outpatient (CLI) | payer MEDICARE, OTHER, SELFPAY ==
[2023-11-10 08:18] LABS: Abs Immature Grans 0.03 10^3/uL (0.0-0.06); Absolute Basophil Count 0.04 10^3/uL (0.0-0.2); Absolute Eosinophil Count 0.15 10^3/uL (0.0-0.7); Absolute Lymphocyte Count 0.75 10^3/uL (1.2-3.4); Absolute Neutrophil Count 5.48 10^3/uL (1.2-6.7); Basophils % 0.6 %; Eosinophils % 2.1 %; HCT 39.6 % (36.0-46.0); HGB 12.6 g/dL (11.2-15.7); Immature Grans % 0.4 %; Lymphocytes % 10.3 %; MCH 32.3 pg (27.0-33.0); MCHC 31.8 % (32.0-36.0); MCV 102 fL (80-95); MPV 9.1 fL (8.0-11.0); Neutrophils % 75.6 %; Platelet Count 182 10^3/uL (130-400); RDW 13.8 % (11.7-14.6); RDW-SD 51.7 fL; WBC 7.25 10^3/uL (4.4-10.8)
[2023-11-10 08:22] LABS: ESR 8 mm/hr (0-30)
[2023-11-10 09:24] LABS: ALT 26 U/L (14-59); AST 21 U/L (15-37); Albumin 3.5 g/dL (3.4-5.0); Alkaline Phosphatase 76 U/L (46-116); Anion Gap 5.8 mmol/L (3-11); BUN 22 mg/dL (7-18); Bilirubin, Total 0.3 mg/dL (0.2-1.0); CO2 27.2 mmol/L (21.0-32.0); CREATININE 1.2 mg/dL (0.55-1.02); Chloride 105 mmol/L (98-107); Glucose 77 mg/dL (74-106); Potassium 4.3 mmol/L (3.5-5.1); Sodium 138 mmol/L (136-145); Total Protein 6.8 g/dL (6.4-8.2)
[2023-11-10 09:25] LABS: C-Reactive Protein < 0.50 mg/dL (<or=0.5)
== END 2023-11-10 08:18 | disposition home or self-care (01) ==
LOC: LBO 08:17
PROVIDERS: PCP Family Medicine; Visit Provider Internal Medicine Rheumatology
DX: M06.9 Rheumatoid arthritis, unspecified (principal)
CPT/HCPCS: 36415; 80053; 85652; 85025; 86140

== ENCOUNTER 2023-12-02 12:49 | Outpatient (REF) | payer MEDICARE, OTHER, SELFPAY | END 2023-12-02 12:50 | disposition home or self-care (01) | LOC: LBN 12:49 | PROVIDERS: PCP Family Medicine; Visit Provider Nurse Practitioner Family | DX: R35.0 Frequency of micturition (principal) | CPT/HCPCS: 87086 ==

== ENCOUNTER 2023-12-30 21:15 | Outpatient (REF) | payer MEDICARE, OTHER, SELFPAY ==
[2023-12-30 22:54] LABS: Bilirubin Negative (Negative); Blood Negative (Negative); Clarity Clear (Clear); Glucose Negative (Negative); Ketones Negative (Negative); Leukocyte Esterase Large (Negative); Nitrite Negative (Negative); Specific Gravity <= 1.005 (1.005-1.025); Urobilinogen 0.2 mg/dL (Up to 0.2)
[2023-12-30 22:55] LABS: Bacteria Rare HPF (Negative); C & S Indicated? Yes; Casts Negative LPF (Negative); Crystals Negative HPF (Negative); Epithelial Cells Rare HPF (Negative); Mucus Negative (Negative); Other Cells Rare Transitional (Negative); RBC Negative HPF (0-2)
== END 2023-12-30 21:16 | disposition home or self-care (01) ==
LOC: LBN 21:15
PROVIDERS: PCP Family Medicine; Visit Provider Nurse Practitioner Family
DX: R30.0 Dysuria (principal)
CPT/HCPCS: 87077; 81003; 81015; 87086; 87186

== ENCOUNTER → 2024-01-05 01:39 | Outpatient (CLI) | payer MEDICARE, OTHER, SELFPAY ==
[2024-01-05 10:11] LABS: Abs Immature Grans 0.02 10^3/uL (0.0-0.06); Absolute Basophil Count 0.03 10^3/uL (0.0-0.2); Absolute Eosinophil Count 0.17 10^3/uL (0.0-0.7); Absolute Monocyte Count 0.89 10^3/uL (0.1-0.8); Basophils % 0.4 %; Eosinophils % 2.4 %; HCT 37.9 % (36.0-46.0); HGB 12.4 g/dL (11.2-15.7); Immature Grans % 0.3 %; Lymphocytes % 11.1 %; MCH 32.5 pg (27.0-33.0); MCHC 32.7 % (32.0-36.0); MCV 99 fL (80-95); MPV 9.3 fL (8.0-11.0); Monocytes % 12.3 %; Neutrophils % 73.5 %; Platelet Count 220 10^3/uL (130-400); RBC 3.82 10^6/uL (3.93-5.22); RDW 14.9 % (11.7-14.6); WBC 7.21 10^3/uL (4.4-10.8)
[2024-01-05 10:13] LABS: ESR 13 mm/hr (0-30)
[2024-01-05 10:29] LABS: ALT 23 U/L (14-59); AST 27 U/L (15-37); Albumin 3.9 g/dL (3.4-5.0); Alkaline Phosphatase 71 U/L (46-116); Anion Gap 6.2 mmol/L (3-11); BUN 27 mg/dL (7-18); Bilirubin, Total 0.65 mg/dL (0.2-1.0); CO2 25.8 mmol/L (21.0-32.0); CREATININE 1.2 mg/dL (0.55-1.02); Calcium 10.5 mg/dL (8.5-10.1); Chloride 106 mmol/L (98-107); Glucose 99 mg/dL (74-106); Potassium 4.1 mmol/L (3.5-5.1); Sodium 138 mmol/L (136-145); Total Protein 7.4 g/dL (6.4-8.2)
[2024-01-05 10:30] LABS: C-Reactive Protein < 0.50 mg/dL (<or=0.5)
== END ==
PROVIDERS: Internal Medicine Rheumatology; PCP Family Medicine; Visit Provider Neurological Surgery
DX: M06.9 Rheumatoid arthritis, unspecified (principal)
CPT/HCPCS: 80053; 85652; 85025; 86140

== ENCOUNTER 2024-01-09 14:29 | Outpatient (CLI) | payer MEDICARE, OTHER, SELFPAY | END 2024-01-09 14:30 | disposition home or self-care (01) | LOC: DI 01-19 11:32 → LBO 02-02 14:30 | PROVIDERS: PCP Family Medicine; Visit Provider Nurse Practitioner Gerontology | DX: N39.46 Mixed incontinence (principal) | CPT/HCPCS: 99214 ==

== ENCOUNTER 2024-01-31 09:24 | Observation (INO) | payer MEDICARE, OTHER, SELFPAY ==
[2024-01-31] VITALS (36 sets, daily range): BP systolic 107–162; BP diastolic 51–90; PULSE 57–91; RESP 13–22; TEMP 36.4–37.1; O2SAT 92–100
--- NOTE | 2024-01-31 09:15 | RT.EKG_ITS ---
APPROVED REPORT Exam: Resting ECG Reason for Exam: syncope Patient Location: E HR:81 bpm ECG Measurements Heart Rate 81 AXIS OH 166 P 51 QRSd 102 QRS 8 QT 407 T 99 QTc 473 Conclusion Sinus rhythm. 81 normal axis no stemi
--- NOTE | 2024-01-31 09:45 | DI.RAD_ITS ---
Exam(s) XR PELVIS AP XR FEMUR LT EXAM: XR PELVIS AP and XR femur LT CLINICAL HISTORY: fall. TECHNIQUE: 2D digital imaging was performed.Six images were obtained. COMPARISON: CR,XR XR PELVIS AP from 05/24/2020 FINDINGS: BONES: There is an acute fracture involving the left superior pubic ramus which is nondisplaced. The re is also nondisplaced fracture involving the left inferior pubic ramus. No bony destructive lesion is seen. JOINTS: No dislocation present. The patient has a partial left knee replacement. Laminectomy defects are seen from L4 through S1. SOFT TISSUE: Normal. IMPRESSION: Fractures involving the left superior and inferior pubic rami. DATA REPOSITORY: RADIATION DOSE DELIVERED:
--- NOTE | 2024-01-31 09:45 | DI.CT_ITS ---
Exam(s) CT HEAD WO EXAM: CT HEAD WO CLINICAL HISTORY: fall. TECHNIQUE: Imaging Protocol: Axial computed tomography images with coronal and sagittal reformatted images were created and reviewed COMPARISON: CT HEAD NECK FACIAL WO from 10/12/2016 FINDINGS: Ventricles and Extra axial spaces: Normal in size and morphology for the patient's age. Hemorrhage: None. Cerebral parenchyma: There are areas of decreased attenuation in the white matter consistent with chr onic microvascular ischemic disease. No acute territorial infarct is seen. Midline shift: None. Brainstem/Cerebellum: Normal. Calvarium: Normal. There are stable craniectomy defects. No acute fracture. Visualized Paranasal sinuses/Mastoids: Clear. Soft Tissues: Unremarkable. IMPRESSION: No acute intracranial process. RADIATION DOSE DELIVERED: Total DLP DATA REPOSITORY: All CT scans at this facility are submitted to the National Radiology Data Registry (NRDR) Dose Index Registry (DIR) with the [employer] (ACR). RADIATION OPTIMIZATION: All CT scans at this facility use at least one of these dose optimization te chniques: automated exposure control; mA and/or kV adjustment per patient size (includes targeted exa ms where dose is matched to clinical indication); or iterative reconstruction.
[2024-01-31 10:02] LABS: Abs Immature Grans 0.08 10^3/uL (0.0-0.06); Absolute Lymphocyte Count 0.25 10^3/uL (1.2-3.4); Absolute Monocyte Count 1.02 10^3/uL (0.1-0.8); Basophils % 0.1 %; HCT 36.2 % (36.0-46.0); HGB 11.5 g/dL (11.2-15.7); Immature Grans % 0.5 %; Lymphocytes % 1.7 %; MCH 32.4 pg (27.0-33.0); MCHC 31.8 % (32.0-36.0); MCV 102 fL (80-95); MPV 9.2 fL (8.0-11.0); Neutrophils % 90.7 %; Platelet Count 145 10^3/uL (130-400); RBC 3.55 10^6/uL (3.93-5.22); RDW 15.2 % (11.7-14.6); RDW-SD 57.6 fL; WBC 14.55 10^3/uL (4.4-10.8)
[2024-01-31 10:03] LABS: Absolute Basophil Count 0.01 10^3/uL (0.0-0.2)
[2024-01-31 10:08] LABS: ALT 27 U/L (14-59); AST 26 U/L (15-37); Albumin 3.5 g/dL (3.4-5.0); Alkaline Phosphatase 68 U/L (46-116); Anion Gap 7.4 mmol/L (3-11); BUN 23 mg/dL (7-18); Bilirubin, Total 0.55 mg/dL (0.2-1.0); CO2 25.6 mmol/L (21.0-32.0); CREATININE 1.2 mg/dL (0.55-1.02); Calcium 9.5 mg/dL (8.5-10.1); Chloride 106 mmol/L (98-107); Glucose 149 mg/dL (74-106); Potassium 4.4 mmol/L (3.5-5.1); Sodium 139 mmol/L (136-145); Total Protein 6.6 g/dL (6.4-8.2); Troponin I < 50 ng/L (< or =60)
[2024-01-31] MEDS: ACETAMINOPHEN 1,000 MG/100 ML BTL 400 MG IVPB (10:55)
[2024-01-31 11:54] LABS: Bilirubin Negative (Negative); Blood Negative (Negative); Clarity Clear (Clear); Glucose Negative (Negative); Ketones Negative (Negative); Leukocyte Esterase Trace (Negative); Nitrite Negative (Negative); Urobilinogen 0.2 mg/dL (Up to 0.2)
--- NOTE | 2024-01-31 11:56 | W.ED.GENAD ---
Discharge Plan Disposition Patient Disposition: Admit to [facility] Condition: Stable Discharge Details Chief Complaint: [id number] Clinical Impression: Fall, Contusion of forehead, Acute pain of left hip, Fracture of superior pubic ramus, Fracture of inferior pubic ramus Admit Date/Time: 01/31/24 12:48 Admit Provider: Rico Peraza Attending Provider: Rico Peraza Primary Care Provider: Faith Adorno ED Provider: Adolph Markham Discharge Data Discharge Date/Time-TO BE ENTERED AT DEPARTURE: 01/31/24 14:07 HPI General Date/Time Provider Initiated Documentation: 01/31/24 09:59. Limitations to Documentation: no limitations. Information obtained by: patient. HPI Narrative: 73-year-old female with past medical history of breast cancer, bipolar disorder, osteoporosis presents for evaluation after a fall. She states that she falls a lot. States this morning she was ambulating back from the bathroom when she fell. She denies any symptoms prior to falling. States that when she fell she did hit her head and thinks that she might of passed out. She states that she had significant difficulty getting herself back up and she has not been able to walk since the fall. She reports pain in her left forehead where there is a bruising noted. She also reports pain in her left leg. Related Data Home Medications ?Medication ?Instructions ?Recorded ?Confirmed calcium carbonate 600 mg-vitamin 1 cap PO DAILY 04/03/15 01/31/24 D3 5 mcg (200 unit) tablet folic acid 1 mg tablet 1 mg PO DAILY #90 tab-caps 06/01/23 01/31/24 methotrexate sodium 2.5 mg tablet 20 mg (8 x 2.5 mg) PO QWEEK #72 06/01/23 01/31/24 tabs mirabegron 50 mg tablet,extended 50 mg PO DAILY #90 tab-caps 06/01/23 01/31/24 release 24 hr (Myrbetriq) venlafaxine 150 mg 150 mg PO DAILY #90 tab-caps 06/01/23 01/31/24 capsule,extended release 24 hr (Effexor XR) cranberry 400 mg capsule 800 mg PO DAILY 08/11/23 01/31/24 ferrous sulfate 325 mg (65 mg 325 mg PO .q3 days 08/11/23 01/31/24 iron) tablet omeprazole 40 mg capsule,delayed 40 mg PO DAILY #90 tab-caps 09/29/23 01/31/24 release ergocalciferol (vitamin D2) 1,250 50,000 unit PO QWEEK #13 caps 10/10/23 01/31/24 mcg (50,000 unit) capsule lithium carbonate 300 mg tablet See Rx Instructions PO BID #235 10/14/23 01/31/24 tabs nitrofurantoin 100 mg PO BID #14 caps 01/04/24 01/31/24 monohydrate/macrocrystals 100 mg capsule lorazepam 1 mg tablet 1 mg PO DAILY PRN clautrophobia #2 01/05/24 01/31/24 tabs oxybutynin chloride 5 mg 5 mg PO DAILY #90 tabs 01/06/24 01/31/24 tablet,extended release 24 hr Previous Rx's ?Medication ?Instructions ?Recorded folic acid 1 mg tablet 1 mg PO DAILY #90 tab-caps 06/01/23 methotrexate sodium 2.5 mg tablet 20 mg (8 x 2.5 mg) PO QWEEK #72 06/01/23 tabs mirabegron 50 mg tablet,extended 50 mg PO DAILY #90 tab-caps 06/01/23 release 24 hr (Myrbetriq) venlafaxine 150 mg 150 mg PO DAILY #90 tab-caps 06/01/23 capsule,extended release 24 hr (Effexor XR) omeprazole 40 mg capsule,delayed 40 mg PO DAILY #90 tab-caps 09/29/23 release ergocalciferol (vitamin D2) 1,250 50,000 unit PO QWEEK #13 caps 10/10/23 mcg (50,000 unit) capsule lithium carbonate 300 mg tablet See Rx Instructions PO BID #235 10/14/23 tabs nitrofurantoin 100 mg PO BID #14 caps 01/04/24 monohydrate/macrocrystals 100 mg capsule lorazepam 1 mg tablet 1 mg PO DAILY PRN clautrophobia #2 01/05/24 tabs oxybutynin chloride 5 mg 5 mg PO DAILY #90 tabs 01/06/24 tablet,extended release 24 hr Allergies Allergy/AdvReac Type Severity Reaction Status Date / Time phenelzine sulfate (From AdvReac Intermediate Neuro Verified 01/31/24 09:31 Nardil) changes/loss of bladder control sucralfate (From Carafate) AdvReac Mild Diarrhea Verified 01/31/24 09:31 General Stated Complaint: [id number] PARI: 2 Exam Narrative Exam Narrative: Review of Systems: All systems reviewed & are unremarkable except as noted in HPI and below Well-developed, no acute distress Contusion over the left forhead no malocclusion or facial instability PERRL, normal conjunctiva RRR no murmur Unlabored respiratory effort CTAB Nondistended abdomen soft non tender bruising over left anterior kneee, no effusion, tender over lateral left femur and left hip No rashes or lesions. no focal neurologic deficits Appropriate mood and affect Course Vital Signs Vital signs: Vital Signs Temperature 36.4 C 01/31/24 09:27 Pulse 91 H 01/31/24 09:27 Respiratory Rate 20 01/31/24 09:27 Blood Pressure 117/62 01/31/24 09:27 Pulse Oximetry 92 01/31/24 09:27 Temperature 36.4 C 01/31/24 09:27 Temperature Source Oral 01/31/24 09:27 Pulse 72 01/31/24 10:15 Pulse 73 01/31/24 10:55 Respiratory Rate 18 01/31/24 10:55 Respiratory Effort Normal 01/31/24 09:37 Respiratory Depth Normal 01/31/24 09:37 Respiratory Pattern Normal 01/31/24 09:37 Blood Pressure 117/90 01/31/24 10:15 Blood Pressure Mean 98 01/31/24 10:15 Blood Pressure Position Sitting 01/31/24 09:27 Pulse Oximetry 96 01/31/24 10:55 Oxygen Delivery Method Room Air 01/31/24 09:27 Oxygen Flow Rate 0 01/31/24 09:27 Pain Level 7 01/31/24 09:27 Lab/Test Results Lab/Test Results: Laboratory Tests Range/Units 01/31/24 01/31/24 09:37 11:43 WBC (4.4-10.8) 10^3/uL 14.55 H RBC (3.93-5.22) 10^6/uL 3.55 L Hgb (11.2-15.7) g/dL 11.5 Hct (36.0-46.0) % 36.2 MCV (80-95) fL 102 H MCH (27.0-33.0) pg 32.4 MCHC (32.0-36.0) % 31.8 L RDW (11.7-14.6) % 15.2 H Plt Count (130-400) 10^3/uL 145 MPV (8.0-11.0) fL 9.2 Immature Gran % % 0.5 Neutrophils % % 90.7 Lymphocytes % % 1.7 Monocytes % % 7.0 Eosinophils % % 0.0 Basophils % % 0.1 Nucleated RBC % (0.0-0.3) % 0.0 Absolute Neutrophils (1.2-6.7) 10^3/uL 13.20 H Absolute Lymphocytes (1.2-3.4) 10^3/uL 0.25 L Absolute Monocytes (0.1-0.8) 10^3/uL 1.02 H Absolute Eosinophils (0.0-0.7) 10^3/uL 0.00 Absolute Basophils (0.0-0.2) 10^3/uL 0.01 Sodium (136-145) mmol/L 139 Potassium (3.5-5.1) mmol/L 4.4 Chloride (98-107) mmol/L 106 Carbon Dioxide (21.0-32.0) mmol/L 25.6 Anion Gap (3-11) mmol/L 7.4 BUN (7-18) mg/dL 23 H Creatinine (0.55-1.02) mg/dL 1.2 H Est GFR (CKD-EPI 2020) (mL/min/1.73m2) 47.80 Glucose (74-106) mg/dL 149 H Calcium (8.5-10.1) mg/dL 9.5 Magnesium (1.8-2.4) mg/dL 2.0 Total Bilirubin (0.2-1.0) mg/dL 0.55 AST (15-37) U/L 26 ALT (14-59) U/L 27 Alkaline Phosphatase (46-116) U/L 68 Troponin I (< or =60) ng/L < 50 Total Protein (6.4-8.2) g/dL 6.6 Albumin (3.4-5.0) g/dL 3.5 Urine Color (Yellow) Yellow Urine Clarity (Clear) Clear Urine pH (5-8) 7.0 Ur Specific [place] (1.005-1.025) 1.010 Urine Protein (Neg-Trace) mg/dL Negative Urine Ketones (Negative) mg/dL Negative Urine Blood (Negative) Negative Urine Nitrite (Negative) Negative Urine Bilirubin (Negative) Negative Urine Urobilinogen (Up to 0.2) mg/dL 0.2 Ur Leukocyte Esterase (Negative) Trace H Urine Glucose (Negative) mg/dL Negative Medical Decision Making Emergent evaluation after fall. Fall does not seem to be provoked. Patient reports frequent falls. Concern for possible syncope versus vasovagal episode, orthostasis. Patient did sustain an injury from fall. Concern for large hematoma on forehead as well as left hip pain. High suspicion for hip fracture. Initial plan for imaging, pain control and lab work. The EKG was reviewed and independently interpreted, sinus 81, normal axis, no acute changes. CT imaging does not reveal acute intracranial traumatic injury. Did the imaging of the left lower extremity is concerning for superior and inferior pubic ramus fracture. Given this injury in the setting of potential syncope, patient will be admitted to the hospital for further management, physical therapy and pain control. Lab work was reviewed. Mild leukocytosis which is likely secondary to stress. No significant anemia. Electrolytes without derangement. Renal function at 1.1 which is her baseline. Cardiac biomarkers are unremarkable. No signs of urinary tract infection. Patient reports significant improvement with Tylenol. Discussed with the hospitalist patient will be admitted to their service for further management. Medical Records Medical records reviewed: Yes I reviewed the patient's medical records. Lab Data Lab results reviewed: Yes I reviewed the patient's lab results. Quality:SDOH Health Related Social Needs: Health related social needs transpo insecurity Health related social needs details Declines help- daughter helps her with transportation [facility] All Active Problems (Updated 01/31/24 @ 14:57 by Adolph Markham MD) Fracture of inferior pubic ramus (Acute) Fracture of superior pubic ramus (Acute) Acute pain of left hip (Acute) Contusion of forehead (Acute) Fall (Acute) Bipolar 1 disorder (Acute) Peripheral neuropathy (Acute) H/O malignant neoplasm of breast (Acute) Low serum iron (Acute) Pituitary adenoma (Acute) Visual field constriction (Acute) Optic nerve atrophy, bilateral (Acute) Chronic GERD (Chronic 10/25/17) Chronic left-sided low back pain with left-sided sciatica (Chronic 05/10/17) 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) Constipation (Chronic) Depressed bipolar I disorder (Chronic) *ON LITHIUM Falls frequently (Chronic 08/16/17) Headache (Chronic) chronic; improved since menopause Hiatal hernia (Chronic 03/14/14) moderate by CT 07/08 Osteoporosis (Chronic) T score -2.3, -3.0, -3.4 Rheumatoid arthritis (Chronic 08/22/12) MTX Vesicoureteral reflux, unspecified or without reflux nephropathy (Chronic) DX'd at age 9; 2006 mild renal atrophy requires yearly us Vitamin D deficiency (Chronic 03/03/09) Mixed stress and urge urinary incontinence (Acute) Ambulatory dysfunction (Acute) Sensorineural hearing loss of both ears (Acute) Weight loss (Acute) Nail dystrophy (Acute) Medical History (Updated 01/31/24 @ 14:57 by Adolph Markham MD) Hammertoe of left foot Left knee pain Osteochondral defect (03/01/16) Rectal fullness 09/01/15 Low back pain (11/14/14) Acquired hammer toe right 5th; hypertrophic right fifth metatarsal head w/ exostosis Left rib fracture Fracture of acromial end of right clavicle Closed fracture of radius and ulna Elevated C-reactive protein (05/27/16) Knee pain Uterine leiomyoma Exotropia, alternating Cortical cataract of right eye Follicular cyst of ovary Abdominal pain neg h. 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 Exostectomy for the right fifth metatarsal head H/O Spinal surgery 195-spine meningocele repair; for spina bifida SPINE SURGERY (~1950) SPINE MENINGOCELE REPAIR, FOR SPINA BIFADA Fracture, Closed Treatment (11/23/12) LEFT DISTAL RADIUS AND ULNA EGD - MAC (11/21/17) Colostomy (~2001) fecal incontinence Arthroscopy arthroplasty through the PIPJ, right 5th toe. Exostectomy from the right fifth metatarsal head Family History Mother , AGE 47 Brain tumor Father , AGE 78 Arthritis Brother , age 73 Essential hypertension Heart disease Stroke Maternal Grandfather Essential hypertension Heart disease Paternal Grandfather No problems noted. Maternal Grandmother Diabetes Essential hypertension Heart disease Paternal Grandmother No problems noted. Brother , age 63 Cancer Daughter No problems noted. Daughter No problems noted. Brother No problems noted. Social History (Updated 08/17/23 @ 18:33 by Rohini Butler) Smoking/Tobacco Use Status: Never Second Hand Exposure: Yes Smoking risk assessment performed?: Yes Alcohol Intake: current Alcohol Intake frequency: a few times a month Alcohol type: beer Drug use: Never Substance use type: does not use and prescription drug Adopted: No Caregiver/Support person: No Household members: none Housing: apartment Number of Children: 2 number of grandchildren: 4 Communication Needs: Corrective Lenses Do you need help understanding health information?: Rarely current occupation: Retired Pets and animals: No Sexually active: No Do you think of yourself as: straight/heterosexual Current gender identity: female What is your relationship status?: How often do you talk on the phone with friends or family?: three or more times per week How often do you get together with friends or relatives?: twice per week How often do you attend jewish or orthodoxy services?: decline to answer Do you belong to any clubs or organized social groups?: decline to answer Panel score (0-1 are the most socially isolated patients): 1 What type of physical activity do you participate in: walking Duration: 60-90 minutes/day Frequency: 3-4 times per week Sherlyn/Sikhism: Quaker Special sherlyn needs: No Seatbelt use: always Drive intox or ride w/intox warehouse associate driver: No Firearms in home: No Do you feel safe at home: Yes Do you feel safe in your relationship?: Yes Victim of physical abuse: No Victim of emotional abuse: No Victim of sexual abuse: No
[2024-01-31 12:03] LABS: Bacteria Negative HPF (Negative); C & S Indicated? No; Casts Negative LPF (Negative); Crystals Negative HPF (Negative); Epithelial Cells Rare HPF (Negative); Mucus Negative (Negative); RBC 0-2 HPF (0-2)
--- NOTE | 2024-01-31 14:10 | W.PC.ACHO ---
Registration Status: Primary Language: Preferred Language: ED Information & Data Chief Complaint [id number] 01/31/24 12:00 Triage Note pt felt dizzy and passed out 01/31/24 09:27 on floor. woke up and called daughter who called EMS. Pt reports recent UTI, hypotensive and dizzy upon standing for EMS Medical / Surgical History (Last Updated 08/11/23 @ 11:09 by Faith Adorno MD, [place]) Hammertoe of left foot Left knee pain Osteochondral defect (03/01/16) Rectal fullness Low back pain (11/14/14) Acquired hammer toe Left rib fracture Fracture of acromial end of right clavicle Closed fracture of radius and ulna Elevated C-reactive protein (05/27/16) Knee pain Uterine leiomyoma Exotropia, alternating Cortical cataract of right eye Follicular cyst of ovary Abdominal pain Spina bifida (05/08/15) Osteochondral defect (03/01/16) Malignant neoplasm of female breast Gait abnormality Closed fracture of radius and ulna Chronic pain of left knee (01/05/16) Arnold-Chiari syndrome with spina bifida Closed fracture distal radius and ulna Hiatal hernia GERD (gastroesophageal reflux disease) Colostomy in place Rheumatoid arthritis (Last Reviewed 02/13/23 @ 10:53 by Yash La NP) History of arthroscopy History of spinal surgery Status post colostomy Status post cataract extraction and insertion of intraocular lens of right eye (11/20/18) History of lumpectomy of right breast H/O arthroscopy H/O Spinal surgery SPINE SURGERY (~1950) Fracture, Closed Treatment (11/23/12) EGD - MAC (11/21/17) Colostomy (~2001) Arthroscopy Most Recent Vital Signs Temperature 36.8 C 01/31/24 13:31 Temperature Source Oral 01/31/24 09:27 Pulse 75 01/31/24 13:31 Pulse 83 01/31/24 13:31 Respiratory Rate 16 01/31/24 13:31 Respiratory Effort Normal 01/31/24 09:37 Respiratory Depth Normal 01/31/24 09:37 Respiratory Pattern Normal 01/31/24 09:37 Blood Pressure 107/57 L 01/31/24 13:31 Blood Pressure Mean 74 01/31/24 13:31 Blood Pressure Position Sitting 01/31/24 09:27 Pulse Oximetry 100 01/31/24 13:01 Oxygen Delivery Method Room Air 01/31/24 09:27 Oxygen Flow Rate 0 01/31/24 09:27 Pain Level 7 01/31/24 09:27 Allergies phenelzine sulfate (From Nardil) Adverse Reaction (Intermediate, Verified 01/31/24 09:31) Neuro changes/loss of bladder control sucralfate (From Carafate) Adverse Reaction (Mild, Verified 01/31/24 09:31) Diarrhea Precautions Isolation Standard precaution 01/31/24 09:36 IV IV Catheter Type [Left Peripheral IV Antecubital] IV Catheter Gauge [Left 18 Antecubital] Diagnostics 01/31/24 01/31/24 Range/Units 11:43 09:37 WBC 14.55 H (4.4-10.8) 10^3/uL RBC 3.55 L (3.93-5.22) 10^6/uL Hgb 11.5 (11.2-15.7) g/dL Hct 36.2 (36.0-46.0) % MCV 102 H (80-95) fL MCH 32.4 (27.0-33.0) pg MCHC 31.8 L (32.0-36.0) % RDW 15.2 H (11.7-14.6) % Plt Count 145 (130-400) 10^3/uL MPV 9.2 (8.0-11.0) fL Immature Gran % 0.5 % Neutrophils % 90.7 % Lymphocytes % 1.7 % Monocytes % 7.0 % Eosinophils % 0.0 % Basophils % 0.1 % Nucleated RBC % 0.0 (0.0-0.3) % Absolute Neutrophils 13.20 H (1.2-6.7) 10^3/uL Absolute Lymphocytes 0.25 L (1.2-3.4) 10^3/uL Absolute Monocytes 1.02 H (0.1-0.8) 10^3/uL Absolute Eosinophils 0.00 (0.0-0.7) 10^3/uL Absolute Basophils 0.01 (0.0-0.2) 10^3/uL Sodium 139 (136-145) mmol/L Potassium 4.4 (3.5-5.1) mmol/L Chloride 106 (98-107) mmol/L Carbon Dioxide 25.6 (21.0-32.0) mmol/L Anion Gap 7.4 (3-11) mmol/L BUN 23 H (7-18) mg/dL Creatinine 1.2 H (0.55-1.02) mg/dL Est GFR (CKD-EPI 2020) 47.80 (mL/min/1.73m2) Glucose 149 H (74-106) mg/dL Calcium 9.5 (8.5-10.1) mg/dL Magnesium 2.0 (1.8-2.4) mg/dL Total Bilirubin 0.55 (0.2-1.0) mg/dL AST 26 (15-37) U/L ALT 27 (14-59) U/L Alkaline Phosphatase 68 (46-116) U/L Troponin I < 50 (< or =60) ng/L Total Protein 6.6 (6.4-8.2) g/dL Albumin 3.5 (3.4-5.0) g/dL Urine Color Yellow (Yellow) Urine Clarity Clear (Clear) Urine pH 7.0 (5-8) Ur Specific [place] 1.010 (1.005-1.025) Urine Protein Negative (Neg-Trace) mg/dL Urine Ketones Negative (Negative) mg/dL Urine Blood Negative (Negative) Urine Nitrite Negative (Negative) Urine Bilirubin Negative (Negative) Urine Urobilinogen 0.2 (Up to 0.2) mg/dL Ur Leukocyte Esterase Trace H (Negative) Urine RBC 0-2 (0-2) HPF Urine WBC 3-5 (0-5) HPF Ur Epithelial Cells Rare (Negative) HPF Urine Crystals Negative (Negative) HPF Urine Bacteria Negative (Negative) HPF Urine Casts Negative (Negative) LPF Urine Mucus Negative (Negative) Ur Culture Indicated? No Urine Glucose Negative (Negative) mg/dL Intake and Output - 24 Hour Total 01/31/24 09:18 thru 01/31/24 11:10 Intake Total 100 Balance 100 Weight 54.431 kg Intake: IV 100 Falls Risk Assessment History of Falls Admit Due to Fall 01/31/24 09:36 Contributing Factors Unstable 01/31/24 09:36 Ambulatory Aids Uses ambulatory device 01/31/24 09:36 Tubes/Lines W/no contributing factors 01/31/24 09:36 Gait Evaluation W/no contributing factors 01/31/24 09:36 Cognition No cognitive impairment 01/31/24 09:36 Fall Total Score 63 01/31/24 09:36 Level of Risk High Risk 01/31/24 09:36 v v v v v v v v v Sending and/or Receiving Nurses: Please use comment section below to note any information pertinent to the patient hand-off not included above. Information / Comments: Pt fell at home today, XR shows Left pelvic fracture, some bruising noted, A/O x4, purewick intact, ostomy LLQ patent, pain is tolerable unless being repositioned. Report received from:
--- NOTE | 2024-01-31 14:14 | W.PC.ACHO ---
Registration Status: Primary Language: Preferred Language: ED Information & Data Chief Complaint [id number] 01/31/24 12:00 Triage Note pt felt dizzy and passed out 01/31/24 09:27 on floor. woke up and called daughter who called EMS. Pt reports recent UTI, hypotensive and dizzy upon standing for EMS Medical / Surgical History (Last Updated 08/11/23 @ 11:09 by Faith Adorno MD, [place]) Hammertoe of left foot Left knee pain Osteochondral defect (03/01/16) Rectal fullness Low back pain (11/14/14) Acquired hammer toe Left rib fracture Fracture of acromial end of right clavicle Closed fracture of radius and ulna Elevated C-reactive protein (05/27/16) Knee pain Uterine leiomyoma Exotropia, alternating Cortical cataract of right eye Follicular cyst of ovary Abdominal pain Spina bifida (05/08/15) Osteochondral defect (03/01/16) Malignant neoplasm of female breast Gait abnormality Closed fracture of radius and ulna Chronic pain of left knee (01/05/16) Arnold-Chiari syndrome with spina bifida Closed fracture distal radius and ulna Hiatal hernia GERD (gastroesophageal reflux disease) Colostomy in place Rheumatoid arthritis (Last Reviewed 02/13/23 @ 10:53 by Yash La NP) History of arthroscopy History of spinal surgery Status post colostomy Status post cataract extraction and insertion of intraocular lens of right eye (11/20/18) History of lumpectomy of right breast H/O arthroscopy H/O Spinal surgery SPINE SURGERY (~1950) Fracture, Closed Treatment (11/23/12) EGD - MAC (11/21/17) Colostomy (~2001) Arthroscopy Most Recent Vital Signs Temperature 36.8 C 01/31/24 13:31 Temperature Source Oral 01/31/24 09:27 Pulse 75 01/31/24 13:31 Pulse 83 01/31/24 13:31 Respiratory Rate 16 01/31/24 13:31 Respiratory Effort Normal 01/31/24 09:37 Respiratory Depth Normal 01/31/24 09:37 Respiratory Pattern Normal 01/31/24 09:37 Blood Pressure 107/57 L 01/31/24 13:31 Blood Pressure Mean 74 01/31/24 13:31 Blood Pressure Position Sitting 01/31/24 09:27 Pulse Oximetry 100 01/31/24 13:01 Oxygen Delivery Method Room Air 01/31/24 09:27 Oxygen Flow Rate 0 01/31/24 09:27 Pain Level 7 01/31/24 09:27 Allergies phenelzine sulfate (From Nardil) Adverse Reaction (Intermediate, Verified 01/31/24 09:31) Neuro changes/loss of bladder control sucralfate (From Carafate) Adverse Reaction (Mild, Verified 01/31/24 09:31) Diarrhea Precautions Isolation Standard precaution 01/31/24 09:36 IV IV Catheter Type [Left Peripheral IV Antecubital] IV Catheter Gauge [Left 18 Antecubital] Diagnostics 01/31/24 01/31/24 Range/Units 11:43 09:37 WBC 14.55 H (4.4-10.8) 10^3/uL RBC 3.55 L (3.93-5.22) 10^6/uL Hgb 11.5 (11.2-15.7) g/dL Hct 36.2 (36.0-46.0) % MCV 102 H (80-95) fL MCH 32.4 (27.0-33.0) pg MCHC 31.8 L (32.0-36.0) % RDW 15.2 H (11.7-14.6) % Plt Count 145 (130-400) 10^3/uL MPV 9.2 (8.0-11.0) fL Immature Gran % 0.5 % Neutrophils % 90.7 % Lymphocytes % 1.7 % Monocytes % 7.0 % Eosinophils % 0.0 % Basophils % 0.1 % Nucleated RBC % 0.0 (0.0-0.3) % Absolute Neutrophils 13.20 H (1.2-6.7) 10^3/uL Absolute Lymphocytes 0.25 L (1.2-3.4) 10^3/uL Absolute Monocytes 1.02 H (0.1-0.8) 10^3/uL Absolute Eosinophils 0.00 (0.0-0.7) 10^3/uL Absolute Basophils 0.01 (0.0-0.2) 10^3/uL Sodium 139 (136-145) mmol/L Potassium 4.4 (3.5-5.1) mmol/L Chloride 106 (98-107) mmol/L Carbon Dioxide 25.6 (21.0-32.0) mmol/L Anion Gap 7.4 (3-11) mmol/L BUN 23 H (7-18) mg/dL Creatinine 1.2 H (0.55-1.02) mg/dL Est GFR (CKD-EPI 2020) 47.80 (mL/min/1.73m2) Glucose 149 H (74-106) mg/dL Calcium 9.5 (8.5-10.1) mg/dL Magnesium 2.0 (1.8-2.4) mg/dL Total Bilirubin 0.55 (0.2-1.0) mg/dL AST 26 (15-37) U/L ALT 27 (14-59) U/L Alkaline Phosphatase 68 (46-116) U/L Troponin I < 50 (< or =60) ng/L Total Protein 6.6 (6.4-8.2) g/dL Albumin 3.5 (3.4-5.0) g/dL Urine Color Yellow (Yellow) Urine Clarity Clear (Clear) Urine pH 7.0 (5-8) Ur Specific [place] 1.010 (1.005-1.025) Urine Protein Negative (Neg-Trace) mg/dL Urine Ketones Negative (Negative) mg/dL Urine Blood Negative (Negative) Urine Nitrite Negative (Negative) Urine Bilirubin Negative (Negative) Urine Urobilinogen 0.2 (Up to 0.2) mg/dL Ur Leukocyte Esterase Trace H (Negative) Urine RBC 0-2 (0-2) HPF Urine WBC 3-5 (0-5) HPF Ur Epithelial Cells Rare (Negative) HPF Urine Crystals Negative (Negative) HPF Urine Bacteria Negative (Negative) HPF Urine Casts Negative (Negative) LPF Urine Mucus Negative (Negative) Ur Culture Indicated? No Urine Glucose Negative (Negative) mg/dL Intake and Output - 24 Hour Total 01/31/24 09:18 thru 01/31/24 14:11 Intake Total 100 Output Total 600 Balance -500 Weight 54.431 kg Intake: IV 100 Output: Urine 600 Falls Risk Assessment History of Falls Admit Due to Fall 01/31/24 09:36 Contributing Factors Unstable 01/31/24 09:36 Ambulatory Aids Uses ambulatory device 01/31/24 09:36 Tubes/Lines W/no contributing factors 01/31/24 09:36 Gait Evaluation W/no contributing factors 01/31/24 09:36 Cognition No cognitive impairment 01/31/24 09:36 Fall Total Score 63 01/31/24 09:36 Level of Risk High Risk 01/31/24 09:36 v v v v v v v v v Sending and/or Receiving Nurses: Please use comment section below to note any information pertinent to the patient hand-off not included above. Information / Comments: Report received from: ANGELA Zhang
--- NOTE | 2024-01-31 15:11 | HPE_ITS ---
Date of service: 01/31/24 Time of Service: 15:11 Assessment and Plan Assessment and plan (1) Fall: Status: Acute Assessment and plan: Mechanical with minor head injury with questionable brief loss of consciousness, patient consistent with her story and timeline. Stating that she falls frequently she remembers falling hitting the floor and was unable to get up secondary to her hip pain. She states this occurred at 4 AM and she did make her way to the phone to call her daughter at 7 AM. She recalls the entire event. Referred to observation the medical surgical unit on telemetry awaiting echocardiogram Add orthostatic vital signs Fall precautions (2) Fracture of superior pubic ramus: Status: Acute Assessment and plan: Pain management Bowel management Physical therapy consultation (3) Fracture of inferior pubic ramus: Status: Acute Assessment and plan: See above (4) Bipolar 1 disorder: Status: Acute Assessment and plan: On lithium Check lithium level (5) Discharge planning issues: Status: Acute Assessment and plan: DVT prophylaxis enoxaparin daily CAT stockings Discharge planning issues case management will be following for discharge planning physical therapy consultation for discharge recommendations Discussed with Dr. Peraza History of Present Illness History of Present Illness Chief Complaint: syncope Narrative: This is a 73-year-old female patient past medical history significant for bipolar 1 disorder osteoporosis, rheumatoid arthritis, vitamin D deficiency, ambulatory dysfunction who presented to the emergency department after mechanical fall that occurred around 4 AM this morning when she got up to use the bathroom. She denies any syncopal episode. She states that she does have an unsteady gait and does have frequent falls. She does have bruises on her bilateral lower extremities of different stages of healing consistent with frequent falls. She states that she thinks she may have hit her head and may have passed out for a couple minutes but states that she does not feel she was on the ground for very long and that she was unable to get up so crawled over to the phone where she was able to finally get a hold of in called her daughter who came down at 7 AM to transport her to the emergency department. Her workup in the emergency department did show superior and inferior pubic rami fracture. She was admitted to the hospitalist services for further monitoring and management. Review of Systems All systems reviewed & are unremarkable except as noted in HPI and below PFSH All Active Problems (Updated 01/31/24 @ 15:15 by Dorothea Eugene NP) Discharge planning issues (Acute) Syncope (Chronic) Fracture of inferior pubic ramus (Acute) Fracture of superior pubic ramus (Acute) Acute pain of left hip (Acute) Contusion of forehead (Acute) Fall (Acute) Bipolar 1 disorder (Acute) Peripheral neuropathy (Acute) H/O malignant neoplasm of breast (Acute) Low serum iron (Acute) Pituitary adenoma (Acute) Visual field constriction (Acute) Optic nerve atrophy, bilateral (Acute) Chronic GERD (Chronic 10/25/17) Chronic left-sided low back pain with left-sided sciatica (Chronic 05/10/17) 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) Constipation (Chronic) Depressed bipolar I disorder (Chronic) *ON LITHIUM Falls frequently (Chronic 08/16/17) Headache (Chronic) chronic; improved since menopause Hiatal hernia (Chronic 03/14/14) moderate by CT 07/08 Osteoporosis (Chronic) T score -2.3, -3.0, -3.4 Rheumatoid arthritis (Chronic 08/22/12) MTX Vesicoureteral reflux, unspecified or without reflux nephropathy (Chronic) DX'd at age 9; 2006 mild renal atrophy requires yearly us Vitamin D deficiency (Chronic 03/03/09) Mixed stress and urge urinary incontinence (Acute) Ambulatory dysfunction (Acute) Sensorineural hearing loss of both ears (Acute) Weight loss (Acute) Nail dystrophy (Acute) Medical History (Updated 01/31/24 @ 15:15 by Dorothea Eugene NP) Hammertoe of left foot Left knee pain Osteochondral defect (03/01/16) Rectal fullness 09/01/15 Low back pain (11/14/14) Acquired hammer toe right 5th; hypertrophic right fifth metatarsal head w/ exostosis Left rib fracture Fracture of acromial end of right clavicle Closed fracture of radius and ulna Elevated C-reactive protein (05/27/16) Knee pain Uterine leiomyoma Exotropia, alternating Cortical cataract of right eye Follicular cyst of ovary Abdominal pain neg h. 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 Exostectomy for the right fifth metatarsal head H/O Spinal surgery 1950-spine meningocele repair; for spina bifida SPINE SURGERY (~1950) SPINE MENINGOCELE REPAIR, FOR SPINA BIFADA Fracture, Closed Treatment (11/23/12) LEFT DISTAL RADIUS AND ULNA EGD - MAC (11/21/17) Colostomy (~2001) fecal incontinence Arthroscopy arthroplasty through the PIPJ, right 5th toe. Exostectomy from the right fifth metatarsal head Family History Mother , AGE 47 Brain tumor Father , AGE 78 Arthritis Brother , age 73 Essential hypertension Heart disease Stroke Maternal Grandfather Essential hypertension Heart disease Paternal Grandfather No problems noted. Maternal Grandmother Diabetes Essential hypertension Heart disease Paternal Grandmother No problems noted. Brother , age 63 Cancer Daughter No problems noted. Daughter No problems noted. Brother No problems noted. Social History (Updated 08/17/23 @ 18:33 by Rohini Butler) Smoking/Tobacco Use Status: Never Second Hand Exposure: Yes Smoking risk assessment performed?: Yes Alcohol Intake: current Alcohol Intake frequency: a few times a month Alcohol type: beer Drug use: Never Substance use type: does not use and prescription drug Adopted: No Caregiver/Support person: No Household members: none Housing: apartment Number of Children: 2 number of grandchildren: 4 Communication Needs: Corrective Lenses Do you need help understanding health information?: Rarely current occupation: Retired Pets and animals: No Sexually active: No Do you think of yourself as: straight/heterosexual Current gender identity: female What is your relationship status?: How often do you talk on the phone with friends or family?: three or more times per week How often do you get together with friends or relatives?: twice per week How often do you attend tenriism or rastafarian services?: decline to answer Do you belong to any clubs or organized social groups?: decline to answer Panel score (0-1 are the most socially isolated patients): 1 What type of physical activity do you participate in: walking Duration: 60-90 minutes/day Frequency: 3-4 times per week Sherlyn/Catholic: Congregation Special sherlyn needs: No Seatbelt use: always Drive intox or ride w/intox dumpcart driver: No Firearms in home: No Do you feel safe at home: Yes Do you feel safe in your relationship?: Yes Victim of physical abuse: No Victim of emotional abuse: No Victim of sexual abuse: No Meds Allergies and Home Medications Allergies Allergy/AdvReac Type Severity Reaction Status Date / Time phenelzine sulfate (From AdvReac Intermediate Neuro Verified 01/31/24 09:31 Nardil) changes/loss of bladder control sucralfate (From Carafate) AdvReac Mild Diarrhea Verified 01/31/24 09:31 Home Medications ?Medication ?Instructions ?Recorded ?Confirmed ?Type calcium carbonate 600 mg-vitamin 1 cap PO DAILY 04/03/15 01/31/24 History D3 5 mcg (200 unit) tablet folic acid 1 mg tablet 1 mg PO DAILY #90 tab-caps 06/01/23 01/31/24 Rx methotrexate sodium 2.5 mg tablet 20 mg (8 x 2.5 mg) PO QWEEK #72 06/01/23 01/31/24 Rx tabs mirabegron 50 mg tablet,extended 50 mg PO DAILY #90 tab-caps 06/01/23 01/31/24 Rx release 24 hr (Myrbetriq) venlafaxine 150 mg 150 mg PO DAILY #90 tab-caps 06/01/23 01/31/24 Rx capsule,extended release 24 hr (Effexor XR) cranberry 400 mg capsule 800 mg PO DAILY 08/11/23 01/31/24 History ferrous sulfate 325 mg (65 mg 325 mg PO .q3 days 08/11/23 01/31/24 History iron) tablet omeprazole 40 mg capsule,delayed 40 mg PO DAILY #90 tab-caps 09/29/23 01/31/24 Rx release ergocalciferol (vitamin D2) 1,250 50,000 unit PO QWEEK #13 caps 10/10/23 01/31/24 Rx mcg (50,000 unit) capsule lithium carbonate 300 mg tablet See Rx Instructions PO BID #235 10/14/23 01/31/24 Rx tabs nitrofurantoin 100 mg PO BID #14 caps 01/04/24 01/31/24 Rx monohydrate/macrocrystals 100 mg capsule lorazepam 1 mg tablet 1 mg PO DAILY PRN clautrophobia #2 01/05/24 01/31/24 Rx tabs oxybutynin chloride 5 mg 5 mg PO DAILY #90 tabs 01/06/24 01/31/24 Rx tablet,extended release 24 hr Exam Narrative Exam Narrative: Thin female of stated age in no acute distress head is atraumatic eyes nonicteric noninjected EOMs intact oral mucosas moist neck supple full range of motion no C-spine tenderness on palpation cardiovascular regular rate and rhythm her respirations are even and unlabored her abdomen is benign reporting pain in her left lower extremity mid thigh to hip. Has been able to bear weight. No peripheral edema she has bruising to her bilateral lower extremities of various stages of healing. No pressure areas consistent with extended downtime. Neurologic she is awake alert oriented no focal deficits moving all extremities equally. Psychiatric normal mood and affect Results Labs 01/31/24 09:37 01/31/24 09:37 Labs: Laboratory Results - last 24 hr 01/31/24 01/31/24 09:37 11:43 WBC 14.55 H RBC 3.55 L Hgb 11.5 Hct 36.2 MCV 102 H MCH 32.4 MCHC 31.8 L RDW 15.2 H Plt Count 145 MPV 9.2 Immature Gran % 0.5 Neutrophils % 90.7 Lymphocytes % 1.7 Monocytes % 7.0 Eosinophils % 0.0 Basophils % 0.1 Nucleated RBC % 0.0 Absolute Neutrophils 13.20 H Absolute Lymphocytes 0.25 L Absolute Monocytes 1.02 H Absolute Eosinophils 0.00 Absolute Basophils 0.01 Sodium 139 Potassium 4.4 Chloride 106 Carbon Dioxide 25.6 Anion Gap 7.4 BUN 23 H Creatinine 1.2 H Est GFR (CKD-EPI 2020) 47.80 Glucose 149 H Calcium 9.5 Magnesium 2.0 Total Bilirubin 0.55 AST 26 ALT 27 Alkaline Phosphatase 68 Troponin I < 50 Total Protein 6.6 Albumin 3.5 Urine Color Yellow Urine Clarity Clear Urine pH 7.0 Ur Specific [place] 1.010 Urine Protein Negative Urine Ketones Negative Urine Blood Negative Urine Nitrite Negative Urine Bilirubin Negative Urine Urobilinogen 0.2 Ur Leukocyte Esterase Trace H Urine RBC 0-2 Urine WBC 3-5 Ur Epithelial Cells Rare Urine Crystals Negative Urine Bacteria Negative Urine Casts Negative Urine Mucus Negative Ur Culture Indicated? No Urine Glucose Negative Last Vital Signs Temp 37.1 C 01/31/24 14:29 Pulse 71 01/31/24 14:29 Resp 20 01/31/24 14:29 BP 125/73 01/31/24 14:29 Pulse Ox 99 01/31/24 14:29 Time Spent Time spent with Patient: 55-74 minutes Time was spent: preparing to see the patient(eg.review tests), obtaining and/or reviewing separately otained hiistory, ordering medications,tests, procedures, indepentently interpreting results and counseling the patient
--- NOTE | 2024-01-31 15:31 | IN_ITS ---
PT Notes Visit Reasons: Syncope, Hip Fracture Inpatient Physical Therapy Evaluation Certification Period:? From ?? Through I certify the need for these services as being medically necessary and skilled as furnished under this plan of treatment while under my care. Please sign and return within 14 days if you agree with the plan of care listed below.? Thank you for this referral! ? Referring Physician? Date Referring Doctor:? Dr Peraza PT Orders: PT CONSULT for evaluation for assistive device and safety consult for dc to home Precautions: fall risk, progressive ambulation, telemetry and colostomy Patient Profile/Admitting Diagnosis:? Ms Jain is a 73-year-old female with past medical history of breast cancer, bipolar disorder, osteoporosis presents for evaluation after a fall. She states that she falls a lot. States this morning she was ambulating back from the bathroom when she fell. She denies any symptoms prior to falling. States that when she fell she did hit her head and thinks that she might of passed out. She states that she had significant difficulty getting herself back up and she has not been able to walk since the fall. She reports pain in her left forehead where there is a bruising noted. She also reports pain in her left leg. Pelvic Xray Showed left superior and inferior rami fractures. Head Ct negative for acute findings. Pain currently managed with Tylenol. 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 She currently uses a single-point cane for ambulation. She reports she has frequent falls. She is independent with ADLs cooking and med management. Her daughter drives her weekly for groceries. Family is supportive and involved. DME: Rolling walker cane. Subjective:I got up at 4am to go to the bathroom and fell. I don't know how I fell but I hit my forehead and I could not get up so I waited until 7am to call my daughter then the ambulance came. I also fell a few days ago and got this ( pointing to her bruise on her left knee). Objective: Pt presents supine in bed agreeable to participate in skilled PT. Telemetry on bed alarm in place and functioning Mental Status: Patient is alert and oriented x 4. Pain: denies pain at rest with movement 7/10 in Left leg hip and lateral distal femur Vital Signs: 125/73 HR 71 ROM/Strength: Upper extremities: WFL except B hands impaired d/t Arthritis limted finger flexion, strength 4/5 Lower extremities:ROM: RLE WNL except ankle DF limited to neutral, Left hip flexion 95 degrees, abduction 12 degrees, knee 0- 125 degrees, ankle DF to neutral. Strength RLE grossly 4/5; Left hip flexion 2+/5, abduction 1+/5 extension 2-/5 ankle 3/5 Sensation: intact Soft tissue/edema:no edema 2 small eccymotic areas to Left greater trochanteric area, Left knee resolving eccyhmotic area to tibial tuberosity Bed Mobility: Supine to sit mod A, rolling mod A scooting mod A Tranfers: Sit to stand mod A; pivot transfer with RW mod A Gait: unable to ambulate d/t severity of pain Balance: seated good static; dynamic fair Stand static fair -; dynamic poor + [facility] clicks Basic Mobility Inpatient Short Form: Raw Score:?11? CMS Score: 72.57% Informed Consent/Education:? Patient instructed in purpose of PT consult and plan of care and is agreeable Assessment:? Patient is a?73 year old female adm on 01/31/24 for left pubic rami fracture and left frontal hematoma s/p fall at home. Patient presents with pain, decreased strength, decreased functional mobility, decreased balance and difficulty with ambulation. The patient would benefit from skilled inpatient services to improve these impairments to maximize function and safety. Patient is assessed as:? Low 83115?? complexity based on the following: History: Pt is a 73 yo female with spina bifida presenting s/p fall in her home with Left frontal hematoma and Left pubic rami fracture. Examination: see above Presentation: Stable and uncomplicated? Evolving clinical presentation? Decision Making:? Moderate (1-2 history, 2-3 exam, evolving) Physical Therapy Goals: 1 week Able to get in/out of bed with supervision only. Able to perform sit to/from stand with supervision only. Able to walk 50feet with rolling walker with supervision only. Independent with home exercise program Plan of Care/Treatment Plan: 1-2x/day, 7 days/week x 1 week. Plan of care has been reviewed with the MASTER [facility]CEAN providing the service under Physical Therapy direction. Initiate Physical Therapy intervention for strengthening, bed mobility, transfers, gait, stairs, balance training, use of assistive device. DISCHARGE RECOMMENDATIONS: SNF Billing Charges: Treatment Units Time Duration Manual Therapy(28052) Hands-on techniques to modulate pain increase joint range of motion reduce or eliminate soft tissue swelling, inflammation, or restriction facilitate relaxation and improve contractile and non-contractile tissue extensibility ? ? Therapeutic Procedures (59315) Instruction in therapeutic exercises to develop strength and endurance, range of motion and flexibility. HEP instruction and review: Provided skilled instruction in proper exercise performance: Provided skilled manual cues to facilitate proper muscle recruitment and/or movement pattern Neurological Re-Education(94108) To improve balance, coordination, kinesthetic and proprioceptive sensations. ? ? Ultrasound(50259) To promote healing. ? ? Gait Training(53336) ? ? Therapeutic Activity(27750) Instruction in dynamic activities with one on one patient contact by the provider to improve functional performance as follows: ?1 ?15mins Self Care Training(79693) ? ? E-Stim (Attended)(09429) ? ? Low IE(63200) Mod IE(00177) 1 ? 20minutes ? High IE(27389) ? ? Time Coded Treatment Time ?1 Total Treatment Time ? 35
[2024-01-31] MEDS: Enoxaparin 40 MG/0.4 ML SYR SC (16:57)
[2024-01-31] MEDS: Acetaminophen 325 MG TAB 650 MG PO ×2 (16:57→19:56)
[2024-01-31 17:35] LABS: Lithium 1.1 mmol/L (0.6-1.2)
[2024-01-31] MEDS: Lithium Carbonate 150 MG CAP 300 MG PO (19:56)
[2024-01-31] MEDS: Normal Saline Flush 10 ML SYR IVP (19:57)
[2024-02-01 06:55] LABS: Abs Immature Grans 0.04 10^3/uL (0.0-0.06); Absolute Basophil Count 0.02 10^3/uL (0.0-0.2); Absolute Eosinophil Count 0.21 10^3/uL (0.0-0.7); Absolute Lymphocyte Count 0.43 10^3/uL (1.2-3.4); Absolute Monocyte Count 0.68 10^3/uL (0.1-0.8); Basophils % 0.2 %; Eosinophils % 2.4 %; HCT 34.7 % (36.0-46.0); HGB 11.1 g/dL (11.2-15.7); Immature Grans % 0.5 %; Lymphocytes % 4.9 %; MCV 100 fL (80-95); MPV 9.5 fL (8.0-11.0); Monocytes % 7.7 %; Neutrophils % 84.3 %; Platelet Count 142 10^3/uL (130-400); RBC 3.47 10^6/uL (3.93-5.22); RDW 15.4 % (11.7-14.6); RDW-SD 56.8 fL; WBC 8.78 10^3/uL (4.4-10.8)
[2024-02-01 06:59] LABS: Lab Add On Test DONE
[2024-02-01 07:08] LABS: Anion Gap 7.6 mmol/L (3-11); BUN 29 mg/dL (7-18); CO2 25.4 mmol/L (21.0-32.0); CREATININE 1.3 mg/dL (0.55-1.02); Calcium 9.8 mg/dL (8.5-10.1); Chloride 109 mmol/L (98-107); Estimated GFR 43.42 (mL/min/1.73m2); Glucose 102 mg/dL (74-106); Potassium 4.3 mmol/L (3.5-5.1); Sodium 142 mmol/L (136-145)
[2024-02-01 07:52] VITALS: BP 120/61; PULSE 69; RESP 16; TEMP 37.6; O2SAT 94
--- NOTE | 2024-02-01 08:15 | DI.US_ITS ---
Exam(s) US RENAL EXAM: US RENAL CLINICAL HISTORY: monitoring for hydro. TECHNIQUE: Palumbo scale, color and spectral Doppler were used. COMPARISON: US US RENAL from 10/14/2023 FINDINGS: Renal size in cm: Right: 8.4. Left: 6.3. Echogenicity: Normal. Hydronephrosis: No. Cyst or mass: No. Nephrolithiasis: No. Other findings: There is left renal cortical atrophy. Bladder:Normal. Ureteral jets: Right: Not visualized on this examination. Left: Not visualized on this examination. Prevoid vol:1062 cc Postvoid vol:536 cc Renal color flow: Symmetric and within normal limits. IMPRESSION: 1. No evidence of hydronephrosis. 2. Large postvoid urinary bladder volume. DATA REPOSITORY:
[2024-02-01] MEDS: Normal Saline Flush 10 ML SYR IVP ×2 (08:41→19:53)
[2024-02-01] MEDS: Omeprazole 20 MG CAPCR 40 MG PO (08:42)
[2024-02-01] MEDS: Oxybutynin-CR 5 MG TABCR PO (08:42)
[2024-02-01] MEDS: Venlafaxine 150 MG CAPCR PO (08:42)
[2024-02-01] MEDS: Lithium Carbonate 150 MG CAP 450 MG PO (08:42)
[2024-02-01] MEDS: Mirabegron 50 MG TABCR PO (08:42)
[2024-02-01] MEDS: Acetaminophen 325 MG TAB 650 MG PO ×4 (08:42→19:52)
[2024-02-01] MEDS: Folic Acid 1 MG TAB PO (08:43)
--- NOTE | 2024-02-01 08:57 | INITIAL_ITS ---
Date of service: 02/01/24 Time of Service: 08:57 Care Management Initial Assmt Initial Assessment Reason for Hospitalization: Fracture of superior pubic ramus, Functional Status/Living Situation Patient Presentation: Pebbles was sitting in a recliner when CM met with her and is accompanied by her daughter Kiki. Pebbles has fallen several times at home and PT recommends SNF for STR. Pt will not have a qualifying stay, but is [facility]CO attributed and has access to a waiver. CM sent referrals to [facility]CO attributed SNF's with Pebbles and Kiki's consent. CM will follow. Town of Residence: [place] Resides with: Alone Significant Other/Family: Local (Daughter's Kiki and Rebekah) Employment Status: Retired Instrumental Activities of Daily Living (ADLs): Independent Medications Medication Management: No Issues/Barriers identified Physical Functioning/Mobility Assistive Device: Cane Advance Directives Advance Directives: Do you have an Advance Directive: N 12/28/23 11:04 AD On File at [facility]: N 12/28/23 11:04 Date Asked 01/31/24 01/31/24 09:32 AD Date Reviewed COLST On File at [facility] No 10/07/22 18:45 COLST Date Scanned Code Status Resuscitation Status Full Code Insurance Coverage/Financial Issues Insurance: Medicare Shots for life, [facility] Financial Issues: None identified Care Team Visit Care Team Role Provider Type Faith Adorno MD, [place] Primary Care Provider [facility] InPatient [facility]alls Other Providers OTHER Adolph Markham MD Emergency Provider [facility] STAFF PHYSICIAN Rico Peraza Admit Provider [facility] STAFF PHYSICIAN Attending Provider Discharge Potential Discharge Needs: PCP F/U Appt Anticipated Barriers to Discharge: None Identified Patient/Family Education Needs: Review discharge instructions, discuss Ask Me Three Transportation: RCT Plan: PT for STR is recommended by PT. No qualifying stay. SNF referrals are pending at ACO attributed facility's with a waiver. Transportation will be dependent on disposition. CM will follow. PFSH All Active Problems (Updated 01/31/24 @ 15:15 by Dorothea Eugene NP) Discharge planning issues (Acute) Syncope (Chronic) Fracture of inferior pubic ramus (Acute) Fracture of superior pubic ramus (Acute) Acute pain of left hip (Acute) Contusion of forehead (Acute) Fall (Acute) Bipolar 1 disorder (Acute) Peripheral neuropathy (Acute) H/O malignant neoplasm of breast (Acute) Low serum iron (Acute) Pituitary adenoma (Acute) Visual field constriction (Acute) Optic nerve atrophy, bilateral (Acute) Chronic GERD (Chronic 10/25/17) Chronic left-sided low back pain with left-sided sciatica (Chronic 05/10/17) 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) Constipation (Chronic) Depressed bipolar I disorder (Chronic) *ON LITHIUM Falls frequently (Chronic 08/16/17) Headache (Chronic) chronic; improved since menopause Hiatal hernia (Chronic 03/14/14) moderate by CT 07/08 Osteoporosis (Chronic) T score -2.3, -3.0, -3.4 Rheumatoid arthritis (Chronic 08/22/12) MTX Vesicoureteral reflux, unspecified or without reflux nephropathy (Chronic) DX'd at age 9; 2006 mild renal atrophy requires yearly us Vitamin D deficiency (Chronic 03/03/09) Mixed stress and urge urinary incontinence (Acute) Ambulatory dysfunction (Acute) Sensorineural hearing loss of both ears (Acute) Weight loss (Acute) Nail dystrophy (Acute) Medical History (Updated 01/31/24 @ 15:15 by Dorothea Eugene NP) Hammertoe of left foot Left knee pain Osteochondral defect (03/01/16) Rectal fullness 09/01/15 Low back pain (11/14/14) Acquired hammer toe right 5th; hypertrophic right fifth metatarsal head w/ exostosis Left rib fracture Fracture of acromial end of right clavicle Closed fracture of radius and ulna Elevated C-reactive protein (05/27/16) Knee pain Uterine leiomyoma Exotropia, alternating Cortical cataract of right eye Follicular cyst of ovary Abdominal pain neg h. 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 Exostectomy for the right fifth metatarsal head H/O Spinal surgery 1950-spine meningocele repair; for spina bifida SPINE SURGERY (~1950) SPINE MENINGOCELE REPAIR, FOR SPINA BIFADA Fracture, Closed Treatment (11/23/12) LEFT DISTAL RADIUS AND ULNA EGD - MAC (11/21/17) Colostomy (~2001) fecal incontinence Arthroscopy arthroplasty through the PIPJ, right 5th toe. Exostectomy from the right fifth metatarsal head Family History Mother , AGE 47 Brain tumor Father , AGE 78 Arthritis Brother , age 73 Essential hypertension Heart disease Stroke Maternal Grandfather Essential hypertension Heart disease Paternal Grandfather No problems noted. Maternal Grandmother Diabetes Essential hypertension Heart disease Paternal Grandmother No problems noted. Brother , age 63 Cancer Daughter No problems noted. Daughter No problems noted. Brother No problems noted. Social History (Updated 08/17/23 @ 18:33 by Rohini Butler) Smoking/Tobacco Use Status: Never Second Hand Exposure: Yes Smoking risk assessment performed?: Yes Alcohol Intake: current Alcohol Intake frequency: a few times a month Alcohol type: beer Drug use: Never Substance use type: does not use and prescription drug Adopted: No Caregiver/Support person: No Household members: none Housing: apartment Number of Children: 2 number of grandchildren: 4 Communication Needs: Corrective Lenses Do you need help understanding health information?: Rarely current occupation: Retired Pets and animals: No Sexually active: No Do you think of yourself as: straight/heterosexual Current gender identity: female What is your relationship status?: How often do you talk on the phone with friends or family?: three or more times per week How often do you get together with friends or relatives?: twice per week How often do you attend samaritan or advent services?: decline to answer Do you belong to any clubs or organized social groups?: decline to answer Panel score (0-1 are the most socially isolated patients): 1 What type of physical activity do you participate in: walking Duration: 60-90 minutes/day Frequency: 3-4 times per week Sherlyn/Sikh: Cheondoism Special sherlyn needs: No Seatbelt use: always Drive intox or ride w/intox wedding transportation driver: No Firearms in home: No Do you feel safe at home: Yes Do you feel safe in your relationship?: Yes Victim of physical abuse: No Victim of emotional abuse: No Victim of sexual abuse: No SDOH(Care Management) Screening Will the Patient Participate in the Screening?: Yes Do you worry about having a steady place to live?: no In the past 12 months, have you had to go without electric, gas, oil or water in your home?: no Have you or anyone in your house had to go without enough food to eat?: no Has lack of transportation kept you from medical appointments or from doing things needed for daily living?: no Has anyone in your support network made you feel unsafe for any reason?: no
--- NOTE | 2024-02-01 10:30 | W.PM.PROGNOT ---
Date of Service Date of service: 02/01/24 Time of Service: 10:31 Assessment and Plan Assessment and plan (1) Fall: Status: Acute Assessment and plan: Falls frequently echocardiogram pending VS stable Not orthostatic Fall precautions (2) Fracture of superior pubic ramus: Status: Acute Assessment and plan: Pain management Bowel management Physical therapy, recommends inpt stay for improving mobility (3) Fracture of inferior pubic ramus: Status: Acute Assessment and plan: See above (4) Bipolar 1 disorder: Status: Acute Assessment and plan: On lithium [place] level - (5) Discharge planning issues: Status: Acute Assessment and plan: DVT prophylaxis enoxaparin daily CAT stockings Discharge planning issues case management will be following for discharge planning physical therapy consultation for discharge recommendations Discussed with Dr. Peraza Subjective Subjective Patient reports: no new complaints, pain is less, tolerating a regular diet and afebrile; denies diarrhea or vomiting Exam Const General: cooperative and no acute distress Orientation: alert, awake and oriented x3 Resp Effort & Inspection: normal respiratory effort and able to speak in complete sentences Auscultation: clear to auscultation bilaterally Cardio Rate: regular rate Rhythm: regular rhythm Heart Sounds: S1 normal and S2 normal GI Palpation: tender suprapubicly General: CVA tenderness (mild) on the left Back/Spine/Pelvis Back: no CVA tenderness Neuro General: patient alert, patient awake and patient oriented x3 Extrem General: capillary refill normal Objective Last Vital Signs Temp 37.6 C H 02/01/24 07:52 Pulse 69 02/01/24 07:52 Resp 16 02/01/24 07:52 BP 120/61 02/01/24 07:52 Pulse Ox 94 02/01/24 07:52 Laboratory Results - last 24 hr 01/31/24 01/31/24 02/01/24 11:43 16:55 06:20 WBC 8.78 RBC 3.47 L Hgb 11.1 L Hct 34.7 L MCV 100 H MCH 32.0 MCHC 32.0 RDW 15.4 H Plt Count 142 MPV 9.5 Immature Gran % 0.5 Neutrophils % 84.3 Lymphocytes % 4.9 Monocytes % 7.7 Eosinophils % 2.4 Basophils % 0.2 Nucleated RBC % 0.0 Absolute Neutrophils 7.40 H Absolute Lymphocytes 0.43 L Absolute Monocytes 0.68 Absolute Eosinophils 0.21 Absolute Basophils 0.02 Sodium 142 Potassium 4.3 Chloride 109 H Carbon Dioxide 25.4 Anion Gap 7.6 BUN 29 H Creatinine 1.3 H Est GFR (CKD-EPI 2020) 43.42 Glucose 102 Calcium 9.8 Urine Color Yellow Urine Clarity Clear Urine pH 7.0 Ur Specific [place] 1.010 Urine Protein Negative Urine Ketones Negative Urine Blood Negative Urine Nitrite Negative Urine Bilirubin Negative Urine Urobilinogen 0.2 Ur Leukocyte Esterase Trace H Urine RBC 0-2 Urine WBC 3-5 Ur Epithelial Cells Rare Urine Crystals Negative Urine Bacteria Negative Urine Casts Negative Urine Mucus Negative Ur Culture Indicated? No Urine Glucose Negative [place] 1.1 Add-On Test Request DONE Time Spent with Patient Time Spent with Patient: 25-34 minutes Time was spent: preparing to see the patient(eg.review tests), ordering medications,tests, procedures, referring, communicating with other health career orientation teacher, indepentently interpreting results, counseling the patient and care coordination
--- NOTE | 2024-02-01 11:19 | PT.INTREAT ---
PT Notes Visit Reasons: Syncope, Hip Fracture Inpatient Physical Therapy Treatment Note [facility] Date: 02/01/2024 PRECAUTIONS:progress with ambulation SUBJECTIVE:I feel muchbetter today. I am not having as much pain as yesterday. I think I will be able to take some steps OBJECTIVE: Pt supine with HOB elevated, needs increased volume of voice d/t [place]. Motivated to participate? PAIN: 3/10 on Numeric pain scale VITALS: ?BP sittin/72 stand: 106/62 Therapeutic Activities (03743n1): Direct one-on-one instruction in dynamic activities to improve functional performance. ? BED MOBILITY/TRANSFERS? Rolling L/R:mod A Supine-sit: min A Scooting min A ? Sit-stand:mod A pushing up from surface, x 3 trials? Stand-sit: Min A to lower down reaching back ? x 3 trials? Bed-Chair: step turn with RW ? Provided skilled cues and instruction on performance and technique throughout. ? Therapeutic Exercises (15156v4): Direct one-on-one instruction in therapeutic exercises to develop strength, endurance, range of motion and flexibility. ? Exercises ? supine BLE x 10 reps QS,GS, Ankle pumps, SAQ, Heel slides, Hip IR/ER, Hip Abd/adduction ? Provided skilled instruction in proper exercise performance Provided skilled manual cues to facilitate proper muscle recruitment and/or form: glutes and quads ASSESSMENT:?Pebbles demonstrates ataxic movements of RLE this session during Therex in supine. Pt reports this is baseline although it was not as pronounced during assessment. She demonstrates need for increased assist with sit to stand pushing up with BUE then reaching for RW. SHe prefers to push up with BUE on RW to get her weight shifted anteriorly over the RW the utilizing triceps to assist with trunk upright position. Pt able to take 4 side steps to transition to chair maintaining stability of LLE during WB. PLAN: continue skilled PT for strengthening, functional mobility training including progression to ambulation and balance training TREATMENT CODE/TIME: 57264 x 2; 51008 x 2 54 mins DISCHARGE RECOMMENDATION: SNF
--- NOTE | 2024-02-01 12:15 | PHACLINREV_ITS ---
Pharmacy Admission Review Admission Clinical Review Admission Pharmacy Review: Discharge planning issues (Acute) Fracture of inferior pubic ramus (Acute) Fracture of superior pubic ramus (Acute) Acute pain of left hip (Acute) Contusion of forehead (Acute) Fall (Acute) Bipolar 1 disorder (Acute) phenelzine sulfate (From Nardil) Adverse Reaction (Intermediate, Verified 01/31/24 09:31) Neuro changes/loss of bladder control sucralfate (From Carafate) Adverse Reaction (Mild, Verified 01/31/24 09:31) Diarrhea Resuscitation Status Full Code Height 5 ft 2 in Weight 54.4 kg Pharmacy Admission Review Renal Dosing Renal Dosing: BUN 29 mg/dL (7-18) H 02/01/24 06:20 Creatinine 1.3 mg/dL (0.55-1.02) H 02/01/24 06:20 Medications needing adjustments: Reviewed (CrCl 32.3 mL/min , BUN increased from 23 and SCr increased from 1.2) List of meds needing interventions: Current medications are okay Anticoagulation Anticoagulation: Hgb 11.1 g/dL (11.2-15.7) L 02/01/24 06:20 Hct 34.7 % (36.0-46.0) L 02/01/24 06:20 Plt Count 142 10^3/uL (130-400) 02/01/24 06:20 Creatinine 1.3 mg/dL (0.55-1.02) H 02/01/24 06:20 DVT Prophylaxis: Reviewed (Hgb slightly decreased from 11.5) Medications: Enoxaparin (40mg daily) Relevant Labs Relevant Labs: Sodium 142 mmol/L (136-145) 02/01/24 06:20 Potassium 4.3 mmol/L (3.5-5.1) 02/01/24 06:20 Chloride 109 mmol/L (98-107) H 02/01/24 06:20 Magnesium 2.0 mg/dL (1.8-2.4) 01/31/24 09:37 Electrolytes, C-Reactive P, ESR: Reviewed (WBC decreased from 14.55 to 8.78) Cardiac Review Cardiac Review: Troponin I < 50 ng/L (< or =60) 01/31/24 09:37 BP, HR, EF%: Reviewed (HR and BP WNL, temp of 37.6 at 0752 today) QTc Review QTc: Reviewed (473 from 01/31/24) IV to PO Switch IV Medications: Reviewed Home Meds Home Med List reviewed: Intervened Relevent Home Meds Not ordered & why?: calcium carbonate, cranberry (order was put in then cancelled by provider), vitamin D2 and ferrous sulfate (order was pu t in then cancelled by provider) Reached out to provider regarding weekly Vitamin D2 Current Meds Current Medication Order Review: Intervened Comments: Added IV admission order set
[2024-02-01 15:38] VITALS: BP 112/68; PULSE 77; RESP 19; TEMP 37.4; O2SAT 100
--- NOTE | 2024-02-01 15:51 | PTTR_ITS ---
PT Notes Visit Reasons: Syncope, Hip Fracture Inpatient Physical Therapy Treatment Note [facility] Date: 02/01/2024 PRECAUTIONS:progress with ambulation SUBJECTIVE: I am feeling tired this afternoon. I have been sitting up for 4 hours. OBJECTIVE: Ptseated in chair with family present. ? PAIN: 3/10 on Numeric pain scale at rest; 4 at end of session VITALS: monitored b Nursing Therapeutic Activities (64868j6): Direct one-on-one instruction in dynamic activities to improve functional performance. ? BED MOBILITY/TRANSFERS? Rolling L/R:mod A sit to supine : Max A Scooting mod A ? Sit-stand:mod A pushing up from surface, x 2 trials? Stand-sit: Min A to lower down reaching back ? x 2 trials? chair to bed: step turn with RW mod A toward Left dependent for RW management? ambulation: 2 steps with RW mod A (+) antalgic LLE, increased forward flexed trunk, increased time to advance LEs Provided skilled cues and instruction on performance and technique throughout.? ASSESSMENT:?Pebbles presents with fatigue this session as compared to morning s ession. Despite this she was able to attempt 4 steps forward with RW requiring mod A . She demonstrates antalgic gait with increased time to motor plan advancement of LE. She also was dependent for RW management during steps and step turn transfer toward the left with the RW PLAN: continue skilled PT for strengthening, functional mobility training including progression to ambulation and balance training TREATMENT CODE/TIME: 44549 x 1 20 mins DISCHARGE RECOMMENDATION: SNF
[2024-02-01] MEDS: Enoxaparin 40 MG/0.4 ML SYR SC (16:14)
--- NOTE | 2024-02-01 16:28 | CHAPLAIN ---
Pebbles was resting in bed visiting with her sister in law and daughter when I stopped in. She said she is no longer connected to the [facility] because the judaism has changed, it's something different now. Pebbles shared some personal history telling me about moving around while her was in the service. She lived in [place] and [place] and then returned to [place]. She seems to be well supported by family. I will continue to visit.
--- NOTE | 2024-02-01 18:22 | NUR.NOTE ---
Nursing Note: Very small amt of solid stool in colostomy bag today. Pt states sometimes I go a lot, sometimes not at all.
[2024-02-01 19:46] VITALS: BP 93/58; PULSE 66; RESP 17; TEMP 36.6; O2SAT 97
[2024-02-01] MEDS: Lithium Carbonate 150 MG CAP 300 MG PO (19:52)
[2024-02-02 06:45] LABS: Abs Immature Grans 0.04 10^3/uL (0.0-0.06); Absolute Basophil Count 0.03 10^3/uL (0.0-0.2); Absolute Lymphocyte Count 0.45 10^3/uL (1.2-3.4); Absolute Monocyte Count 0.41 10^3/uL (0.1-0.8); Absolute Neutrophil Count 8.18 10^3/uL (1.2-6.7); Basophils % 0.3 %; Eosinophils % 3.2 %; HCT 36.5 % (36.0-46.0); HGB 11.5 g/dL (11.2-15.7); Immature Grans % 0.4 %; Lymphocytes % 4.8 %; MCH 32.3 pg (27.0-33.0); MCHC 31.5 % (32.0-36.0); MCV 103 fL (80-95); MPV 9.9 fL (8.0-11.0); Monocytes % 4.4 %; Neutrophils % 86.9 %; Platelet Count 129 10^3/uL (130-400); RBC 3.56 10^6/uL (3.93-5.22); RDW 14.9 % (11.7-14.6); RDW-SD 57.1 fL; WBC 9.41 10^3/uL (4.4-10.8)
[2024-02-02 07:20] LABS: Anion Gap 6.6 mmol/L (3-11); BUN 24 mg/dL (7-18); CO2 26.4 mmol/L (21.0-32.0); CREATININE 1.3 mg/dL (0.55-1.02); Calcium 9.8 mg/dL (8.5-10.1); Chloride 108 mmol/L (98-107); Estimated GFR 43.42 (mL/min/1.73m2); Glucose 109 mg/dL (74-106); Magnesium 2.1 mg/dL (1.8-2.4); Sodium 141 mmol/L (136-145)
[2024-02-02 07:57] VITALS: BP 121/63; PULSE 80; RESP 15; TEMP 37.3; O2SAT 97
[2024-02-02] MEDS: Mirabegron 50 MG TABCR PO (08:09)
[2024-02-02] MEDS: Acetaminophen 325 MG TAB 650 MG PO ×2 (08:09→12:00)
[2024-02-02] MEDS: Venlafaxine 150 MG CAPCR PO (08:10)
[2024-02-02] MEDS: Oxybutynin-CR 5 MG TABCR PO (08:10)
[2024-02-02] MEDS: Normal Saline Flush 10 ML SYR IVP (08:10)
[2024-02-02] MEDS: Omeprazole 20 MG CAPCR 40 MG PO (08:10)
[2024-02-02] MEDS: Folic Acid 1 MG TAB PO (08:10)
[2024-02-02] MEDS: Lithium Carbonate 150 MG CAP 450 MG PO (08:11)
--- NOTE | 2024-02-02 09:42 | W.PM.PROGNOT ---
Date of Service Date of service: 02/02/24 Time of Service: 09:42 Assessment and Plan Assessment and plan (1) Fall: Status: Acute Assessment and plan: Falls frequently echocardiogram pending VS stable Not orthostatic Fall precautions (2) Fracture of superior pubic ramus: Status: Acute Assessment and plan: Pain management Bowel management Physical therapy, recommends inpt stay for improving mobility (3) Fracture of inferior pubic ramus: Status: Acute Assessment and plan: See above (4) Bipolar 1 disorder: Status: Acute Assessment and plan: On lithium [place] level - (5) Discharge planning issues: Status: Acute Assessment and plan: DVT prophylaxis enoxaparin daily CAT stockings Discharge planning issues case management will be following for discharge planning physical therapy consultation for discharge recommendations SNF recommendation for discharge as per PT Discussed with Dr. Peraza Objective Last Vital Signs Temp 37.3 C 02/02/24 07:57 Pulse 80 02/02/24 07:57 Resp 15 02/02/24 07:57 BP 121/63 02/02/24 07:57 Pulse Ox 97 02/02/24 07:57 Laboratory Results - last 24 hr 02/02/24 06:15 WBC 9.41 RBC 3.56 L Hgb 11.5 Hct 36.5 MCV 103 H MCH 32.3 MCHC 31.5 L RDW 14.9 H Plt Count 129 L MPV 9.9 Immature Gran % 0.4 Neutrophils % 86.9 Lymphocytes % 4.8 Monocytes % 4.4 Eosinophils % 3.2 Basophils % 0.3 Nucleated RBC % 0.0 Absolute Neutrophils 8.18 H Absolute Lymphocytes 0.45 L Absolute Monocytes 0.41 Absolute Eosinophils 0.30 Absolute Basophils 0.03 Sodium 141 Potassium 4.0 Chloride 108 H Carbon Dioxide 26.4 Anion Gap 6.6 BUN 24 H Creatinine 1.3 H Est GFR (CKD-EPI 2020) 43.42 Glucose 109 H Calcium 9.8 Magnesium 2.1
--- NOTE | 2024-02-02 10:21 | PTTR_ITS ---
PT Notes Visit Reasons: Syncope, Hip Fracture Inpatient Physical Therapy Treatment Note [facility] Date: 02/02/2024 PRECAUTIONS:progress with ambulation, bilateral hearing aids (right hearing aid missing as of 02/02/2024 am) SUBJECTIVE: I am sore today and I did not sleep too much. Pt reports she lost her right hearing aide. Nursing is a brooks and have been looking for it. OBJECTIVE: Pt supine with HOB elevated ? PAIN: 4/10 on Numeric pain scale at rest; 4 at end of session VITALS: monitored by Nursing Therapeutic Activities (74766y4): Direct one-on-one instruction in dynamic activities to improve functional performance. ? BED MOBILITY/TRANSFERS? Rolling L/R:mod A supine to sit : Mod Assist with head of bed elevated Scooting at edge of bed mod A with increased time ? Sit-stand:mod A pushing up from surface, x 4 trials? Stand-sit: Min A to lower down reaching back ? x 4 trials? chair to bed: step turn with RW mod A toward right dependent for RW management. ? Ambulation: 2 steps forward antalgic pattern left with reduced ability to tolerate weightbearing on left lower extremity Provided skilled cues and instruction on performance and technique thr oughout.? Therapeutic Exercises (94523o4): Direct one-on-one instruction in therapeutic exercises to develop strength, endurance, range of motion and flexibility. ? Exercises ?Supine bilateral lower extremity x 10 reps Quad sets, glutes sets, heel slides AAROM on left, hip adduction and abduction AROM RLE, AAROM LLE, short arc quad ? Provided skilled instruction in proper exercise performance Provided skilled manual cues to facilitate proper muscle recruitment and/or form: [] ? ASSESSMENT:?Pebbles demonstrates increased difficulty with weightbearing on left lower extremity. Patient with reduced ability to advance left lower extremity as well due to pain. Patient with increased forward flexed at hips requiring assistance to sustain upright trunk. PLAN: continue skilled PT for strengthening, functional mobility training including progression to ambulation and balance training TREATMENT CODE/TIME: 60610 x 2 , 02029 x 1 39 mins DISCHARGE RECOMMENDATION: SNF
--- NOTE | 2024-02-02 10:44 | NUR.NOTE ---
Nursing Note: Pt has had a colostomy that she cares for herself since 2000. Her stool in the bag is normally formed. She uses [employer] products: wafer is [place] [id number], 44 mm/29 mm; 1 [place] [address] 57 mm. Family has been bringing in her supplies for her to manage herself.
--- NOTE | 2024-02-02 12:02 | W.PM.DS.N ---
Date of service: 02/02/24 Time of Service: 12:03 DS: Diagnosis Discharge Diagnosis (1) Fall: Status: Acute (2) Fracture of superior pubic ramus: Status: Acute (3) Fracture of inferior pubic ramus: Status: Acute (4) Bipolar 1 disorder: Status: Acute (5) Discharge planning issues: Status: Acute Discharge Plan Disposition Patient Disposition: Care Home Facility(SNF) Condition: Stable Condition: Improving Discharge Details Reason For Visit: Syncope, Hip Fracture Admit Date/Time: 01/31/24 12:48 Admit Provider: Rico Peraza Attending Provider: Rico Peraza Primary Care Provider: Faith Adorno Hospital Course Hospital Course: This 73-year-old female patient with prior medical history of bipolar disorder on lithium,rheumatoid arthritis, ambulatory dysfunction, peripheral neuropathy, malignant neoplasm of the breast, GERD left-sided sciatica with left-sided low back pain, congenital spinal meningocele, frequent fall presented to the ED at [facility] on 01/31/2024 for evaluation s/p syncope and fall. The patient reported no symptoms prior to fall when she got up at 4AM to use the bathroom; also reported hitting her head and possibly passing out. The patient had a bruise to her left forehead.She was unable to get up until 7 AM when she called her daughter. CT imaging of the head did not reveal any acute intracranial traumatic injury. EKG showed the patient in a normal sinus rhythm without acute sign of ischemia; troponin was negative . X-ray showed fractures involving the left superior and inferior pubic rami. Other remarkable findings included most likely reactive leukocytosis at 14.55 and creatinine of 1.2 around baseline. Other laboratory values pertaining to anemia, electrolyte imbalances and urinary tract infection did not result in any positive findings. Hospitalist was consulted and the patient admitted to the medical surgical floor for evaluation and management of left superior and inferior pubic rami. During the stay, an echocardiogram was completed revealing an LVEF of 55% without segmental wall motion abnormalities. Pain management with scheduled acetaminophen was effective. The patient's other chronic conditions were managed as per home medicine regimen.Physical therapy recommendation was for assisted facility. The patient will be discharged to [facility] today. Discussed with Dr. Duke Home Meds and New Rx's Prescriptions: New docusate sodium [Colace] 100 mg Capsule 100 mg PO TID PRN PRNQty: 120 0RF acetaminophen 325 mg Tablet 650 mg PO QID Qty: 40 0RF Continued ferrous sulfate 325 mg (65 mg iron) tablet 325 mg PO .q3 days cranberry 400 mg capsule 800 mg PO DAILY Rx Instructions: administer with a meal calcium carbonate-vitamin D3 1 EACH tablet 1 cap PO DAILY Patient Comments: 07-02-17 pt reports that she takes this med daily. hb 05/10/17- Taking 3x/week. aj pt unsure when she took this last 10/24/15 08/05/17 taking MV with calcium. si Rx Instructions: 1200mg/1000iu each methotrexate sodium 2.5 mg tablet 20 mg PO QWEEK Qty: 72 12RF Rx Instructions: takes on mondays venlafaxine [Effexor XR] 150 mg capsule,extended release 24hr 150 mg PO DAILY Qty: 90 3RF mirabegron [Myrbetriq] 50 mg tablet extended release 24 hr 50 mg PO DAILY Qty: 90 4RF folic acid 1 mg tablet 1 mg PO DAILY Qty: 90 12RF Rx Instructions: coreection: only 1 cap daily omeprazole 40 mg capsule,delayed release(DR/EC) 40 mg PO DAILY Qty: 90 4RF ergocalciferol (vitamin D2) 1,250 mcg (50,000 unit) capsule 50,000 unit PO QWEEK Qty: 13 4RF lithium carbonate 300 mg tablet See Rx Instructions PO BID Qty: 235 4RF Rx Instructions: 1.5 tab in am and 1 tab in evening orally twice a day; nitrofurantoin monohyd/m-cryst 100 mg capsule 100 mg PO BID Qty: 14 0RF Rx Instructions: must administer with a meal/food lorazepam 1 mg tablet 1 mg PO DAILY PRN (Reason: clautrophobia) Qty: 2 0RF Rx Instructions: take 1 1 hr before MRI, may repeat oxybutynin chloride 5 mg tablet extended release 24hr 5 mg PO DAILY Qty: 90 3RF Discharge Instructions Activity:: Activity as Tolerated Equipment/Supplies:: Walker Diet:: As Tolerated Discharge Orders Discharge Orders: Discharge Order (Routine); Ordered 02/02/24 Ordered By: Nhung Burns DS: Summary Time Spent with Patient providing and/or coordinating discharge services: Greater than 30 minutes Status at Discharge Functional status at discharge: uses cane/walker Overall status at discharge: patient is progressing back to baseline Mental Status: mental status grossly normal Speech and Movement: speech and movement normal Mood: congruent mood Affect: normal affect Quality:SDOH Health Related Social Needs: Health related social needs transpo insecurity Health related social needs details Declines help- daughter helps her with transportation Exam Narrative Exam Narrative: Constitutional The patient is sitting in chair comfortable without acute distress Neuro:alert and oriented X3 Resp:Clear lung bilaterally Cardio: regular rhythm, S1, S2, positive pedal and radial pulses GI: Abdomen is not distended, soft and non tender, bowel sounds are present, colostomy in place and patent, stoma is red and protruding : Negative Costovertebral angle tenderness Integumentary: No skin lesions or cherie exposed skin Extremities:push/ pull equal to bilateral LE - 4/5 d/t pain on mobilization strength 5/5 to bilateral extremities Psych: RASS 0, congruent mood and normal affect. Psych Mental Status: mental status grossly normal Speech and Movement: speech and movement normal Mood: congruent mood Affect: normal affect DS: Data Vitals/I&O Vitals and I&O: Vital Signs Temperature 37.3 C 02/02/24 07:57 Temperature Source Skin 02/02/24 07:57 Pulse 80 02/02/24 07:57 Pulse Rhythm Regular 02/02/24 01:29 Pulse 83 01/31/24 13:31 Respiratory Rate 15 02/02/24 07:57 Respiratory Effort Normal, Non-Labored 02/02/24 01:29 Respiratory Depth Normal 02/02/24 01:29 Respiratory Pattern Normal 02/02/24 01:29 Blood Pressure 121/63 02/02/24 07:57 Blood Pressure Mean 74 01/31/24 13:31 Blood Pressure Position Sitting 01/31/24 09:27 Pulse Oximetry 97 02/02/24 07:57 Oxygen Delivery Method Room Air 02/02/24 07:57 Oxygen Flow Rate 0 02/02/24 07:57 Pain Level 3 02/02/24 12:00 Intake & Output 02/01/24 02/02/24 02/02/24 23:59 11:59 23:59 Intake Total 100 / 100 Output Total 600 / 1000 500 / 500 Balance -600 / -600 -400 / -400 Intake: IV 100 / 100 Output: Urine 600 / 1000 500 / 500 Other: Urine Color Yellow Pale Yellow Urine Appearance Clear Clear Data Completed and Pending Labs on day of discharge: Labs from last 24 hours 02/02/24 06:15 WBC 9.41 RBC 3.56 L Hgb 11.5 Hct 36.5 MCV 103 H MCH 32.3 MCHC 31.5 L RDW 14.9 H Plt Count 129 L MPV 9.9 Immature Gran % 0.4 Neutrophils % 86.9 Lymphocytes % 4.8 Monocytes % 4.4 Eosinophils % 3.2 Basophils % 0.3 Nucleated RBC % 0.0 Absolute Neutrophils 8.18 H Absolute Lymphocytes 0.45 L Absolute Monocytes 0.41 Absolute Eosinophils 0.30 Absolute Basophils 0.03 Sodium 141 Potassium 4.0 Chloride 108 H Carbon Dioxide 26.4 Anion Gap 6.6 BUN 24 H Creatinine 1.3 H Est GFR (CKD-EPI 2020) 43.42 Glucose 109 H Calcium 9.8 Magnesium 2.1 PFSH All Active Problems (Updated 01/31/24 @ 15:15 by Dorothea Eugene NP) Discharge planning issues (Acute) Syncope (Chronic) Fracture of inferior pubic ramus (Acute) Fracture of superior pubic ramus (Acute) Acute pain of left hip (Acute) Contusion of forehead (Acute) Fall (Acute) Bipolar 1 disorder (Acute) Peripheral neuropathy (Acute) H/O malignant neoplasm of breast (Acute) Low serum iron (Acute) Pituitary adenoma (Acute) Visual field constriction (Acute) Optic nerve atrophy, bilateral (Acute) Chronic GERD (Chronic 10/25/17) Chronic left-sided low back pain with left-sided sciatica (Chronic 05/10/17) 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) Constipation (Chronic) Depressed bipolar I disorder (Chronic) *ON LITHIUM Falls frequently (Chronic 08/16/17) Headache (Chronic) chronic; improved since menopause Hiatal hernia (Chronic 03/14/14) moderate by CT 07/08 Osteoporosis (Chronic) T score -2.3, -3.0, -3.4 Rheumatoid arthritis (Chronic 08/22/12) MTX Vesicoureteral reflux, unspecified or without reflux nephropathy (Chronic) DX'd at age 9; 2006 mild renal atrophy requires yearly us Vitamin D deficiency (Chronic 03/03/09) Mixed stress and urge urinary incontinence (Acute) Ambulatory dysfunction (Acute) Sensorineural hearing loss of both ears (Acute) Weight loss (Acute) Nail dystrophy (Acute) Medical History (Updated 01/31/24 @ 15:15 by Dorothea Eugene NP) Hammertoe of left foot Left knee pain Osteochondral defect (03/01/16) Rectal fullness 09/01/15 Low back pain (11/14/14) Acquired hammer toe right 5th; hypertrophic right fifth metatarsal head w/ exostosis Left rib fracture Fracture of acromial end of right clavicle Closed fracture of radius and ulna Elevated C-reactive protein (05/27/16) Knee pain Uterine leiomyoma Exotropia, alternating Cortical cataract of right eye Follicular cyst of ovary Abdominal pain neg h. pylori; neg amylase; U/S showing dilated gall bladder Spina bifida (05/08/15) Osteochondral defect (03/01/16) Malignant neoplasm of female breast 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 Exostectomy for the right fifth metatarsal head H/O Spinal surgery 1950-spine meningocele repair; for spina bifida SPINE SURGERY (~1950) SPINE MENINGOCELE REPAIR, FOR SPINA BIFADA Fracture, Closed Treatment (11/23/12) LEFT DISTAL RADIUS AND ULNA EGD - MAC (11/21/17) Colostomy (~2001) fecal incontinence Arthroscopy arthroplasty through the PIPJ, right 5th toe. Exostectomy from the right fifth metatarsal head Family History Mother , AGE 47 Brain tumor Father , AGE 78 Arthritis Brother , age 73 Essential hypertension Heart disease Stroke Maternal Grandfather Essential hypertension Heart disease Paternal Grandfather No problems noted. Maternal Grandmother Diabetes Essential hypertension Heart disease Paternal Grandmother No problems noted. Brother , age 63 Cancer Daughter No problems noted. Daughter No problems noted. Brother No problems noted. Social History (Updated 08/17/23 @ 18:33 by Rohini Butler) Smoking/Tobacco Use Status: Never Second Hand Exposure: Yes Smoking risk assessment performed?: Yes Alcohol Intake: current Alcohol Intake frequency: a few times a month Alcohol type: beer Drug use: Never Substance use type: does not use and prescription drug Adopted: No Caregiver/Support person: No Household members: none Housing: apartment Number of Children: 2 number of grandchildren: 4 Communication Needs: Corrective Lenses Do you need help understanding health information?: Rarely current occupation: Retired Pets and animals: No Sexually active: No Do you think of yourself as: straight/heterosexual Current gender identity: female What is your relationship status?: How often do you talk on the phone with friends or family?: three or more times per week How often do you get together with friends or relatives?: twice per week How often do you attend orthodoxy or buddhism services?: decline to answer Do you belong to any clubs or organized social groups?: decline to answer Panel score (0-1 are the most socially isolated patients): 1 What type of physical activity do you participate in: walking Duration: 60-90 minutes/day Frequency: 3-4 times per week Sherlyn/Hindu: Jain Special sherlyn needs: No Seatbelt use: always Drive intox or ride w/intox 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
--- NOTE | 2024-02-02 12:20 | CMDISCH_ITS ---
Date of service: 02/02/24 Time of Service: 12:20 LACE Index Scoring Tool Questions: Length of Stay (in days): 2 Was the patient admitted via the E.D.?: Yes Comorbidities: Metastatic Solid Tumor (HX of Breast NA) E.D. Visits: 1 Answers: Total Score: 11 Risk of Readmission: High Risk Care Management Discharge Plan Reason for Hospitalization: Syncope, Hip Fracture Discharge Plan: Discharge to [facility] for STR with transportation by [facility] W/C van coordinated by CM. Follow up with facility and community providers and her discharge plan of care as instructed. Patient/Family Education Needs: Review transition of care instructions, recommendations and medications and plan to follow up with community providers. Discuss ask me three. Services Needed at Discharge: Alf Facility ([facility] for STR, ACO patient) and Transportation (w/c van) SDOH Health Related Social Needs: Health related social needs transpo insecurity Health related social needs details Declines help- rosendo eugene helps her with transportation
--- NOTE | 2024-02-04 09:36 | NUR.NOTE ---
Access chart to assist nursing suprevisor Tracy to find advanced directives for this patient to fax to [place]. Healthcare POA printed and faxed to [facility]. Nursing Note:
== END 2024-02-02 14:00 | disposition skilled nursing facility (03) ==
LOC: ER 09:32 → MS 14:57
PROVIDERS: Nurse Practitioner Acute Care; Nurse Practitioner Family; Admitting Provider Family Medicine; Emergency Provider Emergency Medicine; PCP Family Medicine; Visit Provider Family Medicine
DX: S32.512A Fracture of superior rim of left pubis, initial encounter for closed fracture (principal); S32.592A Other specified fracture of left pubis, initial encounter for closed fracture; S00.83XA Contusion of other part of head, initial encounter; F31.9 Bipolar disorder, unspecified; N39.46 Mixed incontinence; N13.70 Vesicoureteral-reflux, unspecified; W19.XXXA Unspecified fall, initial encounter; R29.6 Repeated falls; Z79.899 Other long term (current) drug therapy; M81.0 Age-related osteoporosis without current pathological fracture; M06.80 Other specified rheumatoid arthritis, unspecified site; G62.9 Polyneuropathy, unspecified; Z85.3 Personal history of malignant neoplasm of breast; K21.9 Gastro-esophageal reflux disease without esophagitis; E61.1 Iron deficiency; M54.42 Lumbago with sciatica, left side; R51.9 Headache, unspecified; K44.9 Diaphragmatic hernia without obstruction or gangrene; E55.9 Vitamin D deficiency, unspecified; H90.3 Sensorineural hearing loss, bilateral; R55 Syncope and collapse
CPT/HCPCS: 00123; 36415; 73552; 76770; 80048; 80053; 93005; 96372; 96374; 97110; 97162; 97530; 99285; J1650; 70450; 72170; 80178; 81003; 81015; 83735; 84484; 85025; 93010; 93306; 99222; 99231; 99239; G0378; J0131